=== PATIENT | male | born 1975 | race Asian ===

== ENCOUNTER → 2020-09-13 09:42 | Outpatient (BNVA) | payer OTHER, SELFPAY | PROVIDERS: PCP Internal Medicine; Visit Provider Internal Medicine Endocrinology, Diabetes & Metabolism | DX: E11.65 Type 2 diabetes mellitus with hyperglycemia (principal); E11.21 Type 2 diabetes mellitus with diabetic nephropathy; E11.22 Type 2 diabetes mellitus with diabetic chronic kidney disease; I12.9 Hypertensive chronic kidney disease with stage 1 through stage 4 chronic kidney disease, or unspecified chronic kidney disease; N18.6 End stage renal disease; E66.01 Morbid (severe) obesity due to excess calories; Z68.42 Body mass index [BMI] 45.0-49.9, adult; Z79.4 Long term (current) use of insulin; E78.5 Hyperlipidemia, unspecified; E55.9 Vitamin D deficiency, unspecified | CPT/HCPCS: Q3014 ==

== ENCOUNTER 2021-01-03 08:19 | Outpatient (REF) | payer OTHER, SELFPAY | END 2021-01-03 08:20 | disposition home or self-care (01) | LOC: HO.HOSX 08:19 | PROVIDERS: Visit Provider Physician Assistant | DX: Z13.89 Encounter for screening for other disorder (principal) ==

== ENCOUNTER → 2021-01-24 11:09 | Outpatient (BNVA) | payer OTHER, SELFPAY | PROVIDERS: PCP Internal Medicine; Visit Provider Internal Medicine Endocrinology, Diabetes & Metabolism | DX: E11.65 Type 2 diabetes mellitus with hyperglycemia (principal); E11.21 Type 2 diabetes mellitus with diabetic nephropathy; E11.22 Type 2 diabetes mellitus with diabetic chronic kidney disease; I12.9 Hypertensive chronic kidney disease with stage 1 through stage 4 chronic kidney disease, or unspecified chronic kidney disease; N18.6 End stage renal disease; E66.01 Morbid (severe) obesity due to excess calories; E78.5 Hyperlipidemia, unspecified; E55.9 Vitamin D deficiency, unspecified; Z68.42 Body mass index [BMI] 45.0-49.9, adult; Z79.4 Long term (current) use of insulin | CPT/HCPCS: 82947; 99212 ==

== ENCOUNTER 2021-01-26 11:47 | Outpatient (REF) | payer OTHER, SELFPAY ==
--- NOTE | ~2021-01-26 | XR_ITS ---
EXAMINATION: XR SHOULDER, LEFT CLINICAL INFORMATION: Pain. COMPARISON: None TECHNIQUE: AP external rotation, Grashey, scapular Y, and axillary views of the left shoulder. FINDINGS: Bony alignment and mineralization are normal. The glenohumeral joint is intact. The acromioclavicular and coracoclavicular intervals are normal. There is a distal acromial undersurface osteophyte. No unusual soft tissue calcifications are seen. There is no soft tissue gas or foreign body. No left pneumothorax is seen. XR/XR shoulder LT min 2V IMPRESSION: 1. No fracture or dislocation is seen. 2. There is a distal acromial undersurface osteophyte, which can be seen in association with rotator cuff impingement.
[2021-01-26 14:01] LABS: D Dimer 282 NG/ML
[2021-01-26 14:16] LABS: Cholesterol 110 mg/dL; HDL Cholesterol 35 mg/dL; LDL Cholesterol Calculated 46 mg/dl; Triglycerides 147 mg/dL
[2021-01-26 14:23] LABS: B Type Natriuretic Peptide 38 pg/mL (<100)
[2021-01-26 14:38] LABS: Free T4 (Free Thyroxine) 0.93 ng/dL (0.71-1.85); Thyroid Stimulating Hormone 1.71 uIU/mL (0.32-4.0); Vitamin D 25-OH Total 35.5 ng/mL (>30)
[2021-01-26 14:49] LABS: Erythrocyte Sedimentation Rate 104 MM/HR (0-15)
[2021-01-27 04:16] LABS: LDL Cholesterol Direct 51 mg/dL (<100)
== END 2021-01-26 11:48 | disposition home or self-care (01) ==
LOC: HO.LAB 11:47
PROVIDERS: Absent Provider Internal Medicine Endocrinology, Diabetes & Metabolism; PCP Internal Medicine; Referring Provider Internal Medicine; Visit Provider Nurse Practitioner Family
DX: R07.89 Other chest pain (principal); R06.02 Shortness of breath; I11.0 Hypertensive heart disease with heart failure; N18.6 End stage renal disease; M25.512 Pain in left shoulder; E11.65 Type 2 diabetes mellitus with hyperglycemia; E11.22 Type 2 diabetes mellitus with diabetic chronic kidney disease; E78.5 Hyperlipidemia, unspecified; E66.01 Morbid (severe) obesity due to excess calories; Z68.42 Body mass index [BMI] 45.0-49.9, adult; Z99.2 Dependence on renal dialysis; Z71.3 Dietary counseling and surveillance
CPT/HCPCS: 36415; 73030; 80061; 82306; 83721; 83880; 84439; 84443; 85379; 85652; 93005; 99212

== ENCOUNTER → 2021-02-07 12:25 | Outpatient (BNVA) | payer OTHER, SELFPAY | PROVIDERS: PCP Internal Medicine; Visit Provider Internal Medicine Endocrinology, Diabetes & Metabolism | CPT/HCPCS: Q3014 ==

== ENCOUNTER → 2021-02-22 11:12 | Outpatient (REF) | payer OTHER, SELFPAY ==
--- NOTE | 2021-02-22 11:16 | CA_ITS ---
Transthoracic Echocardiogram Patient (Last, First, Middle): Wai Jones, Gender: Male Date of : 1975 Age: 45 Procedure Date: 02/22/2021 Procedure Type: Transthoracic Echocardiogram Location: OP Height: 182.88 cm Weight: 176.9 kg BSA: 2.83 m2 Heart Rate: bpm BP: 140 / 90 mmHg Greenkeeper: KIERRA Referring MD: Marcy Mora WATCH CRYSTAL MOLDER-[address] Justice: Nikko Deluca MD Symptoms: R07.89 - Other chest pain Study Quality: Technically Difficult ECG Rhythm: Sinus Conclusions: - 1. Technically difficult study to interpret due to limited endocardial definition and evaluation valve 2. Normal LV systolic function with normal diastolic function next 2. Cardiac valves are not well visualized but Doppler within normal limits 3. Pericardium not well visualized Findings Procedure Information Contrast agent, definity, is being given per protocol without apparent complications. The patient receives contrast. Left Ventricle Normal left ventricular size, thickness, and systolic function. The visually estimated ejection fraction is between 55-60%. There is no evidence of regional wall motion abnormalities. Spectral Doppler is indicative of a normal filling pattern. Right Ventricle The right ventricle was not well visualized. Atria The left atrium is normal in size. Interatrial shunt cannot be excluded. The right atrium was not well visualized. Aortic Valve The aortic valve was not well visualized. There is no aortic valve stenosis. There is no aortic valve regurgitation. Mitral Valve The mitral valve was not well visualized. There is trace mitral valve regurgitation. There is no mitral valve stenosis. Pulmonic Valve The pulmonic valve was not well visualized. Tricuspid Valve The tricuspid valve was not well visualized. Tricuspid regurgitation envelope is inadequate for calculation of right ventricular systolic pressure. Great Vessels The aorta was not well visualized. The pulmonary artery was not well visualized. Venous The inferior vena cava was not well visualized. Pericardium/Pleural The pericardium was not well visualized. Prior Study Comparison No significant change compared to prior study dated: 05/17/2019. Measurements M-Mode Liner Measurements Normals - Women/Men AOV Cusps: 2.70 1.5-2.6 cm/m2 2D Linear Measurements IVSd: 0.92 0.6-0.9/0.6-1.0 cm LVIDd: 4.60 3.9-5.3/4.2-5.9 cm LVIDd Index: 1.63 2.4-3.2/2.2-3.1 cm/m2 LVIDs: 3.31 2.0-3.6 cm LVPWd: 1.26 0.7-1.1 cm Ao Root: 3.00 2.1-3.5 cm LA Diam: 2.80 2.7-3.8/3.0-4.0 cm LAIDs Index: 0.99 1.5-2.3 cm/m2 LV Mass: 222.33 67-162/88-224 g LV Mass Index: 78.56 43-95/49-115 g/m2 LVOT Diam: 2.50 3.0+(-)1.3 cm 2D Systolic Function EF 4C: 49.90 >55% EF 2C: 61.30 >55% Mitral Valve MV Pk E: 0.91 MV PK A: 0.47 MV Decel Time: 299.00 E/A: 1.90 E'Lateral: 11.00 E'Medial: 6.09 E/E' Med: 15.00 E/E' Lat: 8.30 PHT: 88.00 MVA PHT: 2.50 Decel Yates: 3.05 Aortic Valve AoV Pk Jarett: 1.33 AoV Mn Jarett: 0.94 AoV VTI: 0.28 AoV Pk Grad: 7.00 Aov Mn Grad: 4.00 JERSON Cont.VTI: 3.36 LVOT LVOT Pk Jarett: 1.00 LVOT Mn Jarett: 0.73 LVOT VTI: 0.19 LVOT Pk Grad: 4.00 LVOT Mn Grad: 2.00 LVOT Diam: 2.50 LVOT Area: 4.91 Diastolic Function MV Pk E: 0.91 MV Pk A: 0.47 E/A: 1.90 E'Medial: 6.09 E/E' Med: 15.00 E' Laterial: 11.00 E/E' Lat: 8.30 Great Vessels Aorta Ao Root-2D: 3.00 2.0-3.7 cm Ao Asc: 3.40 2.1-3.4 cm Pulmonary Valve PV Pk Jarett: 1.26 Peak PV Grad: 6.00 Updated in Other Vendor System with Status of Final Nikko Deluca MD electronically signed on 02/22/2021 3:56:40 PM with status of Final
== END ==
LOC: HO.CARD 11:12
PROVIDERS: Visit Provider Nurse Practitioner Family
DX: R07.89 Other chest pain (principal); R06.02 Shortness of breath
CPT/HCPCS: 93306; Q9957

== ENCOUNTER → 2021-02-28 12:23 | Outpatient (BNVA) | payer OTHER, SELFPAY | PROVIDERS: PCP Internal Medicine; Visit Provider Internal Medicine | DX: R07.2 Precordial pain (principal); E66.01 Morbid (severe) obesity due to excess calories; E11.22 Type 2 diabetes mellitus with diabetic chronic kidney disease; I12.9 Hypertensive chronic kidney disease with stage 1 through stage 4 chronic kidney disease, or unspecified chronic kidney disease; N18.6 End stage renal disease; Z99.2 Dependence on renal dialysis | CPT/HCPCS: 99212 ==

== ENCOUNTER → 2021-04-13 13:36 | Outpatient (BNVA) | payer OTHER, SELFPAY | PROVIDERS: PCP Internal Medicine; Visit Provider Internal Medicine | DX: R07.2 Precordial pain (principal); R55 Syncope and collapse; E11.22 Type 2 diabetes mellitus with diabetic chronic kidney disease; I12.9 Hypertensive chronic kidney disease with stage 1 through stage 4 chronic kidney disease, or unspecified chronic kidney disease; N18.6 End stage renal disease; E66.01 Morbid (severe) obesity due to excess calories; Z99.2 Dependence on renal dialysis | CPT/HCPCS: 93005; 99212 ==

== ENCOUNTER → 2021-05-11 10:48 | Outpatient (BNVA) | payer OTHER, SELFPAY | PROVIDERS: PCP Internal Medicine; Visit Provider Nurse Practitioner Gerontology | DX: E11.65 Type 2 diabetes mellitus with hyperglycemia (principal); E11.21 Type 2 diabetes mellitus with diabetic nephropathy; E11.22 Type 2 diabetes mellitus with diabetic chronic kidney disease; I12.9 Hypertensive chronic kidney disease with stage 1 through stage 4 chronic kidney disease, or unspecified chronic kidney disease; N18.6 End stage renal disease; E66.01 Morbid (severe) obesity due to excess calories; E78.5 Hyperlipidemia, unspecified; E55.9 Vitamin D deficiency, unspecified; Z68.42 Body mass index [BMI] 45.0-49.9, adult | CPT/HCPCS: 82947; 99212 ==

== ENCOUNTER 2021-06-22 22:28 | Emergency (ER) | payer OTHER, SELFPAY ==
--- NOTE | 2021-06-22 22:35 | ECG_ITS ---
Test Reason : CHEST PAIN Blood Pressure : / mmHG Vent. Rate : 069 BPM Atrial Rate : 069 BPM P-R Int : 176 ms QRS Dur : 084 ms QT Int : 418 ms P-R-T Axes : 016 037 041 degrees QTc Int : 447 ms Normal sinus rhythm Possible Early repolarization Normal ECG Premature ventricular complexes is no longer Present Referred By: Emil Lyons Electronically Signed By:MARILEE SEE MD
[2021-06-22 22:51] VITALS: BP 179/87; PULSE 74; RESP 18; TEMP 37.1; O2SAT 97; BMI 51.7
[2021-06-22 23:19] VITALS: BP 183/76; PULSE 68; RESP 18
--- NOTE | 2021-06-23 00:05 | ED.GENADULT ---
HPI - General Adult General Chief complaint: General Medical Stated complaint: Chest pain/High blood pressure Time Seen by Provider: 06/22/21 23:38 Source: patient Mode of arrival: ambulatory Limitations: no limitations History of Present Illness HPI narrative: Patient history of hypertension and sitting of disease on dialysis checked his blood pressure today at 19:30 was 160s/100 took his hydralazine 50 mg on arrival patient's blood pressure was 179/87 repeat blood pressure 136/75 patient was feeling slight palpitation no headache no nausea no vomiting patient will be getting dialysis tomorrow Related Data Home Medications Medication Instructions Recorded Confirmed atorvastatin 10 mg tablet 10 mg PO DAILY 08/08/20 05/18/21 bumetanide 1 mg tablet 2 mg PO DAILY 08/08/20 05/18/21 cyanocobalamin (vitamin B-12) 1,000 mcg PO DAILY 08/08/20 05/18/21 1,000 mcg tablet duloxetine 20 mg capsule,delayed 20 mg PO DAILY 08/08/20 05/18/21 release metoprolol succinate 50 mg 50 mg PO DAILY 08/08/20 05/18/21 tablet,extended release 24 hr omeprazole 40 mg capsule,delayed 40 mg PO DAILY cap 08/08/20 05/18/21 release oxycodone 5 mg tablet 5 mg PO BID PRN 08/08/20 05/18/21 lanthanum 1,000 mg chewable tablet 1,000 mg PO tab 09/13/20 05/18/21 calcitriol 0.5 mcg capsule 1 mcg PO 3XW 01/24/21 05/18/21 gabapentin 300 mg capsule 300 mg PO DAILY 01/24/21 05/18/21 hydralazine 25 mg tablet 25 mg PO BID 01/24/21 05/18/21 sucroferric oxyhydroxide 500 mg 1,000 mg PO TID tab 02/07/21 05/18/21 chewable tablet dextroamphetamine-amphetamine 30 1 tab PO DAILY 04/13/21 05/18/21 mg tablet cinacalcet 30 mg tablet 30 mg PO tab 05/11/21 05/18/21 Previous Rx's Medication Instructions Recorded blood-glucose meter (FreeStyle #1 ea 01/24/21 Lite Meter) lancets 32 gauge (Easy Touch #150 ea 01/24/21 Lancets) blood sugar diagnostic (FreeStyle #150 ea 02/01/21 Lite Strips) Novolin 70-30 FlexPen U-100 See Rx Instructions SUBCUT BID 30 05/11/21 Insulin 100 unit/mL (70-30) Days #45 ml NS subcutaneous (insulin NPH and regular human) amlodipine 10 mg tablet 10 mg PO DAILY #90 tab 05/24/21 Allergies Allergy/AdvReac Type Severity Reaction Status Date / Time theresa Allergy Severe Hives Verified 05/18/21 10:56 shellfish derived Allergy Severe Hives Verified 05/18/21 10:56 Review of Systems Review of Systems: Yes all other systems are reviewed and are negative [facility] Past Medical History Medical History ADHD (attention deficit hyperactivity disorder) Attention deficit hyperactivity disorder (ADHD) Dependence on renal dialysis Diabetes type 2, uncontrolled Diabetic nephropathy associated with type 2 diabetes mellitus Dyslipidemia End stage renal disease ESRD (end stage renal disease) on dialysis Hypertension Left shoulder pain MCC (current) use of insulin Mass of left hand Morbid obesity with BMI of 45.0-49.9, adult Morbid obesity with BMI of 50.0-59.9, adult Type 2 diabetes mellitus with diabetic chronic kidney disease Vitamin D deficiency Surgical History AV fistula Family History Family History Father Diabetes Hypertension Mother Alive and well Sister Diabetes Social History Social History Household Members: None Housing: House Alcohol intake: never Patient Tobacco Use Status: Former Tobacco user Substance Use Type: Crack/Cocaine and Marijuana Advance Directives: No Advance Directives Information Provided: No service: No Current occupational status: disabled Physical Exam Vital Signs: Vital Signs: Last Vital Signs Temp 98.7 F 06/22/21 22:51 Pulse 68 06/22/21 23:19 Resp 18 06/22/21 23:19 BP 150/71 H 06/23/21 00:22 Pulse Ox 97 06/22/21 22:51 Body Mass Index 51.7 Appearance: Alert. Oriented X3. No acute distress. Obese patient ENT: Pharynx normal. Oral Mucosa moist Neck: Normal inspection. Neck supple. CVS: Normal heart rate and rhythm. Pulses normal. Respiratory: No respiratory distress. Equal air entry bilateral, no wheezing/rales/rhonchi Abdomen: Soft and nontender. Bowel sounds are present, no mass palpable, no CVA tenderness Skin: Skin warm and dry. Normal skin color. Normal skin turgor. Extremities: No lower extremity edema. No calf tenderness Neuro: Oriented X 3. Medical Decision Making MDM Narrative Medical decision making narrative: Patient transient hypertension. repeat blood pressure has improved 157/73. Patient advised to follow with PCP and continue his medications ECG Data Attestation: I personally reviewed and interpreted this ECG as follows: Interpretation: Normal sinus rhythm heart rate 69 beats per minute normal intervals normal axis no acute ST T wave changes no acute ischemic Discharge Plan Discharge Clinical Impression: Hypertension Qualifiers: Hypertension type: renovascular hypertension Qualified Code(s): I15.0 - Renovascular hypertension Patient Disposition: Home, Self-Care Instructions: Chronic Hypertension (ED) Additional Instructions: Continue taking medication for blood pressure check blood pressure before taking the medicine and follow with PCP Prescriptions: No Action (DME) FreeStyle Lite Strips Strip See Rx Instructions .ROUTE .MEDSUPPLY Qty: 150 RF: 6 amlodipine 10 mg tablet 10 mg PO DAILY Qty: 90 RF: 1 atorvastatin 10 mg tablet 10 mg PO DAILY RF: 0 metoprolol succinate 50 mg tablet extended release 24 hr 50 mg PO DAILY RF: 0 cyanocobalamin (vitamin B-12) 1,000 mcg tablet 1,000 mcg PO DAILY RF: 0 duloxetine 20 mg capsule,delayed release(DR/EC) 20 mg PO DAILY RF: 0 oxycodone 5 mg tablet 5 mg PO BID PRNRF: 0 bumetanide 1 mg tablet 2 mg PO DAILY RF: 0 omeprazole 40 mg capsule,delayed release(DR/EC) 40 mg PO DAILY RF: 0 lanthanum 1,000 mg tablet,chewable 1,000 mg PO RF: 0 gabapentin 300 mg capsule 300 mg PO DAILY RF: 0 calcitriol 0.5 mcg capsule 1 mcg PO 3XW RF: 0 hydralazine 25 mg tablet 25 mg PO BID RF: 0 (DME) blood-glucose meter [FreeStyle Lite Meter] Kit See Rx Instructions .ROUTE .MEDSUPPLY Qty: 1 RF: 0 (DME) Easy Touch Lancets 32 gauge misc See Rx Instructions .MEDSUPPLY Qty: 150 RF: 6 sucroferric oxyhydroxide 500 mg tablet,chewable 1,000 mg PO TID RF: 0 cinacalcet 30 mg tablet 30 mg PO RF: 0 Novolin 70-30 FlexPen U-100 100 unit/mL (70-30) insulin pen See Rx Instructions subcut BID 30 Days Qty: 45 RF: 6 dextroamphetamine-amphetamine 30 mg tablet 1 tab PO DAILY RF: 0 Discharge Date/Time: 06/23/21 00:34
[2021-06-23 00:22] VITALS: BP 150/71
--- NOTE | 2021-06-23 00:24 | PC.NURSE ---
pt denies sob or chest pain. provider in to assess pt. plan is for pt to be discharged home.
== END 2021-06-23 00:34 | disposition home or self-care (01) ==
PROVIDERS: Emergency Provider Internal Medicine; PCP Internal Medicine
DX: I15.0 Renovascular hypertension (principal); F14.90 Cocaine use, unspecified, uncomplicated; Z87.891 Personal history of nicotine dependence; Z79.899 Other long term (current) drug therapy
CPT/HCPCS: 93005; 99283; 99284

== ENCOUNTER 2021-08-03 13:43 | Outpatient (RCR) | payer OTHER, SELFPAY | END 2021-08-31 15:29 | disposition home or self-care (01) | LOC: HO.WCC 13:43 | PROVIDERS: PCP Internal Medicine; Visit Provider Surgery | DX: E11.628 Type 2 diabetes mellitus with other skin complications (principal); L66.2 Folliculitis decalvans; E11.40 Type 2 diabetes mellitus with diabetic neuropathy, unspecified; I10 Essential (primary) hypertension; Z79.4 Long term (current) use of insulin; Z87.891 Personal history of nicotine dependence | CPT/HCPCS: 99212; 99213 ==

== ENCOUNTER 2022-02-12 13:58 | Outpatient (RCR) | payer OTHER, SELFPAY | END 2022-03-08 14:27 | disposition home or self-care (01) | LOC: HO.WCC 13:58 | PROVIDERS: PCP Internal Medicine; Visit Provider Physician Assistant | DX: L98.411 Non-pressure chronic ulcer of buttock limited to breakdown of skin (principal); L02.31 Cutaneous abscess of buttock; I10 Essential (primary) hypertension; E11.40 Type 2 diabetes mellitus with diabetic neuropathy, unspecified; E11.22 Type 2 diabetes mellitus with diabetic chronic kidney disease; N18.6 End stage renal disease; Z87.891 Personal history of nicotine dependence; Z79.4 Long term (current) use of insulin | CPT/HCPCS: 99212; 99213 ==

== ENCOUNTER → 2022-04-04 09:42 | Outpatient (BNVA) | payer OTHER, SELFPAY | PROVIDERS: PCP Internal Medicine; Visit Provider Surgery | DX: L05.91 Pilonidal cyst without abscess (principal); Z79.899 Other long term (current) drug therapy | CPT/HCPCS: 99212 ==

== ENCOUNTER → 2022-05-18 08:07 | Outpatient (BNVA) | payer OTHER, SELFPAY | PROVIDERS: PCP Internal Medicine; Referring Provider Internal Medicine; Visit Provider Physician Assistant | DX: E66.01 Morbid (severe) obesity due to excess calories (principal); Z68.43 Body mass index [BMI] 50.0-59.9, adult; E11.22 Type 2 diabetes mellitus with diabetic chronic kidney disease; I12.0 Hypertensive chronic kidney disease with stage 5 chronic kidney disease or end stage renal disease; N18.6 End stage renal disease; E78.5 Hyperlipidemia, unspecified; F90.9 Attention-deficit hyperactivity disorder, unspecified type; Z99.2 Dependence on renal dialysis | CPT/HCPCS: 99202; 99212 ==

== ENCOUNTER → 2022-06-07 09:48 | Outpatient (BNVA) | payer OTHER, SELFPAY | PROVIDERS: PCP Internal Medicine; Visit Provider Dietitian, Registered | DX: E66.01 Morbid (severe) obesity due to excess calories (principal); Z68.43 Body mass index [BMI] 50.0-59.9, adult | CPT/HCPCS: 97802 ==

== ENCOUNTER 2022-07-12 16:51 | Outpatient (REF) | payer OTHER, SELFPAY ==
[2022-05-17 09:59] VITALS: BMI 46.3
--- NOTE | 2022-05-18 | ECG_ITS ---
Test Reason : preop Blood Pressure : / mmHG Vent. Rate : 064 BPM Atrial Rate : 064 BPM P-R Int : 166 ms QRS Dur : 084 ms QT Int : 432 ms P-R-T Axes : 046 043 043 degrees QTc Int : 445 ms Normal sinus rhythm Normal ECG When compared with ECG of 22-JUN-2021 22:38, No significant change was found Referred By: Evangelina Simpson Electronically Signed By:VALERIE BLEDSOE
[2022-05-18 13:55] LABS: Hematocrit 31.4 % (42.0-52.0); Hemoglobin 10.1 g/dl (14.0-18.0); Mean Corpuscular HGB Conc 32.2 g/dl (31.0-36.0); Mean Corpuscular Hemoglobin 28.7 pg (27.0-33.0); Mean Corpuscular Volume 89.2 fL (80.0-98.0); Mean Platelet Volume 9.1 fL (9.4-12.4); Platelet Count 370 X10*3/uL (160-400); Red Blood Count 3.52 X10*6/uL (4.60-5.80); Red Cell Distribution Width 13.6 % (11.0-16.0); White Blood Count 12.5 X10*3/uL (4.8-10.8)
[2022-05-18 14:16] LABS: Anion Gap 22 (12-20); Carbon Dioxide 26 mmol/L (22-29); Chloride 96 mmol/L (96-108); Potassium 4.1 mmol/L (3.3-5.1); Sodium 140 mmol/L (135-145)
--- NOTE | 2022-05-21 10:13 | P.CONAN_ITS ---
HPI - Anesthesia Eval Consult details Narrative: 46yo M for Excision Pilonidal Cyst - resched to 06/26/22 ESRD with peritoneal dialysis at home MoTuThFr Social hx states Crack/Cocaine and THC. No positive tox screen on record. ? last used [facility] Active Problems Active Problems: All Active Problems (Updated 05/18/22 @ 10:45 by Evangelina Simpson PA-C) Hypoparathyroidism (Acute) GERD (gastroesophageal reflux disease) (Acute) ALEX on CPAP (Acute) End stage renal disease (Acute) Dependence on renal dialysis (Acute) Attention deficit hyperactivity disorder (ADHD) (Acute) Shortness of breath (Acute) Chest discomfort (Acute) Precordial chest pain (Acute) Morbid obesity due to excess calories (Acute) Essential hypertension (Acute) Type 2 diabetes mellitus with unspecified complications (Acute) ESRD on hemodialysis (Acute) Cervical radiculopathy (Acute) Syncope and collapse (Acute) Bilateral hip pain (Acute) Sacrococcygeal pilonidal cyst (Acute) Morbid obesity with BMI of 50.0-59.9, adult (Acute) Mass of left hand (Acute) Left shoulder pain (Acute) Vitamin D deficiency (Acute) Dyslipidemia (Acute) Hypertension (Acute) 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 (Acute) Diabetic nephropathy associated with type 2 diabetes mellitus (Acute) Morbid obesity with BMI of 45.0-49.9, adult (Acute) Type 2 diabetes mellitus with diabetic chronic kidney disease (Acute) Diabetes type 2, uncontrolled (Acute) ADHD (attention deficit hyperactivity disorder) (Acute) Past Medical History Medical History (Updated 05/18/22 @ 10:45 by Evangelina Simpson PA-C) ADHD (attention deficit hyperactivity disorder) Depression Diabetes type 2, uncontrolled Diabetic nephropathy associated with type 2 diabetes mellitus Dyslipidemia ESRD (end stage renal disease) on dialysis History of COVID-19 Hypertension Left shoulder pain long-term (current) use of insulin Mass of left hand Morbid obesity with BMI of 45.0-49.9, adult Morbid obesity with BMI of 50.0-59.9, adult ALEX on CPAP Sacrococcygeal pilonidal cyst Type 2 diabetes mellitus with diabetic chronic kidney disease Vitamin D deficiency Family History Family History Father Diabetes Hypertension Mother Alive and well Sister Diabetes Surgical History Surgical History AV fistula History of excision of pilonidal cyst Hx of cardiac catheterization Social History Social History Household Members: None Housing: House Are you a primary mall plant caretaker to a significant other at home: No Do you presently have visiting nurse or other home services: No Alcohol intake: never Patient Tobacco Use Status: Former Tobacco user Quit Date: age 32 Tobacco use type: Cigarette Substance Use Type: Crack/Cocaine and Marijuana service: No Current occupational status: disabled Meds Allergies Allergy/AdvReac Type Severity Reaction Status Date / Time theresa Allergy Severe Hives Verified 05/18/22 08:20 shellfish derived Allergy Severe Hives Verified 05/18/22 08:20 Home Medications Medication Instructions Recorded Confirmed Last Taken Type atorvastatin 10 mg tablet 10 mg PO DAILY 08/08/20 05/18/22 Unknown History bumetanide 1 mg tablet 2 mg PO DAILY 08/08/20 05/18/22 Unknown History cyanocobalamin (vitamin B-12) 1,000 mcg PO DAILY 08/08/20 05/18/22 Unknown History 1,000 mcg tablet metoprolol succinate 50 mg 50 mg PO DAILY 08/08/20 05/18/22 Unknown History tablet,extended release 24 hr omeprazole 40 mg capsule,delayed 40 mg PO DAILY 08/08/20 05/18/22 Unknown History release oxycodone 5 mg tablet 5 mg PO BID PRN Pain 08/08/20 05/18/22 Unknown History calcitriol 0.5 mcg capsule 1 mcg PO 4XW 01/24/21 05/18/22 Unknown History gabapentin 300 mg capsule 300 mg PO BEDTIME 01/24/21 05/18/22 Unknown History hydralazine 25 mg tablet 25 mg PO BID 01/24/21 05/18/22 Unknown History sucroferric oxyhydroxide 500 mg 1,000 mg PO TID 02/07/21 05/18/22 Unknown Histor y chewable tablet cinacalcet 30 mg tablet 30 mg PO DAILY 05/11/21 05/18/22 Unknown History Exam Exam Date and Time: May 21, 2022 1013 Height,Weight and Vital Signs: Height 6 ft Weight 155.129 kg Pertinent Lab Results Pertinent Lab Results: Laboratory Tests 05/18/22 05/18/22 13:05 13:05 WBC 12.5 H RBC 3.52 L Hgb 10.1 L Hct 31.4 L MCV 89.2 MCH 28.7 MCHC 32.2 RDW 13.6 Plt Count 370 MPV 9.1 L Absolute Nucleated RBC 0.000 Nucleated RBC % (auto) 0.0 Sodium 140 Potassium 4.1 Chloride 96 Carbon Dioxide 26 Anion Gap 22 H Narrative Narrative: EKG 05/2022 Vent. Rate : 064 BPM ? ? Atrial Rate : 064 BPM ?? P-R Int : 166 ms? QRS Dur : 084 ms ? ? QT Int : 432 ms ? ? ? P-R-T Axes : 046 043 043 degrees ?? QTc Int : 445 ms ? Normal sinus rhythm Normal ECG When compared with ECG of 22-JUN-2021 22:38, No significant change was found Assessment and Plan Assessment Anesthesia Assessment: Chart Reviewed
--- NOTE | 2022-05-22 07:23 | PC.NURSE ---
pt called and cancelled feeling sick dr marina aware and dr funez
--- NOTE | 2022-06-25 09:05 | P.CONAN_ITS ---
HPI - Anesthesia Eval Consult details Narrative: 46yo M for Excision Pilonidal Cyst ESRD with peritoneal dialysis at home MoTuThFr Social hx states Crack/Cocaine and THC. No positive tox screen on record. ? last used [facility] Active Problems Active Problems: All Active Problems (Updated 05/18/22 @ 10:45 by Evangelina Simpson PA-C) Hypoparathyroidism (Acute) GERD (gastroesophageal reflux disease) (Acute) ALEX on CPAP (Acute) End stage renal disease (Acute) Dependence on renal dialysis (Acute) Attention deficit hyperactivity disorder (ADHD) (Acute) Shortness of breath (Acute) Chest discomfort (Acute) Precordial chest pain (Acute) Morbid obesity due to excess calories (Acute) Essential hypertension (Acute) Type 2 diabetes mellitus with unspecified complications (Acute) ESRD on hemodialysis (Acute) Cervical radiculopathy (Acute) Syncope and collapse (Acute) Bilateral hip pain (Acute) Sacrococcygeal pilonidal cyst (Acute) Morbid obesity with BMI of 50.0-59.9, adult (Acute) Mass of left hand (Acute) Left shoulder pain (Acute) Vitamin D deficiency (Acute) Dyslipidemia (Acute) Hypertension (Acute) USP (current) use of insulin (Acute) Diabetic nephropathy associated with type 2 diabetes mellitus (Acute) Morbid obesity with BMI of 45.0-49.9, adult (Acute) Type 2 diabetes mellitus with diabetic chronic kidney disease (Acute) Diabetes type 2, uncontrolled (Acute) ADHD (attention deficit hyperactivity disorder) (Acute) Past Medical History Medical History (Updated 05/18/22 @ 10:45 by Evangelina Simpson PA-C) ADHD (attention deficit hyperactivity disorder) Depression Diabetes type 2, uncontrolled Diabetic nephropathy associated with type 2 diabetes mellitus Dyslipidemia ESRD (end stage renal disease) on dialysis History of COVID-19 Hypertension Left shoulder pain USP (current) use of insulin Mass of left hand Morbid obesity with BMI of 45.0-49.9, adult Morbid obesity with BMI of 50.0-59.9, adult ALEX on CPAP Sacrococcygeal pilonidal cyst Type 2 diabetes mellitus with diabetic chronic kidney disease Vitamin D deficiency Family History Family History Father Diabetes Hypertension Mother Alive and well Sister Diabetes Surgical History Surgical History AV fistula History of excision of pilonidal cyst Hx of cardiac catheterization Social History Social History Household Members: None Housing: House Are you a primary vision care associate to a significant other at home: No Do you presently have visiting nurse or other home services: No Alcohol intake: never Patient Tobacco Use Status: Former Tobacco user Quit Date: age 32 Tobacco use type: Cigarette Substance Use Type: Crack/Cocaine and Marijuana service: No Current occupational status: disabled Meds Allergies Allergy/AdvReac Type Severity Reaction Status Date / Time theresa Allergy Severe Hives Verified 05/18/22 08:20 shellfish derived Allergy Severe Hives Verified 05/18/22 08:20 Home Medications Medication Instructions Recorded Confirmed Last Taken Type atorvastatin 10 mg tablet 10 mg PO DAILY 08/08/20 05/18/22 Unknown History bumetanide 1 mg tablet 2 mg PO DAILY 08/08/20 05/18/22 Unknown History cyanocobalamin (vitamin B-12) 1,000 mcg PO DAILY 08/08/20 05/18/22 Unknown History 1,000 mcg tablet metoprolol succinate 50 mg 50 mg PO DAILY 08/08/20 05/18/22 Unknown History tablet,extended release 24 hr omeprazole 40 mg capsule,delayed 40 mg PO DAILY 08/08/20 05/18/22 Unknown History release oxycodone 5 mg tablet 5 mg PO BID PRN Pain 08/08/20 05/18/22 Unknown History calcitriol 0.5 mcg capsule 1 mcg PO 4XW 01/24/21 05/18/22 Unknown History gabapentin 300 mg capsule 300 mg PO BEDTIME 01/24/21 05/18/22 Unknown History hydralazine 25 mg tablet 25 mg PO BID 01/24/21 05/18/22 Unknown History sucroferric oxyhydroxide 500 mg 1,000 mg PO TID 02/07/21 05/18/22 Unknown History chewable tablet cinacalcet 30 mg tablet 30 mg PO DAILY 05/11/21 05/18/22 Unknown History Exam Exam Date and Time: June 25, 2022905 Height,Weight and Vital Signs: Height 6 ft Weight 155.129 kg Pertinent Lab Results Pertinent Lab Results: Laboratory Tests 05/18/22 05/18/22 13:05 13:05 WBC 12.5 H RBC 3.52 L Hgb 10.1 L Hct 31.4 L MCV 89.2 MCH 28.7 MCHC 32.2 RDW 13.6 Plt Count 370 MPV 9.1 L Absolute Nucleated RBC 0.000 Nucleated RBC % (auto) 0.0 Sodium 140 Potassium 4.1 Chloride 96 Carbon Dioxide 26 Anion Gap 22 H Narrative Narrative: EKG 05/2022 Vent. Rate : 064 BPM ? ? Atrial Rate : 064 BPM ?? P-R Int : 166 ms? QRS Dur : 084 ms ? ? QT Int : 432 ms ? ? ? P-R-T Axes : 046 043 043 degrees ?? QTc Int : 445 ms ? Normal sinus rhythm Normal ECG When compared with ECG of 22-JUN-2021 22:38, No significant change was found Assessment and Plan Assessment Anesthesia Assessment: Chart Reviewed
--- NOTE | 2022-06-26 07:39 | PC.NURSE ---
patient arrival time of 0700. patient not arrived as of 714. call made, no answer and voicemail left. Dr. Damon aware.
== END 2022-07-12 16:52 | disposition home or self-care (01) ==
LOC: HO.PAT 16:51
PROVIDERS: Nurse Practitioner; PCP Internal Medicine; Visit Provider Surgery
DX: Z01.818 Encounter for other preprocedural examination (principal); L05.91 Pilonidal cyst without abscess
CPT/HCPCS: 36415; 80051; 85027; 93005

== ENCOUNTER 2022-09-11 10:41 | Emergency (ER) | payer OTHER, SELFPAY ==
--- NOTE | ~2022-09-11 | CT_ITS ---
EXAMINATION: CT HEAD WITHOUT CONTRAST (STROKE PROTOCOL) CLINICAL INFORMATION: Stroke protocol. AMS, unresponsive. COMPARISON: CT brain 08/25/2019 TECHNIQUE: Contiguous axial imaging was performed from the skull base to vertex without intravenous administration of contrast. This CT examination was performed using dose optimization techniques as appropriate, variously including the following: *Automated exposure control *Adjustment of mA and/or kV according to patient size (this includes techniques or standardized protocols for targeted exams where dose is matched to indication/reason for exam; i.e. extremities or head) *Use of iterative reconstruction technique DLP: 954 mGy-cm FINDINGS: There is no acute intra-axial, extra-axial bleed, masses or midline shift. No acute infarction in evolution. There is no edema. Mild hypodensity seen in both occipital lobes similar previous study 08/25/2019. The camilo to white matter differentiation is maintained normal. The lateral ventricles are symmetrical in size and configuration without enlargement. Bone windows reveal no calvarial abnormality. Bilateral paranasal sinuses and mastoid air cells are well-aerated. CT/CT head for stroke IMPRESSION: 1. No acute intracranial process seen. 2. Mild hypodensity seen in both occipital lobes similar to previous CT exam 08/25/2019. Correlate with clinical exam. This critical result was discussed with Dr. Trinh ames in ED at 11:15 a.M. on 09/11/2022. It was ascertained that the content and urgency of the report was understood at the time of direct communication.
--- NOTE | ~2022-09-11 | XR_ITS ---
EXAMINATION: XR CHEST CLINICAL INFORMATION: Portable upright AP COMPARISON: Chest radiographs 08/30/2019, 08/25/2019 TECHNIQUE: Portable upright AP view of the chest was obtained. FINDINGS: No airspace consolidation or groundglass opacity. The costophrenic sulci are clear. Heart is within normal size. The hilar and mediastinal contours are unremarkable. No visible acute bony abnormality. XR/XR chest 1V IMPRESSION: Unremarkable examination.
--- NOTE | 2022-09-11 10:48 | ECG_ITS ---
Test Reason : WEAKNESS Blood Pressure : / mmHG Vent. Rate : 063 BPM Atrial Rate : 063 BPM P-R Int : 164 ms QRS Dur : 100 ms QT Int : 432 ms P-R-T Axes : 049 048 058 degrees QTc Int : 442 ms Normal sinus rhythm Normal ECG When compared with ECG of 18-MAY-2022 13:01, No significant change was found Referred By: Trinh Miller Electronically Signed By:Axel Charles
--- NOTE | 2022-09-11 10:49 | ED_ITS ---
HPI - General Adult General Chief complaint: Stroke Stated complaint: STROKE ALERT PER EMS Time Seen by Provider: 09/11/22 10:47 Source: patient Mode of arrival: EMS History of Present Illness HPI narrative: 46-year-old male known ESRD with fistula and does home dialysis which is due today is brought in by EMS after he was found unresponsive by a family member. Patient states that he felt fine this morning, drove the kids to school and then said he sat down on the couch in and that was the last thing I remember?. He denies any recent fever, chills, GI or symptoms but states that he ?felt a little dizzy this morning?. Related Data Home Medications Medication Instructions Recorded Confirmed atorvastatin 10 mg tablet 10 mg PO DAILY 08/08/20 08/12/22 bumetanide 1 mg tablet 2 mg PO DAILY 08/08/20 08/12/22 cyanocobalamin (vitamin B-12) 1,000 mcg PO DAILY 08/08/20 08/12/22 1,000 mcg tablet metoprolol succinate 50 mg 50 mg PO DAILY 08/08/20 08/12/22 tablet,extended release 24 hr omeprazole 40 mg capsule,delayed 40 mg PO DAILY 08/08/20 08/12/22 release oxycodone 5 mg tablet 5 mg PO BID PRN Pain 08/08/20 08/12/22 calcitriol 0.5 mcg capsule 1 mcg PO 4XW 01/24/21 08/12/22 gabapentin 300 mg capsule 300 mg PO BEDTIME 01/24/21 08/12/22 hydralazine 25 mg tablet 25 mg PO BID 01/24/21 08/12/22 sucroferric oxyhydroxide 500 mg 1,000 mg PO TID 02/07/21 08/12/22 chewable tablet cinacalcet 30 mg tablet 30 mg PO DAILY 05/11/21 08/12/22 Previous Rx's Medication Instructions Recorded blood-glucose meter (FreeStyle #1 ea 01/24/21 Lite Meter kit) lancets 32 gauge (Easy Touch #150 ea 01/24/21 Lancets) blood sugar diagnostic (FreeStyle #150 ea 09/27/21 Lite Strips) Novolin 70-30 FlexPen U-100 See Rx Instructions subcut BID 30 02/12/22 Insulin 100 unit/mL (70-30) days #45 mL subcutaneous (insulin NPH and regular human) pen needle, diabetic 32 gauge x #200 ea 02/12/22 (BD Ultra-Fine Ciera Pen Needle) amlodipine 10 mg tablet 10 mg PO DAILY #30 tabs 08/23/22 dextroamphetamine-amphetamine 30 30 mg PO DAILY 30 days #30 tabs 08/30/22 mg tablet (Adderall) Allergies Allergy/AdvReac Type Severity Reaction Status Date / Time theresa Allergy Severe Hives Verified 08/12/22 18:34 shellfish derived Allergy Severe Hives Verified 08/12/22 18:34 Review of Systems Review of Systems: Pertinent positives and negatives as stated in HPI [facility] Past Medical History Source: nursing notes reviewed Medical History ADHD (attention deficit hyperactivity disorder) Depression Diabetes type 2, uncontrolled Diabetic nephropathy associated with type 2 diabetes mellitus Dyslipidemia ESRD (end stage renal disease) on dialysis History of COVID-19 Hypertension 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 Mass of left hand Morbid obesity with BMI of 45.0-49.9, adult Morbid obesity with BMI of 50.0-59.9, adult ALEX on CPAP Sacrococcygeal pilonidal cyst Type 2 diabetes mellitus with diabetic chronic kidney disease Vitamin D deficiency Surgical History AV fistula History of excision of pilonidal cyst Hx of cardiac catheterization Family History Family History Father Diabetes Hypertension Mother Alive and well Sister Diabetes Social History Social History Household Members: None Housing: House Are you a primary childcare director to a significant other at home: No Do you presently have visiting nurse or other home services: No Alcohol intake: never Patient Tobacco Use Status: Former Tobacco user Quit Date: age 32 Tobacco use type: Cigarette e-Cigarette/Vaping Use: Never Used Second Hand Smoke Exposure: Yes Substance Use Type: Crack/Cocaine and Marijuana Advance Directives: No Advance Directives Information Provided: Yes service: No Current occupational status: disabled Cognitive needs: Yes (cane) Hearing needs: No Vision needs: Yes (glasses) Physical Exam ED Vital Signs: Vital Signs - 24 hr 09/11/22 10:54 Temperature 98.1 F Pulse Rate 65 Respiratory Rate 19 Blood Pressure 171/77 H Pulse Oximetry 96 Oxygen Delivery Method Room Air BMI result Body Mass Index 52.6 VITAL SIGNS: Reviewed. GENERAL: Well developed, well nourished, in no acute distress. HEAD: Normocephalic/atraumatic EYES: PERRLA, EOMI EARS: Ext canals without abnormality, TMs non-bulging and non-erythematous NOSE: Nares patent bilateral OROPHARYNX: no oral lesions noted, posterior pharynx clear and non-erythematous without noted tonsillar enlargement/erythema/exudates NECK: Supple, no adenopathy LUNGS: Normal breath sounds. No adventitious sounds or accessory muscle use. SpO2<96> CARDIOVASCULAR: Regular rate and rhythm without noted murmurs, no JVD or lower extremity edema. ABDOMEN: Soft, non-tender, non-distended with bowel sounds. MUSCULOSKELETAL: No tenderness, deformities, or effusions noted on gross inspection. EXTREMITIES: No cyanosis, clubbing or edema; LEFT UPPER EXTREMITY: Thrill and bruit are present. Hand is warm SKIN: Inspection of the skin reveals no rashes NEUROLOGIC: Alert and oriented x 4. Strength and sensation to light touch were grossly intact x 4. Medical Decision Making Medical Decision Making [facility] Narrative: 46-year-old male who on initial arrival appeared mildly disoriented, with elevated blood pressure but otherwise stable vital signs. Patient was noted to be nonfocal, but due to medical history proceeded with CT of the head, on my review of the entire workup my interpretation is that patient may have been hypovolemic as he is on fluid restriction because there is no evidence to suggest intracranial pathology, cardiac ischemic event, infection, electrolyte abnormality, the ammonia is within normal limits and viral testing is negative. Patient's creatinine is obviously elevated and he is due for dialysis today. He is discharged with strict return precautions. Differential Diagnosis Differential Diagnoses: The differential diagnosis associated with the presentation includes Please see the discussion above. Lab Data [facility] Lab Attestation statement: I reviewed the patient's lab results. Please see the discussion above 09/11/22 12:17 09/11/22 12:17 Labs: Lab Results 09/11/22 09/11/22 09/11/22 Range/Units 10:54 10:55 11:40 WBC (4.8-10.8) X10*3/uL RBC (4.60-5.80) X10*6/uL Hgb (14.0-18.0) g/dl Hct (42.0-52.0) % MCV (80.0-98.0) fL MCH (27.0-33.0) pg MCHC (31.0-36.0) g/dl RDW (11.0-16.0) % Plt Count (160-400) X10*3/uL MPV (9.4-12.4) fL Immature Gran % (Auto) (0.0-0.4) % Neut % (Auto) (45-73) % Lymph % (Auto) (20-40) % [place] % (Auto) (2-11) % Eos % (Auto) (0-4) % Baso % (Auto) (0-2) % Lymph # (Auto) (1.2-4.9) X10*3/uL [place] # (Auto) (0.1-1.2) X10*3/uL Eos # (Auto) (0.0-0.4) X10*3/uL Baso # (Auto) (0.0-0.2) X10*3/uL Abs Immat Gran (auto) (0.00-0.03) X10*3/uL Absolute Neuts (auto) (2.0-8.3) x10*3/uL Absolute Nucleated RBC (0.0-0.012) X10*3/uL Nucleated RBC % (auto) (0.0-0.2) /100WBC PT (10.0-13.1) SEC Whole Blood PT 13.3 (11.1-13.5) sec INR (0.9-1.1) Whole Blood INR 1.1 (0.9-1.1) Sodium (135-145) mmol/L Potassium (3.3-5.1) mmol/L Chloride (96-108) mmol/L Carbon Dioxide (22-29) mmol/L Anion Gap (12-20) BUN (9-16) mg/dL Creatinine (0.5-1.4) mg/dL Estim Creat Clear Calc Estimated GFR POC Glucose 185 H (60-115) mg/dL Random Glucose (60-115) mg/dL Calcium (8.4-10.2) mg/dL Magnesium (1.6-2.6) mg/dL Total Bilirubin (0.0-1.0) mg/dL AST (5-37) U/L ALT (0-40) U/L Alkaline Phosphatase (39-117) U/L Ammonia (13-55) umol/L Troponin I High Sens (<3.5-35.0) ng/L Total Protein (6.5-8.0) g/dL Albumin (3.5-5.0) g/dL Urine Color Urine Appearance Urine pH (5.0-9.0) Ur Specific [place] (1.005-1.025) Urine Protein (Neg-Trace) mg/dL Urine Glucose (UA) (Negative) mg/dL Urine Ketones (Negative) mg/dL Urine Blood (Negative) Urine Nitrite (Negative) Ur Leukocyte Esterase (Negative) Urine Opiates Screen (Not Detect) Urine Fentanyl Screen (Not Detect) Ur Barbiturates Screen (Not Detect) Ur Phencyclidine Scrn (Not Detect) Ur Amphetamines Screen (Not Detect) U Benzodiazepines Scrn (Not Detect) Urine Cocaine Screen (Not Detect) U Marijuana (THC) Screen (Not Detect) Ethyl Alcohol mg/dL COVID-19 (JAH) (Negative) COVID-19 Clin Com Influenza Type A (JUDIT) Negative (Negative) Influenza Type B (JUDIT) Negative (Negative) Influenza A & B Note See Note 09/11/22 09/11/22 09/11/22 Range/Units 11:40 12:17 12:17 WBC 10.4 (4.8-10.8) X10*3/uL RBC 3.73 L (4.60-5.80) X10*6/uL Hgb 10.2 L (14.0-18.0) g/dl Hct 32.5 L (42.0-52.0) % MCV 87.1 (80.0-98.0) fL MCH 27.3 (27.0-33.0) pg MCHC 31.4 (31.0-36.0) g/dl RDW 14.8 (11.0-16.0) % Plt Count 337 (160-400) X10*3/uL MPV 8.9 L (9.4-12.4) fL Immature Gran % (Auto) 0.5 H (0.0-0.4) % Neut % (Auto) 75.5 H (45-73) % Lymph % (Auto) 15.8 L (20-40) % [place] % (Auto) 5.7 (2-11) % Eos % (Auto) 2.3 (0-4) % Baso % (Auto) 0.2 (0-2) % Lymph # (Auto) 1.6 (1.2-4.9) X10*3/uL [place] # (Auto) 0.6 (0.1-1.2) X10*3/uL Eos # (Auto) 0.2 (0.0-0.4) X10*3/uL Baso # (Auto) 0.0 (0.0-0.2) X10*3/uL Abs Immat Gran (auto) 0.05 H (0.00-0.03) X10*3/uL Absolute Neuts (auto) 7.9 (2.0-8.3) x10*3/uL Absolute Nucleated RBC 0.000 (0.0-0.012) X10*3/uL Nucleated RBC % (auto) 0.0 (0.0-0.2) /100WBC PT (10.0-13.1) SEC Whole Blood PT (11.1-13.5) sec INR (0.9-1.1) Whole Blood INR (0.9-1.1) Sodium 138 (135-145) mmol/L Potassium 4.5 (3.3-5.1) mmol/L Chloride 99 (96-108) mmol/L Carbon Dioxide 25 (22-29) mmol/L Anion Gap 19 (12-20) BUN 64 H (9-16) mg/dL Creatinine 11.85 H* (0.5-1.4) mg/dL Estim Creat Clear Calc 13.1 Estimated GFR 5 POC Glucose (60-115) mg/dL Random Glucose 204 H (60-115) mg/dL Calcium 9.3 (8.4-10.2) mg/dL Magnesium (1.6-2.6) mg/dL Total Bilirubin 0.6 (0.0-1.0) mg/dL AST 12 (5-37) U/L ALT 6 (0-40) U/L Alkaline Phosphatase 485 H (39-117) U/L Ammonia (13-55) umol/L Troponin I High Sens (<3.5-35.0) ng/L Total Protein 8.5 H (6.5-8.0) g/dL Albumin 4.2 (3.5-5.0) g/dL Urine Color Urine Appearance Urine pH (5.0-9.0) Ur Specific [place] (1.005-1.025) Urine Protein (Neg-Trace) mg/dL Urine Glucose (UA) (Negative) mg/dL Urine Ketones (Negative) mg/dL Urine Blood (Negative) Urine Nitrite (Negative) Ur Leukocyte Esterase (Negative) Urine Opiates Screen (Not Detect) Urine Fentanyl Screen (Not Detect) Ur Barbiturates Screen (Not Detect) Ur Phencyclidine Scrn (Not Detect) Ur Amphetamines Screen (Not Detect) U Benzodiazepines Scrn (Not Detect) Urine Cocaine Screen (Not Detect) U Marijuana (THC) Screen (Not Detect) Ethyl Alcohol mg/dL COVID-19 (JAH) Negative (Negative) COVID-19 Clin Com See Note Influenza Type A (JUDIT) (Negative) Influenza Type B (JUDIT) (Negative) Influenza A & B Note 09/11/22 09/11/22 09/11/22 Range/Units 12:17 12:17 12:18 WBC (4.8-10.8) X10*3/uL RBC (4.60-5.80) X10*6/uL Hgb (14.0-18.0) g/dl Hct (42.0-52.0) % MCV (80.0-98.0) fL MCH (27.0-33.0) pg MCHC (31.0-36.0) g/dl RDW (11.0-16.0) % Plt Count (160-400) X10*3/uL MPV (9.4-12.4) fL Immature Gran % (Auto) (0.0-0.4) % Neut % (Auto) (45-73) % Lymph % (Auto) (20-40) % [place] % (Auto) (2-11) % Eos % (Auto) (0-4) % Baso % (Auto) (0-2) % Lymph # (Auto) (1.2-4.9) X10*3/uL [place] # (Auto) (0.1-1.2) X10*3/uL Eos # (Auto) (0.0-0.4) X10*3/uL Baso # (Auto) (0.0-0.2) X10*3/uL Abs Immat Gran (auto) (0.00-0.03) X10*3/uL Absolute Neuts (auto) (2.0-8.3) x10*3/uL Absolute Nucleated RBC (0.0-0.012) X10*3/uL Nucleated RBC % (auto) (0.0-0.2) /100WBC PT 12.2 (10.0-13.1) SEC Whole Blood PT (11.1-13.5) sec INR 1.1 (0.9-1.1) Whole Blood INR (0.9-1.1) Sodium (135-145) mmol/L Potassium (3.3-5.1) mmol/L Chloride (96-108) mmol/L Carbon Dioxide (22-29) mmol/L Anion Gap (12-20) BUN (9-16) mg/dL Creatinine (0.5-1.4) mg/dL Estim Creat Clear Calc Estimated GFR POC Glucose (60-115) mg/dL Random Glucose (60-115) mg/dL Calcium (8.4-10.2) mg/dL Magnesium 2.2 (1.6-2.6) mg/dL Total Bilirubin (0.0-1.0) mg/dL AST (5-37) U/L ALT (0-40) U/L Alkaline Phosphatase (39-117) U/L Ammonia (13-55) umol/L Troponin I High Sens 5.7 (<3.5-35.0) ng/L Total Protein (6.5-8.0) g/dL Albumin (3.5-5.0) g/dL Urine Color Urine Appearance Urine pH (5.0-9.0) Ur Specific [place] (1.005-1.025) Urine Protein (Neg-Trace) mg/dL Urine Glucose (UA) (Negative) mg/dL Urine Ketones (Negative) mg/dL Urine Blood (Negative) Urine Nitrite (Negative) Ur Leukocyte Esterase (Negative) Urine Opiates Screen (Not Detect) Urine Fentanyl Screen (Not Detect) Ur Barbiturates Screen (Not Detect) Ur Phencyclidine Scrn (Not Detect) Ur Amphetamines Screen (Not Detect) U Benzodiazepines Scrn (Not Detect) Urine Cocaine Screen (Not Detect) U Marijuana (THC) Screen (Not Detect) Ethyl Alcohol < 10 mg/dL COVID-19 (JAH) (Negative) COVID-19 Clin Com Influenza Type A (JUDIT) (Negative) Influenza Type B (JUDIT) (Negative) Influenza A & B Note 09/11/22 09/11/22 09/11/22 Range/Units 13:00 14:06 14:06 WBC (4.8-10.8) X10*3/uL RBC (4.60-5.80) X10*6/uL Hgb (14.0-18.0) g/dl Hct (42.0-52.0) % MCV (80.0-98.0) fL MCH (27.0-33.0) pg MCHC (31.0-36.0) g/dl RDW (11.0-16.0) % Plt Count (160-400) X10*3/uL MPV (9.4-12.4) fL Immature Gran % (Auto) (0.0-0.4) % Neut % (Auto) (45-73) % Lymph % (Auto) (20-40) % [place] % (Auto) (2-11) % Eos % (Auto) (0-4) % Baso % (Auto) (0-2) % Lymph # (Auto) (1.2-4.9) X10*3/uL [place] # (Auto) (0.1-1.2) X10*3/uL Eos # (Auto) (0.0-0.4) X10*3/uL Baso # (Auto) (0.0-0.2) X10*3/uL Abs Immat Gran (auto) (0.00-0.03) X10*3/uL Absolute Neuts (auto) (2.0-8.3) x10*3/uL Absolute Nucleated RBC (0.0-0.012) X10*3/uL Nucleated RBC % (auto) (0.0-0.2) /100WBC PT (10.0-13.1) SEC Whole Blood PT (11.1-13.5) sec INR (0.9-1.1) Whole Blood INR (0.9-1.1) Sodium (135-145) mmol/L Potassium (3.3-5.1) mmol/L Chloride (96-108) mmol/L Carbon Dioxide (22-29) mmol/L Anion Gap (12-20) BUN (9-16) mg/dL Creatinine (0.5-1.4) mg/dL Estim Creat Clear Calc Estimated GFR POC Glucose (60-115) mg/dL Random Glucose (60-115) mg/dL Calcium (8.4-10.2) mg/dL Magnesium (1.6-2.6) mg/dL Total Bilirubin (0.0-1.0) mg/dL AST (5-37) U/L ALT (0-40) U/L Alkaline Phosphatase (39-117) U/L Ammonia 36 (13-55) umol/L Troponin I High Sens (<3.5-35.0) ng/L Total Protein (6.5-8.0) g/dL Albumin (3.5-5.0) g/dL Urine Color Yellow Urine Appearance Clear Urine pH 7.5 (5.0-9.0) Ur Specific [place] 1.020 (1.005-1.025) Urine Protein >=1000 (4+) H (Neg-Trace) mg/dL Urine Glucose (UA) 500 H (Negative) mg/dL Urine Ketones Negative (Negative) mg/dL Urine Blood Trace H (Negative) Urine Nitrite Negative (Negative) Ur Leukocyte Esterase Negative (Negative) Urine Opiates Screen Not Detected (Not Detect) Urine Fentanyl Screen Not Detected (Not Detect) Ur Barbiturates Screen Not Detected (Not Detect) Ur Phencyclidine Scrn Not Detected (Not Detect) Ur Amphetamines Screen Not Detected (Not Detect) U Benzodiazepines Scrn Not Detected (Not Detect) Urine Cocaine Screen Not Detected (Not Detect) U Marijuana (THC) Screen Not Detected (Not Detect) Ethyl Alcohol mg/dL COVID-19 (JAH) (Negative) COVID-19 Clin Com Influenza Type A (JUDIT) (Negative) Influenza Type B (JUDIT) (Negative) Influenza A & B Note Independent Interpretation I performed an independent interpretation of an: EKG Interpretation: Normal sinus rhythm, HR-63, no STEMI, MO/QRS/QTC is within normal limits. Radiology Impression Radiologist Impression: My interpretation is in agreement with radiology's impression of the imaging studies. External Record Review External record reviewed: Outpatient record and Prior outpatient labs Chronic Conditions Patient?s care impacted by: Diabetes and Hypertension Critical Care Time Critical Care Time Critical Care Time: Yes Total Critical Care Time: 45 Attestation: I personally attest to this time spent taking care of the patient. Discharge Plan Discharge Clinical Impression: Syncope Patient Disposition: Home, Self-Care Instructions: Syncope (ED) Additional Instructions: You will definitely need to perform your home dialysis as soon as possible today. Resume all home medications as prescribed. Please follow-up with your primary care provider in the next 1-2 days for re- evaluation and further outpatient management. You need to come back into the emergency room should you experience any acute worsening or recurrence of your symptoms. Prescriptions: No Action (DME) FreeStyle Lite Strips Strip See Rx Instructions .ROUTE .MEDSUPPLY Qty: 150 11RF Rx Instructions: 5 times a day Novolin 70-30 FlexPen U-100 100 unit/mL (70-30) insulin pen See Rx Instructions subcut BID 30 Days Qty: 45 4RF Rx Instructions: 75 units before breakfast and 50 units before dinner subcut 2 times a day; (DME) pen needle, diabetic [BD Ultra-Fine Ciera Pen Needle] 32 gauge x 5/32 needle See Rx Instructions .Route Qty: 200 3RF Rx Instructions: As directed twice a day amlodipine 10 mg tablet 10 mg PO DAILY Qty: 30 1RF dextroamphetamine-amphetamine [Adderall] 30 mg tablet 30 mg PO DAILY 30 Days Qty: 30 0RF atorvastatin 10 mg tablet 10 mg PO DAILY metoprolol succinate 50 mg tablet extended release 24 hr 50 mg PO DAILY cyanocobalamin (vitamin B-12) 1,000 mcg tablet 1,000 mcg PO DAILY oxycodone 5 mg tablet 5 mg PO BID PRN (Reason: Pain) bumetanide 1 mg tablet 2 mg PO DAILY omeprazole 40 mg capsule,delayed release(DR/EC) 40 mg PO DAILY gabapentin 300 mg capsule 300 mg PO BEDTIME calcitriol 0.5 mcg capsule 1 mcg PO 4XW hydralazine 25 mg tablet 25 mg PO BID (DME) blood-glucose meter [FreeStyle Lite Meter] Kit See Rx Instructions .ROUTE .MEDSUPPLY Qty: 1 0RF Rx Instructions: 4 times a day (DME) Easy Touch Lancets 32 gauge misc See Rx Instructions .MEDSUPPLY Qty: 150 6RF Rx Instructions: 5 times a day sucroferric oxyhydroxide 500 mg tablet,chewable 1,000 mg PO TID cinacalcet 30 mg tablet 30 mg PO DAILY Referrals: Ovidio العلي MD [Primary Care Provider] -
[2022-09-11 10:54] VITALS: BP 148/84; BP 171/77; PULSE 65; PULSE 70; RESP 19; TEMP 36.7; O2SAT 96; O2SAT 98; BMI 52.6
[2022-09-11 10:58] LABS: Glucose, Whole Blood 185 mg/dL (60-115)
--- NOTE | 2022-09-11 11:15 | PC.NURSE ---
Addendum entered by Hudson Spence RN 09/11/22 11:21: PT A+O ON ARRIVAL TO ED, HE RESPONDS APPROPRIATELY TO QUESTIONS, FOLLOWS COMMANDS APPROPRIATELY. HE DENIES C/P, BASURTO/DIZZINESS/BLURRY VISION. HE REPORTS THAT HE WAS WATCHING TV BUT DOES NOT REMEMBER WHAT HAPPENED. HE REMEMBERS BEING PICKED UP BY AMBULANCE. PT SEEN BY ED DOCTOR AND TAKEN TO CT. AT BEDSIDE. Original Note: PT FOUND UNRESPONSIVE BY FAMILY MEMBER IN LIVING ROOM. PER EMS PT UNRESPONSIVE AND APHASIC ON SCENE, BECAME RESPONSIVE IN ROUTE TO ED. PT A =
[2022-09-11 11:47] LABS: Prothrombin Time Whole Bld POC 13.3 sec (11.1-13.5); ~PT, ~INR - Anti Coag Clinic 1.1 (0.9-1.1)
[2022-09-11 12:16] LABS: COVID-19 Test Negative (Negative); IDNOW Serial# BCCEAD1C
[2022-09-11 12:18] LABS: IDNOW Serial# 9DB6401D; Influenza A Negative (Negative); Influenza B2 Negative (Negative)
[2022-09-11 12:26] LABS: MANUAL DIFF FLAG NO
[2022-09-11 12:30] LABS: Basophils Percent Auto 0.2 % (0-2); Eosinophils Absolute Auto 0.2 X10*3/uL (0.0-0.4); Eosinophils Percent Auto 2.3 % (0-4); Hematocrit 32.5 % (42.0-52.0); Hemoglobin 10.2 g/dl (14.0-18.0); Imm Gran Abs Auto 0.05 X10*3/uL (0.00-0.03); Imm Gran Pct Auto 0.5 % (0.0-0.4); Lymphocytes Absolute Auto 1.6 X10*3/uL (1.2-4.9); Lymphocytes Percent Auto 15.8 % (20-40); Mean Corpuscular HGB Conc 31.4 g/dl (31.0-36.0); Mean Corpuscular Hemoglobin 27.3 pg (27.0-33.0); Mean Corpuscular Volume 87.1 fL (80.0-98.0); Mean Platelet Volume 8.9 fL (9.4-12.4); Monocytes Absolute Auto 0.6 X10*3/uL (0.1-1.2); Monocytes Percent Auto 5.7 % (2-11); Neutrophils Absolute Auto 7.9 x10*3/uL (2.0-8.3); Neutrophils Percent Auto 75.5 % (45-73); Platelet Count 337 X10*3/uL (160-400); Red Blood Count 3.73 X10*6/uL (4.60-5.80); Red Cell Distribution Width 14.8 % (11.0-16.0); White Blood Count 10.4 X10*3/uL (4.8-10.8)
[2022-09-11 12:33] LABS: INTERNATIONAL NORM RATIO 1.1 (0.9-1.1); Prothrombin Time 12.2 SEC (10.0-13.1)
[2022-09-11 12:44] LABS: Ethanol < 10 mg/dL; Magnesium 2.2 mg/dL (1.6-2.6)
[2022-09-11 12:47] LABS: Alanine Aminotransferase 6 U/L (0-40); Albumin Level 4.2 g/dL (3.5-5.0); Alkaline Phosphatase 485 U/L (39-117); Anion Gap 19 (12-20); Aspartate Amino Transferase 12 U/L (5-37); Bilirubin Total 0.6 mg/dL (0.0-1.0); Calcium 9.3 mg/dL (8.4-10.2); Carbon Dioxide 25 mmol/L (22-29); Chloride 99 mmol/L (96-108); Glucose Random 204 mg/dL (60-115); Potassium 4.5 mmol/L (3.3-5.1); Sodium 138 mmol/L (135-145); Total Protein 8.5 g/dL (6.5-8.0)
[2022-09-11 12:53] LABS: Troponin-I High Sensitivity 5.7 ng/L (<3.5-35.0)
[2022-09-11 12:59] LABS: Blood Urea Nitrogen 64 mg/dL (9-16); Creatinine Clr Calc Pharmacy 13.1; Estimated Glomerular Filt Rate 5
[2022-09-11 13:37] LABS: Ammonia 36 umol/L (13-55)
[2022-09-11 14:16] LABS: Appearance Urine Clear; Color Urine Yellow; Glucose Urine UA 500 mg/dL (Negative); Leukocyte Esterase Urine Negative (Negative); Nitrite Urine Negative (Negative); PH 7.5 (5.0-9.0); UMIC TRIGGER UACC YES; Urine Blood Trace (Negative); Urine Ketones Negative (Negative); Urine Protein >=1000 (4+) mg/dL (Neg-Trace)
[2022-09-11 14:26] LABS: Amphetamine Screen Urine Not Detected (Not Detect); Barbiturates, Urine Not Detected (Not Detect); Benzodiazepines Screen Urine Not Detected (Not Detect); Cannabinoid Screen Urine Not Detected (Not Detect); Cocaine Screen Urine Not Detected (Not Detect); Fentanyl, urine Not Detected (Not Detect); Opiate Screen Urine Not Detected (Not Detect); Phencyclidine Screen Urine Not Detected (Not Detect)
[2022-09-11 18:16] LABS: Bacteria Urine None Seen (None Seen); Hyaline Casts Urine 0-2 /LPF (0-2); RBC Urine 0-2 /HPF (0-2); Squamous Epithelial Cell Urine 0-2 /HPF (0-2); WBC Urine 0-5 /HPF (0-5)
== END 2022-09-11 15:20 | disposition home or self-care (01) ==
PROVIDERS: Emergency Provider Student in an Organized Health Care Education/Training Program; PCP Internal Medicine
DX: R55 Syncope and collapse (principal); Z20.822 Contact with and (suspected) exposure to COVID-19; E11.22 Type 2 diabetes mellitus with diabetic chronic kidney disease; I12.0 Hypertensive chronic kidney disease with stage 5 chronic kidney disease or end stage renal disease; N18.6 End stage renal disease; Z99.2 Dependence on renal dialysis; E78.5 Hyperlipidemia, unspecified; F90.9 Attention-deficit hyperactivity disorder, unspecified type; Z87.891 Personal history of nicotine dependence; Z79.02 Long term (current) use of antithrombotics/antiplatelets; Z79.899 Other long term (current) drug therapy; Z79.4 Long term (current) use of insulin
CPT/HCPCS: 36415; 70450; 71045; 80053; 80307; 81001; 82077; 82140; 82947; 83735; 84484; 85025; 85610; 87502; 87635; 93005; 99283; 99284

== ENCOUNTER 2022-12-14 09:19 | Emergency (ER) | payer OTHER, SELFPAY ==
--- NOTE | ~2022-12-14 | US_ITS ---
EXAMINATION: US VENOUS WITH DOPPLER LOWER EXTREMITY, BILATERAL CLINICAL INFORMATION: Swelling and pain COMPARISON: None available. TECHNIQUE: Ultrasound of the deep veins is performed from the hip to the calf with compression sonography and color and pulse Doppler assessment. Spectral analysis with color-flow imaging is performed. FINDINGS: RIGHT: There is normal venous compression and respiratory variation and augmented flow. The visualized common femoral vein, superficial femoral vein, profunda femoral vein, popliteal vein, and the posterior tibial veins shows no evidence of deep venous thrombosis. There is no significant popliteal fossa cyst. LEFT: There is normal venous compression and respiratory variation and augmented flow. The visualized common femoral vein, superficial femoral vein, profunda femoral vein, popliteal vein, and the posterior tibial veins shows no evidence of deep venous thrombosis. There is a prominent varicosity in the left or proximal calf with decreased compression and nonocclusive thrombus suggestive of superficial thrombophlebitis. Reflux is also noted. There is no significant popliteal fossa cyst. Peroneal veins are not well visualized bilaterally. US/US venous duplex LE BI IMPRESSION: No DVT demonstrated in the bilateral lower extremity. Superficial thrombophlebitis in a varicosity in the left or proximal calf. Reflux is also noted. Peroneal veins are not well visualized bilaterally.
[2022-12-14 09:24] VITALS: PULSE 73; RESP 18; TEMP 36.7; O2SAT 97; BMI 37.1
--- NOTE | 2022-12-14 09:36 | ECG_ITS ---
Test Reason : Weakness Blood Pressure : / mmHG Vent. Rate : 062 BPM Atrial Rate : 062 BPM P-R Int : 180 ms QRS Dur : 098 ms QT Int : 446 ms P-R-T Axes : 029 038 039 degrees QTc Int : 452 ms Normal sinus rhythm Normal ECG When compared with ECG of 11-SEP-2022 11:00, No significant change was found Referred By: Kim Briones Electronically Signed By:JAS BRIGHT MD
--- NOTE | 2022-12-14 09:38 | ED.SKABFB ---
HPI - Skin/Abscess/Foreign Bdy General Chief complaint: Skin/Abscess/Foreign Body Stated complaint: Masses on Both Legs Time Seen by Provider: 12/14/22 09:25 Source: patient Mode of arrival: ambulatory Limitations: no limitations History of Present Illness HPI narrative: 46 yo male with history of ESRD on HD for the last 4 years, DM, ALEX, GERD, HTN, ADHD, morbid obesity who presents to the ER from home for evaluation of bilateral tender lumps on the inner portions of his shins that he 1st noticed a couple of weeks ago. He also is feeling run down and weak. He does his HD at home 4x per week. He denies any fever, chills, N/V/D, abd pain, chest pain, urinary symptoms. He reports the lower extremity bumps are deep below the skin, cannot be seen only felt. No redness overlying. They are tender. He is worried about blood clot. MD complaint: lesion Onset (ago): week(s) Tetanus up to date: yes Location: generalized Severity: moderate Quality: aching Pain Consistency: intermittent Relieving factors: none Exacerbating factors: none Associated symptoms: myalgias Treatments prior to arrival: none Related Data Home Medications Medication Instructions Recorded Confirmed atorvastatin 10 mg tablet 10 mg PO DAILY 08/08/20 12/14/22 bumetanide 1 mg tablet 2 mg PO DAILY 08/08/20 12/14/22 cyanocobalamin (vitamin B-12) 1,000 mcg PO DAILY 08/08/20 12/14/22 1,000 mcg tablet metoprolol succinate 50 mg 50 mg PO DAILY 08/08/20 12/14/22 tablet,extended release 24 hr omeprazole 40 mg capsule,delayed 40 mg PO DAILY 08/08/20 12/14/22 release oxycodone 5 mg tablet 5 mg PO BID PRN Pain 08/08/20 12/14/22 calcitriol 0.5 mcg capsule 1 mcg PO 4XW 01/24/21 12/14/22 gabapentin 300 mg capsule 300 mg PO BEDTIME 01/24/21 12/14/22 hydralazine 25 mg tablet 25 mg PO BID 01/24/21 12/14/22 sucroferric oxyhydroxide 500 mg 1,000 mg PO TID 02/07/21 12/14/22 chewable tablet cinacalcet 30 mg tablet 30 mg PO DAILY 05/11/21 12/14/22 Previous Rx's Medication Instructions Recorded blood-glucose meter (FreeStyle #1 ea 01/24/21 Lite Meter kit) lancets 32 gauge (Easy Touch #150 ea 01/24/21 Lancets) pen needle, diabetic 32 gauge x #200 ea 02/12/22 (BD Ultra-Fine Ciera Pen Needle) Novolin 70-30 FlexPen U-100 See Rx Instructions subcut BID 30 09/22/22 Insulin 100 unit/mL (70-30) days #45 mL subcutaneous (insulin NPH and regular human) blood sugar diagnostic (FreeStyle #150 ea 10/22/22 Lite Strips) amlodipine 10 mg tablet 10 mg PO DAILY #30 tabs 11/13/22 dextroamphetamine-amphetamine 30 30 mg PO DAILY 30 days #30 tabs 11/27/22 mg tablet (Adderall) Allergies Allergy/AdvReac Type Severity Reaction Status Date / Time theresa Allergy Severe Hives Verified 12/14/22 08:38 shellfish derived Allergy Severe Hives Verified 12/14/22 08:38 Review of Systems Review of Systems: Yes all other systems are reviewed and are negative [facility] Past Medical History Medical History ADHD (attention deficit hyperactivity disorder) Depression Diabetes type 2, uncontrolled Diabetic nephropathy associated with type 2 diabetes mellitus Dyslipidemia ESRD (end stage renal disease) on dialysis History of COVID-19 Hypertension Left shoulder pain 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 Mass of left hand Morbid obesity with BMI of 45.0-49.9, adult Morbid obesity with BMI of 50.0-59.9, adult ALEX on CPAP Sacrococcygeal pilonidal cyst Type 2 diabetes mellitus with diabetic chronic kidney disease Vitamin D deficiency Surgical History AV fistula History of excision of pilonidal cyst Hx of cardiac catheterization Family History Family History Father Diabetes Hypertension Mother Alive and well Sister Diabetes Social History Social History Household Members: None Housing: House Are you a primary child adolescent care to a significant other at home: No Do you presently have visiting nurse or other home services: No Alcohol intake: never Patient Tobacco Use Status: Former Tobacco user Quit Date: age 32 Tobacco use type: Cigarette Smoked in Last 30 Days: No e-Cigarette/Vaping Use: Never Used Second Hand Smoke Exposure: Yes Use of substances other than those prescribed or required for medical reasons: No Substance Use Type: Crack/Cocaine and Marijuana Advance Directives: Yes Advance Directives Information Provided: Yes Advance Directives on File: No service: No Current occupational status: disabled Cognitive needs: Yes (cane) Hearing needs: No Vision needs: Yes (glasses) Physical Exam Vital Signs: Vital Signs: Last Vital Signs Temp 97.9 F 12/14/22 12:04 Pulse 70 12/14/22 12:04 Resp 11 L 12/14/22 12:04 BP 137/92 H 12/14/22 12:04 Pulse Ox 95 12/14/22 12:04 O2 Del Method Room Air 12/14/22 12:04 BMI result Body Mass Index 37.1 Appearance: Alert. Oriented X3. No acute distress. Head: normocephalic, atraumatic. Eyes: Pupils equal, round and reactive to light. ENT: Pharynx normal. No tonsillar swelling or exudate. Neck: Normal inspection. Neck supple. CVS: Normal heart rate and rhythm. Pulses normal. Respiratory: No respiratory distress. Breath sounds normal. Abdomen: Obese, Soft and nontender. +BS x4 Skin: Skin warm and dry. Normal skin color. Normal skin turgor. No rashes. Extremities: 1+ lower extremity edema. Chronic venous changes to the lower legs, palpable tender venous cord about 1cm in length in the left anterior campos. there are 2 tender, firm lesions on the proximal medial calves about 5cm in length, not erythematous or warm, no fluctuance. fistula in RUE with good thrill Neuro/psych: Oriented X 3. No motor deficit. No sensory deficit. CN II-XII intact. Normal speech and cognition. Medical Decision Making Medical Decision Making MDM Narrative: 46-year-old male with history of end-stage renal disease on dialysis at home 4 times a week, diabetes, obesity, ALEX, HTN, HLD presenting to the ER for evaluation of tender ?lumps? in his lower legs. Unclear what the etiology is. Does not appear to be infected with no overlying skin changes, no erythema or warmth. He is concerned about blood clot so lower extremity ultrasound was performed today showed a superficial thrombophlebitis of a superficial vein on the left anterior campos but did not identify the lumps the patient is describing. Patient stable for discharge home with plan to follow-up with his primary care doctor, will give her referral to vascular for further evaluation as well. Stable for DC. Patient agrees with plan all questions were answered Differential Diagnosis Differential Diagnoses: The differential diagnosis associated with the presentation includes DVT, peripheral vascular disease, lipoma, cyst, abscess, superficial thrombophlebitis Lab Data MDM Lab Attestation statement: I reviewed the patient's lab results. 12/14/22 11:12 12/14/22 11:12 Labs: Lab Results 12/14/22 12/14/22 Range/Units 11:12 11:12 WBC 10.6 (4.8-10.8) X10*3/uL RBC 3.66 L (4.60-5.80) X10*6/uL Hgb 10.1 L (14.0-18.0) g/dl Hct 31.9 L (42.0-52.0) % MCV 87.2 (80.0-98.0) fL MCH 27.6 (27.0-33.0) pg MCHC 31.7 (31.0-36.0) g/dl RDW 14.8 (11.0-16.0) % Plt Count 338 (160-400) X10*3/uL MPV 8.8 L (9.4-12.4) fL Immature Gran % (Auto) 0.7 H (0.0-0.4) % Neut % (Auto) 75.6 H (45-73) % Lymph % (Auto) 15.8 L (20-40) % [place] % (Auto) 5.6 (2-11) % Eos % (Auto) 2.0 (0-4) % Baso % (Auto) 0.3 (0-2) % Lymph # (Auto) 1.7 (1.2-4.9) X10*3/uL [place] # (Auto) 0.6 (0.1-1.2) X10*3/uL Eos # (Auto) 0.2 (0.0-0.4) X10*3/uL Baso # (Auto) 0.0 (0.0-0.2) X10*3/uL Abs Immat Gran (auto) 0.07 H (0.00-0.03) X10*3/uL Absolute Neuts (auto) 8.0 (2.0-8.3) x10*3/uL Absolute Nucleated RBC 0.000 (0.0-0.012) X10*3/uL Nucleated RBC % (auto) 0.0 (0.0-0.2) /100WBC Sodium 142 (135-145) mmol/L Potassium 4.8 (3.3-5.1) mmol/L Chloride 98 (96-108) mmol/L Carbon Dioxide 28 (22-29) mmol/L Anion Gap 21 H (12-20) BUN 47 H (9-16) mg/dL Creatinine 10.11 H* (0.5-1.4) mg/dL Estim Creat Clear Calc 12.6 Estimated GFR 6 Random Glucose 161 H (60-115) mg/dL Calcium 9.3 (8.4-10.2) mg/dL Magnesium 2.1 (1.6-2.6) mg/dL Total Bilirubin 0.8 (0.0-1.0) mg/dL Direct Bilirubin 0.3 (0.0-0.5) mg/dL AST 10 (5-37) U/L ALT 8 (0-40) U/L Alkaline Phosphatase 501 H (39-117) U/L Total Protein 8.1 H (6.5-8.0) g/dL Albumin 4.1 (3.5-5.0) g/dL Independent Interpretation I performed an independent interpretation of an: Ultrasound Interpretation: no DVT noted Radiology Impression Discussion of test interpretation with radiology: I have reviewed the radiologist's reading. Radiologist Impression: ?US/US venous duplex LE BI IMPRESSION: No DVT demonstrated in the bilateral lower extremity. Superficial thrombophlebitis in a varicosity in the left or proximal calf. Reflux is also noted. Peroneal veins are not well visualized bilaterally. External Record Review External record reviewed: Outpatient record, Prior outpatient labs and Prior outpatient radiology Chronic Conditions Patient?s care impacted by: Diabetes and Hypertension Critical Care Time Critical Care Time Critical Care Time: No Discharge Plan Discharge Clinical Impression: Superficial thrombophlebitis Patient Disposition: Home, Self-Care Instructions: Superficial Thrombophlebitis (ED) Additional Instructions: Your lab workup today was unremarkable. Your ultrasound results are below. Recommend following up with vascular for further evaluation - call for an appointment Prescriptions: No Action (DME) pen needle, diabetic [BD Ultra-Fine Ciera Pen Needle] 32 gauge x 5/32 needle See Rx Instructions .Route Qty: 200 3RF Rx Instructions: As directed twice a day Novolin 70-30 FlexPen U-100 100 unit/mL (70-30) insulin pen See Rx Instructions subcut BID 30 Days Qty: 45 4RF Rx Instructions: 75 units before breakfast and 50 units before dinner subcut 2 times a day; (DME) FreeStyle Lite Strips Strip See Rx Instructions .ROUTE .MEDSUPPLY Qty: 150 11RF Rx Instructions: 5 times a day amlodipine 10 mg tablet 10 mg PO DAILY Qty: 30 1RF dextroamphetamine-amphetamine [Adderall] 30 mg tablet 30 mg PO DAILY 30 Days Qty: 30 0RF atorvastatin 10 mg tablet 10 mg PO DAILY metoprolol succinate 50 mg tablet extended release 24 hr 50 mg PO DAILY cyanocobalamin (vitamin B-12) 1,000 mcg tablet 1,000 mcg PO DAILY oxycodone 5 mg tablet 5 mg PO BID PRN (Reason: Pain) bumetanide 1 mg tablet 2 mg PO DAILY omeprazole 40 mg capsule,delayed release(DR/EC) 40 mg PO DAILY gabapentin 300 mg capsule 300 mg PO BEDTIME calcitriol 0.5 mcg capsule 1 mcg PO 4XW hydralazine 25 mg tablet 25 mg PO BID (DME) blood-glucose meter [FreeStyle Lite Meter] Kit See Rx Instructions .ROUTE .MEDSUPPLY Qty: 1 0RF Rx Instructions: 4 times a day (DME) Easy Touch Lancets 32 gauge misc See Rx Instructions .MEDSUPPLY Qty: 150 6RF Rx Instructions: 5 times a day sucroferric oxyhydroxide 500 mg tablet,chewable 1,000 mg PO TID cinacalcet 30 mg tablet 30 mg PO DAILY Referrals: [facility] [place] Vascular Services [Provider Group]
[2022-12-14 09:44] VITALS: BP 109/45; PULSE 65; RESP 18; TEMP 36.8; O2SAT 96
--- NOTE | 2022-12-14 11:12 | PC.NURSE ---
pt AOX3, vitals stable. reporting painful lumps in lower extrem.pedal pulses palpable bilateral, +1. full range of motion. will cont to glen
[2022-12-14 11:19] LABS: MANUAL DIFF FLAG NO
[2022-12-14 11:22] LABS: Basophils Percent Auto 0.3 % (0-2); Eosinophils Absolute Auto 0.2 X10*3/uL (0.0-0.4); Hematocrit 31.9 % (42.0-52.0); Hemoglobin 10.1 g/dl (14.0-18.0); Imm Gran Abs Auto 0.07 X10*3/uL (0.00-0.03); Imm Gran Pct Auto 0.7 % (0.0-0.4); Lymphocytes Absolute Auto 1.7 X10*3/uL (1.2-4.9); Lymphocytes Percent Auto 15.8 % (20-40); Mean Corpuscular HGB Conc 31.7 g/dl (31.0-36.0); Mean Corpuscular Hemoglobin 27.6 pg (27.0-33.0); Mean Corpuscular Volume 87.2 fL (80.0-98.0); Mean Platelet Volume 8.8 fL (9.4-12.4); Monocytes Absolute Auto 0.6 X10*3/uL (0.1-1.2); Monocytes Percent Auto 5.6 % (2-11); Neutrophils Percent Auto 75.6 % (45-73); Platelet Count 338 X10*3/uL (160-400); Red Blood Count 3.66 X10*6/uL (4.60-5.80); Red Cell Distribution Width 14.8 % (11.0-16.0); White Blood Count 10.6 X10*3/uL (4.8-10.8)
[2022-12-14 11:50] LABS: Alanine Aminotransferase 8 U/L (0-40); Albumin Level 4.1 g/dL (3.5-5.0); Alkaline Phosphatase 501 U/L (39-117); Anion Gap 21 (12-20); Aspartate Amino Transferase 10 U/L (5-37); Bilirubin Direct 0.3 mg/dL (0.0-0.5); Bilirubin Total 0.8 mg/dL (0.0-1.0); Blood Urea Nitrogen 47 mg/dL (9-16); Calcium 9.3 mg/dL (8.4-10.2); Carbon Dioxide 28 mmol/L (22-29); Chloride 98 mmol/L (96-108); Creatinine Clr Calc Pharmacy 12.6; Estimated Glomerular Filt Rate 6; Glucose Random 161 mg/dL (60-115); Magnesium 2.1 mg/dL (1.6-2.6); Potassium 4.8 mmol/L (3.3-5.1); Sodium 142 mmol/L (135-145); Total Protein 8.1 g/dL (6.5-8.0)
[2022-12-14 12:04] VITALS: BP 137/92; PULSE 70; RESP 11; TEMP 36.6; O2SAT 95
== END 2022-12-14 13:51 | disposition home or self-care (01) ==
PROVIDERS: Physician Assistant; Emergency Provider Emergency Medicine; PCP Internal Medicine
DX: I80.02 Phlebitis and thrombophlebitis of superficial vessels of left lower extremity (principal); M79.605 Pain in left leg; M79.604 Pain in right leg; E11.22 Type 2 diabetes mellitus with diabetic chronic kidney disease; I12.0 Hypertensive chronic kidney disease with stage 5 chronic kidney disease or end stage renal disease; N18.6 End stage renal disease; Z99.2 Dependence on renal dialysis; E78.5 Hyperlipidemia, unspecified; E66.9 Obesity, unspecified; Z68.37 Body mass index [BMI] 37.0-37.9, adult; Z87.891 Personal history of nicotine dependence; Z79.4 Long term (current) use of insulin; Z79.02 Long term (current) use of antithrombotics/antiplatelets; Z79.899 Other long term (current) drug therapy
CPT/HCPCS: 36415; 80048; 80076; 83735; 85025; 93005; 93970; 99284

== ENCOUNTER 2022-12-25 10:12 | Outpatient (REF) | payer OTHER, SELFPAY ==
--- NOTE | ~2022-12-25 | US_ITS ---
ULTRASOUND SOFT TISSUES LEFT HAND AND BILATERAL CALFS CLINICAL: Palpable lumps in the left hand third and fourth web space, the anteromedial proximal right calf and the anteromedial proximal left calf. TECHNIQUE: Using a linear array transducer with grayscale and color modalities, ultrasound examination is performed of the soft tissues of the left hand, the anteromedial proximal right calf and the anteromedial proximal left calf. FINDINGS: Corresponding with the palpable finding at the left third and fourth web space, a 4 x 2 mm heterogeneously hyperechoic, subcutaneous mass is seen. This shows decreased through sound transmission and no associated color Doppler flow. Corresponding with the palpable finding in the anteromedial proximal right calf, a patent, compressible varicosity is seen arising from the greater saphenous vein. Corresponding with the palpable finding in the anteromedial proximal left calf, a patent, compressible varicosity is seen arising from the greater saphenous vein. US/US extremity nonvascular edwards IMPRESSION: 1. A 4 mm hyperechoic, shadowing subcutaneous mass is seen at the left third and fourth web space. Differential considerations include but are not limited to: lipoma, calcified hemangioma, calcified pilomatricoma, epidermal inclusion cyst or other neoplasm. Consider more complete characterization with MRI. 2. There are patent varicosities within the bilateral calfs, corresponding with palpable findings described by the patient.
== END 2022-12-25 10:13 | disposition home or self-care (01) ==
LOC: HO.HMGCX 10:12
PROVIDERS: PCP Internal Medicine; Visit Provider Nurse Practitioner Family
DX: R22.9 Localized swelling, mass and lump, unspecified (principal)
CPT/HCPCS: 76882

== ENCOUNTER → 2023-02-18 10:19 | Outpatient (BNVA) | payer OTHER, SELFPAY | PROVIDERS: PCP Internal Medicine; Visit Provider Physician Assistant ==

== ENCOUNTER 2023-03-13 14:05 | Outpatient (AMB) | payer OTHER, SELFPAY ==
[2023-03-13 14:06] VITALS: BP 164/81; PULSE 67; TEMP 36.6; O2SAT 96; BMI 48.5
--- NOTE | 2023-03-13 14:06 | MHC.OFFVISWM ---
Intake VS Expanded 03/13/23 14:06 Height 6 ft Weight 357 lb 12.8 oz BMI 48.5 BP 164/81 H Blood Pressure Location Rt brachial Pulse 67 Pulse Source Pulse Oximeter Temp 97.8 F Temperature Source Temporal Artery Scan Pulse Oximetry 96 Oxygen Delivery Method Room Air Body Fat 158.8 Body Fat Percentage 44.4 Free Fat Mass 198.8 Muscle Mass 189.2 Visceral Mass 30.0 Water Mass 146.6 BMR 2,874 Intake Visit Reasons: (OV) Re-Establish BMI 49.1 SWL Allergies theresa Allergy (Severe, Verified 03/13/23 14:08) Hives shellfish derived Allergy (Severe, Verified 03/13/23 14:08) Hives Medication List - Last Reconciled 03/13/23 by Evangelina Simpson PA-C amlodipine 10 mg PO DAILY atorvastatin 10 mg PO DAILY blood sugar diagnostic (FreeStyle Lite Strips) 5 times a day blood-glucose meter (FreeStyle Lite Meter kit) 4 times a day bumetanide 2 mg PO DAILY calcitriol 1 mcg PO 4XW cinacalcet 30 mg PO DAILY cyanocobalamin (vitamin B-12) 1,000 mcg PO DAILY dextroamphetamine-amphetamine 30 mg (Adderall) 30 mg PO DAILY 30 days gabapentin 300 mg PO BEDTIME hydralazine 25 mg PO BID lancets (Easy Touch Lancets) 5 times a day metoprolol succinate ER 50 mg PO DAILY Novolin 70-30 FlexPen U-100 100 unit/mL (70-30) (insulin NPH and regular human) 75 units before breakfast and 50 units before dinner subcut 2 times a day; 30 days NS omeprazole 40 mg PO DAILY oxycodone 5 mg PO BID PRN pen needle, diabetic (BD Ultra-Fine Ciera Pen Needle) As directed twice a day semaglutide (Ozempic) 0.25 mg subcut QWEEK sucroferric oxyhydroxide 1,000 mg PO TID HPI HPI Comments History of Present Illness Details 47 yo male with ESRD on home hemodialyis 4d/week, DM, ALEX now on Ozempic for last 1.5months (lost about 14 kg) from his nephologist returns to our [facility] program for bariatric surgery to remain on kidney translplant list. Needs weight of about 200 lbs. Service Dispatcher - Juan Francisco Urban, [facility], [place] - [phone]. He is pleased about bariatric surgery for him. Wakes at 6:30 pm and bed at 8-9pm Coffee 1/2 cup - black no sugar 11 am - 1 banana or apple 5pm - lots of chicken skinless boneless chicken thighs 3 oz and variety of vegetables - 1.5 cups in total. 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 Mass of left hand Morbid obesity with BMI of 45.0-49.9, adult Morbid obesity with BMI of 50.0-59.9, adult ALEX on CPAP Sacrococcygeal pilonidal cyst Type 2 diabetes mellitus with diabetic chronic kidney disease Vitamin D deficiency Surgical History AV fistula History of excision of pilonidal cyst Hx of cardiac catheterization Family History Father Diabetes Hypertension Mother Alive and well Sister Diabetes Social History (Reviewed 03/13/23 @ 14:09 by Yessenia Smalls [facility]) Household Members: None Housing: House Are you a primary care program director to a significant other at home: No Do you presently have visiting nurse or other home services: No Alcohol intake: never Patient Tobacco Use Status: Former Tobacco user Quit Date: age 32 Tobacco use type: Cigarette e-Cigarette/Vaping Use: Never Used Second Hand Smoke Exposure: Yes Substance Use Type: Crack/Cocaine and Marijuana service: No Current occupational status: disabled Cognitive needs: Yes (cane) Hearing needs: No Vision needs: Yes (glasses) Physical Exam Vital Signs: Last Vital Signs Temp 97.8 F 03/13/23 14:06 Pulse 67 03/13/23 14:06 BP 164/81 H 03/13/23 14:06 Pulse Ox 96 03/13/23 14:06 Oxygen Delivery Method Room Air 03/13/23 14:06 BMI result Body Mass Index 48.5 Assessment & Plan Assessment & Plan (1) Morbid obesity with BMI of 45.0-49.9, adult: Code(s): E66.01 - Morbid (severe) obesity due to excess calories; Z68.42 - Body mass index [BMI] 45.0-49.9, adult Plan: Weight of 384 in May 2022, now 357 lbs. Started on meal plan today and Charline has been consulted to check with his nephrology group to make sure this is appropriate for him. This is a 47 yo man who needs to get below 200 lbs for kidney transplant list who will start SWL program to prepare for bariatric surgery. Blood work, h pylori , CXR, ECG, Abd ULS and UGI have been ordered. He is being scheduled for RD and BH initial consultations. She will start SWL classes and watch at 3 classes before her next appt with Charline. 1. Adequate sleep of 7-8 hours per night discussed, CPAP nightly 2. Healthy meal plan - stop skipping meals All meals/MR's need to take 20 minutes to complete coffee 9 am - 30 gram shake 12 pm - 30 gram shake 3 pm- bar or yogurt 6 pm- dinner of 6 oz lean protein, 6 oz vegetable, 1 serving fruit Exercise - Cardio 5d/week - either LS 2 miles, TBP or walk 2 miles in 40 minutes Pt will purchase body composition analyzer (recommended list given to patient) and weight himself weekly. Next appt with me in 3 weeks. Text me with any questions and weekly weights. Patient is morbidly obese and is not considered stable at this time.?I spent a total of 60 minutes reviewing/updating records, examining the patient and counseling the patient on weight management as detailed above. (2) End stage renal disease: Code(s): N18.6 - End stage renal disease (3) Type 2 diabetes mellitus with unspecified complications: Code(s): E11.8 - Type 2 diabetes mellitus with unspecified complications (4) Essential hypertension: Code(s): I10 - Essential (primary) hypertension (5) ALEX and COPD overlap syndrome: Code(s): G47.33 - Obstructive sleep apnea (adult) (pediatric); J44.9 - Chronic obstructive pulmonary disease, unspecified Coding Level of Care Code Est Pt Level 5 (45183) Diagnoses Morbid obesity with BMI of 45.0-49.9, adult E66.01; Z68.42 End stage renal disease N18.6 Type 2 diabetes mellitus with unspecified complications E11.8 Essential hypertension I10 ALEX and COPD overlap syndrome G47.33; J44.9
== END 2023-03-13 14:56 | disposition home or self-care (01) ==
PROVIDERS: PCP Internal Medicine; Visit Provider Physician Assistant
DX: E66.01 Morbid (severe) obesity due to excess calories (principal); Z68.42 Body mass index [BMI] 45.0-49.9, adult; E11.22 Type 2 diabetes mellitus with diabetic chronic kidney disease; N18.6 End stage renal disease; I12.0 Hypertensive chronic kidney disease with stage 5 chronic kidney disease or end stage renal disease; Z99.2 Dependence on renal dialysis; G47.33 Obstructive sleep apnea (adult) (pediatric); J44.9 Chronic obstructive pulmonary disease, unspecified
CPT/HCPCS: 99215

== ENCOUNTER → 2023-03-13 14:05 | Outpatient (BNVA) | payer OTHER, SELFPAY | PROVIDERS: PCP Internal Medicine; Visit Provider Physician Assistant | DX: E66.01 Morbid (severe) obesity due to excess calories (principal); E11.22 Type 2 diabetes mellitus with diabetic chronic kidney disease; I12.0 Hypertensive chronic kidney disease with stage 5 chronic kidney disease or end stage renal disease; N18.6 End stage renal disease; G47.33 Obstructive sleep apnea (adult) (pediatric); J44.9 Chronic obstructive pulmonary disease, unspecified; Z68.42 Body mass index [BMI] 45.0-49.9, adult | CPT/HCPCS: 99212 ==

== ENCOUNTER 2023-03-27 12:30 | Outpatient (AMB) | payer OTHER, SELFPAY ==
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
== END 2023-03-27 13:22 | disposition home or self-care (01) ==
LOC: HO.HBST 13:19
PROVIDERS: PCP Internal Medicine; Visit Provider Counselor Mental Health
DX: F90.9 Attention-deficit hyperactivity disorder, unspecified type (principal); N18.6 End stage renal disease; E66.01 Morbid (severe) obesity due to excess calories
CPT/HCPCS: 90791

== ENCOUNTER → 2023-03-27 12:30 | Outpatient (BNVA) | payer OTHER, SELFPAY | PROVIDERS: PCP Internal Medicine; Visit Provider Counselor Mental Health ==

== ENCOUNTER 2023-05-08 10:09 | Outpatient (AMB) | payer OTHER, SELFPAY ==
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
== END 2023-05-08 15:34 | disposition home or self-care (01) ==
PROVIDERS: PCP Internal Medicine; Visit Provider Counselor Mental Health
DX: F90.9 Attention-deficit hyperactivity disorder, unspecified type (principal); N18.6 End stage renal disease; E66.01 Morbid (severe) obesity due to excess calories
CPT/HCPCS: 90834

== ENCOUNTER → 2023-05-08 10:09 | Outpatient (BNVA) | payer OTHER, SELFPAY | PROVIDERS: PCP Internal Medicine; Visit Provider Counselor Mental Health ==

== ENCOUNTER 2023-06-19 19:47 | Emergency (ER) | payer OTHER, SELFPAY ==
--- NOTE | ~2023-06-19 | CT_ITS ---
EXAMINATION: CT ABDOMEN AND PELVIS WITHOUT CONTRAST CLINICAL INFORMATION: Diffuse abdominal pain COMPARISON: Previous CT of the abdomen and pelvis June 2019 and abdominal ultrasound April 2020 TECHNIQUE: Multidetector volumetric imaging was performed from the superior aspect of the liver through the pubic symphysis. Sagittal and coronal reformatted images were obtained on the technologist's workstation. This CT examination was performed using dose optimization techniques as appropriate, variously including the following: *Automated exposure control *Adjustment of mA and/or kV according to patient size (this includes techniques or standardized protocols for targeted exams where dose is matched to indication/reason for exam; i.e. extremities or head) *Use of iterative reconstruction technique DLP: 1331 mGy-cm FINDINGS: LUNG BASES: The visualized lung bases are unremarkable. LIVER, GALLBLADDER, AND BILIARY TREE: The liver is enlarged, right lobe measuring 23 cm in length. The gallbladder is upper normal in size. No gallstones. No biliary duct dilatation or focal liver lesion. PANCREAS: Unremarkable. SPLEEN: Calcification probably from old granulomatous disease. ADRENAL GLANDS: Unremarkable. KIDNEYS AND URETERS: The kidneys are small, right kidney measuring 8.6 and left 9.8 cm There are small bilateral renal probably representing vascular lesion stones. No hydronephrosis. BLADDER: Not distended. GASTROINTESTINAL TRACT: The small and large bowel are unremarkable. The appendix is unremarkable. ABDOMINAL WALL: Small umbilical hernia containing fat. LYMPH NODES: Diffuse retroperitoneal adenopathy in the abdomen and pelvis. Largest lymph node is a right common iliac lymph node measuring 1.4 cm in short axis. Periportal and precaval lymphadenopathy. Largest lymph node is a precaval lymph node measuring 1.6 cm in short axis. Small, small bowel mesentery adenopathy. No ascites. Shotty bilateral inguinal lymphadenopathy. VASCULAR: Atherosclerotic disease. No aneurysm. PELVIC VISCERA: Unremarkable. OSSEOUS STRUCTURES: Question increased sclerosis of the bones. Multiple. CT/CT abdomen pelvis wo IV con IMPRESSION: Enlarged liver. Upper normal-size gallbladder. No gallstones. Diffuse lymphadenopathy, largest periportal/precaval and right common iliac/pelvic retroperitoneal lymph nodes. Small kidneys. Question increased sclerosis of the bones. Fleischner guidelines were followed.
[2023-06-19 19:56] VITALS: BP 152/76; PULSE 86; O2SAT 98
[2023-06-19 19:57] VITALS: BP 141/76; PULSE 80; RESP 18; TEMP 36.7; O2SAT 97; BMI 47.5
[2023-06-19 20:18] LABS: MANUAL DIFF FLAG NO
[2023-06-19 20:20] LABS: Basophils Percent Auto 0.3 % (0-2); Eosinophils Absolute Auto 0.1 X10*3/uL (0.0-0.4); Eosinophils Percent Auto 0.6 % (0-4); Hematocrit 34.5 % (42.0-52.0); Hemoglobin 11.3 g/dl (14.0-18.0); Imm Gran Abs Auto 0.09 X10*3/uL (0.00-0.03); Imm Gran Pct Auto 0.6 % (0.0-0.4); Lymphocytes Absolute Auto 1.3 X10*3/uL (1.2-4.9); Lymphocytes Percent Auto 7.9 % (20-40); Mean Corpuscular HGB Conc 32.8 g/dl (31.0-36.0); Mean Corpuscular Hemoglobin 29.3 pg (27.0-33.0); Mean Corpuscular Volume 89.4 fL (80.0-98.0); Mean Platelet Volume 8.5 fL (9.4-12.4); Monocytes Absolute Auto 0.7 X10*3/uL (0.1-1.2); Monocytes Percent Auto 4.4 % (2-11); Neutrophils Absolute Auto 13.6 x10*3/uL (2.0-8.3); Neutrophils Percent Auto 86.2 % (45-73); Platelet Count 369 X10*3/uL (160-400); Red Blood Count 3.86 X10*6/uL (4.60-5.80); Red Cell Distribution Width 13.6 % (11.0-16.0); White Blood Count 15.8 X10*3/uL (4.8-10.8)
--- NOTE | 2023-06-19 20:34 | ECG_ITS ---
Test Reason : NAUSEA Blood Pressure : / mmHG Vent. Rate : 079 BPM Atrial Rate : 079 BPM P-R Int : 166 ms QRS Dur : 084 ms QT Int : 398 ms P-R-T Axes : 007 030 024 degrees QTc Int : 456 ms Normal sinus rhythm Normal ECG No previous ECGs available Referred By: Trinh Miller Electronically Signed By:MARILEE SEE MD
--- NOTE | 2023-06-19 20:36 | ED.NAVMDI ---
HPI - Nausea/Vomiting/Diarrhea General Chief complaint: Nausea/Vomiting/Diarrhea Stated complaint: vomiting & diarrhea after dialysis Time Seen by Provider: 06/19/23 20:00 Source: patient Mode of arrival: EMS History of Present Illness HPI Narrative: This is a 47-year-old male who presents via EMS with a history of ESRD secondary to uncontrolled diabetes and high blood pressure and currently has a left upper extremity AV fistula for which he does home dialysis Saturday/Saturday/Saturday and sometimes Saturday. Patient states that he has been on Ozempic for approximately 3 months and has lost weight and has not had any recent dose changes. Related Data Home Medications Medication Instructions Recorded Confirmed atorvastatin 10 mg tablet 10 mg PO DAILY 08/08/20 03/13/23 bumetanide 1 mg tablet 2 mg PO DAILY 08/08/20 03/13/23 cyanocobalamin (vitamin B-12) 1,000 mcg PO DAILY 08/08/20 03/13/23 1,000 mcg tablet metoprolol succinate 50 mg 50 mg PO DAILY 08/08/20 03/13/23 tablet,extended release 24 hr omeprazole 40 mg capsule,delayed 40 mg PO DAILY 08/08/20 03/13/23 release oxycodone 5 mg tablet 5 mg PO BID PRN Pain 08/08/20 03/13/23 calcitriol 0.5 mcg capsule 1 mcg PO 4XW 01/24/21 03/13/23 gabapentin 300 mg capsule 300 mg PO BEDTIME 01/24/21 03/13/23 hydralazine 25 mg tablet 25 mg PO BID 01/24/21 03/13/23 sucroferric oxyhydroxide 500 mg 1,000 mg PO TID 02/07/21 03/13/23 chewable tablet cinacalcet 30 mg tablet 30 mg PO DAILY 05/11/21 03/13/23 semaglutide 0.25 mg or 0.5 mg (2 0.25 mg subcut QWEEK 03/13/23 03/13/23 mg/3 mL) subcutaneous pen injector (Ozempic) Previous Rx's Medication Instructions Recorded blood-glucose meter (FreeStyle #1 ea 01/24/21 Lite Meter kit) lancets 32 gauge (Easy Touch #150 ea 01/24/21 Lancets) pen needle, diabetic 32 gauge x #200 ea 02/12/22 (BD Ultra-Fine Ciera Pen Needle) blood sugar diagnostic (FreeStyle #150 ea 10/22/22 Lite Strips) amlodipine 10 mg tablet 10 mg PO DAILY #90 tabs 02/15/23 Novolin 70-30 FlexPen U-100 See Rx Instructions subcut BID 30 03/22/23 Insulin 100 unit/mL (70-30) days #45 mL subcutaneous (insulin NPH and regular human) dextroamphetamine-amphetamine 30 30 mg PO DAILY 30 days #30 tabs 05/31/23 mg tablet (Adderall) Allergies Allergy/AdvReac Type Severity Reaction Status Date / Time theresa Allergy Severe Hives Verified 06/19/23 20:01 shellfish derived Allergy Severe Hives Verified 06/19/23 20:01 Review of Systems Review of Systems: Pertinent positives and negatives as stated in HPI [facility] Past Medical History Source: nursing notes reviewed Medical History Depression History of COVID-19 ALEX on CPAP Sacrococcygeal pilonidal cyst ESRD (end stage renal disease) on dialysis Morbid obesity with BMI of 50.0-59.9, adult Mass of left hand Left shoulder pain Vitamin D deficiency Dyslipidemia Hypertension [facility] (current) use of insulin Diabetic nephropathy associated with type 2 diabetes mellitus Morbid obesity with BMI of 45.0-49.9, adult Type 2 diabetes mellitus with diabetic chronic kidney disease Diabetes type 2, uncontrolled ADHD (attention deficit hyperactivity disorder) Surgical History Hx of cardiac catheterization History of excision of pilonidal cyst AV fistula Family History Family History Father Diabetes Hypertension Mother Alive and well Sister Diabetes Social History Social History Household Members: None Housing: House Are you a primary rn primary care to a significant other at home: No Do you presently have visiting nurse or other home services: No Alcohol intake: never Patient Tobacco Use Status: Former Tobacco user Quit Date: age 32 Tobacco use type: Cigarette Smoked in Last 30 Days: No e-Cigarette/Vaping Use: Never Used Second Hand Smoke Exposure: Yes Use of substances other than those prescribed or required for medical reasons: No Substance Use Type: Crack/Cocaine and Marijuana Advance Directives: No Advance Directives Information Provided: Yes service: No Current occupational status: disabled Cognitive needs: Yes (cane) Hearing needs: No Vision needs: Yes (glasses) Physical Exam Vital Signs: Vital Signs: Last Vital Signs Temp 98.1 F 06/19/23 19:57 Pulse 73 06/19/23 22:13 Resp 17 06/19/23 22:13 BP 128/76 06/19/23 22:13 Pulse Ox 97 06/19/23 22:13 O2 Del Method Room Air 06/19/23 22:13 BMI result Body Mass Index 47.5 VITAL SIGNS: Reviewed. GENERAL: Elevated BMI Well developed, well nourished, in no acute distress. HEAD: Normocephalic/atraumatic EYES: PERRLA, EOMI EARS: Ext canals without abnormality NOSE: Nares patent bilateral OROPHARYNX: no oral lesions noted, posterior pharynx clear NECK: Supple, no adenopathy LUNGS: Normal breath sounds. No adventitious sounds or accessory muscle use. SpO2<97> CARDIOVASCULAR: Regular rate and rhythm without noted murmurs ABDOMEN: Soft, diffusely tender, non-distended with bowel sounds. MUSCULOSKELETAL: No tenderness, deformities, or effusions noted on gross inspection. EXTREMITIES: No cyanosis, clubbing or edema. LUE: AV fistula with positive thrill and bruit no overlying erythema or induration SKIN: Inspection of the skin reveals no rashes NEUROLOGIC: Alert and oriented x 3. Strength and sensation to light touch were grossly intact x 4. Medications Administered Discontinued Medications Generic Name Dose Route Start Last Admin Trade Name Freq PRN Reason Stop Dose Admin Sodium Chloride 500 mls @ 999 mls/hr 06/19/23 20:45 06/19/23 21:42 Ns IV 06/19/23 21:15 Infused .Q31M DEMARIO Infusion Ondansetron HCl 4 mg 06/19/23 20:34 06/19/23 20:44 Ondansetron Hcl 4 Mg/2 Ml Vial IVPUSH 06/19/23 20:35 4 mg ONCE ONE Administration Medical Decision Making Medical Decision Making [facility] Narrative: 2039: 47-year-old male with history and clinical presentation, DDX: gastroenteritis, appendicitis, Ozempic side effects, obstruction, diverticulitis, UTI. Patient received 500 cc IV fluids as well as Zofran. I reviewed all investigations and hematologic indices demonstrate a leukocytosis with left shift the patient is afebrile suspect that this is a stress reaction to the nausea and vomiting. There is a stable normocytic anemia and no thrombocytopenia. Chemistry indices are reflective of patient's ESR D on dialysis with a stable ESR D, no electrolyte or liver enzyme abnormalities and states stable/chronic/elevated alkaline phosphatase. CT scan is negative for acute intra-abdominal pathologies. Awaiting urinalysis Signed out to Dr. Lyons. Differential Diagnosis Differential Diagnoses: The differential diagnosis associated with the presentation includes Please see the discussion above Admission/Observation Consideration of admission/observation: Escalation of care including admission/observation considered Please see the discussion above Lab Data MDM Lab Attestation statement: I reviewed the patient's lab results. Please see the discussion above 06/19/23 20:13 06/19/23 20:13 Labs: Lab Results 06/19/23 Range/Units 20:13 WBC 15.8 H (4.8-10.8) X10*3/uL RBC 3.86 L (4.60-5.80) X10*6/uL Hgb 11.3 L (14.0-18.0) g/dl Hct 34.5 L (42.0-52.0) % MCV 89.4 (80.0-98.0) fL MCH 29.3 (27.0-33.0) pg MCHC 32.8 (31.0-36.0) g/dl RDW 13.6 (11.0-16.0) % Plt Count 369 (160-400) X10*3/uL MPV 8.5 L (9.4-12.4) fL Immature Gran % (Auto) 0.6 H (0.0-0.4) % Neut % (Auto) 86.2 H (45-73) % Lymph % (Auto) 7.9 L (20-40) % Butts % (Auto) 4.4 (2-11) % Eos % (Auto) 0.6 (0-4) % Baso % (Auto) 0.3 (0-2) % Lymph # (Auto) 1.3 (1.2-4.9) X10*3/uL Butts # (Auto) 0.7 (0.1-1.2) X10*3/uL Eos # (Auto) 0.1 (0.0-0.4) X10*3/uL Baso # (Auto) 0.0 (0.0-0.2) X10*3/uL Abs Immat Gran (auto) 0.09 H (0.00-0.03) X10*3/uL Absolute Neuts (auto) 13.6 H (2.0-8.3) x10*3/uL Absolute Nucleated RBC 0.000 (0.0-0.012) X10*3/uL Nucleated RBC % (auto) 0.0 (0.0-0.2) /100WBC Sodium 135 (135-145) mmol/L Potassium 3.9 (3.3-5.1) mmol/L Chloride 94 L (96-108) mmol/L Carbon Dioxide 26 (22-29) mmol/L Anion Gap 19 (12-20) BUN 42 H (9-16) mg/dL Creatinine 8.37 H* (0.5-1.4) mg/dL Estim Creat Clear Calc 17.3 Estimated GFR 7 Random Glucose 101 (60-115) mg/dL Calcium 10.8 H D (8.4-10.2) mg/dL Total Bilirubin 0.6 (0.0-1.0) mg/dL Direct Bilirubin 0.3 (0.0-0.5) mg/dL AST 21 (5-37) U/L ALT 17 (0-40) U/L Alkaline Phosphatase 511 H (39-117) U/L Total Protein 9.6 H (6.5-8.0) g/dL Albumin 4.4 (3.5-5.0) g/dL Lipase 71 (8-78) U/L Independent Interpretation I performed an independent interpretation of an: EKG Interpretation: Normal sinus rhythm, HR-79, no STEMI, [place]/QRS/QTC is within normal limits. Radiology Impression Discussion of test interpretation with radiology: I have reviewed the radiologist's reading. Radiologist Impression: Please see the discussion above Chronic Conditions Patient?s care impacted by: Diabetes, Hypertension and Other ESRD Critical Care Time Critical Care Time Critical Care Time: Yes Total Critical Care Time: 45 Attestation: I personally attest to this time spent taking care of the patient. Discharge Plan Discharge Clinical Impression: Nausea & vomiting Patient Disposition: Still a Patient Prescriptions: No Action (DME) pen needle, diabetic [BD Ultra-Fine Ciera Pen Needle] 32 gauge x 5/32 needle See Rx Instructions .Route Qty: 200 3RF Rx Instructions: As directed twice a day (DME) FreeStyle Lite Strips Strip See Rx Instructions .ROUTE .MEDSUPPLY Qty: 150 11RF Rx Instructions: 5 times a day amlodipine 10 mg tablet 10 mg PO DAILY Qty: 90 1RF Novolin 70-30 FlexPen U-100 100 unit/mL (70-30) insulin pen See Rx Instructions subcut BID 30 Days Qty: 45 4RF Rx Instructions: 75 units before breakfast and 50 units before dinner subcut 2 times a day; dextroamphetamine-amphetamine [Adderall] 30 mg tablet 30 mg PO DAILY 30 Days Qty: 30 0RF atorvastatin 10 mg tablet 10 mg PO DAILY metoprolol succinate 50 mg tablet extended release 24 hr 50 mg PO DAILY cyanocobalamin (vitamin B-12) 1,000 mcg tablet 1,000 mcg PO DAILY oxycodone 5 mg tablet 5 mg PO BID PRN (Reason: Pain) bumetanide 1 mg tablet 2 mg PO DAILY omeprazole 40 mg capsule,delayed release(DR/EC) 40 mg PO DAILY gabapentin 300 mg capsule 300 mg PO BEDTIME calcitriol 0.5 mcg capsule 1 mcg PO 4XW hydralazine 25 mg tablet 25 mg PO BID (DME) blood-glucose meter [FreeStyle Lite Meter] Kit See Rx Instructions .ROUTE .MEDSUPPLY Qty: 1 0RF Rx Instructions: 4 times a day (DME) Easy Touch Lancets 32 gauge misc See Rx Instructions .MEDSUPPLY Qty: 150 6RF Rx Instructions: 5 times a day sucroferric oxyhydroxide 500 mg tablet,chewable 1,000 mg PO TID cinacalcet 30 mg tablet 30 mg PO DAILY Ozempic 0.25 mg or 0.5 mg (2 mg/3 mL) pen injector 0.25 mg subcut QWEEK Rx Instructions: for 4 weeks
[2023-06-19] MEDS: ondansetron HCL 4 MG/2 ML VIAL IVPUSH (20:44)
[2023-06-19] MEDS: 0.9 % Sodium Chloride 500 ML 999 ML IV (20:44)
[2023-06-19 20:55] LABS: Alanine Aminotransferase 17 U/L (0-40); Albumin Level 4.4 g/dL (3.5-5.0); Alkaline Phosphatase 511 U/L (39-117); Anion Gap 19 (12-20); Aspartate Amino Transferase 21 U/L (5-37); Bilirubin Direct 0.3 mg/dL (0.0-0.5); Bilirubin Total 0.6 mg/dL (0.0-1.0); Blood Urea Nitrogen 42 mg/dL (9-16); Calcium 10.8 mg/dL (8.4-10.2); Carbon Dioxide 26 mmol/L (22-29); Chloride 94 mmol/L (96-108); Creatinine Clr Calc Pharmacy 17.3; Estimated Glomerular Filt Rate 7; Glucose Random 101 mg/dL (60-115); Lipase 71 U/L (8-78); Potassium 3.9 mmol/L (3.3-5.1); Sodium 135 mmol/L (135-145); Total Protein 9.6 g/dL (6.5-8.0)
[2023-06-19 22:13] VITALS: BP 128/76; PULSE 73; RESP 17; O2SAT 97
[2023-06-19 23:21] LABS: Appearance Urine Cloudy; Color Urine Yellow; Glucose Urine UA 100 mg/dL (Negative); Leukocyte Esterase Urine Small (1+) (Negative); Nitrite Urine Negative (Negative); PH 6.5 (5.0-9.0); Specific Gravity - Urine 1.015 (1.005-1.025); UMIC TRIGGER UACC YES; Urine Blood Trace (Negative); Urine Ketones Negative (Negative); Urine Protein >=1000 (4+) mg/dL (Neg-Trace)
[2023-06-19 23:32] LABS: Bacteria Urine None Seen (None Seen); Hyaline Casts Urine 0-2 /LPF (0-2); RBC Urine 0-2 /HPF (0-2); Squamous Epithelial Cell Urine 0-2 /HPF (0-2); UACC Culture Trigger YES
== END 2023-06-20 00:25 | disposition home or self-care (01) ==
PROVIDERS: Student in an Organized Health Care Education/Training Program; Emergency Provider Internal Medicine; PCP Internal Medicine
DX: R11.2 Nausea with vomiting, unspecified (principal); R19.7 Diarrhea, unspecified; R10.2 Pelvic and perineal pain; E11.9 Type 2 diabetes mellitus without complications; Z87.891 Personal history of nicotine dependence; Z79.899 Other long term (current) drug therapy; Z79.4 Long term (current) use of insulin
CPT/HCPCS: 36415; 74176; 80048; 80076; 81001; 83690; 85025; 87086; 93005; 96361; 96374; 99284; 99285; J2405

== ENCOUNTER 2023-10-09 14:18 | Outpatient (AMB) | payer OTHER, SELFPAY ==
--- NOTE | 2023-10-09 14:23 | MHC.PC.OV ---
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 Accompanied by: Self / Same As Patient Allergies theresa Allergy (Severe, Verified 10/09/23 15:07) Hives shellfish derived Allergy (Severe, Verified 10/09/23 15:07) Hives Medication List - Last Reconciled 10/09/23 by Ovidio العلي MD amlodipine 10 mg PO DAILY atorvastatin 10 mg PO DAILY blood sugar diagnostic (FreeStyle Lite Strips) 5 times a day blood-glucose meter (FreeStyle Lite Meter kit) 4 times a day bumetanide 2 mg PO DAILY calcitriol 1 mcg PO 4XW cinacalcet 30 mg PO DAILY cyanocobalamin (vitamin B-12) 1,000 mcg PO DAILY dextroamphetamine-amphetamine 30 mg (Adderall) 30 mg PO DAILY 30 days gabapentin 300 mg PO BEDTIME hydralazine 25 mg PO BID lancets (Easy Touch Lancets) 5 times a day loperamide (Anti-Diarrheal (loperamide)) 2 mg PO Q6H PRN metoprolol succinate ER 50 mg PO DAILY Novolin 70-30 FlexPen U-100 100 unit/mL (70-30) (insulin NPH and regular human) 75 units before breakfast and 50 units before dinner subcut 2 times a day; 30 days NS omeprazole 40 mg PO DAILY ondansetron 4 mg PO Q6-8H PRN oxycodone 5 mg PO BID PRN pen needle, diabetic (BD Ultra-Fine Ciera Pen Needle) As directed twice a day semaglutide (Ozempic) 0.25 mg subcut QWEEK sucroferric oxyhydroxide 1,000 mg PO TID Tobacco use date assessed: 10/09/23 Dental Screening Dental Screen Date: 10/09/23 Did you have a dental visit in the last 12 months?: No Did you have a dental problem in the last 6 months where you did not have access to dental care?: No Was dental information given to patient?: No HPI medication f/u HPI Details Patient comes in today for his follow up visit - was last seen by me over a year ago on 08/08/2022 via telehealth visit He was recently diagnosed by podiatry with Charcot's joint of the left foot and his left foot was placed in a pneumatic boot by Dr. Galvan while they are currently assessing his treatment options He reports experiencing increasing pain over the back of his ankle, especially with prolonged walking and states that this has been going on for a while now More recently, states that he's had a pilonidal cyst over his lower back at the intergluteal cleft since April 2023 States that he has noticed on and off oozing of some clear drainage from the cyst recently but has not noticed any unsual or foul odor from the drainage Would like to see if he can have this addressed and taken care of more permanently He is currently still on home dialysis 3 times a week and states that he has his labs drawn regularly prior to his dialysis sessions - he thinks that his labs are processed by [facility] States that his HgbA1c was at 7.4% when it was checked prior to his dialysis session a couple of days ago He currently denies any headaches or dizziness Denies any chest pains, no SOB No nausea/vomiting, no abdominal pain No change in bowel habits noted PFSH Medical History Depression History of COVID-19 ALEX on CPAP Sacrococcygeal pilonidal cyst ESRD (end stage renal disease) on dialysis Morbid obesity with BMI of 50.0-59.9, adult Mass of left hand Left shoulder pain Vitamin D deficiency Dyslipidemia Hypertension prison (current) use of insulin Diabetic nephropathy associated with type 2 diabetes mellitus Morbid obesity with BMI of 45.0-49.9, adult Type 2 diabetes mellitus with diabetic chronic kidney disease Diabetes type 2, uncontrolled ADHD (attention deficit hyperactivity disorder) Surgical History Hx of cardiac catheterization History of excision of pilonidal cyst AV fistula Family History Father Diabetes Hypertension Mother Alive and well Sister Diabetes Social History Household Members: None Housing: House Are you a primary primary care coordinator to a significant other at home: No Do you presently have visiting nurse or other home services: No Alcohol intake: never Patient Tobacco Use Status: Former Tobacco user Quit Date: age 32 Tobacco use type: Cigarette e-Cigarette/Vaping Use: Never Used Second Hand Smoke Exposure: Yes Substance Use Type: Crack/Cocaine and Marijuana service: No Current occupational status: disabled Cognitive needs: Yes (cane) Hearing needs: No Vision needs: Yes (glasses) Questionnaire PHQ-9 Over the last 2 weeks, how often have you been bothered by any of the following problems? 1. Little interest or pleasure in doing things: not at all 2. Feeling down, depressed, or hopeless: not at all 3. Trouble falling or staying asleep, or sleeping too much: not at all 4. Feeling tired or having little energy: not at all 5. Poor appetite or overeating: not at all 6. Feeling bad about yourself - or that you are a failure or have let yourself or your family down: not at all 7. Trouble concentrating on things, such as reading the newspaper or watching television: not at all 8. Moving or speaking so slowly that other people could have noticed. Or the opposite - being so fidgety or restless that you have been moving around a lot more than usual: not at all 9. Thoughts that you would be better off or of hurting yourself in some way: not at all Total score: 0 Depression Screening Interpretation: Negative Depression Screening Done: Yes 52830 - PHQ-9 Billing: Yes Source: Developed by Drs. Isac Brizuela, Lu Topete, Fredi Luis and colleagues, with an educational nicky from [employer]. Thrive Questionnaire Date Thrive assessed: 10/09/23 I am a: Patient What is your living situation today?: I have a steady place to live Within the past 12 months, did the food you bought not last and you didn't have the money to get more?: Never true Within the past 12 months, did you worry whether your food would run out before you got money to buy more?: Never true Do you have trouble paying for medicines?: No Do you have trouble getting transportation to medical appointments?: No Do you have trouble paying your heating and electricity bill?: No Do you have trouble taking care of your child, family member or friend?: No Do you have trouble with day-to-day activities such as bathing, preparing meals, shopping, managing finances, etc.?: No Are you currently unemployed and looking for a job?: No Are you interested in more education?: No Please select the resources that you would like help with: None Currently or been in a relationship where the following occur: no concerns reported THRIVE Score: 0 AUDIT C Alcohol Use Questionnaire (AUDIT-C) 1. How often do you have a drink containing alcohol?: Never Total Score: 0 Score Reviewed/Action Taken: Yes STEPHANY-7 AMB Questionnaire STEPHANY-7 Date STEPHANY - 7 assessed: 10/09/23 Feeling nervous, anxious, or on edge: 0 = Not at all Not being able to stop or control worryin = Not at all Worrying too much about different things: 0 = Not at all Trouble relaxin = Not at all Being so restless that it is hard to sit still: 0 = Not at all Becoming easily annoyed or irritable: 0 = Not at all Feeling afraid as if something awful might happen: 0 = Not at all Total STEPHANY-7 score (0-4 normal; 5-9 mild; 10-14 moderate; 15-21 severe): 0 Source: Developed by Drs. Isac Brizuela, Lu Topete, Fredi Luis and colleagues, with an educational nicky from [employer]. STEPHANY-7 Assessment Billing STEPHANY-7 Assessment Tool: STEPHANY-7 Assessment 83530 Review of Systems Const Denies chills, Reports fatigue, Denies fever(s) and Denies headache(s) ENT Denies dysphagia, Denies dizziness, Denies otalgia, Denies headache(s), Reports neck pain (chronic), Denies odynophagia and Denies sore throat Card Denies chest pain, Denies palpitations and Denies dyspnea Resp Denies cough, Denies dyspnea and Denies wheezing GI Denies abdominal pain, Denies constipation, Denies dysphagia, Denies heartburn, Denies diarrhea, Denies nausea, Denies odynophagia and Denies vomiting Denies dysuria, Denies nocturia and Denies urinary frequency Musc Denies back pain, Reports arthralgias (both hips, worse on the right side; left heel) and Reports neck pain (chronic) Skin/Breast Details: (+) draining cyst over his lower back at the intergluteal cleft Denies rash Neuro Denies dizziness and Denies headache(s) Endo Reports fatigue and Denies palpitations Aller/Immun Denies wheezing Physical exam (Primary Care) Vital Signs: Last Vital Signs Pulse 78 10/09/23 14:24 BP 124/82 10/09/23 14:24 Pulse Ox 98 10/09/23 14:24 Oxygen Delivery Method Room Air 10/09/23 14:24 BMI result Body Mass Index 47.5 Tobacco/Smoking Status: Tobacco use Status Tobacco use date assessed 10/09/23 10/09/23 14:25 Patient Tobacco Use Status Former Tobacco user 10/09/23 14:25 Tobacco use type Cigarette 10/09/23 14:25 e-Cigarette/Vaping Use Never Used 10/09/23 14:25 PHQ-9: PHQ-9 Score PHQ-9: Total score 0 10/09/23 15:07 Depression Screening Interpretation: Negative Thrive Assessment: Date of Thrive Assessment Date Thrive assessed 10/09/23 10/09/23 14:25 Currently or been in a relationship where the following occur: no concerns reported Const General: no acute distress and alert HENMT Ears: TM's normal bilaterally and EAC's normal Throat: Yes posterior oropharynx normal and Yes tonsils normal (no TP congestion noted) Neck Neck: Yes no lymphadenopathy and Yes supple Thyroid: Thyroid normal Resp Auscultation: clear to auscultation bilaterally, no rales and no wheezes Cardio Rate: regular rate Rhythm: regular rhythm Heart sounds: no murmurs GI Other: (+) draining cyst over the lower back at the intergluteal cleft Palpation (GI): Soft to palpation and nontender Auscultation: normal bowel sounds General: Yes no CVA tenderness Back/Spine/Pelvis Back: no CVA tenderness Cervical Spine: Cervical spine tenderness Thoracic/Lumbar Spine: No lumbar spinal tenderness Skin Rashes: no rashes Extrem Other: (+) shunt on the left forearm; left foot is currently in a pneumatic boot and cannot be examined General: Yes pedal edema (2+ on the right leg and foot) Assessment and Plan Assessment & Plan (1) Pilonidal cyst: Code(s): L05.91 - Pilonidal cyst without abscess Plan: Will refer him to surgery for further evaluation and management of his pilonidal cyst, which he states has been draining recently (2) Charcot's joint of left foot: Code(s): M14.672 - Charcot's joint, left ankle and foot Plan: Patient's left foot / heel is currently in a pneumatic boot, which was placed by podiatry (Dr. Trena Galvan) while they are assessing his treatment/management options Follow up with podiatry as scheduled (3) Type 2 diabetes mellitus with diabetic chronic kidney disease: Comment: dx ~age 26-does not check glucose at home-taking Novolog 70/30 BID Code(s): E11.22 - Type 2 diabetes mellitus with diabetic chronic kidney disease Qualifiers: Chronic kidney disease stage: on chronic dialysis Diabetes mellitus mcc insulin use: with mcc use Qualified Code(s): E11.22 - Type 2 diabetes mellitus with diabetic chronic kidney disease; N18.6 - End stage renal disease; Z79.4 - ocean transportation intermediary (current) use of insulin; Z99.2 - Dependence on renal dialysis Plan: Patient states that his HgbA1c was at 7.4% when checked a couple of days ago His recorded (in-office) HgbA1c was at 8.5% when it was last checked here in May 2021 - goal is <7.0% Patient has anemia and is on erythropoietin so his HgbA1c is not accurate and may be higher than it actually is Reinforced diabetic diet Continue Novolin 70/30 75 units before breakfast and 50 units before dinner Follow-up with endocrinology as scheduled (4) End stage renal disease: Code(s): N18.6 - End stage renal disease Plan: He currently remains on hemodialysis 3 times a week - does home dialysis Continue Cinacalcet 30 mg QD Follow up with nephrology as scheduled (5) Dependence on renal dialysis: Comment: M-W- Code(s): Z99.2 - Dependence on renal dialysis Plan: Is on (home) hemodialysis 3 times a week (6) Dyslipidemia: Code(s): E78.5 - Hyperlipidemia, unspecified Plan: States that he had his labs drawn a couple of days ago - will try to get [facility] to send over a copy of his lab results [facility] for review Reinforced low cholesterol diet Continue Atorvastatin 10 mg QD Will recheck his labs and fasting lipids in 3 months for follow-up (7) Essential hypertension: Code(s): I10 - Essential (primary) hypertension Plan: Reinforced low-sodium diet - goal is systolic BP of at least 130 mm or less Patient states that his blood pressure is usually normal right after his dialysis and he has not had any hypotensive episodes post dialysis Continue Amlodipine 10 mg QD, Hydralazine 25 mg BID, Metoprolol ER 50 mg QD and Bumetanide 2 mg QD (8) Vitamin D deficiency: Code(s): E55.9 - Vitamin D deficiency, unspecified Plan: Will recheck his Vitamin D level in a few months for follow up (9) Attention deficit hyperactivity disorder (ADHD): Code(s): F90.9 - Attention-deficit hyperactivity disorder, unspecified type Qualifiers: Attention deficit-hyperactivity disorder type: unspecified Qualified Code(s): F90.9 - Attention-deficit hyperactivity disorder, unspecified type Plan: Continue Adderall ER 30 mg QD (10) Morbid obesity with BMI of 50.0-59.9, adult: Code(s): E66.01 - Morbid (severe) obesity due to excess calories; Z68.43 - Body mass index [BMI] 50.0-59.9, adult Plan: Reinforced diet/exercise as tolerated/lose weight Plan Follow up in 3 months Orders: Orders TSH reflex Free T4 3 Months E78.00 - Pure hypercholesterolemia, unspecified UA CC w/rflx Micro + Cult 3 Months R30.0 - Dysuria Vitamin D 25-OH Total 3 Months E55.9 - Vitamin D deficiency, unspecified Complete Blood Count Auto Diff 3 Months D64.9 - Anemia, unspecified Lipid Panel 3 Months E78.00 - Pure hypercholesterolemia, unspecified Comprehensive [place]. Panel Fast 3 Months E78.00 - Pure hypercholesterolemia, unspecified Hemoglobin A1c 3 Months E11.9 - Type 2 diabetes mellitus without complications Vitamin B12 and Folate 3 Months E53.8 - Deficiency of other specified B group vitamins Referrals General Surgery Referral L05.91 - Pilonidal cyst without abscess Coding Level of Care Code Est Pt Level 4 (43703) Diagnoses Pilonidal cyst L05.91 Charcot's joint of left foot M14.672 Type 2 diabetes mellitus with chronic kidney disease on chronic dialysis, with long-term current use of insulin E11.22; N18.6; Z79.4; Z99.2 Chronic kidney disease stage: on chronic dialysis Diabetes mellitus mcc insulin use: with mcc use End stage renal disease N18.6 Dependence on renal dialysis Z99.2 Dyslipidemia E78.5 Essential hypertension I10 Vitamin D deficiency E55.9 Attention deficit hyperactivity disorder (ADHD), unspecified ADHD type F90.9 Attention deficit-hyperactivity disorder type: unspecified Morbid obesity with BMI of 50.0-59.9, adult E66.01; Z68.43 Additional Codes STEPHANY-7 Assessment Billing - STEPHANY-7 Assessment Tool: STEPHANY-7 Assessment 52731 ([id number])
[2023-10-09 14:24] VITALS: BP 124/82; PULSE 78; O2SAT 98; BMI 47.5
== END 2023-10-09 15:19 | disposition home or self-care (01) ==
PROVIDERS: PCP Internal Medicine; Visit Provider Internal Medicine
DX: E11.22 Type 2 diabetes mellitus with diabetic chronic kidney disease (principal); I12.0 Hypertensive chronic kidney disease with stage 5 chronic kidney disease or end stage renal disease; N18.6 End stage renal disease; Z79.4 Long term (current) use of insulin; E66.01 Morbid (severe) obesity due to excess calories; Z99.2 Dependence on renal dialysis; Z68.43 Body mass index [BMI] 50.0-59.9, adult; L05.91 Pilonidal cyst without abscess; M14.672 Charcot's joint, left ankle and foot; E78.5 Hyperlipidemia, unspecified; E55.9 Vitamin D deficiency, unspecified; F90.9 Attention-deficit hyperactivity disorder, unspecified type
CPT/HCPCS: 99214

== ENCOUNTER 2023-10-23 14:37 | Outpatient (AMB) | payer OTHER, SELFPAY ==
--- NOTE | 2023-10-23 14:38 | A.OFFVIS_ITS ---
Intake Vital Signs 10/23/23 14:44 Height 6 ft Weight 368 lb BMI 49.9 BP 134/80 Blood Pressure Location Rt brachial Position Sitting Pulse 86 Intake Visit Reasons: pilonidal cyst Intake Note: Patient referred by PCP Dr. العلي for pilonidal cyst. Patient c/o: lump inner lt buttock, draining. 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 Accompanied by: Self / Same As Patient Allergies theresa Allergy (Severe, Verified 10/23/23 14:42) Hives shellfish derived Allergy (Severe, Verified 10/23/23 14:42) Hives Medication List - Last Reconciled 10/30/23 by Tee Damon MD amlodipine 10 mg PO DAILY atorvastatin 10 mg PO DAILY blood sugar diagnostic (FreeStyle Lite Strips) 5 times a day blood-glucose meter (FreeStyle Lite Meter kit) 4 times a day bumetanide 2 mg PO DAILY calcitriol 1 mcg PO 4XW cinacalcet 30 mg PO DAILY cyanocobalamin (vitamin B-12) 1,000 mcg PO DAILY dextroamphetamine-amphetamine 30 mg (Adderall) 30 mg PO DAILY 30 days gabapentin 300 mg PO BEDTIME hydralazine 25 mg PO BID lancets (Easy Touch Lancets) 5 times a day loperamide (Anti-Diarrheal (loperamide)) 2 mg PO Q6H PRN metoprolol succinate ER 50 mg PO DAILY Novolin 70-30 FlexPen U-100 100 unit/mL (70-30) (insulin NPH and regular human) 75 units before breakfast and 50 units before dinner subcut 2 times a day; 30 days NS omeprazole 40 mg PO DAILY ondansetron 4 mg PO Q6-8H PRN oxycodone 5 mg PO BID PRN pen needle, diabetic (BD Ultra-Fine Ciera Pen Needle) As directed twice a day semaglutide (Ozempic) 0.25 mg subcut QWEEK sucroferric oxyhydroxide 1,000 mg PO TID HPI pilonidal cyst HPI Details 47-year-old male referred for a question of a pilonidal cyst. He apparently had an area of swelling on the side near the tailbone. He had mentioned this to his primary care physician so was referred to me. He says this had a little bit of drainage as well. Currently denies any pain or tenderness. He says that this been dry and has had no drainage. [facility] Medical History (Updated 10/30/23 @ 10:16 by Tee Damon MD) Epidermoid cyst of skin of back Depression History of COVID-19 ALEX on CPAP Sacrococcygeal pilonidal cyst ESRD (end stage renal disease) on dialysis Morbid obesity with BMI of 50.0-59.9, adult Mass of left hand Left shoulder pain Vitamin D deficiency Dyslipidemia Hypertension senior living (current) use of insulin Diabetic nephropathy associated with type 2 diabetes mellitus Morbid obesity with BMI of 45.0-49.9, adult Type 2 diabetes mellitus with diabetic chronic kidney disease Diabetes type 2, uncontrolled ADHD (attention deficit hyperactivity disorder) Surgical History Hx of cardiac catheterization History of excision of pilonidal cyst AV fistula Family History Father Diabetes Hypertension Mother Alive and well Sister Diabetes Social History Household Members: None Housing: House Are you a primary child care leader to a significant other at home: No Do you presently have visiting nurse or other home services: No Alcohol intake: never Patient Tobacco Use Status: Former Tobacco user Quit Date: age 32 Tobacco use type: Cigarette e-Cigarette/Vaping Use: Never Used Second Hand Smoke Exposure: Yes Substance Use Type: Crack/Cocaine and Marijuana service: No Current occupational status: disabled Cognitive needs: Yes (cane) Hearing needs: No Vision needs: Yes (glasses) Review of Systems Const Denies chills and Denies fever(s) Card Denies chest pain, Denies dyspnea and Denies dyspnea on exertion Resp Denies cough, Denies dyspnea and Denies dyspnea on exertion GI Denies hematochezia and Denies change in bowel habits Denies hematuria and Denies difficulty urinating Musc Denies back pain and Denies limited range of motion Neuro Denies focal weakness and Denies convulsions Psych Denies depression and Denies mood swings Physical Exam Vital Signs: Last Vital Signs Pulse 86 10/23/23 14:44 BP 134/80 10/23/23 14:44 BMI result Body Mass Index 49.9 Const Other: Morbidly obese General: comfortable and no acute distress Orientation/consciousness: patient oriented x3 Neck Neck: Yes no lymphadenopathy Resp Auscultation: clear to auscultation bilaterally Cardio Rhythm: regular rhythm GI Palpation (GI): Soft to palpation, nontender and no guarding Back/Spine/Pelvis Other: No obvious palpable mass on the area although with a little bit of induration, no midline pits, no discharge, no fluctuance, no redness, no tenderness Neuro General: patient oriented x3 Assessment & Plan Assessment & Plan (1) Epidermoid cyst of skin of back: Code(s): L72.0 - Epidermal cyst Plan: He has a history of having a lump on the area of the tailbone. Currently, I do not feel this and there was no obvious fluctuance, drainage, or any midline pits. He may have had an epidermal cyst. I told him to come back to the office if this recurs so we can plan on pretreatment. He understands and says he will return to the office down the line. Coding Level of Care Code New Pt Level 3 (45041) Diagnoses Epidermoid cyst of skin of back L72.0
[2023-10-23 14:44] VITALS: BP 134/80; PULSE 86; BMI 49.9
== END 2023-10-23 14:47 | disposition home or self-care (01) ==
PROVIDERS: PCP Internal Medicine; Visit Provider Surgery
DX: L72.0 Epidermal cyst (principal)
CPT/HCPCS: 99213

== ENCOUNTER → 2023-10-23 14:37 | Outpatient (BNVA) | payer OTHER, SELFPAY | PROVIDERS: PCP Internal Medicine; Visit Provider Surgery | DX: L72.0 Epidermal cyst (principal) | CPT/HCPCS: 99212 ==

== ENCOUNTER 2023-11-19 09:30 | Emergency (ER) | payer OTHER, SELFPAY ==
--- NOTE | 2023-11-19 | ECG_ITS ---
Test Reason : CP Blood Pressure : / mmHG Vent. Rate : 084 BPM Atrial Rate : 084 BPM P-R Int : 166 ms QRS Dur : 084 ms QT Int : 378 ms P-R-T Axes : 000 156 154 degrees QTc Int : 446 ms Normal sinus rhythm Left posterior fascicular block Inferior infarct , age undetermined Abnormal ECG When compared with ECG of 19-JUN-2023 20:01, Left posterior fascicular block is now Present Referred By: Generic ED Physician Electronically Signed By:MARY REYES
--- NOTE | ~2023-11-19 | XR_ITS ---
EXAMINATION: XR CHEST CLINICAL INFORMATION: Chest pain COMPARISON: None available. TECHNIQUE: 2 views of the chest were obtained. FINDINGS: No significant abnormality is noted involving the heart, lungs, mediastinum, bony thorax or soft tissues. XR/XR chest 2V IMPRESSION: Unremarkable examination.
--- NOTE | ~2023-11-19 | CT_ITS ---
EXAMINATION: CT ABDOMEN AND PELVIS WITHOUT CONTRAST CLINICAL INFORMATION: Nausea vomiting and diarrhea COMPARISON: CT abdomen pelvis June 19, 2023 TECHNIQUE: Multidetector volumetric imaging was performed from the superior aspect of the liver through the pubic symphysis. Sagittal and coronal reformatted images were obtained on the technologist's workstation. This CT examination was performed using dose optimization techniques as appropriate, variously including the following: *Automated exposure control *Adjustment of mA and/or kV according to patient size (this includes techniques or standardized protocols for targeted exams where dose is matched to indication/reason for exam; i.e. extremities or head) *Use of iterative reconstruction technique DLP: 1234 mGy-cm FINDINGS: LUNG BASES: The visualized lung bases are unremarkable. LIVER, GALLBLADDER, AND BILIARY TREE: Mild hepatomegaly. Right lobe of liver measures 23 cm superior-inferior. This is unchanged since prior CAT scan of 2022. No focal liver lesion or intrahepatic bile duct dilatation. The gallbladder is unremarkable with no evidence of radiopaque gallstones, gallbladder wall thickening, or obvious pericholecystic inflammatory changes. PANCREAS: Unremarkable. SPLEEN: Calcified granuloma in the spleen. ADRENAL GLANDS: Unremarkable. KIDNEYS AND URETERS: Mild diffuse bilateral renal atrophy. Right kidney measures 9.9 cm. Left kidney measures 8.6. This is unchanged since CAT scan of June 19, 2023. No renal or ureteral calculus. There are vascular calcifications of the renal arteries. BLADDER: Unremarkable. GASTROINTESTINAL TRACT: There are scattered diverticula of the sigmoid colon. There is no diverticulitis. There is no bowel wall thickening /edema. There is no bowel obstruction. There is a moderate volume of stool in the colon. The appendix is normal . The small bowel loops are unremarkable. The stomach is normal. There is no hiatal hernia. ABDOMINAL WALL: Small fat-containing umbilical hernia. LYMPH NODES: Redemonstration of retroperitoneal and pelvic lymphadenopathy. Largest lymph node measuring 1.4 cm of the right common iliac chain unchanged since CAT scan June 19, 2023. Periaortic and pericaval lymph nodes in the retroperitoneum are subcentimeter, largest measuring 0.9 cm. VASCULAR: Scattered vascular calcifications of the wall of aorta and iliac arteries. There is no aneurysm. PELVIC VISCERA: Unremarkable. OSSEOUS STRUCTURES: No acute osseous abnormality. Schmorl's nodes at the endplates of multiple vertebrae. Diffuse generalized increased osseous sclerosis of the bone similar prior CAT scan. CT/CT abdomen pelvis wo IV con IMPRESSION: 1. No acute abnormality CT scan abdomen pelvis. 2. Mild hepatomegaly. 3. Mild diffuse bilateral renal atrophy. 4. Retroperitoneal and pelvic lymphadenopathy unchanged since CAT scan June 19, 2023. 5. Diverticulosis of colon. No acute abnormality of the bowel. Fleischner guidelines were followed.
[2023-11-19 09:31] VITALS: BP 144/85; PULSE 89; RESP 20; TEMP 37; O2SAT 97; BMI 57.0
[2023-11-19 10:11] LABS: MANUAL DIFF FLAG NO
[2023-11-19 10:14] LABS: Basophils Percent Auto 0.2 % (0-2); Eosinophils Absolute Auto 0.2 X10*3/uL (0.0-0.4); Eosinophils Percent Auto 1.5 % (0-4); Hematocrit 34.6 % (42.0-52.0); Hemoglobin 11.6 g/dl (14.0-18.0); Imm Gran Abs Auto 0.06 X10*3/uL (0.00-0.03); Imm Gran Pct Auto 0.5 % (0.0-0.4); Lymphocytes Absolute Auto 1.4 X10*3/uL (1.2-4.9); Lymphocytes Percent Auto 10.5 % (20-40); Mean Corpuscular HGB Conc 33.5 g/dl (31.0-36.0); Mean Corpuscular Hemoglobin 30.2 pg (27.0-33.0); Mean Corpuscular Volume 90.1 fL (80.0-98.0); Mean Platelet Volume 8.7 fL (9.4-12.4); Monocytes Absolute Auto 0.6 X10*3/uL (0.1-1.2); Monocytes Percent Auto 4.4 % (2-11); Neutrophils Absolute Auto 10.6 x10*3/uL (2.0-8.3); Neutrophils Percent Auto 82.9 % (45-73); Platelet Count 397 X10*3/uL (160-400); Red Blood Count 3.84 X10*6/uL (4.60-5.80); Red Cell Distribution Width 13.5 % (11.0-16.0); White Blood Count 12.8 X10*3/uL (4.8-10.8)
[2023-11-19 10:17] LABS: INTERNATIONAL NORM RATIO 1.1 (0.9-1.1); Prothrombin Time 13.7 SEC (11.1-13.3)
[2023-11-19 10:52] LABS: Influenza A PCR NEGATIVE (Negative); Influenza B PCR NEGATIVE (Negative); Resp Syncy Virus RNA Qual PCR NEGATIVE (Negative); SARS COV2 PCR INHOUSE NEGATIVE (Negative)
[2023-11-19 10:52] LABS: Alanine Aminotransferase 8 U/L (0-40); Albumin Level 4.2 g/dL (3.5-5.0); Alkaline Phosphatase 648 U/L (39-117); Anion Gap 23 (12-20); Aspartate Amino Transferase 11 U/L (5-37); Bilirubin Total 0.7 mg/dL (0.0-1.0); Blood Urea Nitrogen 59 mg/dL (9-16); Calcium 10.3 mg/dL (8.4-10.2); Carbon Dioxide 24 mmol/L (22-29); Chloride 94 mmol/L (96-108); Creatinine Clr Calc Pharmacy 12.2; Estimated Glomerular Filt Rate 5; Glucose Random 192 mg/dL (60-115); Potassium 4.8 mmol/L (3.3-5.1); Sodium 136 mmol/L (135-145); Total Protein 9.3 g/dL (6.5-8.0)
--- NOTE | 2023-11-19 12:51 | ED_ITS ---
HPI - General Adult General Chief complaint: General Medical Stated complaint: ESRF Chest Pain Vomiting Time Seen by Provider: 11/19/23 12:51 History of Present Illness HPI narrative: 47 y/o M patient; PMH ALEX, COPD, hypoparathyroidism, GERD, ESRD on dialysis M/W/F, HTN, HLD, morbid obesity; presents from home with report of one day of nausea/vomiting/diarrhea. He states his nausea/vomiting resolved by 330am. He has not tried to eat since. He has not had a normal bowel movement yet. His symptoms have been associated with left-sided chest discomfort which was primarily what brought him to the emergency department. He did have dialysis on Saturday11/18/2023 as scheduled. The patient denies focal abdominal pain. He denies fever or chills. The patient is currently taking Ozempic but denies any changes in his dosing, he also did not take the injection this week as he is pending a parathyroidectomy this week. Related Data Home Medications Medication Instructions Recorded Confirmed atorvastatin 10 mg tablet 10 mg PO DAILY 08/08/20 10/30/23 bumetanide 1 mg tablet 2 mg PO DAILY 08/08/20 10/30/23 cyanocobalamin (vitamin B-12) 1,000 mcg PO DAILY 08/08/20 10/30/23 1,000 mcg tablet metoprolol succinate 50 mg 50 mg PO DAILY 08/08/20 10/30/23 tablet,extended release 24 hr omeprazole 40 mg capsule,delayed 40 mg PO DAILY 08/08/20 10/30/23 release oxycodone 5 mg tablet 5 mg PO BID PRN Pain 08/08/20 10/30/23 calcitriol 0.5 mcg capsule 1 mcg PO 4XW 01/24/21 10/30/23 gabapentin 300 mg capsule 300 mg PO BEDTIME 01/24/21 10/30/23 hydralazine 25 mg tablet 25 mg PO BID 01/24/21 10/30/23 sucroferric oxyhydroxide 500 mg 1,000 mg PO TID 02/07/21 10/30/23 chewable tablet cinacalcet 30 mg tablet 30 mg PO DAILY 05/11/21 10/30/23 semaglutide 0.25 mg or 0.5 mg (2 0.25 mg subcut QWEEK 03/13/23 10/30/23 mg/3 mL) subcutaneous pen injector (Ozempic) Previous Rx's Medication Instructions Recorded blood-glucose meter (FreeStyle #1 ea 01/24/21 Lite Meter kit) lancets 32 gauge (Easy Touch #150 ea 01/24/21 Lancets) pen needle, diabetic 32 gauge x #200 ea 02/12/22/32 (BD Ultra-Fine Ciera Pen Needle) loperamide 2 mg tablet 2 mg PO Q6H PRN loose stool #10 06/20/23 (Anti-Diarrheal (loperamide)) tabs ondansetron 4 mg disintegrating 4 mg PO Q6-8H PRN nausea and 06/20/23 tablet vomiting #7 tabs amlodipine 10 mg tablet 10 mg PO DAILY #90 tabs 08/16/23 Novolin 70-30 FlexPen U-100 See Rx Instructions subcut BID 30 09/01/23 Insulin 100 unit/mL (70-30) days #45 mL subcutaneous (insulin NPH and regular human) blood sugar diagnostic (FreeStyle #150 ea 10/28/23 Lite Strips) dextroamphetamine-amphetamine 30 30 mg PO DAILY 30 days #30 tabs 10/28/23 mg tablet (Adderall) Allergies Allergy/AdvReac Type Severity Reaction Status Date / Time theresa Allergy Severe Hives Verified 10/23/23 14:42 shellfish derived Allergy Severe Hives Verified 10/23/23 14:42 Review of Systems 2 Review of Systems: Yes all other systems are reviewed and are negative PMFSH Past Medical History Attestation statement: The following information was validated with the patient. Source: old records reviewed Medical History Epidermoid cyst of skin of back Depression History of COVID-19 ALEX on CPAP Sacrococcygeal pilonidal cyst ESRD (end stage renal disease) on dialysis Morbid obesity with BMI of 50.0-59.9, adult Mass of left hand Left shoulder pain Vitamin D deficiency Dyslipidemia Hypertension [facility] (current) use of insulin Diabetic nephropathy associated with type 2 diabetes mellitus Morbid obesity with BMI of 45.0-49.9, adult Type 2 diabetes mellitus with diabetic chronic kidney disease Diabetes type 2, uncontrolled ADHD (attention deficit hyperactivity disorder) Surgical History Hx of cardiac catheterization History of excision of pilonidal cyst AV fistula Family History Family History Father Diabetes Hypertension Mother Alive and well Sister Diabetes Social History Social History Household Members: None Housing: House Are you a primary healthcare representative to a significant other at home: No Do you presently have visiting nurse or other home services: No Alcohol intake: former Patient Tobacco Use Status: Former Tobacco user Quit Date: age 32 Tobacco use type: Cigarette Smoked in Last 30 Days: No e-Cigarette/Vaping Use: Never Used Second Hand Smoke Exposure: Yes Substance Use Type: Crack/Cocaine and Marijuana Advance Directives: No service: No Current occupational status: disabled Cognitive needs: Yes (cane) Hearing needs: No Vision needs: Yes (glasses) Physical Exam ED Vital Signs: Vital Signs - 24 hr 11/19/23 09:31 11/19/23 15:35 Temperature 98.6 F 98.1 F Pulse Rate 89 76 Respiratory Rate 20 20 Blood Pressure 144/85 H 134/54 L Pulse Oximetry 97 94 Oxygen Delivery Method Room Air Room Air BMI result Body Mass Index 57.0 Patient is afebrile, mildly hypertensive. Const General: cooperative HENMT Head: Yes atraumatic Eyes General: appearance normal, both eyes and all related structures Neck Neck: Yes normal visual inspection, Yes full ROM, Yes supple and No tender Chest Chest palpation & inspection: normal inspection of the chest and normal palpation of entire chest wall Resp Effort & Inspection: normal respiratory effort, able to speak in complete sentences, no cough and no respiratory distress Auscultation: clear to auscultation bilaterally Cardio Rate: regular rate Rhythm: regular rhythm Peripheral pulses: Peripheral pulses 2+ throughout GI Inspection: Yes normal to inspection, No Abdominal wall edema and No distended Palpation (GI): Soft to palpation, not firm, nontender, no guarding and not rigid Auscultation: normal bowel sounds Extrem Other: Left upper extremity fistula with + thrill Course Course Course Narrative: The patient is afebrile and mildly hypertensive. Reviewed triage work up. Added lipase and troponin level. Added CT Abdomen/Pelvis w/o IV Contrast. Labs reviewed. Mild leukocytosis 12.8k. Baseline mild anemia Hgb 11.6. Elevated alk phos. COVID/Flu/RSV negative. Unremarkable CXR. Reevaluation(s) Reevaluation #1: TSH unremarkable. Troponin negative. CT Abdomen/Pelvis without acute significant findings. Patient able to tolerate PO. Patient's symptoms possible related to post-dialysis session given recurrent nature. No evidence of ACS with reassuring troponin, EKG, and CXR. No evidence of intra-abdominal process with reassuring CT Abdomen/Pelvis and baseline (other than mildly further evaluated alk phos) abdominal labs. Plan: Discharge to home with PCP follow up Return precautions given Medical Decision Making Lab Data 11/19/23 10:06 11/19/23 10:06 Labs: Lab Results 11/19/23 11/19/23 Range/Units 10:05 10:06 WBC 12.8 H (4.8-10.8) X10*3/uL RBC 3.84 L (4.60-5.80) X10*6/uL Hgb 11.6 L (14.0-18.0) g/dl Hct 34.6 L (42.0-52.0) % MCV 90.1 (80.0-98.0) fL MCH 30.2 (27.0-33.0) pg MCHC 33.5 (31.0-36.0) g/dl RDW 13.5 (11.0-16.0) % Plt Count 397 (160-400) X10*3/uL MPV 8.7 L (9.4-12.4) fL Immature Gran % (Auto) 0.5 H (0.0-0.4) % Neut % (Auto) 82.9 H (45-73) % Lymph % (Auto) 10.5 L (20-40) % [place] % (Auto) 4.4 (2-11) % Eos % (Auto) 1.5 (0-4) % Baso % (Auto) 0.2 (0-2) % Lymph # (Auto) 1.4 (1.2-4.9) X10*3/uL [place] # (Auto) 0.6 (0.1-1.2) X10*3/uL Eos # (Auto) 0.2 (0.0-0.4) X10*3/uL Baso # (Auto) 0.0 (0.0-0.2) X10*3/uL Abs Immat Gran (auto) 0.06 H (0.00-0.03) X10*3/uL Absolute Neuts (auto) 10.6 H (2.0-8.3) x10*3/uL Absolute Nucleated RBC 0.000 (0.0-0.012) X10*3/uL Nucleated RBC % (auto) 0.0 (0.0-0.2) /100WBC PT 13.7 H (11.1-13.3) SEC INR 1.1 (0.9-1.1) Sodium 136 (135-145) mmol/L Potassium 4.8 (3.3-5.1) mmol/L Chloride 94 L (96-108) mmol/L Carbon Dioxide 24 (22-29) mmol/L Anion Gap 23 H (12-20) BUN 59 H (9-16) mg/dL Creatinine 11.05 H* (0.5-1.4) mg/dL Estim Creat Clear Calc 12.2 Estimated GFR 5 Random Glucose 192 H (60-115) mg/dL Calcium 10.3 H (8.4-10.2) mg/dL Magnesium 2.0 (1.6-2.6) mg/dL Total Bilirubin 0.7 (0.0-1.0) mg/dL AST 11 (5-37) U/L ALT 8 (0-40) U/L Alkaline Phosphatase 648 H (39-117) U/L Troponin I High Sens 5.8 (<3.5-35.0) ng/L Total Protein 9.3 H (6.5-8.0) g/dL Albumin 4.2 (3.5-5.0) g/dL Lipase 51 (8-78) U/L TSH 1.41 (0.32-4.0) uIU/mL Influenza Type A (PCR) NEGATIVE (Negative) Influenza Type B (PCR) NEGATIVE (Negative) RSV RNA Qual (PCR) NEGATIVE (Negative) SARS-CoV-2 RNA (RT-PCR) NEGATIVE (Negative) Independent Interpretation I performed an independent interpretation of an: EKG Interpretation: NSR 84BPM with normal intervals Radiology Impression Discussion of test interpretation with radiology: I have reviewed the radiologist's reading. Radiologist Impression: EXAMINATION: XR CHEST CLINICAL INFORMATION: Chest pain COMPARISON: None available. TECHNIQUE: 2 views of the chest were obtained. FINDINGS: No significant abnormality is noted involving the heart, lungs, mediastinum, bony thorax or soft tissues. XR/XR chest 2V IMPRESSION: Unremarkable examination. EXAMINATION: CT ABDOMEN AND PELVIS WITHOUT CONTRAST CLINICAL INFORMATION: Nausea vomiting and diarrhea COMPARISON: CT abdomen pelvis June 19, 2023 TECHNIQUE: Multidetector volumetric imaging was performed from the superior aspect of the liver through the pubic symphysis. Sagittal and coronal reformatted images were obtained on the technologist's workstation. This CT examination was performed using dose optimization techniques as appropriate, variously including the following: *Automated exposure control *Adjustment of mA and/or kV according to patient size (this includes techniques or standardized protocols for targeted exams where dose is matched to indication/reason for exam; i.e. extremities or head) *Use of iterative reconstruction technique DLP: 1234 mGy-cm FINDINGS: LUNG BASES: The visualized lung bases are unremarkable. LIVER, GALLBLADDER, AND BILIARY TREE: Mild hepatomegaly. Right lobe of liver measures 23 cm superior-inferior. This is unchanged since prior CAT scan of 2022. No focal liver lesion or intrahepatic bile duct dilatation. The gallbladder is unremarkable with no evidence of radiopaque gallstones, gallbladder wall thickening, or obvious pericholecystic inflammatory changes. PANCREAS: Unremarkable. SPLEEN: Calcified granuloma in the spleen. ADRENAL GLANDS: Unremarkable. KIDNEYS AND URETERS: Mild diffuse bilateral renal atrophy. Right kidney measures 9.9 cm. Left kidney measures 8.6. This is unchanged since CAT scan of June 19, 2023. No renal or ureteral calculus. There are vascular calcifications of the renal arteries. BLADDER: Unremarkable. GASTROINTESTINAL TRACT: There are scattered diverticula of the sigmoid colon. There is no diverticulitis. There is no bowel wall thickening /edema. There is no bowel obstruction. There is a moderate volume of stool in the colon. The appendix is normal . The small bowel loops are unremarkable. The stomach is normal. There is no hiatal hernia. ABDOMINAL WALL: Small fat-containing umbilical hernia. LYMPH NODES: Redemonstration of retroperitoneal and pelvic lymphadenopathy. Largest lymph node measuring 1.4 cm of the right common iliac chain unchanged since CAT scan June 19, 2023. Periaortic and pericaval lymph nodes in the retroperitoneum are subcentimeter, largest measuring 0.9 cm. VASCULAR: Scattered vascular calcifications of the wall of aorta and iliac arteries. There is no aneurysm. PELVIC VISCERA: Unremarkable. OSSEOUS STRUCTURES: No acute osseous abnormality. Schmorl's nodes at the endplates of multiple vertebrae. Diffuse generalized increased osseous sclerosis of the bone similar prior CAT scan. CT/CT abdomen pelvis wo IV con IMPRESSION: 1. No acute abnormality CT scan abdomen pelvis. 2. Mild hepatomegaly. 3. Mild diffuse bilateral renal atrophy. 4. Retroperitoneal and pelvic lymphadenopathy unchanged since CAT scan June 19, 2023. 5. Diverticulosis of colon. No acute abnormality of the bowel. Fleischner guidelines were followed. Discharge Plan Discharge Clinical Impression: Abdominal pain, Chest pain Patient Disposition: Home, Self-Care Instructions: Chest Pain (DC), Abdominal Pain (ED) Additional Instructions: As we discussed, you were seen for abdominal pain, nausea and chest pain. Your emergency department work up was reassuring. We did not find the cause of your symptoms today. Recommend you follow up with your PCP within 2 - 3 days for re-evaluation. Return to the emergency department for: Fever Continued nausea/vomiting Worsening chest pain Difficulty breathing Prescriptions: No Action (DME) pen needle, diabetic [BD Ultra-Fine Ciera Pen Needle] 32 gauge x 5/32 needle See Rx Instructions .Route Qty: 200 3RF Rx Instructions: As directed twice a day amlodipine 10 mg tablet 10 mg PO DAILY Qty: 90 1RF Novolin 70-30 FlexPen U-100 100 unit/mL (70-30) insulin pen See Rx Instructions subcut BID 30 Days Qty: 45 4RF Rx Instructions: 75 units before breakfast and 50 units before dinner subcut 2 times a day; (DME) FreeStyle Lite Strips Strip See Rx Instructions .ROUTE .MEDSUPPLY Qty: 150 11RF Rx Instructions: 5 times a day dextroamphetamine-amphetamine [Adderall] 30 mg tablet 30 mg PO DAILY 30 Days Qty: 30 0RF ondansetron 4 mg tablet,disintegrating 4 mg PO Q6-8H PRN (Reason: nausea and vomiting) Qty: 7 0RF loperamide [Anti-Diarrheal (loperamide)] 2 mg tablet 2 mg PO Q6H PRN (Reason: loose stool) Qty: 10 0RF atorvastatin 10 mg tablet 10 mg PO DAILY metoprolol succinate 50 mg tablet extended release 24 hr 50 mg PO DAILY cyanocobalamin (vitamin B-12) 1,000 mcg tablet 1,000 mcg PO DAILY oxycodone 5 mg tablet 5 mg PO BID PRN (Reason: Pain) bumetanide 1 mg tablet 2 mg PO DAILY omeprazole 40 mg capsule,delayed release(DR/EC) 40 mg PO DAILY gabapentin 300 mg capsule 300 mg PO BEDTIME calcitriol 0.5 mcg capsule 1 mcg PO 4XW hydralazine 25 mg tablet 25 mg PO BID (DME) blood-glucose meter [FreeStyle Lite Meter] Kit See Rx Instructions .ROUTE .MEDSUPPLY Qty: 1 0RF Rx Instructions: 4 times a day (DME) Easy Touch Lancets 32 gauge misc See Rx Instructions .MEDSUPPLY Qty: 150 6RF Rx Instructions: 5 times a day sucroferric oxyhydroxide 500 mg tablet,chewable 1,000 mg PO TID cinacalcet 30 mg tablet 30 mg PO DAILY Ozempic 0.25 mg or 0.5 mg (2 mg/3 mL) pen injector 0.25 mg subcut QWEEK Rx Instructions: for 4 weeks
[2023-11-19 13:17] LABS: Lipase 51 U/L (8-78)
[2023-11-19 13:31] LABS: Troponin-I High Sensitivity 5.8 ng/L (<3.5-35.0)
[2023-11-19 13:54] LABS: Thyroid Stimulating Hormone 1.41 uIU/mL (0.32-4.0)
[2023-11-19 15:35] VITALS: BP 134/54; PULSE 76; RESP 20; TEMP 36.7; O2SAT 94
[2023-11-19 16:25] VITALS: BP 125/62; PULSE 72; RESP 18; TEMP 36.3; O2SAT 97
== END 2023-11-19 16:26 | disposition home or self-care (01) ==
PROVIDERS: Physician Assistant Medical; Emergency Provider Emergency Medicine; PCP Internal Medicine
DX: R07.89 Other chest pain (principal); E11.22 Type 2 diabetes mellitus with diabetic chronic kidney disease; R11.2 Nausea with vomiting, unspecified; I12.0 Hypertensive chronic kidney disease with stage 5 chronic kidney disease or end stage renal disease; N18.6 End stage renal disease; Z11.52 Encounter for screening for COVID-19; Z20.822 Contact with and (suspected) exposure to COVID-19; Z79.4 Long term (current) use of insulin; Z79.899 Other long term (current) drug therapy
CPT/HCPCS: 0241U; 36415; 71046; 74176; 80053; 83690; 83735; 84443; 84484; 85025; 85610; 93005; 99284

== ENCOUNTER → 2023-11-19 09:53 | Outpatient (BNV) | payer OTHER, SELFPAY | PROVIDERS: Emergency Provider Emergency Medicine; PCP Internal Medicine; Visit Provider Internal Medicine | DX: I44.5 Left posterior fascicular block (principal) | CPT/HCPCS: 93010 ==

== ENCOUNTER 2024-03-18 07:56 | Outpatient (AMB) | payer OTHER, SELFPAY ==
--- NOTE | 2024-03-18 08:14 | A.OFFVIS_ITS ---
Intake Visit Reasons: Abscess on buttock, drainage Intake Note: This patient presents for an assessment for abscess on the buttock, drainage. Patient c/o; reports abscess buttock, reports drainage, pain. 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 Accompanied by: Self / Same As Patient Allergies theresa Allergy (Severe, Verified 03/18/24 09:46) Hives shellfish derived Allergy (Severe, Verified 03/18/24 09:46) Hives Medication List - Last Reconciled 03/18/24 by Tee Damon MD amlodipine 10 mg PO DAILY atorvastatin 10 mg PO DAILY blood sugar diagnostic (FreeStyle Lite Strips) 5 times a day blood-glucose meter (FreeStyle Lite Meter kit) 4 times a day bumetanide 2 mg PO DAILY calcitriol 1 mcg PO 4XW cinacalcet 30 mg PO DAILY cyanocobalamin (vitamin B-12) 1,000 mcg PO DAILY dextroamphetamine-amphetamine 30 mg (Adderall) 30 mg PO DAILY 30 days gabapentin 300 mg PO BEDTIME hydralazine 25 mg PO BID lancets (Easy Touch Lancets) 5 times a day loperamide (Anti-Diarrheal (loperamide)) 2 mg PO Q6H PRN metoprolol succinate ER 50 mg PO DAILY Novolin 70-30 FlexPen U-100 100 unit/mL (70-30) (insulin NPH and regular human) 75 units before breakfast and 50 units before dinner subcut 2 times a day; 30 days NS omeprazole 40 mg PO DAILY ondansetron 4 mg PO Q6-8H PRN oxycodone 5 mg PO BID PRN pen needle, diabetic (BD Ultra-Fine Ciera Pen Needle) As directed twice a day semaglutide (Ozempic) 0.25 mg subcut QWEEK sucroferric oxyhydroxide 1,000 mg PO TID HPI HPI Abscess on buttock, drainage: Details: 48-year-old male referred for a recurrent area of swelling and drainage on the left buttock. He has had this for about a year now I had seen him last year but at that time, the swelling seemed to had resolved. However, he does state that this has been draining periodically again with note of some frequent swelling. He has multiple medical problems including morbid obesity, diabetes and sleep apnea. He says that he has Charcot foot on the left and is so undergo BKA in [place] for this. He says that he has been Ozempic since last year in his lost about 50 lb. COUNT INCLUDES THE [facility] Medical History (Updated 03/18/24 @ 10:10 by Tee Damon MD) Anal fistula Epidermoid cyst of skin of back Depression History of COVID-19 ALEX on CPAP Sacrococcygeal pilonidal cyst ESRD (end stage renal disease) on dialysis Morbid obesity with BMI of 50.0-59.9, adult Mass of left hand Left shoulder pain Vitamin D deficiency Dyslipidemia Hypertension [facility] (current) use of insulin Diabetic nephropathy associated with type 2 diabetes mellitus Morbid obesity with BMI of 45.0-49.9, adult Type 2 diabetes mellitus with diabetic chronic kidney disease Diabetes type 2, uncontrolled ADHD (attention deficit hyperactivity disorder) Surgical History Hx of cardiac catheterization History of excision of pilonidal cyst AV fistula Family History Father Diabetes Hypertension Mother Alive and well Sister Diabetes Social History Household Members: None Housing: House Are you a primary childcare administrator to a significant other at home: No Do you presently have visiting nurse or other home services: No Alcohol intake: former Patient Tobacco Use Status: Former Tobacco user Tobacco use type: Cigarette e-Cigarette/Vaping Use: Never Used Second Hand Smoke Exposure: Yes Substance Use Type: Crack/Cocaine and Marijuana service: No Current occupational status: disabled Cognitive needs: Yes (cane) Hearing needs: No Vision needs: Yes (glasses) Review of Systems Const Denies chills and Denies fever(s) Card Denies chest pain, Denies dyspnea and Denies dyspnea on exertion Resp Details: Has sleep apnea Denies cough, Denies dyspnea and Denies dyspnea on exertion GI Denies hematochezia and Denies change in bowel habits Denies hematuria and Denies difficulty urinating Musc Denies back pain and Denies limited range of motion Neuro Denies focal weakness and Denies convulsions Psych Denies depression and Denies mood swings Physical Exam Const Other: Morbidly obese General: comfortable and no acute distress Resp Effort & Inspection: normal respiratory effort Cardio Rate: regular rate GI Palpation (GI): Soft to palpation Back/Spine/Pelvis Other: Rectal exam shows an induration with a sinus on the left perianal area about 4 cm from the anal verge, with some tenderness Assessment & Plan Assessment & Plan (1) Anal fistula: Code(s): K60.3 - Anal fistula Category: Medical Plan: Clinical picture is suggestive of an anal fistula. I explained to him the technique of exam under anesthesia, possible fistulotomy and seton drainage. I reviewed the risks including but not limited to bleeding, infections and poor healing, as well as the benefits and alternatives. I explained to him what to expect postoperatively He says he wants to proceed. He understands these perioperative anesthesia risks are higher in view of his morbid obesity. Coding Level of Care Code Est Pt Level 3 (61020) Diagnoses Anal fistula K60.3
== END 2024-03-18 10:13 | disposition home or self-care (01) ==
PROVIDERS: PCP Internal Medicine; Visit Provider Surgery
DX: K60.3 Anal fistula (principal)
CPT/HCPCS: 99213

== ENCOUNTER → 2024-03-18 07:56 | Outpatient (BNVA) | payer OTHER, SELFPAY | PROVIDERS: PCP Internal Medicine; Visit Provider Surgery | DX: K60.3 Anal fistula (principal); E66.01 Morbid (severe) obesity due to excess calories | CPT/HCPCS: 99212 ==

== ENCOUNTER 2024-04-27 10:10 | Outpatient (AMB) | payer OTHER, SELFPAY ==
[2024-04-27 10:12] VITALS: BP 108/68; PULSE 63; O2SAT 96; BMI 58.6
--- NOTE | 2024-04-27 10:12 | A.OFFPC_ITS ---
Vital Signs 04/27/24 10:12 Height 5 ft 6 in Weight 363 lb BMI 58.6 BP 108/68 Blood Pressure Location Rt brachial Position Sitting Pulse 63 Pulse Source Pulse Oximeter Pulse Oximetry (%) 96 Oxygen Delivery Method Room Air Intake Visit Reasons: 05/08 Dr. Damon Clearance Developer Support Engineer Required: No Accompanied by: Self / Same As Patient Allergies theresa Allergy (Severe, Verified 04/27/24 10:17) Hives shellfish derived Allergy (Severe, Verified 04/27/24 10:17) Hives Medication List - Last Reconciled 04/27/24 by Nano Flores PA-C amlodipine 10 mg PO DAILY atorvastatin 10 mg PO DAILY blood sugar diagnostic (FreeStyle Lite Strips) 5 times a day blood-glucose meter (FreeStyle Lite Meter kit) 4 times a day bumetanide 2 mg PO DAILY calcitriol 1 mcg PO 4XW cinacalcet 30 mg PO DAILY cyanocobalamin (vitamin B-12) 1,000 mcg PO DAILY dextroamphetamine-amphetamine 30 mg (Adderall) 30 mg PO DAILY 30 days gabapentin 300 mg PO BEDTIME hydralazine 25 mg PO BID lancets (Easy Touch Lancets) 5 times a day loperamide (Anti-Diarrheal (loperamide)) 2 mg PO Q6H PRN metoprolol succinate ER 50 mg PO DAILY Novolin 70-30 FlexPen U-100 100 unit/mL (70-30) (insulin NPH and regular human) 75 units before breakfast and 50 units before dinner subcut 2 times a day; 30 days NS omeprazole 40 mg PO DAILY ondansetron 4 mg PO Q6-8H PRN oxycodone 5 mg PO BID PRN pen needle, diabetic (BD Ultra-Fine Ciera Pen Needle) As directed twice a day semaglutide (Ozempic) 0.25 mg subcut QWEEK sucroferric oxyhydroxide 1,000 mg PO TID Tobacco use date assessed: 10/09/23 Dental Screening Dental Screen Date: 10/09/23 HPI 05/08 Dr. Damon Clearance HPI Details 48-year-old male with past medical histo ry of ADHD, diabetes mellitus, hypertension, end-stage renal disease on dialysis (M/T/Th/F), obstructive sleep apnea, GERD, hypoparathyroidism last seen by Dr. العلي October 2023 coming in for preop for fistulotomy. In review of the notes, patient was seen by General surgery 03/18/2024. Patient follows with [facility] in [facility] for Charcot of the left foot and has circulation test on May 22 and . He has no acute concerns today and is doing generally well. DM: Last A1c 7.5% which is mildly above goal. Presently on Ozempic and insulin Hypertension: Blood pressure at goal today 108/68. Presently on metoprolol and amlodipine. ESRD: On dialysis /// at home and follows with Nephrology. 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 Diabetic nephropathy associated with type 2 diabetes mellitus Morbid obesity with BMI of 45.0-49.9, adult Type 2 diabetes mellitus with diabetic chronic kidney disease Diabetes type 2, uncontrolled ADHD (attention deficit hyperactivity disorder) Surgical History Hx of cardiac catheterization History of excision of pilonidal cyst AV fistula Family History Father Diabetes Hypertension Mother Alive and well Sister Diabetes Social History Household Members: None Housing: House Are you a primary medical care evaluation specialist to a significant other at home: No Do you presently have visiting nurse or other home services: No Alcohol intake: former Patient Tobacco Use Status: Former Tobacco user Tobacco use type: Cigarette e-Cigarette/Vaping Use: Never Used Second Hand Smoke Exposure: Yes Substance Use Type: Crack/Cocaine and Marijuana service: No Current occupational status: disabled Cognitive needs: Yes (cane) Hearing needs: No Vision needs: Yes (glasses) Questionnaire PHQ-9 Over the last 2 weeks, how often have you been bothered by any of the following problems? 1. Little interest or pleasure in doing things: not at all 2. Feeling down, depressed, or hopeless: not at all 3. Trouble falling or staying asleep, or sleeping too much: not at all 4. Feeling tired or having little energy: not at all 5. Poor appetite or overeating: not at all 6. Feeling bad about yourself - or that you are a failure or have let yourself or your family down: not at all 7. Trouble concentrating on things, such as reading the newspaper or watching television: not at all 8. Moving or speaking so slowly that other people could have noticed. Or the opposite - being so fidgety or restless that you have been moving around a lot more than usual: not at all 9. Thoughts that you would be better off or of hurting yourself in some way: not at all Total score: 0 Depression Screening Interpretation: Negative Depression Screening Done: Yes 40379 - PHQ-9 Billing: Yes Source: Developed by Drs. Isac Brizuela, Lu Topete, Fredi Luis and colleagues, with an educational nicky from [employer]. Thrive Questionnaire Date Thrive assessed: 10/09/23 AUDIT C Alcohol Use Questionnaire (AUDIT-C) 1. How often do you have a drink containing alcohol?: Never Total Score: 0 Score Reviewed/Action Taken: Yes STEPHANY-7 AMB Questionnaire STEPHANY-7 Date STEPHANY - 7 assessed: 10/09/23 Source: Developed by Drs. Iasc Brizuela, Lu Topete, Fredi Luis and colleagues, with an educational nicky from [employer]. Review of Systems Const Denies body aches, Denies fatigue, Denies fever(s), Denies frequent falls, Denies headache(s) and Denies weakness Eyes Reports no additional complaints and Denies change in vision ENT Denies dysphagia, Denies dizziness, Denies facial pain, Denies headache(s), Denies nasal congestion and Denies odynophagia Card Denies chest pain, Denies syncope, Denies irregular heart rhythm, Denies leg edema, Denies lightheadedness and Denies dyspnea Resp Denies cough and Denies dyspnea GI Denies constipation, Denies dysphagia, Denies dyspepsia, Denies diarrhea, Denies nausea, Denies odynophagia and Denies vomiting Denies dysuria, Denies urinary frequency, Denies urinary hesitancy and Denies urinary urgency Musc Denies back pain and Denies myalgias Skin/Breast Reports system reviewed and no additional complaints, except as documented Neuro Denies dizziness, Denies syncope, Denies frequent falls, Denies headache(s) and Denies weakness Psych Reports no additional complaints Endo Denies fatigue Physical exam (Primary Care) Vital Signs: Last Vital Signs Pulse 63 04/27/24 10:12 BP 108/68 04/27/24 10:12 Pulse Ox 96 04/27/24 10:12 Oxygen Delivery Method Room Air 04/27/24 10:12 BMI result Body Mass Index 58.6 Tobacco/Smoking Status: Tobacco use Status Tobacco use date assessed 10/09/23 04/27/24 10:16 Patient Tobacco Use Status Former Tobacco user 04/27/24 10:16 Tobacco use type Cigarette 04/27/24 10:16 e-Cigarette/Vaping Use Never Used 04/27/24 10:16 PHQ-9: PHQ-9 Score PHQ-9: Total score 0 04/27/24 10:28 Depression Screening Interpretation: Negative Thrive Assessment: Date of Thrive Assessment Date Thrive assessed 10/09/23 04/27/24 10:16 Const General: cooperative, healthy appearing, comfortable and no acute distress Orientation/consciousness: patient oriented x3 HENMT Head: Yes normocephalic Ears: hearing grossly normal bilaterally General nose exam: Normal external nose present Eyes General: appearance normal, both eyes and all related structures Conjunctivae: conjunctivae normal Neck Neck: Yes full ROM and Yes no lymphadenopathy Resp Effort & Inspection: normal respiratory effort Auscultation: clear to auscultation bilaterally, no crackles, no rales, no rhonchi and no wheezes Cardio Rate: regular rate Rhythm: regular rhythm Skin General skin exam: no rashes or lesions noted Neuro General: patient oriented x3 Gait exam (Neuro): Normal gait present Extrem General: Yes normal to inspection, Yes full ROM and No edema Psych Affect: normal affect Attitude: cooperative Insight: Good insight present (Psych) Judgement: Good judgement present (Psych) Results AMB Hemoglobin A1c AMB Hemoglobin A1c 7.5 % Last Edit by Bita Finn CMA on 04/27/24 10:27 Results Reviewed Results Reviewed: Laboratory Last Values Hgb A1c (Clinic) 7.5 % (4.0-6.0) H 04/27/24 10:27 Assessment and Plan Assessment & Plan (1) Pre-op exam: Code(s): Z01.818 - Encounter for other preprocedural examination Plan: Regarding preop clearance, the patient is at moderate risk for proposed surgery due to weight and comorbidities.?Reviewed with the patient that no surgery is completely free of risk and that this examination is to assist the surgeon in reviewing informed consent. Comorbidities are well managed at this time. A1c is 7.5% which is above the goal of less than 7% but is stable. Updated blood work ordered. Patient is unsure if he needs EKG prior to surgery order was placed today. Patient is not currently on any blood thinners, NSAIDs, or antiplatelet medications. Patient has discontinued Ozempic at this time and we will continue after the procedure was completed. Plan This note was constructed using voice recognition software. While every effort has been made to ensure accuracy and compensation programs manager, still areas may have been included sometimes these areas may affect the content or meeting of the given symptoms. Total time spent caring for the patient today was 30 minutes. This includes time spent before the visit reviewing the chart, time spent during the visit, and time spent after the visit and documentation. Orders: Orders AMB Hemoglobin A1c Today E11.8 - Type 2 diabetes mellitus with unspecified complications ECG 12 lead EKG Today K60.3 - Anal fistula Coding Level of Care Code Est Pt Level 3 (30304) Diagnoses Pre-op exam Z01.818
== END 2024-04-27 10:44 | disposition home or self-care (01) ==
PROVIDERS: PCP Internal Medicine
DX: E11.8 Type 2 diabetes mellitus with unspecified complications (principal); Z01.818 Encounter for other preprocedural examination
CPT/HCPCS: 83036; 99213

== ENCOUNTER 2024-05-15 13:00 | Outpatient (REF) | payer OTHER, SELFPAY ==
--- NOTE | ~2024-05-15 | US_ITS ---
EXAMINATION: US TRIPLEX LOWER EXTREMITY, LEFT CLINICAL INFORMATION: Left calf redness, warmth, swelling for 2 days COMPARISON: Venous duplex December 14, 2022 TECHNIQUE: Color-flow triplex imaging with spectral analysis and compression Doppler were performed on the left lower extremity. FINDINGS: Respiratory variation, normal compression and augmented flow are noted throughout the left lower extremity. The visualized common femoral vein, superficial femoral vein, profunda femoral vein, popliteal vein and midcalf peroneal and posterior tibial venous segments show no evidence of deep venous thrombosis. There is no Light's cyst. US/US venous duplex LE IMPRESSION: No evidence of deep venous thrombosis involving the left lower extremity. Electronically signed by: Dilan Simms MD 05/15/2024 02:02 PM EDT
== END 2024-05-15 13:01 | disposition home or self-care (01) ==
LOC: HO.US 13:00
PROVIDERS: PCP Internal Medicine; Visit Provider Podiatrist
DX: I82.462 Acute embolism and thrombosis of left calf muscular vein (principal)
CPT/HCPCS: 93971

== ENCOUNTER 2024-06-16 09:55 | Outpatient (AMB) | payer OTHER, SELFPAY ==
--- NOTE | 2024-06-16 10:26 | A.OFFPC_ITS ---
Vital Signs 06/16/24 10:27 Height 6 ft Weight 365 lb BMI 49.5 BP 124/80 Blood Pressure Location Lt brachial Position Sitting Pulse 56 Pulse Source Pulse Oximeter Pulse Oximetry (%) 97 Oxygen Delivery Method Room Air Intake Visit Reasons: reports that his anxiety is really bad Manager Of Radiology Required: No Accompanied by: Self / Same As Patient Allergies theresa Allergy (Severe, Verified 06/16/24 11:12) Hives shellfish derived Allergy (Severe, Verified 06/16/24 11:12) Hives semaglutide Adverse Reaction (Intermediate, Verified 06/16/24 11:16) nausea/vomiting, abdominal pain and diarrhea Medication List - Last Reconciled 06/16/24 by Ovidio العلي MD amlodipine 10 mg PO DAILY atorvastatin 10 mg PO DAILY blood sugar diagnostic (FreeStyle Lite Strips) 5 times a day blood-glucose meter (FreeStyle Lite Meter kit) 4 times a day calcitriol 1 mcg PO 4XW dextroamphetamine-amphetamine 30 mg (Adderall) 30 mg PO DAILY 30 days lancets (Easy Touch Lancets) 5 times a day metoprolol succinate ER 50 mg PO DAILY mirtazapine 15 mg PO BEDTIME Novolin 70-30 FlexPen U-100 100 unit/mL (70-30) (insulin NPH and regular human) 75 units before breakfast and 50 units before dinner subcut 2 times a day; 30 days NS omeprazole 40 mg PO DAILY pen needle, diabetic (BD Ultra-Fine Ciera Pen Needle) As directed twice a day sucroferric oxyhydroxide 1,000 mg PO TID Tobacco use date assessed: 06/16/24 Dental Screening Dental Screen Date: 06/16/24 Did you have a dental visit in the last 12 months?: Yes Did you have a dental problem in the last 6 months where you did not have access to dental care?: No Was dental information given to patient?: Patient has dentist HPI reports that his anxiety is really bad HPI Details Patient comes in today for his follow up visit States that he has been experiencing increasing/severe anxiety symptoms over the past couple of months Adds that he has been experiencing increasing difficulty sleeping at night also lately - thinks that this is related to his anxiety He was started on Mirtazapine recently by nephrology (Dr. Beregr) but states that this has not really helped much He denies any headaches or dizziness Denies any chest pains, no increased shortness of breath No nausea/vomiting, no abdominal pain No change in bowel habits noted He is also requesting for a referral to Dr. Paulette Owens at [facility] for his diabetes - states that he used to see her when she was still in [facility] Medical History Anal fistula Epidermoid cyst of skin of back Depression History of COVID-19 ALEX on CPAP Sacrococcygeal pilonidal cyst ESRD (end stage renal disease) on dialysis Morbid obesity with BMI of 50.0-59.9, adult Mass of left hand Left shoulder pain Vitamin D deficiency Dyslipidemia Hypertension penitentiary (current) use of insulin Diabetic nephropathy associated with type 2 diabetes mellitus Morbid obesity with BMI of 45.0-49.9, adult Type 2 diabetes mellitus with diabetic chronic kidney disease Diabetes type 2, uncontrolled ADHD (attention deficit hyperactivity disorder) Surgical History Hx of cardiac catheterization History of excision of pilonidal cyst AV fistula Family History Father Diabetes Hypertension Mother Alive and well Sister Diabetes Social History Household Members: None Housing: House Are you a primary senior care assistant to a significant other at home: No Do you presently have visiting nurse or other home services: Yes (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 1. Little interest or pleasure in doing things: not at all 2. Feeling down, depressed, or hopeless: not at all 3. Trouble falling or staying asleep, or sleeping too much: not at all 4. Feeling tired or having little energy: not at all 5. Poor appetite or overeating: not at all 6. Feeling bad about yourself - or that you are a failure or have let yourself or your family down: not at all 7. Trouble concentrating on things, such as reading the newspaper or watching television: not at all 8. Moving or speaking so slowly that other people could have noticed. Or the opposite - being so fidgety or restless that you have been moving around a lot more than usual: not at all 9. Thoughts that you would be better off or of hurting yourself in some way: not at all Total score: 0 Depression Screening Interpretation: Negative Depression Screening Done: Yes 46027 - PHQ-9 Billing: Yes Source: Developed by Drs. Isac Brizuela, Lu Topete, rFedi Luis and colleagues, with an educational nicky from [employer]. Thrive Questionnaire Date Thrive assessed: 06/16/24 I am a: Patient What is your living situation today?: I have a steady place to live Within the past 12 months, did the food you bought not last and you didn't have the money to get more?: Never true Within the past 12 months, did you worry whether your food would run out before you got money to buy more?: Never true Do you have trouble paying for medicines?: No Do you have trouble getting transportation to medical appointments?: No Do you have trouble paying your heating and electricity bill?: No Do you have trouble taking care of your child, family member or friend?: No Do you have trouble with day-to-day activities such as bathing, preparing meals, shopping, managing finances, etc.?: No Are you currently unemployed and looking for a job?: Yes Are you interested in more education?: No Please select the resources that you would like help with: None Currently or been in a relationship where the following occur: No concerns reported THRIVE Score: 0 AUDIT C Alcohol Use Questionnaire (AUDIT-C) 1. How often do you have a drink containing alcohol?: Never 3. How often do you have six or more drinks on one occasion?: Never Total Score: 0 Score Reviewed/Action Taken: Yes STEPHANY-7 AMB Questionnaire STEPHANY-7 Date STEPHANY - 7 assessed: 06/16/24 Feeling nervous, anxious, or on edge: 0 = Not at all Not being able to stop or control worryin = Not at all Worrying too much about different things: 0 = Not at all Trouble relaxin = Not at all Being so restless that it is hard to sit still: 0 = Not at all Becoming easily annoyed or irritable: 0 = Not at all Feeling afraid as if something awful might happen: 0 = Not at all Total STEPHANY-7 score (0-4 normal; 5-9 mild; 10-14 moderate; 15-21 severe): 0 Source: Developed by Drs. Isac Brizuela, Lu Topete, Fredi Luis and colleagues, with an educational nicky from [employer]. Review of Systems Const Denies chills, Reports difficulty sleeping (increasing), Reports fatigue, Denies fever(s) and Denies headache(s) ENT Denies dysphagia, Denies dizziness, Denies otalgia, Denies headache(s), Reports neck pain (chronic), Denies odynophagia and Denies sore throat Card Denies chest pain, Denies palpitations and Denies dyspnea Resp Denies cough, Denies dyspnea and Denies wheezing GI Denies abdominal pain, Denies constipation, Denies dysphagia, Denies heartburn, Denies diarrhea, Denies nausea, Denies odynophagia and Denies vomiting Denies dysuria, Denies nocturia and Denies urinary frequency Musc Denies back pain, Reports arthralgias (both hips, worse on the right side; left heel) and Reports neck pain (chronic) Skin/Breast Details: (+) draining cyst over his lower back at the intergluteal cleft Denies rash Neuro Denies dizziness and Denies headache(s) Psych Reports anxiety (increasing/worsening) Endo Reports fatigue and Denies palpitations Aller/Immun Denies wheezing Physical exam (Primary Care) Vital Signs: Last Vital Signs Pulse 56 06/16/24 10:27 BP 124/80 06/16/24 10:27 Pulse Ox 97 06/16/24 10:27 Oxygen Delivery Method Room Air 06/16/24 10:27 BMI result Body Mass Index 49.5 Tobacco/Smoking Status: Tobacco use Status Tobacco use date assessed 06/16/24 06/16/24 10:30 Patient Tobacco Use Status Former Tobacco user 06/16/24 10:30 Tobacco use type Cigarette 06/16/24 10:30 e-Cigarette/Vaping Use Never Used 06/16/24 10:30 PHQ-9: PHQ-9 Score PHQ-9: Total score 0 06/16/24 15:05 Depression Screening Interpretation: Negative Thrive Assessment: Date of Thrive Assessment Date Thrive assessed 06/16/24 06/16/24 10:30 Currently or been in a relationship where the following occur: No concerns reported Const General: no acute distress and alert HENMT Ears: TM's normal bilaterally and EAC's normal Throat: Yes posterior oropharynx normal and Yes tonsils normal (no TP congestion noted) Neck Neck: Yes no lymphadenopathy and Yes supple Thyroid: Thyroid normal Resp Auscultation: clear to auscultation bilaterally, no rales and no wheezes Cardio Rate: regular rate Rhythm: regular rhythm Heart sounds: no murmurs GI Palpation (GI): Soft to palpation and nontender Auscultation: normal bowel sounds General: Yes no CVA tenderness Back/Spine/Pelvis Back: no CVA tenderness Cervical Spine: Cervical spine tenderness Thoracic/Lumbar Spine: No lumbar spinal tenderness Skin Rashes: no rashes Extrem Other: (+) shunt on the left forearm; left foot is still in a pneumatic boot and cannot be examined General: Yes pedal edema (1+ on the right leg and foot) Office Procedures Flu Questionnaire Does the patient have a severe egg allergy?: No Immunizations Fluarix Triv [id number] (PF) 45 mcg (15 mcg x 3)/0.5 mL IM syringe Performing Provider: Ovidio العلي MD [facility] Documented (not given) by: WM Cary on 06/16/24 10:30 Reason Not Given: Received Previously Coding Level of Care Code Est Pt Level 4 (16463) Diagnoses Type 2 diabetes mellitus with chronic kidney disease on chronic dialysis, with long-term current use of insulin E11.22; N18.6; Z79.4; Z99.2 Diabetes mellitus vermin exterminator insulin use: with vermin exterminator use Chronic kidney disease stage: on chronic dialysis End stage renal disease N18.6 Dependence on renal dialysis Z99.2 Charcot's joint of left foot M14.672 Dyslipidemia E78.5 Essential hypertension I10 Vitamin D deficiency E55.9 Attention deficit hyperactivity disorder (ADHD), unspecified ADHD type F90.9 Attention deficit-hyperactivity disorder type: unspecified Insomnia, unspecified type G47.00 Insomnia type: unspecified Anxiety F41.9 Morbid obesity with BMI of 50.0-59.9, adult E66.01; Z68.43 Assessment & Plan Assessment & Plan (1) Type 2 diabetes mellitus with diabetic chronic kidney disease: Comment: dx ~age 26-does not check glucose at home-taking Novolog 70/30 BID Code(s): E11.22 - Type 2 diabetes mellitus with diabetic chronic kidney disease Category: Medical Qualifiers: Diabetes mellitus vermin exterminator insulin use: with halfway use Chronic kidney disease stage: on chronic dialysis Qualified Code(s): E11.22 - Type 2 diabetes mellitus with diabetic chronic kidney disease; N18.6 - End stage renal disease; Z79.4 - remote computer terminal operator (current) use of insulin; Z99.2 - Dependence on renal dialysis Plan: His in-office HgbA1c was at 7.5% when most recently checked on 04/27/2024 - goal is at least <7.0% Patient has anemia and is on erythropoietin so his HgbA1c is not accurate and may be higher than it actually is Reinforced diabetic diet Continue Novolin 70/30 75 units before breakfast and 50 units before dinner Per request, he is referred to Dr. Paulette Owens at [facility] for continuing management of his diabetes - he has seen Dr. Owens in the past when she was still practicing in [place] (2) End stage renal disease: Code(s): N18.6 - End stage renal disease Category: Medical Plan: Patient currently remains on hemodialysis 3 times a week - does home dialysis Continue Cinacalcet 30 mg QD Follow up with nephrology as scheduled (3) Dependence on renal dialysis: Comment: M-W- Code(s): Z99.2 - Dependence on renal dialysis Category: Medical Plan: He is on (home) hemodialysis 3 times a week (4) Charcot's joint of left foot: Code(s): M14.672 - Charcot's joint, left ankle and foot Category: Medical Plan: Patient's left foot / heel currently remains in a pneumatic boot, which was placed by podiatry (Dr. Trena Galvan) while they are assessing his treatment/management options Follow up with podiatry as scheduled (5) Dyslipidemia: Code(s): E78.5 - Hyperlipidemia, unspecified Category: Medical Plan: He reportedly had his labs drawn at [facility] a few months ago but so far we have not received any of his results from [facility] Labs Reinforced low cholesterol diet Continue Atorvastatin 10 mg QD Will recheck his labs and fasting lipids in 3 months for follow-up (6) Essential hypertension: Code(s): I10 - Essential (primary) hypertension Category: Medical Plan: Reinforced low-sodium diet - goal is systolic BP of at least 130 mm or less Patient states that his blood pressure is usually normal right after his dialysis and he has not had any hypotensive episodes post dialysis Continue Amlodipine 10 mg QD, Hydralazine 25 mg BID, Metoprolol ER 50 mg QD and Bumetanide 2 mg QD (7) Vitamin D deficiency: Code(s): E55.9 - Vitamin D deficiency, unspecified Category: Medical Plan: Will recheck his Vitamin D level in a few months for follow up (8) Attention deficit hyperactivity disorder (ADHD): Code(s): F90.9 - Attention-deficit hyperactivity disorder, unspecified type Category: Medical Qualifiers: Attention deficit-hyperactivity disorder type: unspecified Qualified Code(s): F90.9 - Attention-deficit hyperactivity disorder, unspecified type Plan: Continue Adderall ER 30 mg QD (9) Insomnia: Code(s): G47.00 - Insomnia, unspecified Category: Medical Qualifiers: Insomnia type: unspecified Qualified Code(s): G47.00 - Insomnia, unspecified Plan: Sleep hygiene reinforced He is advised to continue with Mirtazapine 15 mg Q HS for now and that his sleep may improve once his anxiety gets better controlled (10) Anxiety: Code(s): F41.9 - Anxiety disorder, unspecified Category: Medical Plan: Continue Mirtazapine 15 mg Q HS Will start him additionally on Bupropion XL 150 mg Q AM and Hydroxyzine 25 mg TID PRN (11) Morbid obesity with BMI of 50.0-59.9, adult: Code(s): E66.01 - Morbid (severe) obesity due to excess calories; Z68.43 - Body mass index [BMI] 50.0-59.9, adult Category: Medical Plan: Reinforced diet/exercise as tolerated/lose weight Plan Follow up in 3 months Orders: Orders Influenza [id number] Immunization 06/16/24 Z23 - Encounter for immunization Referrals Endocrinology Referral E11.8 - Type 2 diabetes mellitus with unspecified complications Medications: New bupropion HCl XL 150 mg PO QAM 30 days 30 tabs 3RF hydroxyzine HCl 25 mg PO TID 30 days PRN 90 tabs 2RF anxiety
[2024-06-16 10:27] VITALS: BP 124/80; PULSE 56; O2SAT 97; BMI 49.5
== END 2024-06-16 11:37 | disposition home or self-care (01) ==
PROVIDERS: PCP Internal Medicine; Visit Provider Internal Medicine
DX: E11.22 Type 2 diabetes mellitus with diabetic chronic kidney disease (principal); N18.6 End stage renal disease; Z79.4 Long term (current) use of insulin; Z99.2 Dependence on renal dialysis; M14.672 Charcot's joint, left ankle and foot; E78.5 Hyperlipidemia, unspecified; I12.0 Hypertensive chronic kidney disease with stage 5 chronic kidney disease or end stage renal disease; E55.9 Vitamin D deficiency, unspecified; F90.9 Attention-deficit hyperactivity disorder, unspecified type; G47.00 Insomnia, unspecified; F41.9 Anxiety disorder, unspecified; E66.01 Morbid (severe) obesity due to excess calories; Z68.43 Body mass index [BMI] 50.0-59.9, adult

== ENCOUNTER → 2024-06-16 09:55 | Outpatient (BNVA) | payer OTHER, SELFPAY | PROVIDERS: PCP Internal Medicine; Visit Provider Internal Medicine | DX: I12.9 Hypertensive chronic kidney disease with stage 1 through stage 4 chronic kidney disease, or unspecified chronic kidney disease (principal); E11.22 Type 2 diabetes mellitus with diabetic chronic kidney disease; N18.6 End stage renal disease; Z79.4 Long term (current) use of insulin; Z99.2 Dependence on renal dialysis; M14.672 Charcot's joint, left ankle and foot; E78.5 Hyperlipidemia, unspecified; E55.9 Vitamin D deficiency, unspecified; F90.9 Attention-deficit hyperactivity disorder, unspecified type; G47.00 Insomnia, unspecified; F41.9 Anxiety disorder, unspecified; E66.01 Morbid (severe) obesity due to excess calories; Z68.43 Body mass index [BMI] 50.0-59.9, adult; Z71.3 Dietary counseling and surveillance | CPT/HCPCS: 90471; 96127; 99212 ==

== ENCOUNTER 2024-06-24 09:32 | Emergency (ER) | payer OTHER, SELFPAY ==
--- NOTE | ~2024-06-24 | CT_ITS ---
EXAMINATION: CT ABDOMEN AND PELVIS WITHOUT CONTRAST CLINICAL INFORMATION: RUQ pain, diarrhea, vomiting COMPARISON: CT abdomen/pelvis 11/19/2023 TECHNIQUE: Multidetector volumetric imaging was performed from the superior aspect of the liver through the pubic symphysis. Sagittal and coronal reformatted images were obtained on the technologist's workstation. This CT examination was performed using dose optimization techniques as appropriate, variously including the following: *Automated exposure control *Adjustment of mA and/or kV according to patient size (this includes techniques or standardized protocols for targeted exams where dose is matched to indication/reason for exam; i.e. extremities or head) *Use of iterative reconstruction technique DLP: 1510 mGy-cm FINDINGS: LUNG BASES: The visualized lung bases are unremarkable. LIVER, GALLBLADDER, AND BILIARY TREE: Hepatomegaly measuring 24 cm in craniocaudal dimension, compared to 23 cm previously. The liver is normal in shape and attenuation. No focal hepatic lesion or biliary ductal dilatation is present. The gallbladder is unremarkable with no evidence of radiopaque gallstones, gallbladder wall thickening, or obvious pericholecystic inflammatory changes. PANCREAS: Unremarkable. SPLEEN: Normal in size. Coarse calcified granuloma, as before. ADRENAL GLANDS: Unremarkable. KIDNEYS AND URETERS: Mild symmetric renal atrophy, as before. The kidneys are normal in size, shape, and attenuation. No hydronephrosis, hydroureter, or calculi seen. No perinephric stranding. Arterial calcifications noted. BLADDER: Decompressed and not well assessed. GASTROINTESTINAL TRACT: The small and large bowel are nondilated. Normal appendix. ABDOMINAL WALL: Small fat-containing umbilical hernia. LYMPH NODES: Stable lymphadenopathy with the largest lymph node being the right common iliac chain node measuring up to 1.3 cm in short axis. Left external iliac chain node measures up to 1.2 cm in short axis. Again seen are prominent though not pathologically enlarged bilateral pelvic wall, retroperitoneal and left upper quadrant mesenteric nodes. VASCULAR: The aorta is nonaneurysmal. Mild scattered atheromatous calcified calcifications. PELVIC VISCERA: Normal CT appearance of the prostate seminal vesicles. OSSEOUS STRUCTURES: No acute or suspicious osseous abnormality. Multilevel Schmorl's nodes, as before. Diffuse osseous sclerosis, as before. CT/CT abdomen pelvis wo IV con IMPRESSION: 1. No acute abnormality within the abdomen or pelvis. 2. Stable lymphadenopathy. 3. Stable hepatomegaly. 4. Mild symmetric renal atrophy, as before. 5. Diffuse osseous sclerosis, as before. Fleischner guidelines were followed. Electronically signed by: Fatuma Dykes DO 06/24/2024 03:44 PM EDT RP
--- NOTE | ~2024-06-24 | US_ITS ---
EXAMINATION: US ABDOMEN LIMITED CLINICAL INFORMATION: RUQ/ epigastric pain. COMPARISON: CT abdomen/pelvis 11/19/2023 TECHNIQUE: Real-time imaging of the right upper quadrant abdominal viscera. FINDINGS: PANCREAS: The visualized pancreatic body and tail are normal. The pancreatic head is obscured by overlying bowel gas. LIVER: The liver is normal in size. The liver contour is normal. Parenchymal echogenicity is normal. No focal hepatic lesion. There is no intrahepatic biliary duct dilatation seen. GALLBLADDER: The gallbladder is physiologically distended without evidence of stones, sludge, polyps, wall thickening or pericholecystic fluid. COMMON BILE DUCT: Normal in caliber measuring 0.3 cm in diameter. FREE FLUID: None. US/US abdomen limited IMPRESSION: No cholelithiasis or sonographic evidence of acute cholecystitis. Electronically signed by: Fatuma Dykes DO 06/24/2024 03:27 PM EDT
--- NOTE | 2024-06-24 09:35 | ECG_ITS ---
Test Reason : CHEST PAIN Blood Pressure : / mmHG Vent. Rate : 074 BPM Atrial Rate : 074 BPM P-R Int : 172 ms QRS Dur : 080 ms QT Int : 408 ms P-R-T Axes : 020 027 036 degrees QTc Int : 452 ms Normal sinus rhythm Normal ECG When compared with ECG of 19-NOV-2023 09:53, Left posterior fascicular block is no longer Present Criteria for Inferior infarct are no longer Present Referred By: Generic ED Physician Electronically Signed By:Axel Charles
[2024-06-24 09:49] VITALS: BP 143/40; PULSE 18; RESP 18; TEMP 36.3; O2SAT 99; BMI 49.1
[2024-06-24 10:18] LABS: MANUAL DIFF FLAG NO
[2024-06-24 10:25] LABS: Basophils Percent Auto 0.1 % (0-2); Eosinophils Absolute Auto 0.2 X10*3/uL (0.0-0.4); Eosinophils Percent Auto 1.7 % (0-4); Hematocrit 30.6 % (42.0-52.0); Hemoglobin 10.1 g/dl (14.0-18.0); Imm Gran Abs Auto 0.04 X10*3/uL (0.00-0.03); Imm Gran Pct Auto 0.3 % (0.0-0.4); Lymphocytes Absolute Auto 1.6 X10*3/uL (1.2-4.9); Lymphocytes Percent Auto 13.8 % (20-40); Mean Corpuscular Hemoglobin 30.1 pg (27.0-33.0); Mean Corpuscular Volume 91.1 fL (80.0-98.0); Mean Platelet Volume 8.5 fL (9.4-12.4); Monocytes Absolute Auto 1.1 X10*3/uL (0.1-1.2); Monocytes Percent Auto 9.4 % (2-11); Neutrophils Absolute Auto 8.5 x10*3/uL (2.0-8.3); Neutrophils Percent Auto 74.7 % (45-73); Platelet Count 444 X10*3/uL (160-400); Red Blood Count 3.36 X10*6/uL (4.60-5.80); Red Cell Distribution Width 13.2 % (11.0-16.0); White Blood Count 11.4 X10*3/uL (4.8-10.8)
--- NOTE | 2024-06-24 10:31 | ED.GENADULT ---
HPI - General Adult General Chief complaint: General Medical Stated complaint: Chest pain, vomiting Time Seen by Provider: 06/24/24 10:22 Source: patient Mode of arrival: ambulatory Limitations: no limitations History of Present Illness ED Provider: KOSTA GRACIA PA-C HPI narrative: 48 year old male with pmhx significant for ALEX, COPD, hypoparathyroidism, GERD, ESRD on hemodialysis /// (last dialyzed on Saturday- 2 days ago), morbid obesity presents to the ED today from home for evaluation of nausea, vomiting, diarrhea and abdominal pain x4 days. Endorses epigastric/ RUQ abdominal pain that does not radiate. Denies fever, chills, sore throat, flank pain, constipation, hematochezia, melena. Admits that he did not get dialyzed yesterday as he could not sit for 4 hours without having a bowel movement. No known sick contacts. Also admits to mild left sided chest discomfort which has resolved. Denies palpitations or SOB. Triage note mentions cyst to buttock. on my questioning, patient states he's had a lump around his rectum for around a year now. follows with dr. marina of general surgery. states he was supposed to have surgery on this however has not followed up. states this is not currently bothering him. rates his rectal pain 0/10. denies drainage from the area. Related Data Home Medications ?Medication ?Instructions ?Recorded ?Confirmed atorvastatin 10 mg tablet 10 mg PO DAILY 08/08/20 06/16/24 metoprolol succinate 50 mg 50 mg PO DAILY 08/08/20 06/16/24 tablet,extended release 24 hr omeprazole 40 mg capsule,delayed 40 mg PO DAILY 08/08/20 06/16/24 release calcitriol 0.5 mcg capsule 1 mcg PO 4XW 01/24/21 06/16/24 sucroferric oxyhydroxide 500 mg 1,000 mg PO TID 02/07/21 06/16/24 chewable tablet mirtazapine 15 mg tablet 15 mg PO BEDTIME 06/16/24 06/16/24 allopurinol 100 mg tablet 100 mg PO DAILY 06/24/24 clindamycin phosphate 1 % lotion 1 appl topical BID 06/24/24 insulin NPH-regular 70-30 U-100 50 unit subcut DAILY@1700 06/24/24 insulin 100 unit/mL subcutaneous pen (Novolin 70-30 FlexPen U-100 Insulin) insulin NPH-regular 70-30 U-100 75 unit subcut DAILY@0800 06/24/24 insulin 100 unit/mL subcutaneous pen (Novolin 70-30 FlexPen U-100 Insulin) oxycodone 5 mg tablet 5 mg PO TID PRN Pain 06/24/24 tamsulosin 0.4 mg capsule 0.4 mg PO DAILY 06/24/24 Previous Rx's ?Medication ?Instructions ?Recorded blood-glucose meter (FreeStyle #1 ea 01/24/21 Lite Meter kit) lancets 32 gauge (Easy Touch #150 ea 01/24/21 Lancets) Novolin 70-30 FlexPen U-100 See Rx Instructions subcut BID 30 09/01/23 Insulin 100 unit/mL (70-30) days #45 mL subcutaneous (insulin NPH and regular human) blood sugar diagnostic (FreeStyle #150 ea 10/28/23 Lite Strips) amlodipine 10 mg tablet 10 mg PO DAILY #90 tabs 12/31/23 pen needle, diabetic 32 gauge x #200 ea 05/29/24 (BD Ultra-Fine Ciera Pen Needle) dextroamphetamine-amphetamine 30 30 mg PO DAILY 30 days #30 tabs 06/05/24 mg tablet (Adderall) bupropion HCl 150 mg 24 hr tablet, 150 mg PO QAM 30 days #30 tabs 06/16/24 extended release hydroxyzine HCl 25 mg tablet 25 mg PO TID PRN anxiety 30 days 06/16/24 #90 tabs Allergies Allergy/AdvReac Type Severity Reaction Status Date / Time theresa Allergy Severe Hives Verified 06/24/24 09:52 shellfish derived Allergy Severe Hives Verified 06/24/24 09:52 semaglutide AdvReac Intermediate nausea/vomiting, Verified 06/24/24 09:52 abdominal pain and diarrhea Review of Systems Review of Systems: Constitutional: No fever, chills, fatigue, night sweats, weight changes ENT/Mouth: No ear pain, hearing loss, nasal congestion, sinus pain, rhinorrhea, sore throat Eyes: No eye pain, swelling, redness, vision changes, discharge Cardio: No chest pain, palpitations, MCALLISTER, orthopnea, peripheral edema Pulm: No SOB, cough, sputum, wheezing, dyspnea, hemoptysis GI: No hematemesis, constipation, hematochezia, melena, +n[place],+vomiting, +diarrhea, +abdominal pain : No irregular bleeding, dysuria, frequency, urgency, hesitancy, hematuria, flank pain, urinary flow changes, urinary incontinence or retention MSK: No back pain, neck pain, joint pain, myalgias Skin: No lesions, rashes Neuro: No weakness, numbness, paresthesias, LOC, dizziness, headache Psych: No anxiety/panic, depression, SI/HI, AH/VH All other systems reviewed and are negative. [facility] Past Medical History Attestation statement: The following information was validated with the patient. 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 Diabetic nephropathy associated with type 2 diabetes mellitus Morbid obesity with BMI of 45.0-49.9, adult Type 2 diabetes mellitus with diabetic chronic kidney disease Diabetes type 2, uncontrolled ADHD (attention deficit hyperactivity disorder) Surgical History Hx of cardiac catheterization History of excision of pilonidal cyst AV fistula Family History Family History Father Diabetes Hypertension Mother Alive and well Sister Diabetes Social History Social History Household Members: None Housing: House Are you a primary palliative care physician to a significant other at home: No Do you presently have visiting nurse or other home services: Yes (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) Alcohol intake: never Patient Tobacco Use Status: Former Tobacco user Tobacco use type: Cigarette Smoked in Last 30 Days: No e-Cigarette/Vaping Use: Never Used Second Hand Smoke Exposure: Yes Use of substances other than those prescribed or required for medical reasons: No Substance Use Type: Crack/Cocaine and Marijuana Advance Directives: No Advance Directives Information Provided: Yes service: No Current occupational status: disabled Cognitive needs: Yes (cane) Hearing needs: No Vision needs: Yes (glasses) Physical Exam ED Vital Signs: Vital Signs - 24 hr 06/24/24 09:49 06/24/24 13:50 06/24/24 14:00 Temperature 97.3 F 97.9 F Pulse Rate 18 L 69 67 Respiratory Rate 18 19 18 Blood Pressure 143/40 H 121/69 121/67 Pulse Oximetry 99 97 99 Oxygen Delivery Method Room Air Room Air 06/24/24 16:35 06/24/24 17:25 06/24/24 17:25 Temperature 97.4 F 97.4 F 97.4 F Pulse Rate 71 71 71 Respiratory Rate 16 16 16 Blood Pressure 112/56 L 112/56 L 112/56 L Pulse Oximetry 96 96 96 Oxygen Delivery Method Room Air Room Air Room Air BMI result Body Mass Index 49.1 vital signs stable, afebrile General: Well appearing, in no acute distress. Skin: Warm, dry, intact. No rashes or lesions. Head: Normocephalic, atraumatic. EENT: Hearing is intact b/l. Conjunctiva clear. PERRLA. EOM intact. Moist mucous membranes.? Neck: Supple without LAD Cardiac: Chest wall symmetric. RRR Lungs: Normal respiratory effort without accessory muscle use. CTA bilaterally. No rales, rhonchi, or wheezes.? Abdomen: abd obese, nondistended, slightly ttp of epigastric/ RUQ without rebound or guarding. normoactive bs x4. no cvat b/l. on rectal exam, there is no external masses, abscess, or over lying skin changes. nontender. no fluctuance. Back: No midline spinous or paraspinal tenderness. No step off deformity. Ext: Upper and lower extremities atraumatic, without tenderness, deformity, swelling or erythema. no peripheral edema. Neuro: AOx3. Normal speech. Ambulating with steady gait. Psych: Appropriate mood and affect. Responds appropriately to questions. Course Course Course Narrative: 1635 -- CBC with leukocytosis without left shift. Chronic anemia when compared to priors. H&H stable. Chemistry showing hyperkalemia to 5.7. Five of Lokelma ordered. Repeat potassium WNL at 5.1. No other acute electrolyte abnormalities requiring intervention. EKG showing normal sinus rhythm at a rate of 74 beats per minute. No acute ischemic changes or ST elevations. Troponin 4.1 likely secondary to chronic kidney disease. Initial BUN 80, creatinine 14.18. This does not appear to be around patient's baseline and is likely secondary to patient not being dialyzed yesterday. He was treated with 1 L of IV fluids. Repeat BUN 84 and repeat creatinine 13.87. Negative for COVID, flu, RSV. ultrasound of abdomen without evidence of cholelithiasis or cholecystitis. CT abdomen/pelvis without evidence of appendicitis or choledocholithiasis. There are stable lymphadenopathy and hepatomegaly. Mild symmetric renal atrophy as seen previously and diffuse osseous sclerosis as seen previously. No acute intra-abdominal findings. > given unremarkable imaging results, symptoms are likely secondary to uremia secondary to missed dialysis. I spoke with freight dispatcher, Dr. Munoz who is in agreement with admission for dialysis. will discuss admission with hospitalist, dr. walker. 1649 -- Dr. Walker at bedside to evaluate patient. Patient is reporting complete resolution of all symptoms. Denies chest pain, nausea, vomiting, diarrhea, and abdominal pain. Admission for dialysis offered to patient. He is declining at this time. States he would like to be discharged home as he has dialysis scheduled for tomorrow morning through his facility. Dr. Walker does not feel patient requires emergent dialysis at this time as he shows no signs of uremia and all symptoms have resolved - states he does not meets criteria for admission. > Will discharge patient home with plan for dialysis tomorrow morning per his facility with strict return precautions. Patient has remained stable throughout ED visit today. Discussed worrisome signs and symptoms and when to return to the ED. All questions answered at this time. Patient is agreeable with disposition and stable for discharge. Medications Administered Discontinued Medications Generic Name Dose Route Start Last Admin Trade Name Freq PRN Reason Stop Dose Admin Sodium Chloride 1,000 mls @ 999 mls/hr 06/24/24 14:15 06/24/24 15:18 Ns IV 06/24/24 15:15 999 mls/hr .Q1H1M DEMARIO Administration Acetaminophen 1,000 mg in 100 mls @ 400 mls/hr 06/24/24 14:15 06/24/24 15:17 Ofirmev IV 06/24/24 14:29 400 mls/hr ONCE ONE Administration Ondansetron HCl 4 mg 06/24/24 11:10 06/24/24 11:23 Ondansetron Odt 4 Mg Tab.Rapdis TRANSLINGU 06/24/24 11:11 4 mg ONCE ONE Administration Oxycodone HCl 5 mg 06/24/24 15:21 06/24/24 15:28 Oxycodone Hcl Immed Release 5 Mg Tablet PO 06/24/24 15:22 5 mg ONCE ONE Administration Sodium Zirconium Cyclosilicate 5 gm 06/24/24 11:09 06/24/24 11:24 Sodium Zirconium Cyclosilicate 5 Gm Powd.Pack PO 06/24/24 11:10 5 gm ONCE ONE Administration Medical Decision Making Medical Decision Making MDM Narrative: 48 year old male with pmhx significant for ALEX, COPD, hypoparathyroidism, GERD, ESRD on hemodialysis /// (last dialyzed on Saturday- 2 days ago), morbid obesity presents to the ED today from home for evaluation of nausea, vomiting, diarrhea and abdominal pain x4 days. Vital signs stable. afebrile. he is nontoxic appearing and in nad. on exam, abd obese, nondistended, slightly ttp of epigastric/ RUQ without rebound or guarding. normoactive bs x4. no cvat b/l. on rectal exam, there is no external masses, abscess, or over lying skin changes. nontender. no fluctuance. Differential diagnosis includes biliary colic, renal colic, nephrolithiasis, gastroenteritis, anemia, electrolyte abnormality, dehydration, uremia, acute kidney injury on CKD. Abdominal exam without peritoneal signs. No evidence of acute abdomen at this time. Well appearing. Moderate suspicion for acute hepatobiliary disease (including acute cholecystitis). Less likely to represent acute pancreatitis, PUD (including perforation), acute infectious processes (pneumonia, hepatitis, pyelonephritis), atypical appendicitis, vascular catastrophe, bowel obstruction or viscus perforation. Presentation not consistent with other acute, emergent causes of abdominal pain at this time. Unlikely perirectal/ perianal abscess. Plan: labs, UA, pain control, ultrasound, CT abd/pelvis, re-evaluation. Differential Diagnosis Differential Diagnoses: The differential diagnosis associated with the presentation includes as above. Admission/Observation Consideration of admission/observation: Escalation of care including admission/observation considered Admission for dialysis offered to patient - declining at this time. Consult Healthcare Provider Management of the patient was discussed with: Hospitalist (Dr. Abrams) and Ship Washer (Lead Printer Dr. Munoz) Lab Data MDM Lab Attestation statement: I reviewed the patient's lab results. As above 06/24/24 10:14 06/24/24 15:55 Labs: Lab Results 06/24/24 06/24/24 Range/Units 10:14 15:55 WBC 11.4 H (4.8-10.8) X10*3/uL RBC 3.36 L (4.60-5.80) X10*6/uL Hgb 10.1 L (14.0-18.0) g/dl Hct 30.6 L (42.0-52.0) % MCV 91.1 (80.0-98.0) fL MCH 30.1 (27.0-33.0) pg MCHC 33.0 (31.0-36.0) g/dl RDW 13.2 (11.0-16.0) % Plt Count 444 H (160-400) X10*3/uL MPV 8.5 L (9.4-12.4) fL Immature Gran % (Auto) 0.3 (0.0-0.4) % Neut % (Auto) 74.7 H (45-73) % Lymph % (Auto) 13.8 L (20-40) % [place] % (Auto) 9.4 (2-11) % Eos % (Auto) 1.7 (0-4) % Baso % (Auto) 0.1 (0-2) % Lymph # (Auto) 1.6 (1.2-4.9) X10*3/uL [place] # (Auto) 1.1 (0.1-1.2) X10*3/uL Eos # (Auto) 0.2 (0.0-0.4) X10*3/uL Baso # (Auto) 0.0 (0.0-0.2) X10*3/uL Abs Immat Gran (auto) 0.04 H (0.00-0.03) X10*3/uL Absolute Neuts (auto) 8.5 H (2.0-8.3) x10*3/uL Absolute Nucleated RBC 0.000 (0.0-0.012) X10*3/uL Nucleated RBC % (auto) 0.0 (0.0-0.2) /100WBC Sodium 138 137 (135-145) mmol/L Potassium 5.7 H 5.1 (3.3-5.1) mmol/L Chloride 97 98 (96-108) mmol/L Carbon Dioxide 25 24 (22-29) mmol/L Anion Gap 22 H 20 (12-20) BUN 80 H 84 H (9-16) mg/dL Creatinine 14.18 H* 13.87 H* (0.5-1.4) mg/dL Estim Creat Clear Calc 10.3 10.5 Estimated GFR 4 4 Random Glucose 140 H 138 H (60-115) mg/dL Calcium 9.4 D 9.0 (8.4-10.2) mg/dL Total Bilirubin 0.7 (0.0-1.0) mg/dL Direct Bilirubin 0.2 (0.0-0.5) mg/dL AST 22 (5-37) U/L ALT < 6 (0-40) U/L Alkaline Phosphatase 102 (39-117) U/L Troponin I High Sens 4.1 (<3.5-35.0) ng/L Total Protein 8.4 H (6.5-8.0) g/dL Albumin 3.6 (3.5-5.0) g/dL Lipase 27 (8-78) U/L Influenza Type A (PCR) NEGATIVE (Negative) Influenza Type B (PCR) NEGATIVE (Negative) RSV RNA Qual (PCR) NEGATIVE (Negative) SARS-CoV-2 RNA (RT-PCR) NEGATIVE (Negative) Independent Interpretation I performed an independent interpretation of an: EKG, Ultrasound and CT Scan Interpretation: EKG showing normal sinus rhythm with a rate of 74 beats per minute, QT 408, QTC 452, no acute ischemic changes or ST elevations. Abdominal ultrasound without evidence of acute cholecystitis, agree with radiologist's interpretation. Radiology Impression Discussion of test interpretation with radiology: I have reviewed the radiologist's reading. Radiologist Impression: EXAMINATION: CT ABDOMEN AND PELVIS WITHOUT CONTRAST CLINICAL INFORMATION: RUQ pain, diarrhea, vomiting COMPARISON: CT abdomen/pelvis 11/19/2023 TECHNIQUE: Multidetector volumetric imaging was performed from the superior aspect of the liver through the pubic symphysis. Sagittal and coronal reformatted images were obtained on the technologist's workstation. This CT examination was performed using dose optimization techniques as appropriate, variously including the following: *Automated exposure control *Adjustment of mA and/or kV according to patient size (this includes techniques or standardized protocols for targeted exams where dose is matched to indication/reason for exam; i.e. extremities or head) *Use of iterative reconstruction technique DLP: 1510 mGy-cm FINDINGS: LUNG BASES: The visualized lung bases are unremarkable. LIVER, GALLBLADDER, AND BILIARY TREE: Hepatomegaly measuring 24 cm in craniocaudal dimension, compared to 23 cm previously. The liver is normal in shape and attenuation. No focal hepatic lesion or biliary ductal dilatation is present. The gallbladder is unremarkable with no evidence of radiopaque gallstones, gallbladder wall thickening, or obvious pericholecystic inflammatory changes. PANCREAS: Unremarkable. SPLEEN: Normal in size. Coarse calcified granuloma, as before. ADRENAL GLANDS: Unremarkable. KIDNEYS AND URETERS: Mild symmetric renal atrophy, as before. The kidneys are normal in size, shape, and attenuation. No hydronephrosis, hydroureter, or calculi seen. No perinephric stranding. Arterial calcifications noted. BLADDER: Decompressed and not well assessed. GASTROINTESTINAL TRACT: The small and large bowel are nondilated. Normal appendix. ABDOMINAL WALL: Small fat-containing umbilical hernia. LYMPH NODES: Stable lymphadenopathy with the largest lymph node being the right common iliac chain node measuring up to 1.3 cm in short axis. Left external iliac chain node measures up to 1.2 cm in short axis. Again seen are prominent though not pathologically enlarged bilateral pelvic wall, retroperitoneal and left upper quadrant mesenteric nodes. VASCULAR: The aorta is nonaneurysmal. Mild scattered atheromatous calcified calcifications. PELVIC VISCERA: Normal CT appearance of the prostate seminal vesicles. OSSEOUS STRUCTURES: No acute or suspicious osseous abnormality. Multilevel Schmorl's nodes, as before. Diffuse osseous sclerosis, as before. CT/CT abdomen pelvis wo IV con IMPRESSION: 1. No acute abnormality within the abdomen or pelvis. 2. Stable lymphadenopathy. 3. Stable hepatomegaly. 4. Mild symmetric renal atrophy, as before. 5. Diffuse osseous sclerosis, as before. Fleischner guidelines were followed. Electronically signed by: Fatuma Dykes DO 06/24/2024 03:44 PM EDT RP EXAMINATION: US ABDOMEN LIMITED CLINICAL INFORMATION: RUQ/ epigastric pain. COMPARISON: CT abdomen/pelvis 11/19/2023 TECHNIQUE: Real-time imaging of the right upper quadrant abdominal viscera. FINDINGS: PANCREAS: The visualized pancreatic body and tail are normal. The pancreatic head is obscured by overlying bowel gas. LIVER: The liver is normal in size. The liver contour is normal. Parenchymal echogenicity is normal. No focal hepatic lesion. There is no intrahepatic biliary duct dilatation seen. GALLBLADDER: The gallbladder is physiologically distended without evidence of stones, sludge, polyps, wall thickening or pericholecystic fluid. COMMON BILE DUCT: Normal in caliber measuring 0.3 cm in diameter. FREE FLUID: None. US/US abdomen limited IMPRESSION: No cholelithiasis or sonographic evidence of acute cholecystitis. Electronically signed by: Fatuma Dykes DO 06/24/2024 03:27 PM EDT External Record Review External record reviewed: Inpatient record, Office record, Outpatient record, Prior outpatient labs, Prior outpatient radiology, Primary care record and Outside ED record Chronic Conditions Patient?s care impacted by: Other (ESRD) Social Determinants Patient?s care significantly limited by Social Determinants of Health including: Other Social Determinant of Health Critical Care Time Critical Care Time Critical Care Time: Yes Total Critical Care Time: 34 Attestation: Critical care time in the amount of 34 minutes has been provided to the patient in terms of direct patient care, frequent reevaluation, consultation with hospitalist and freight dispatcher, review and interpretation of medical data and results, and management of potentially life-threatening conditions. This is all outside of any medical procedures. Discharge Plan Discharge Clinical Impression: Acute kidney injury superimposed on CKD, Acute hyperkalemia Patient Disposition: Home, Self-Care Instructions: Acute Kidney Injury (DC), Hyperkalemia (ED), End Stage Kidney Disease (ED), Hemodialysis (DC) Additional Instructions: You were evaluated in the ED today for nausea, vomiting, diarrhea, and abdominal pain. You report complete resolution of all symptoms. Your blood work showed elevated potassium for which you were treated. It also shows elevated renal function. You were offered hospitalization for dialysis however you are declining at this time and wish to be dialyzed through your facility tomorrow morning. Your CT scan and abdominal ultrasound are unremarkable. Please follow up with your PCP for repeat labs to ensure your potassium stays within normal limits. Return to the ED with new or worsening symptoms. In the case of an emergency call 911. Prescriptions: No Action Novolin 70-30 FlexPen U-100 100 unit/mL (70-30) insulin pen See Rx Instructions subcut BID 30 Days Qty: 45 4RF Patient Comments: patient states 75 units am and 35 units evening Rx Instructions: 75 units before breakfast and 50 units before dinner subcut 2 times a day; (DME) FreeStyle Lite Strips Strip See Rx Instructions .ROUTE .MEDSUPPLY Qty: 150 11RF Rx Instructions: 5 times a day amlodipine 10 mg tablet 10 mg PO DAILY Qty: 90 1RF (DME) pen needle, diabetic [BD Ultra-Fine Ciera Pen Needle] 32 gauge x 5/32 needle See Rx Instructions .Route Qty: 200 3RF Rx Instructions: As directed twice a day dextroamphetamine-amphetamine [Adderall] 30 mg tablet 30 mg PO DAILY 30 Days Qty: 30 0RF allopurinol 100 mg tablet 100 mg PO DAILY tamsulosin 0.4 mg capsule 0.4 mg PO DAILY oxycodone 5 mg tablet 5 mg PO TID PRN (Reason: Pain) clindamycin phosphate 1 % lotion 1 appl topical BID Novolin 70-30 FlexPen U-100 100 unit/mL (70-30) insulin pen 50 unit subcut DAILY@1700 Novolin 70-30 FlexPen U-100 100 unit/mL (70-30) insulin pen 75 unit subcut DAILY@0800 atorvastatin 10 mg tablet 10 mg PO DAILY metoprolol succinate 50 mg tablet extended release 24 hr 50 mg PO DAILY omeprazole 40 mg capsule,delayed release(DR/EC) 40 mg PO DAILY calcitriol 0.5 mcg capsule 1 mcg PO 4XW (DME) blood-glucose meter [FreeStyle Lite Meter] Kit See Rx Instructions .ROUTE .MEDSUPPLY Qty: 1 0RF Rx Instructions: 4 times a day (DME) Easy Touch Lancets 32 gauge misc See Rx Instructions .MEDSUPPLY Qty: 150 6RF Rx Instructions: 5 times a day sucroferric oxyhydroxide 500 mg tablet,chewable 1,000 mg PO TID mirtazapine 15 mg tablet 15 mg PO BEDTIME bupropion HCl 150 mg tablet extended release 24 hr 150 mg PO QAM 30 Days Qty: 30 3RF hydroxyzine HCl 25 mg tablet 25 mg PO TID PRN (Reason: anxiety) 30 Days Qty: 90 2RF Referrals: Ovidio العلي MD [Primary Care Provider] - Interventions: ED Discharge Assessment Last Done: 06/24/24 17:25 Discharge Date/Time: 06/24/24 17:25 Print Language: Azeri
[2024-06-24 10:43] LABS: Alanine Aminotransferase < 6 U/L (0-40); Albumin Level 3.6 g/dL (3.5-5.0); Alkaline Phosphatase 102 U/L (39-117); Anion Gap 22 (12-20); Aspartate Amino Transferase 22 U/L (5-37); Bilirubin Direct 0.2 mg/dL (0.0-0.5); Bilirubin Total 0.7 mg/dL (0.0-1.0); Blood Urea Nitrogen 80 mg/dL (9-16); Calcium 9.4 mg/dL (8.4-10.2); Carbon Dioxide 25 mmol/L (22-29); Chloride 97 mmol/L (96-108); Creatinine Clr Calc Pharmacy 10.3; Estimated Glomerular Filt Rate 4; Glucose Random 140 mg/dL (60-115); Lipase 27 U/L (8-78); Potassium 5.7 mmol/L (3.3-5.1); Sodium 138 mmol/L (135-145); Total Protein 8.4 g/dL (6.5-8.0)
[2024-06-24 10:55] LABS: Influenza A PCR NEGATIVE (Negative); Influenza B PCR NEGATIVE (Negative); Resp Syncy Virus RNA Qual PCR NEGATIVE (Negative); SARS COV2 PCR INHOUSE NEGATIVE (Negative)
[2024-06-24] MEDS: Ondansetron ODT 4 MG TAB.RAPDIS TRANSLINGU (11:23)
[2024-06-24] MEDS: Sodium Zirconium Cyclosilicate 5 GM POWD.PACK PO (11:24)
[2024-06-24 12:14] LABS: Troponin-I High Sensitivity 4.1 ng/L (<3.5-35.0)
[2024-06-24 13:50] VITALS: BP 121/69; PULSE 69; RESP 19; O2SAT 97
[2024-06-24 14:00] VITALS: BP 121/67; PULSE 67; RESP 18; TEMP 36.6; O2SAT 99
[2024-06-24] MEDS: Acetaminophen 1,000 MG/100 ML PIGGYBACK 400 MG IV (15:17)
[2024-06-24] MEDS: 0.9 % Sodium Chloride 1,000 ML 999 ML IV (15:18)
[2024-06-24] MEDS: oxyCODONE HCl Immed Release 5 MG TABLET PO (15:28)
[2024-06-24 16:19] LABS: Anion Gap 20 (12-20); Blood Urea Nitrogen 84 mg/dL (9-16); Carbon Dioxide 24 mmol/L (22-29); Chloride 98 mmol/L (96-108); Creatinine Clr Calc Pharmacy 10.5; Estimated Glomerular Filt Rate 4; Glucose Random 138 mg/dL (60-115); Potassium 5.1 mmol/L (3.3-5.1); Sodium 137 mmol/L (135-145)
[2024-06-24 16:35] VITALS: BP 112/56; PULSE 71; RESP 16; TEMP 36.3; O2SAT 96
[2024-06-24 17:25] VITALS: BP 112/56; PULSE 71; RESP 16; TEMP 36.3; O2SAT 96
== END 2024-06-24 17:25 | disposition home or self-care (01) ==
PROVIDERS: Physician Assistant Medical; Emergency Provider Emergency Medicine; PCP Internal Medicine
DX: E87.5 Hyperkalemia (principal); E11.22 Type 2 diabetes mellitus with diabetic chronic kidney disease; I12.0 Hypertensive chronic kidney disease with stage 5 chronic kidney disease or end stage renal disease; N18.6 End stage renal disease; N17.8 Other acute kidney failure; R11.2 Nausea with vomiting, unspecified; Z99.2 Dependence on renal dialysis; Z91.158 Patient's noncompliance with renal dialysis for other reason; Z03.818 Encounter for observation for suspected exposure to other biological agents ruled out; Z79.899 Other long term (current) drug therapy; Z79.4 Long term (current) use of insulin
CPT/HCPCS: 0241U; 36415; 74176; 76705; 80048; 80053; 82248; 83690; 84484; 85025; 93005; 99284; 99285; J0131

== ENCOUNTER → 2024-06-24 09:35 | Outpatient (BNV) | payer OTHER, SELFPAY | PROVIDERS: Emergency Provider Emergency Medicine; PCP Internal Medicine; Visit Provider Internal Medicine Cardiovascular Disease | DX: R07.9 Chest pain, unspecified (principal) | CPT/HCPCS: 93010 ==

== ENCOUNTER 2024-09-04 18:06 | Emergency (ER) | payer OTHER, SELFPAY ==
--- NOTE | 2024-09-04 | ECG_ITS ---
Test Reason : WEAKNESS Blood Pressure : / mmHG Vent. Rate : 067 BPM Atrial Rate : 067 BPM P-R Int : 166 ms QRS Dur : 096 ms QT Int : 418 ms P-R-T Axes : 043 045 035 degrees QTc Int : 441 ms Normal sinus rhythm Normal ECG When compared with ECG of 04-SEP-2024 19:28, QT has shortened Referred By: Jordy Davila Electronically Signed By:JAS BRIGHT MD
--- NOTE | ~2024-09-04 | US_ITS ---
CLINICAL HISTORY: leg pain, swelling Venous duplex ultrasound left lower extremity Comparison: 05/15/2024 Findings: The visualized deep veins are fully compressible with normal Doppler color flow and spectral tracings. No popliteal cyst. IMPRESSION: 1. Negative for left lower extremity deep vein thrombosis. This document has been electronically signed by: Jose R Guo MD on 09/04/2024 20:32:35
--- NOTE | ~2024-09-04 | XR_ITS ---
CLINICAL HISTORY: pain, swelling 2 view left ankle Comparison: None Findings: There are destructive changes involving midfoot bony structures possibly related to neuropathic arthropathy. Correlate clinically.. No significant loss of joint space, osteophytes, or erosions. No ankle effusion. There is diffuse subcutaneous edema. No radiopaque foreign body. IMPRESSION: 1. 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 Correlate clinically. This document has been electronically signed by: Jose R Guo MD on 09/04/2024 19:54:09
--- NOTE | ~2024-09-04 | XR_ITS ---
CLINICAL HISTORY: pain, swelling 3 view left foot Comparison: None Findings: There is marked abnormality of midfoot bony structures possibly related to trauma or arthropathy such as neuropathic arthropathy. Is the patient diabetic? No significant arthritic change or erosions. No ankle effusion. No radiopaque foreign body. There is regional arterial calcification. IMPRESSION: 1. 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 Correlate clinically. This document has been electronically signed by: Jose R Guo MD on 09/04/2024 19:55:20
[2024-09-04 18:15] VITALS: BP 154/82; PULSE 65; O2SAT 98
[2024-09-04 18:18] VITALS: BP 136/63; PULSE 66; RESP 18; TEMP 36.9; O2SAT 99; BMI 49.7
--- OUTSIDE RECORDS SUMMARY | 2024-09-04 18:29 | XMS_ITS | Patient Health Record ---
[facility] Address [address] [place] [address] Care Team Providers Care [employer] Name Role Phone Baltazar العلي MDneth Primary Care Provider Trena Helm Unavailable [phone] Jacob Luong Unavailable [phone] Allergies Allergen (clinical drug ingredient) Drug/Non Drug Allergy documented on EMR Reaction Allergy Type Onset Date Status ibuprofen Advil Unknown Drug Allergy Active aspirin Aspirin Unknown Drug Allergy Active Brynn rash Drug Allergy Active shrimp allergenic extract Shrimp (Diagnostic) rash Drug Allergy Active Adhesive rash Allergy Active Shellfish (FN) Shellfish-derived Products rash Drug Allergy Active Results Component Value Reference Range Notes HEMOGLOBIN A1C (GLYCOHEMOGLO BIN) Reviewed date:12/25/2023 08:59:13 AM Interpretation: Performing Lab: Notes/Report: HEMOGLOBIN A1C (HH) 7.0 HEMOGLOBIN A1C (GLYCOHEMOGLO BIN) Reviewed date:05/15/2024 08:46:07 AM Interpretation: Performing Lab: Notes/Report: HEMOGLOBIN A1C (HH) 7.4 HEMOGLOBIN A1C (GLYCOHEMOGLO BIN) Reviewed date:04/14/2024 11:11:48 AM Interpretation: Performing Lab: Notes/Report: HEMOGLOBIN A1C (HH) 6.8 Reason For Referral No Information Medications Medication SIG (Take, Route, Frequency, Duration) Notes Start Date End Date Status Sensipar Active hydrALAZINE HCl 25 MG 1 tablet with food Orally twice a day Not-Taking Furosemide 80 MG 1 tablet Orally Once a day for 30 day(s) Not-Taking Novolin 70/30 PenFill Active Doxycycline Monohydrate 100 MG 1 capsule Orally Twice a day for 7 days 07/12/2023 Not-Taking Vitamin B12 1000 MCG 1 tablet Orally Onc e a day Not-Taking Ciclopirox Olamine 0.77 % 1 application Externally Twice a day for 30 days Active Gabapentin 300 MG TAKE 1 CAPSULE BY [facility] EVERY DAY AT NIGHT for 90 Not-Taking Tamsulosin HCl 0.4 MG 1 capsule Orally O nce a day for 30 day(s) Not-Taking Ciclopirox Olamine 0.77 % 1 application Externally Twice a day for 30 days Active Walking Boot/Pneumatic As directed Wear Daily for Until further notice 09/29/2023 Active Medrol cee 4mg as directed orally a s directed for 6 days 09/10/2023 Active oxyCODONE HCl 5 MG 1 tablet as needed Orally twice a day Active Adderall 30 MG 1 tablet Orally once a day Active Keflex 500 MG 1 capsule Orally kanwal ry 12 hrs for 7 days 08/30/2020 Not-Taking Extra Depth Orthopedic Shoes (1 Pair) with Customized Heat Molded Multidensity Innersoles (3 Pair) as directed Dx: NIDDM/Polyneuropathy (E11.42), Hammertoe Foot Deformity (M20.41,M20.42), Preulcerative Skin Lesion(s) (L85.1 09/13/2021 Active Ammonium Lactate 12 % 1 application to affected area Externally to feet Twice a day for 30 days Active Omeprazole 40 MG 1 capsule 30 minutes before morning meal Orally twice a day Active Sevelamer Carbonate 800 MG 1 tablet with meals Orally Three times a day for 30 day(s) Not-Taking Metoprolol Succinate 50 MG 1 capsule Orally Once a day Active HumuLIN R U-500 KwikPen as directed twice a day Not-Taking Atorvastatin Calcium 10 MG 1 tablet Orally Once a day for 30 day(s) Active Cipro 500 MG 1 tablet Orally ever y 12 hrs for 5 days 10/11/2020 Not-Taking Calcitriol 0.25 MCG 1 capsule Orally thr ee times a week Active Cipro 500 MG 1 tablet Orally ever y 12 hrs for 7 days 09/06/2020 Not-Taking Ammonium Lactate 12 % 1 application to affected area Externally to feet Twice a day for 30 days Not-Taking Extra Depth Orthopedic Shoes (1 Pair) with Customized Heat Molded Multidensity Innersoles (3 Pair) as directed Dx: NIDDM/Polyneuropathy (E11.42), Hammertoe Foot Deformity (M20.41,M20.42), Preulcerative Skin Lesion(s) (L85.1 06/22/2020 Not-Taking amLODIPine Besylate 10 MG 1 tablet Orally Once a day for 30 day(s) Active Bumetanide 1 MG as directed Orally t wice a day Not-Taking Velphoro 500 MG 1 tablet with meals Orally Twice a day for 30 day(s) Active Extra Depth Orthopedic Shoes (1 Pair) with Customized Heat Molded Multidensity Innersoles (3 Pair) as directed Dx: NIDDM/Polyneuropathy (E11.42), Hammertoe Foot Deformity (M20.41,M20.42), Preulcerative Skin Lesion(s) (L85.1 10/25/2020 Not-Taking Immunizations Vaccine Route Administration Date Status Comme nts COVID-19 Justin & Justin/Prabha Unknown 07/07/2021 Administered First Dose: 12/10/20 Pt got Moderna for Booster shot Influenza Unknown 07/04/2020 Administered Influenza Unknown 06/20/2021 Administered Influenza Unknown 06/04/2022 Administered Influenza Unknown 05/03/2023 Administered Social History Tobacco Use: Social History Observation Description Date Details (start date - stop date) Former Smoker NA - NA Tobacco Use/Smoking Question Answer Notes Are you a: former smoker Additional Findings: Tobacco Non-User Ex -cigarette smoker,Ex-heavy cigarette smoker (20-30/day) Alcohol Screen Question Answer Notes Did you have a drink containing alcohol in the p ast year? No Points 0 Interpretation Negative Tobacco use other than smoking: Question Answer Notes Are you an other tobacco user? No Problems Problem Type SNOMED Code ICD Code Onset Dates Problem Status W/U Status Risk Notes Problem Acquired hammer toe of right foot (865921834924590 5) Other hammer toe(s) (acquired), right foot (M20.41) Active confirmed Problem Acquired hammer toe of left foot (634815343377609 3) Other hammer toe(s) (acquired), left foot (M20.42) Active confirmed Problem Plantar wart (39216936) Plantar wart (B07.0) Active confirmed Problem Polyneuropathy due to type 2 diabetes mellitus (607765153) Type 2 diabetes mellitus with diabetic polyneuropathy (E11.42) Active confirmed Problem Polyneuropathy due to diabetes mellitus type I (534836636) Type 1 diabetes mellitus with diabetic polyneuropathy (E10.42) Active confirmed Problem 83742136 Type 2 diabetes mellitus with polyneuropathy (E11.42) Active confirmed Problem Gout (62648455) Gout of left foot (M10.9) Active confirmed Problem [id number] Type 2 diabetes mellitus with Charcot's joint of left foot (E11.610) Active confirmed Problem Neuropathic ulcer of right foot with fat layer exposed (L97.512) Active confirmed Response to treatment Problem Neuropathic ulcer of right foot (disorder) (371513221641908 02) Neuropathic ulcer of right foot, limited to breakdown of skin (L97.511) Active confirmed Response to treatment Problem Arthropathy associated with a neurological disorder (37527543) Charcot's joint of foot, left (M14.672) Active confirmed Vital Signs Heart Rate 63 /min 06/30/2024 Blood pressure diastolic 85 mm Hg 09/04/2024 Height 6ft in 09/04/2024 Blood pressure systolic 124 mm Hg 09/04/2024 Weight 342 lbs 09/04/2024 BMI 46.38 kg/m2 09/04/2024 Encounters Encounter Location Date Provider Diagnosis [address] [address] 09/04/2024 Trena Galvan [address] [address] 09/10/2023 Trena Perica Gout of left foot M10.9 ; Type 2 diabetes mellitus with polyneuropathy E11.42 ; Pes planus of left foot M21.42 and Pes planus of right foot M21.[address] [address] 09/27/2023 Trena Perica Gout of left foot M10.9 ; Charcot's joint of foot, left M14.672 ; Type 2 diabetes mellitus with polyneuropathy E11.42 ; Pes planus of left foot M21.42 and Type 2 diabetes mellitus with Charcot's joint of left foot E11.[address] [address] 10/29/2023 Trena Perica Type 2 diabetes mellitus with polyneuropathy E11.42 ; Charcot's joint of foot, left M14.672 ; Pes planus of left foot M21.42 and Type 2 diabetes mellitus with Charcot's joint of left foot E11.[address] [address] 11/08/2023 Trena Vasquesa Neuropathic ulcer of right foot, limited to breakdown of skin L97.511 ; Tinea pedis of both feet B35.3 and Type 2 diabetes mellitus with polyneuropathy E11.[address] [address] 12/25/2023 Trena Perica Type 2 diabetes mellitus with diabetic polyneuropathy E11.42 ; Charcot's joint of foot, left M14.672 ; Tinea unguium B35.1 ; Pes planus of left foot M21.42 and Type 2 diabetes mellitus with Charcot's joint of left foot E11.[address] [address] 01/07/2024 Trena Vasquesa Right foot pain M79.671 ; Plantar wart B07.0 and Type 2 diabetes mellitus with polyneuropathy E11.[address] [address] 01/22/2024 Trena Perica Neuropathic ulcer of right foot, limited to breakdown of skin L97.511 ; Type 2 diabetes mellitus with polyneuropathy E11.42 and Type 2 diabetes mellitus with Charcot's joint of left foot E11.[address] [address] 02/19/2024 Trena Perica Type 2 diabetes mellitus with diabetic polyneuropathy E11.42 ; Charcot's joint of foot, left M14.672 ; Pes planus of left foot M21.42 and Type 2 diabetes mellitus with Charcot's joint of left foot E11.[address] [address] 03/18/2024 Trena Perica Type 2 diabetes mellitus with diabetic polyneuropathy E11.42 ; Charcot's joint of foot, left M14.672 ; Pes planus of left foot M21.42 and Type 2 diabetes mellitus with Charcot's joint of left foot E11.[address] [address] 04/14/2024 Trena Perica Tinea pedis of both feet B35.3 ; Charcot's joint of foot, left M14.672 ; Type 2 diabetes mellitus with diabetic polyneuropathy E11.42 ; Pes planus of left foot M21.42 and Type 2 diabetes mellitus with Charcot's joint of left foot E11.[address] [address] 04/22/2024 Trena Galvan Puncture wound with foreign body, right foot, initial encounter S91.341A and Type 2 diabetes mellitus with polyneuropathy E11.[address] [address] 05/15/2024 Trena Vasquesa Acute deep vein thrombosis (DVT) of calf muscle vein of left lower extremity I82.462 ; Neuropathic ulcer of right foot with fat layer exposed L97.512 and Type 2 diabetes mellitus with polyneuropathy E11.[address] [address] 05/27/2024 Trena Perica Tinea pedis of both feet B35.3 ; Charcot's joint of foot, left M14.672 ; Type 2 diabetes mellitus with diabetic polyneuropathy E11.42 ; Pes planus of left foot M21.42 and Type 2 diabetes mellitus with Charcot's joint of left foot E11.[address] [address] 06/30/2024 Trena Perica Neuropathic ulcer of right foot with fat layer exposed L97.512 ; Type 2 diabetes mellitus with polyneuropathy E11.42 and Charcot's joint of foot, left M14.[address] [address] 07/14/2024 Trena Galvan Type 2 diabetes mellitus with polyneuropathy E11.42 ; Neuropathic ulcer of right foot, limited to breakdown of skin L97.511 and Charcot's joint of foot, left M14.672 [facility] [place] [address] [place] [address] 08/19/2024 Trena Galvan Type 2 diabetes mellitus with polyneuropathy E11.42 ; Charcot's joint of foot, left M14.672 ; Pes planus of left foot M21.42 and Type 2 diabetes mellitus with Charcot's joint of left foot E11.610 [facility] [place] [address] [place] [address] 09/04/2024 Trena Perica [facility] [address] [place] [address] 09/10/2023 Trena Perica [facility] [address] [place] [address] 09/10/2023 Trena Perica [facility] [address] [place] [address] 09/10/2023 Trena Perica [facility] [address] [place] [address] 09/11/2023 Trena Perica [facility] [address] [place] [address] 09/25/2023 Trena Perica [facility] [address] [place] [address] 09/29/2023 Trena Perica [facility] [address] [place] [address] 09/30/2023 Trena Perica [facility] [address] [place] [address] 10/11/2023 Trena Perica [facility] [address] [place] [address] 10/29/2023 Trena Perica [facility] [address] [place] [address] 10/29/2023 Trena Perica [facility] [address] [place] [address] 11/05/2023 Trena Perica [facility] [place] [address] [place] [address] 11/07/2023 Trena Perica [facility] [place] [address] [place] [address] 11/19/2023 Trena Perica [facility] [place] [address] [place] [address] 11/22/2023 Trena Perica [facility] [place] [address] [place] [address] 12/02/2023 Trena Perica [facility] [place] [address] [place] [address] 12/05/2023 Trena Perica [facility] [place] [address] [place] [address] 01/06/2024 Trena Perica [facility] [place] [address] [place] [address] 02/19/2024 Trena Perica [facility] [place] [address] [place] [address] 03/18/2024 Trena Perica [facility] [place] [address] [place] [address] 03/18/2024 Trena Perica [facility] [place] [address] [place] [address] 04/14/2024 Trena Perica [facility] [place] [address] [place] [address] 04/22/2024 Trena Perica [facility] [place] [address] [place] [address] 05/15/2024 Trena Perica [facility] [place] [address] [place] [address] 05/25/2024 Trena Perica [facility] [place] [address] [place] [address] 06/24/2024 Trena Perica [facility] [place] [address] [place] [address] 06/26/2024 [facility] [address] [address] 08/19/2024 Trena Galvan [facility] [address] [address] 09/01/2024 Trena Galvan Assessments Encounter Date Diagnosis (ICD Code) Assessment Notes Treatment Notes Treatment Clinical Notes Section Notes 09/10/2023 Type 2 diabetes mellitus with polyneuropathy (ICD-10 - E11.42) 09/10/2023 Gout of left foot (ICD-10 - M10.9) Rx drug management (4) Patient Educated with: GOUT.pdf (GOUT.pdf) Patient Educated with: LOW PURINE DIET.pdf (LOW PURINE DIET.pdf) 09/27/2023 Gout of left foot (ICD-10 - M10.9) 09/27/2023 Charcot's joint of foot, left (ICD-10 - M14.672) 10/29/2023 Type 2 diabetes mellitus with polyneuropathy (ICD-10 - E11.42) 11/08/2023 Neuropathic ulcer of right foot, limited to breakdown of skin (ICD-10 - L97.511) Response to treatment Patient Educated with: WOUND CARE INSTRUCTIONS. pdf (WOUND CARE INSTRUCTIONS. pdf) 12/25/2023 Type 2 diabetes mellitus with diabetic polyneuropathy (ICD-10 - E11.42) 12/25/2023 Charcot's joint of foot, left (ICD-10 - M14.672) 01/07/2024 Right foot pain (ICD-10 - M79.671) 01/22/2024 Neuropathic ulcer of right foot, limited to breakdown of skin (ICD-10 - L97.511) Response to treatment Patient Educated with: WOUND CARE INSTRUCTIONS. pdf (WOUND CARE INSTRUCTIONS. pdf) 02/19/2024 Type 2 diabetes mellitus with diabetic polyneuropathy (ICD-10 - E11.42) 01/22/2024 Type 2 diabetes mellitus with polyneuropathy (ICD-10 - E11.42) 04/14/2024 Tinea pedis of both feet (ICD-10 - B35.3) 04/14/2024 Charcot's joint of foot, left (ICD-10 - M14.672) 04/22/2024 Puncture wound with foreign body, right foot, initial encounter (ICD-10 - S91.341A) 04/22/2024 Type 2 diabetes mellitus with polyneuropathy (ICD-10 - E11.42) 05/15/2024 Neuropathic ulcer of right foot with fat layer exposed (ICD-10 - L97.512) Response to treatment Patient Educated with: WOUND CARE INSTRUCTIONS. pdf (WOUND CARE INSTRUCTIONS. pdf) 05/15/2024 Acute deep vein thrombosis (DVT) of calf muscle vein of left lower extremity (ICD-10 - I82.462) 05/27/2024 Tinea pedis of both feet (ICD-10 - B35.3) 05/27/2024 Charcot's joint of foot, left (ICD-10 - M14.672) 06/30/2024 Type 2 diabetes mellitus with polyneuropathy (ICD-10 - E11.42) 06/30/2024 Neuropathic ulcer of right foot with fat layer exposed (ICD-10 - L97.512) Patient Educated with: WOUND CARE INSTRUCTIONS. pdf (WOUND CARE INSTRUCTIONS. pdf) 07/14/2024 Type 2 diabetes mellitus with polyneuropathy (ICD-10 - E11.42) 07/14/2024 Neuropathic ulcer of right foot, limited to breakdown of skin (ICD-10 - L97.511) 03/18/2024 Type 2 diabetes mellitus with diabetic polyneuropathy (ICD-10 - E11.42) 08/19/2024 Type 2 diabetes mellitus with polyneuropathy (ICD-10 - E11.42) 08/19/2024 Charcot's joint of foot, left (ICD-10 - M14.672) 03/18/2024 Pes planus of left foot (ICD-10 - M21.42) 07/14/2024 Charcot's joint of foot, left (ICD-10 - M14.672) 08/19/2024 Pes planus of left foot (ICD-10 - M21.42) 06/30/2024 Charcot's joint of foot, left (ICD-10 - M14.672) 05/27/2024 Type 2 diabetes mellitus with diabetic polyneuropathy (ICD-10 - E11.42) 05/15/2024 Type 2 diabetes mellitus with polyneuropathy (ICD-10 - E11.42) 01/22/2024 Type 2 diabetes mellitus with Charcot's joint of left foot (ICD-10 - E11.610) 11/08/2023 Tinea pedis of both feet (ICD-10 - B35.3) 02/19/2024 Charcot's joint of foot, left (ICD-10 - M14.672) 03/18/2024 Charcot's joint of foot, left (ICD-10 - M14.672) 04/14/2024 Type 2 diabetes mellitus with diabetic polyneuropathy (ICD-10 - E11.42) 02/19/2024 Pes planus of left foot (ICD-10 - M21.42) 01/07/2024 Type 2 diabetes mellitus with polyneuropathy (ICD-10 - E11.42) 01/07/2024 Plantar wart (ICD-10 - B07.0) 12/25/2023 Tinea unguium (ICD-10 - B35.1) 10/29/2023 Charcot's joint of foot, left (ICD-10 - M14.672) 10/29/2023 Pes planus of left foot (ICD-10 - M21.42) 09/10/2023 Pes planus of left foot (ICD-10 - M21.42) 09/27/2023 Type 2 diabetes mellitus with polyneuropathy (ICD-10 - E11.42) 09/10/2023 Pes planus of right foot (ICD-10 - M21.41) 09/27/2023 Pes planus of left foot (ICD-10 - M21.42) 11/08/2023 Type 2 diabetes mellitus with polyneuropathy (ICD-10 - E11.42) 10/29/2023 Type 2 diabetes mellitus with Charcot's joint of left foot (ICD-10 - E11.610) 12/25/2023 Pes planus of left foot (ICD-10 - M21.42) 02/19/2024 Type 2 diabetes mellitus with Charcot's joint of left foot (ICD-10 - E11.610) 04/14/2024 Pes planus of left foot (ICD-10 - M21.42) 05/27/2024 Pes planus of left foot (ICD-10 - M21.42) 03/18/2024 Type 2 diabetes mellitus with Charcot's joint of left foot (ICD-10 - E11.610) 08/19/2024 Type 2 diabetes mellitus with Charcot's joint of left foot (ICD-10 - E11.610) 05/27/2024 Type 2 diabetes mellitus with Charcot's joint of left foot (ICD-10 - E11.610) 04/14/2024 Type 2 diabetes mellitus with Charcot's joint of left foot (ICD-10 - E11.610) 12/25/2023 Type 2 diabetes mellitus with Charcot's joint of left foot (ICD-10 - E11.610) 09/27/2023 Type 2 diabetes mellitus with Charcot's joint of left foot (ICD-10 - E11.610) 09/10/2023 Other Patient Educated with: GOUT.pdf (GOUT.pdf) Patient Educated with: LOW PURINE DIET.pdf (LOW PURINE DIET.pdf) Patient Educated with: GOUT.pdf (GOUT.pdf) Patient Educated with: LOW PURINE DIET.pdf (LOW PURINE DIET.pdf) Patient Educated with: GOUT.pdf (GOUT.pdf) Patient Educated with: LOW PURINE DIET.pdf (LOW PURINE DIET.pdf) 09/27/2023 Other 07/14/2024 Other Patient Educated with: WOUND CARE INSTRUCTIONS. pdf (WOUND CARE INSTRUCTIONS. pdf) 08/19/2024 Other Plan Of Treatment Pending Test Test Name Order Date X ray : Ankle, left 3V 09/27/2023 *Uric Acid, Serum 09/10/2023 *CBC With Differential/Platelet 09/10/19 C-Reactive Protein, Quant 09/10/2023 Basic Metabolic Panel (8) 09/10/2023 ESR 09/10/2023 Ultrasound : Doppler : Veins Leg Left X ray : Foot, left 3V 09/27/2023 X ray : Foot, left 3V 10/29/2023 X ray : Foot, left 3V 08/30/2020 X ray : Foot, left 3V 11/29/2020 X ray : Foot, left 3V 01/31/2022 X ray : Foot, right 3V 04/09/2023 X ray : Foot, right 3V 04/22/2024 87583- Debride <25 sq cm 06/11/2023 56126- Debride <25 sq cm 06/01/2022 55438 I&D ABSCESS- SIMPLE,SINGLE 020 Next Appt Details Provider Name:Trena Pineda Caprice pineda, 09/23/2024 09:00:00 AM, [address] [place], [address], Insurance Providers Payer Name Payer Address Payer Phone Subscriber Number Group Number Insured Name Patient Relationship to Insured Coverage Start Date Coverage End Date [facility] [employer] Claims [address] [place] [address] [id number] Wai Jones Self - patient is the insured Medical (General) History Medical History History ICD Code Back,Hip,and Knee pain Depression type II diabetes Gall bladder problems High blood pressure Kidney disease thyroid Chicken pox Cataracts Surgical History Surgery Date(Month/Year) fistula repair 05/19/2018 [facility] surgery both eyes 01/12/21, Thyroid Surgery - In hospital for 20days 11/22/23 parathyroidectomy 11/22/23 Hospitalization History Reason Date(Month/Year) Parathyroidectomy, [facility] 11/22/23
--- OUTSIDE RECORDS SUMMARY | 2024-09-04 18:29 | XMS_ITS | Data Portability ---
Author Organization [place] [facility] Address [address] [place] [address] Care Team Providers Care Rod Buster Name Role Phone HIM SAMUEL Referring Provider [phone] Assessment Encounter Date Assessment Date Assessment LastModified by Organization Details LastModified Time 12/14/2023 12/14/2023 I provided real -time medical direction via phone for this encounter and was available for additional phone-based assistance as needed. I have reviewed and agree with the Assessment and Plan as documented by the Digital Solution Architect. Patient given the opportunity to ask questions. Our service contacted for an assessment of: hypocalcemia As per above, patient with recent hospitalization for hypocalcemia and was treated and left the hospital with a calcium level of 5. Recurrent symptoms and calls for an assessment. Per residential housekeeper on the scene, Patient is stable with his vital signs however calcium level is 0.88 millimoles which is the equivalent of a calcium level of 3.5. creatinine is 12, Patient is symptomatic. Impression: Hypocalcemia and end-stage renal disease on hemodialysis Plan: will refer to the emergency department, expect call done, labs transcribed for patient to take with him. [email or web address] Not available 12/14/2023 19:04:09 Plan of Treatment Reminders Order Date Submit Date Provider Last Modified By Organization Details Last Modified Time Details Appointments None recorded. Lab cmp, whole blood + karin 024 024 [facility], [address] [facility], [place], [address], 4 10:54:31 Referral None recorded. Procedures None recorded. Surgeries None recorded. Imaging None recorded. Medication Orders None recorded. Patient TargetsNo targets recorded. Patient InstructionsNo instructions recorded. Reason for Referral None Reported. Results Created Date Observation Date Name Description Value Unit Range Abnormal Flag Note LastModifiedBy Organization Detail LastModifiedTime Result Notes None recorded. Medical Equipment None Reported. Medications Name Sig Start Date Stop Date Status Note LastModified by Organization Details LastModified Time amoxicillin 500 mg capsule TAKE 1 CAPSULE BY MOUTH EVERY 6 HOURS UNTIL FINISHED active Not Available Not Available No t Available Anti-Diarrhe al (loperamide) 2 mg tablet TAKE 1 TABLET BY MOUTH EVERY 6 HOURS NEEDED FOR LOOSE STOOL active Not Available Not Available Not Available atorvastatin 10 mg tablet TAKE 1 TABLET BY MOUTH EVERY DAY active Not Available Not Available No t Available metoprolol tartrate 100 mg tablet TAKE 1 TABLET BY MOUTH EVERY DAY active Not Available Not Available No t Available hydralazine 25 mg tablet TAKE 1 TABLET BY MOUTH TWICE A DAY active Not Available Not Available No t Available allopurinol 100 mg tablet TAKE 1 TABLET BY MOUTH EVERY EVENING active Not Available Not Available No t Available lidocaine-pr ilocaine 2.5 %-2.5 % topical cream APPLY SMALL AMOUNT TO ACCESS SITE (AVF) 1 TO 2 HOURS BEFORE DIALYSIS. COVER WITH OCCLUSIVE DRESSING (SARAN WRAP) active Not Available Not Available No t Available pantoprazole 20 mg tablet,delay ed release TAKE 1 TABLET BY MOUTH EVERY DAY active Not Available Not Available No t Available dextroamphet amine-amphet amine 30 mg tablet TAKE 1 TABLET BY MOUTH EVERY DAY active Not Available Not Available No t Available tamsulosin 0.4 mg capsule TAKE 1 CAPSULE BY MOUTH EVERY DAY active Not Available Not Available No t Available furosemide 80 mg tablet TAKE 1 TABLET BY MOUTH EVERY DAY active Not Available Not Available No t Available amlodipine 10 mg tablet TAKE 1 TABLET BY MOUTH EVERY DAY active Not Available Not Available No t Available doxycycline monohydrate 100 mg capsule TAKE 1 CAPSULE BY MOUTH TWICE DAILY FOR 7 DAYS active Not Available Not Available No t Available cephalexin 500 mg capsule active Not Available Not Available Not Available pantoprazole 40 mg tablet,delay ed release active Not Available Not Available N ot Available calcitriol 0.5 mcg capsule TAKE 3 CAPSULES BY MOUTH EVERY 12 HOURS FOR TOTAL 3MCG PER DAY active Not Available Not Available No t Available metoprolol tartrate 50 mg tablet TAKE 1 TABLET BY MOUTH TWICE A DAY active Not Available Not Available No t Available Antacid Ultra Strength 400 mg (calcium carb 1,000 mg) chewable tablet CHEW 4 TABLETS BY MOUTH THREE TIMES A DAY active Not Available Not Available Not Available pramipexole 0.25 mg tablet TAKE 1 TABLET IN THE MORNING AND TAKE 1 TABLET IN THE EVENING active Not Available Not Available Not Available methylpredni solone 4 mg tablets in a dose pack FOLLOW PACKAGE DIRECTIONS active Not Available Not Available N ot Available ondansetron 4 mg disintegrati ng tablet DISSOLVE 1 TABLET ON THE TONGUE EVERY 6 TO 8 HOURS NEEDED FOR NAUSEA OR VOMITING active Not Available Not Available No t Available sertraline 50 mg tablet active Not Available Not Available Not Available oxycodone 5 mg tablet active Not Available Not Available No t Available ciclopirox 0.77 % topical cream APPLY TOPICALLY TO THE AFFECTED AREA TWICE DAILY active Not Available Not Available No t Available cinacalcet 30 mg tablet TAKE 1 TABLET BY MOUTH EVERY DAY active Not Available Not Available No t Available FreeStyle Lite Strips USE DIRECTED 5 TIMES A DAY active Not Available Not Available Not Available Velphoro 500 mg chewable tablet CRUSH OR CHEW AND SWALLOW 3 TABLETS BY MOUTH FOUR TIMES DAILY WITH MEALS active Not Available Not Available N ot Available Novolin 70-30 FlexPen U-100 Insulin 100 unit/mL (70-30) subcutaneous INJECT 75 UNITS SUBCUTANEOU SLY BEFORE BREAKFAST AND 50 UNITS BEFORE DINNER active Not Available Not Available No t Available Ozempic 0.25 mg or 0.5 mg (2 mg/3 mL) subcutaneous pen injector INJECT 0.25 MG UNDER THE SKIN WEEKLY. active Not Available Not Available No t Available Vitals Date Recorded Body weight Body height Respiratory rate Heart rate Oxygen saturation Oxygen saturation in Arterial blood by Pulse oximetry Systolic blood pressure Diastolic blood pressure Provider Name and Address Organization Details Last Updated DateTime 4 104287. 608 g 182.88 cm 16 /min 73 /min 96 % 96 % 144 mm[Hg] 78 mm[Hg] Not Available [facility] - production 4 18:59:05 Social History None recorded. Functional Status None recorded. Mental Status None recorded. Family History Nothing Reported. Medical History No medical history recorded. Past Encounters Encounter ID Performer Location Encounter Start Date Encounter Closed Date Diagnosis/Indication Diagnosis SNOMED-CT Code Diagnosis ICD10 Code [id number] Angelica Tejeda MD [facility] [address] [place] [phone] 12/14/2023 18:58:57 12/16/2023 18:32:25 Hypocalcemia 2826266 E83.51 Health Concerns Section Related Observation LastModified by Organization Detai ls LastModified Time None Recorded Concern Status LastModified by Organization Details LastModified Time None Recorded Advance Directives Directive None Recorded Payers Encounter Date Sequence Insurance Name Policy Number Policy Yeung Covered Member ID Yeung Member ID Guarantor Name 12/14/2023 1 [facility] - DOS ON OR AFTER 2022 - DUAL ELIGIBLE - [facility] [employer] AND ONE C[employer] (MEDICARE REPLACEMENT/ADV ANTAGE - HMO) Wai Jones [id number] Wai Jones Notes Date Note Type Note Provider Name and Address Organization Details Recorded Time 12/14/2023 text/html [facility] Nurse Triage Notes (Heather Iqbal): Chief Complaints: Electrolyte Imbalance PMH: Diabetes, Hypertension, Other Allergies: No Known Comments: PMH: ESRD, Parathyroidectomy Address/Identity/ verified. Member calling requesting visit for fatigue and intermittent hand tremors. Hospitalized at [facility] for hypocalcemia. d/c on Saturday. Symptoms that precipitated going to the ER were tingling around mouth. Reports Ca+ was 6.7. Member denies symptoms of numbness/tingling or muscle cramping. Reports intermittent slight hand tremor and fatigue. Reports BP fluctuating 130/76 and 98/47. Member had dialysis today. Taking Tums 4x daily and Calcitriol BID. Reviewed RED flags. Recommended ED for signs/symptoms of hypocalcemia. Member verbalizes understanding. ...................... ...................... ...................... ...................... ...................... ...................... ......... Digital Solution Architect Note From Devin Silva: Pt reports recent inpatient operation at [facility], d/c home, returned to the ED and was found to have hypocalcemia. Pt was readmitted and eventually d/c last week with rx for calcitrol 2 mcg bid and tums 3 tabs q4h. Pt calling today for repeat labs. Pt is alert, NAD. VSS. Non focal neuro exam. POC labs uploaded, of note, Ca 3.5 mg/dL (0.88 mmol/L), Crea 12.9 (home HD pt). [facility] contacted and recommended pt go back to [facility]. 911 initiated and SBAR given to Edy OLIVAREZ. ...................... ...................... ...................... ...................... ...................... ...................... ......... Disposition: Fulfilled Angelica Tejeda MD [address] [facility],[address], [place], [address], [employer] - [employer] Warner 12/14/2023 19:05:23
--- OUTSIDE RECORDS SUMMARY | 2024-09-04 18:29 | XMS_ITS ---
Author Organization [facility] Address [address] [place] [address] Care Team Providers Care Choir Leader Name Role Phone Ovidio العلي Primary Care Provider Darinel Crawford Unavailable [phone] ALLERGIES Allergen (clinical drug ingredient) Drug/Non Drug Allergy documented on EMR Reaction Allergy Type Onset Date Status Shellfish (FN) shellfish (uncoded) Unknown Allergy Active REASON FOR VISIT Chronic Care F/U MEDICATIONS Medication SIG (Take, Route, Frequency, Duration) Notes Start Date End Date Status Tums Calcium for Life Bone Active Viagra 100 MG 1 tablet as needed Orally Once a day Not-Taking Lasix 80 MG 1 tablet Orally Once a day Active Atorvastatin Calcium 10 MG 1 tablet Orally Once a day Active Calcitriol Active Mirtazapine 15 MG 1 tablet at bedtime Orally Once a day Active oxyCODONE HCl 5 MG 1 capsule Orally twice daily Active NovoLIN 70/30 FlexPen (70-30) 100 UNIT/ML as directed Subcutaneous 75 units in the am 55 units at bedtime Active Velphoro 500 MG 1 tablet with meals Orally Twice a day Active amLODIPine Besylate 10 MG 1 tablet Orally Once a day Active Tamsulosin HCl 0.4 MG 1 capsule Orally Once a day Active Adderall 30 MG 1 tablet Orally once daily Active Metoprolol Tartrate 50 MG 1 tablet with food Orally Twice a day Active Pantoprazole Sodium 20 MG 1 tablet Orally Once a day Active Ozempic (0.25 or 0.5 MG/DOSE) 2 MG/3ML as directed Subcutaneous 0.25mg, resumed 2-3 weeks ago Active PROBLEMS Problem Type ICD Code Onset Dates Problem Status W/U Status Risk SNOMED Code Notes Problem Proliferative diabetic retinopathy of both eyes with macular edema associated with type 2 diabetes mellitus (E11.3513) Active confirmed VITAL SIGNS Respiratory Rate 14 /min 02/24/2024 Height-cm 182.88 cm 02/24/2024 Encounters Encounter Location Date Provider Diagnosis [facility] [address] [place] [address] 02/24/2024 Darinel Medina Diabetic Charcot sera t E11.610 ; Type 2 diabetes mellitus with diabetic chronic kidney disease E11.22 ; Hypertensive chronic kidney disease with stage 5 chronic kidney disease or end stage renal disease I12.0 and Proliferative diabetic retinopathy of both eyes with macular edema associated with type 2 diabetes mellitus E11.3513 ASSESSMENTS Encounter Date Diagnosis Assessment Notes Treatment Notes Treatment Clinical Notes 02/24/2024 Diabetic Charcot foot (ICD-10 - E11.610) Chronic/stable reports that he did have an appointment at on [facility] but that he only ever sees the physician construction assistant and feels that they are not really treating himHe is looking for second opinion with a foot and ankle surgeon, and he was referred to 1 in [place] that does not take his insurance he is waiting for [facility] [place] [facility] sc[facility] so he is essentially functioning with 1 legHe really hopes to avoid amputation 02/24/2024 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 E11.3513Chronic/stabl eMember reports that his most recent A1c was 7.1 last monthHe has resumed Ozempic to try to get better glycemic control though he does still have the GI side effects, has only resumed it for about 3 weeksHe is interested in finding a new inside sales he is unhappy with his current practitioner within the [facility], I will ask the respiratory care program director to send him a list of endocrinologists in our area that accept [facility] 02/24/2024 Hypertensive chronic kidney disease with stage 5 chronic kidney disease or end stage renal disease (ICD-10 - I12.0) Recommended by CDI team. Ector/Delroy continues on home hemodialysis 4 days a week, he does go to the dialysis center at least monthlyHe reports that on March 09 he is going for a fistula revision as he has had some issues with flow with his current site. He anticipates that this will be a day stay procedure 02/24/2024 Proliferative diabetic retinopathy of both eyes with macular edema associated with type 2 diabetes mellitus (ICD-10 - E11.3513) PLAN OF TREATMENT Treatment Notes Assessment Notes Diabetic Charcot foot Chronic/stableMemb er reports that he did have an appointment at [facility] but that he only ever sees the physician construction assistant and feels that they are not really treating himHe is looking for second opinion with a foot and ankle surgeon, and he was referred to 1 in [place] that does not take his insurance he is waiting for referral to another [facility] [place] [facility] he is using a scooter so he is essentially functioning with 1 legHe really hopes to avoid amputation Type 2 diabetes mellitus wit h diabetic chronic kidney disease E11.3513Chronic/stableMember reports denis t his most recent A1c was 7.1 last monthHe has resumed Ozempic to try to get better glycemic control though he does still have the GI side effects, has only resumed it for about 3 weeksHe is interested in finding a new inside sales he is unhappy with his current practitioner within [facility], I will ask the respiratory care program director to send him a list of endocrinologists in our area that accept [facility] Hypertensive chronic kidney disease with stage 5 chronic kidney disease or end stage renal disease Chronic/stableMember continues on home hemodialysis 4 days a week, he does go to the dialysis center at least monthlyHe reports that on March 09 he is going for a fistula revision as he has had some issues with flow with his current site. He anticipates that this will be a day stay procedure Next Appt Details Follow Up: 3 Months, Reason: CC FU History and Physical Notes * HPI (History of Present Illness) Category Sub-Category Detail Notes Virtual Care Visit Information Visit Location, Methods & Consent: *REQUIRED* Virtual Care communication method:: Both audio and video Patient's location during visit:: Member 's home Provider's location during visit:: Arini glynn's home office Member Verbal Consent Obtained:: Yes General Visit Information Encounter Information: Other(s) present at the visit:: No Length of Visit (total time spent):: 35 Counseling and Education Jaime e:: 50% or more of the visit was spent counseling or educating the patient. In reference to (list of diagnosis):
--- OUTSIDE RECORDS SUMMARY | 2024-09-04 18:29 | XMS_ITS ---
Author Organization [facility] Address [address] [place] [address] Care Team Providers Care Disability Insurance Claim Examiner Name Role Phone Ovidio العلي MD Primary Care Provider Unava ilable Trena Galvan Unavailable [phone] Jacob Luong Unavailable [phone] Encounters Encounter Location Date Provider Diagnosis [address] [address] 09/01/2024 Jacob Luong Plan Of Treatment Next Appt Details Provider Name:Trena pineda, 09/23/2024 09:00:00 AM, [address] [place] [address], [phone], Progress Notes * Ced JONESoDOB:[birth year] (48 yo M)Acc No.[id number]:09/01/2024 Progress Note Patient:?Wai JONES Provider:?Jacob Luong DPM :1975???Age:48 Y???Sex:Male Diego e:09/01/2024 Address:[address] [place] [address] Pcp:Ovidio العلي MD Subjective: * Chief Complaints: * ??? * Medical History:? Objective: * Vitals:? Assessment: Plan: * Treatment: * Images: * The named appointment provid er may or may not be the originator of this progress note, and it is not deemed complete until electronically signed by the appointment provider. Sign off status: Pending * Provider:Chuck Luong DPM Date:?2023 Generated for Dewayne carbajal/Raul/Velma on:?09/04/2024 06:29 PM EST
--- OUTSIDE RECORDS SUMMARY | 2024-09-04 18:29 | XMS_ITS ---
Author Organization [facility] Address [address] [place] [address] Care Team Providers Care Head Of Sales And Marketing Name Role Phone Severiano GASPAR, [place] Primary Care Provider Unava ilTrena Yost Unavailable [phone] REASON FOR VISIT Left foot issues follow up er visit next wk Encounters Encounter Location Date Provider Diagnosis [facility] [address] [place] [address] 09/04/2024 Trena Galvan Plan Of Treatment Next Appt Details Provider Name:Trena pineda, 09/23/2024 09:00:00 AM, [address] [place], [address], Progress Notes * ROBERT CliftonmagdieloDOB:[birth year] (48 yo M)Acc No.[id number]:09/04/2024 Patient:?ROBERTCedo :1975???Age:48 Y???Sex:Male Address:[address] [place], [address] * * Date:?
--- OUTSIDE RECORDS SUMMARY | 2024-09-04 18:30 | XMS_ITS ---
Author Organization [facility] [place] [address] Care Team Providers Care Plate Fitter Name Role Phone Ovidio العلي Primary Care Provider Beckie Steve Unavailable [phone] ALLERGIES Allergen (clinical drug ingredient) Drug/Non Drug Allergy documented on EMR Reaction Allergy Type Onset Date Status Shellfish (FN) shellfish (uncoded) Unknown Allergy Active REASON FOR VISIT HURI Post-Discharge 1 MEDICATIONS Medication SIG (Take, Route, Frequency, Duration) Notes Start Date End Date Status hydrALAZINE HCl 25 MG 1 tablet with food Orally once a day Not-Taking Metoprolol Tartrate 50 MG 1 tablet with food Orally Twice a day Active Pantoprazole Sodium 20 MG 1 tablet Orally Once a day Active NovoLIN 70/30 FlexPen (70-30) 100 UNIT/ML as directed Subcutaneous 75 units in the am 55 units at bedtime Active Ozempic (0.25 or 0.5 MG/DOSE) 2 MG/3ML as directed Subcutaneous takes on Not-Taking Tums Calcium for Life Bone Active Calcitriol Active Lasix 80 MG 1 tablet Orally Once a day Not-Taking Viagra 100 MG 1 tablet as needed Orally Once a day Active Calcitriol 0.25 MCG 1 capsule Orally 3 times weekly Not-Taking Mirtazapine 15 MG 1 tablet at bedtime Orally Once a day Active oxyCODONE HCl 5 MG 1 capsule Orally twice daily Active Atorvastatin Calcium 10 MG 1 tablet Orally Once a day Active Acetaminophen 325 MG 2 tablets Orally every 4 hrs as needed Active Velphoro 500 MG 1 tablet with meals Orally Twice a day Active Adderall 30 MG 1 tablet Orally once daily Active amLODIPine Besylate 10 MG 1 tablet Orally Once a day Active Tamsulosin HCl 0.4 MG 1 capsule Orally Once a day Active PROBLEMS Problem Type ICD Code Onset Dates Problem Status W/U Status Risk SNOMED Code Notes Problem Hypocalcemia (E83.51) Active confirmed Hypocalcemia (7214461) Encounters Encounter Location Date Provider Diagnosis [facility] [place] [address] 12/20/2023 Beckie Latif Hypocalcemia E83.51 ASSESSMENTS Encounter Date Diagnosis Assessment Notes Treatment Notes Treatment Clinical Notes 12/20/2023 Hypocalcemia (ICD-10 - E83.51) Educated member on medication compliance, follow up visits and report any changes, increased symptoms or concerns. PLAN OF TREATMENT No Information History and Physical Notes * HPI (History of Present Illness) Category Sub-Category Detail Notes Medication Review Medication Review What service was performed?: Post-discharge medication review Visit/Encounter Type: Telephone Was the medication list in eCW updated?: Yes- new or changed medications added Were medication discrepancies/issues mal ntified?: No What interventions have been performed?: Member/caregiver education, Allergies Updated, Community artist color separation Placed
--- OUTSIDE RECORDS SUMMARY | 2024-09-04 18:30 | XMS_ITS | Patient Health Record ---
Author Organization [facility] Address [address] [place] [address] Care Team Providers Care Screener Operator Name Role Phone Severiano Ovidio Primary Care Provider Unavaila Darinel Gamez Unavailable [phone] Henrique Topete Unavailable [phone] Beckie Latif Unavailable [phone] Juanita Grijalva Unavailable [phone] ALLERGIES Allergen (clinical drug ingredient) Drug/Non Drug Allergy documented on EMR Reaction Allergy Type Onset Date Status Shellfish (FN) shellfish (uncoded) Unknown Allergy Active RESULTS Component Value Reference Range Notes Hemoglobin A1c Reviewed date:02/24/2024 10:02:06 AM Interpretation:7.1 Performing Lab: Notes/Report: 7.1 Hemoglobin A1c REASON FOR REFERRAL Reason CANCEL - unavailable REHAB (1) Knee Scooter for Left foot - Male 47 yo Ht 182 cm Wt 172 Kg Prescriber: [facility] Fx: [phone] Diagnosis 1 Diabetic Charcot sera t (E11.610) Referring Provider First Name Operations Referring Provider Last Name Clinical Referring Provider Speciality Unknown Referred Provider [facility] General Notes Mallory Leblanc 03:59:26 PM >, Mallroy Leblanc 10/17/2023 02:57:56 PM >CS per vendor, item not available per mbr weight Clinical Notes Doc # [id number] is scr ipt for a Knee Scooter Referral Priority Routine Reason [facility] PA REQUEST: Alexis nee Scooter for Left foot - Male 47 yo Ht 182 cm Wt 172 Kg Prescriber: [facility] Fx: [phone] Diagnosis 1 Diabetic Charcot sera t (E11.610) Referring Provider First Name Operations Referring Provider Last Name Clinical Referring Provider Speciality Unknown Referred Provider Kaye Puente General Notes Mallory Leblanc 03:04:45 PM >THIS IS NOT AN AUTHORIZATION. THIS IS A REFERRAL REQUEST FOR SERVICES. If you are able to accept the referral and accommodate our member, please complete a PA form for this item that can be found on our [facility] Website. Prior Authorization is REQUIRED for this service. Please fax a completed PA to . If you are not able to move forward with this referral or you have any questions on the process, please contact the [facility] at [phone], ext [phone]. Thank you for your continued support. 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 ICO, Bezel Cutter email address: [email or web address], Is this request for an Initial, Increase, Decrease, or AFC respite? Increase due to having foot amputation, If this is an urgent need for increase in hours please provide rationale: n/a, Who is requesting CONTINUOUS VULCANIZING MACHINE OPERATOR services or changes of CONTINUOUS VULCANIZING MACHINE OPERATOR services and their relationship to the, member? Member, Diagnosis with ICD10 code that supports need for CONTINUOUS VULCANIZING MACHINE OPERATOR: E11.0 DM2, Which of the at least 2 ADL hands on needs does this member need assistance with: bathing and transfers, Additional hands on needs: , What are the member's informal supports? Mother Yeimi, Will member likely need a surrogate to manage a CONTINUOUS VULCANIZING MACHINE OPERATOR? no , If yes, provide surrogate contact if available: n/a, Primary contact for Member: Member, Members preferred language: Romanian, Does member have existing LTSS? Please list: CONTINUOUS VULCANIZING MACHINE OPERATOR, Will CONTINUOUS VULCANIZING MACHINE OPERATOR be replacing the LTSS? Please list: N/A, Provide name and contact info for [facility]/LT[facility]: not listed, Please ensure members [facility]/LTSC is aware of CONTINUOUS VULCANIZING MACHINE OPERATOR request no, Please identify PCM agency and FI member will be using: [facility] Gwyn Jackson Frances 03/04/2024 12:47:17 PM > Referral Priority Routine MEDICATIONS Medication SIG (Take, Route, Frequency, Duration) Notes Start Date End Date Status Velphoro 500 MG 1 tablet with meals Orally Twice a day Active Ozempic (0.25 or 0.5 MG/DOSE) 2 MG/3ML as directed Subcutaneous 0.25mg, resumed 2-3 weeks ago Active amLODIPine Besylate 10 MG 1 tablet Orally Once a day Active Mirtazapine 15 MG 1 tablet at bedtime Orally Once a day Active oxyCODONE HCl 5 MG 1 capsule Orally twice daily Active Viagra 100 MG 1 tablet as needed Orally Once a day Not-Taking Tamsulosin HCl 0.4 MG 1 capsule Orally Once a day Active Lasix 80 MG 1 tablet Orally Once a day Active Adderall 30 MG 1 tablet Orally once daily Active NovoLIN 70/30 FlexPen (70-30) 100 UNIT/ML as directed Subcutaneous 75 units in the am 55 units at bedtime Active Atorvastatin Calcium 10 MG 1 tablet Orally Once a day Active Metoprolol Tartrate 50 MG 1 tablet with food Orally Twice a day Active Tums Calcium for Life Bone Active Pantoprazole Sodium 20 MG 1 tablet Orally Once a day Active Calcitriol Active IMMUNIZATIONS Vaccine Route Administration Date Status Comme [facility] [phone] Flu Vac (Flucelvax) PFS Unknown 06/12/2024 Administered Flu Vac (Fluzone /Alfuria) QIV PFS Unknown 06/23/2021 Administered Flu Vac NOC (vac given elsewhere/pt. refuse/ CI) Unknown 11/13/2022 Administered Member states he had flu vaccine. [employer] ([employer]) COVID-19 Vaccine IM Unknown 12/10/2020 Administered SOCIAL HISTORY Sex Assigned At : Social History Observation Description Sex Assigned At Unknown Alcohol Screen Question Answer Notes Did you have a drink containing alcohol in the p ast year? No Points 0 Interpretation Negative Sexual History Question Answer Notes Had sex in the past 12 months (vaginal, oral, or anal)? Yes with Women only Use protection? No Prevention strategies discussed: Condoms Have you ever had a Sexually transmitted disease ? No Tobacco use other than smoking: Question Answer Notes Are you an other tobacco user? No PROBLEMS Problem Type ICD Code Onset Dates Problem Status W/U Status Risk SNOMED Code Notes Problem Anxiety (F41.1) Inactive confirmed Anxie ty (52972968) Problem PTSD (post-traumatic stress disorder) (F43.10) Active confirmed Posttraumatic stress disorder (76939990) Problem Major depressive disorder, recurrent, mild (F33.0) Active confirmed 163978562 Problem Post-traumatic stress disorder, chronic (F43.12) Inactive confirmed 711015928 Recommen ded by CDI team. Problem Overweight (E66.3) Inactive confirmed 23 3050151 Problem BPH (benign prostatic hyperplasia) (N40.0) Active confirmed Benign prostati c hyperplasia (248126561) Problem oysterman (current) use of insulin (Z79.4) Active confirmed 145664953 Problem Adult ADHD (F90.0) Active confirmed Att ention deficit hyperactivity disorder, predominantly inattentive type (19068737) Problem Diarrhea (R19.7) Active confirmed Diarr hea (32939856) Problem BMI 50.0-59.9, adult (Z68.43) Active confirmed 271546348 Problem Hypocalcemia (E83.51) Active confirmed Hypocalcemia (1094454) Problem Nausea & vomiting (R11.2) Active confirmed Nausea and vomiting (99919443) Problem custodial (current) use of opiate analgesic (Z79.891) Active confirmed [id number] Recommend ed by CDI team. Problem Erectile dysfunction (N52.9) Active confirmed Erectile dysfunction (259832119) Problem Hyperlipemia, mixed (E78.2) Active confirmed 038271915 Problem Non-pressure chronic ulcer of other part of unspecified foot with unspecified severity (L97.509) Problem resolved confirmed 470935498 Problem Hemodialysis patient (Z99.2) Active confirmed Dependence o n renal dialysis (875852242) Problem Type 2 diabetes mellitus with foot ulcer (E11.621) Problem resolved confirmed 144246771 Problem Hypertensive chronic kidney disease with stage 5 chronic kidney disease or end stage renal disease (I12.0) Active confirmed [id number] Hernán mmended by CDI team. Problem Gastroesophageal reflux disease without esophagitis (K21.9) Active confirmed 380095538 Problem Other chronic pain (G89.29) Active confirmed 81674536 Problem Morbid (severe) obesity due to excess calories (E66.01) Active confirmed 192993514 Problem End stage kidney disease (N18.6) Active confirmed End stage ki dney disease (51271315) Problem Type 2 diabetes mellitus with moderate nonproliferative diabetic retinopathy with macular edema, right eye (E11.3311) Inactive confirmed 21511497 Problem Type 2 diabetes mellitus with proliferative diabetic retinopathy with macular edema, left eye (E11.3512) Active confirmed 62352432 Problem Leg weakness, bilateral (R29.898) Active confirmed Disorder of musculoskeletal system (175227) Problem Proliferative diabetic retinopathy of both eyes with macular edema associated with type 2 diabetes mellitus (E11.3513) Active confirmed Problem Type 2 diabetes mellitus with diabetic polyneuropathy, unspecified whether intermediate accountant insulin use (E11.42) Active confirmed 669650503 Recommended by CDI team. Problem Diabetic Charcot foot (E11.610) Active confirmed 529353123 VITAL SIGNS Respiratory Rate 14 /min 02/24/2024 Height-cm 182.88 cm 02/24/2024 Encounters Encounter Location Date Provider Diagnosis [address] [address] 11/11/2023 Henrique Topete Adult ADHD F90.0 ; Erectile dysfunction N52.9 ; BPH (benign prostatic hyperplasia) N40.0 ; Hypertensive chronic kidney disease with stage 5 chronic kidney disease or end stage renal disease I12.0 ; End stage kidney disease N18.6 ; Hemodialysis patient Z99.2 ; Major depressive disorder, recurrent, mild F33.0 ; Type 2 diabetes mellitus with diabetic chronic kidney disease E11.22 ; Type 2 diabetes mellitus with proliferative diabetic retinopathy with macular edema, left eye E11.3512 ; Type 2 diabetes mellitus with diabetic polyneuropathy, unspecified whether intermediate accountant insulin use E11.42 ; custodial (current) use of insulin Z79.4 ; Gastroesophageal reflux disease without esophagitis K21.9 ; oysterman (current) use of opiate analgesic Z79.891 ; Morbid (severe) obesity due to excess calories E66.01 ; BMI 50.0-59.9, adult Z68.43 ; Other chronic pain G89.29 ; Hyperlipemia, mixed E78.2 ; PTSD (post-traumatic stress disorder) F43.10 ; Diarrhea R19.7 ; Nausea & vomiting R11.2 ; Leg weakness, bilateral R29.898 and Diabetic Charcot foot E11.610 [facility] [address] [place] [address] 12/20/2023 Beckie Latif Hypocalcemia E83.51 [facility] [address] [place] [address] 12/27/2023 Beckie Latif Hypocalcemia E83.51 [facility] [address] [place] [address] 02/24/2024 Darinel Mednia Diabetic Charcot sera t E11.610 ; Type 2 diabetes mellitus with diabetic chronic kidney disease E11.22 ; Hypertensive chronic kidney disease with stage 5 chronic kidney disease or end stage renal disease I12.0 and Proliferative diabetic retinopathy of both eyes with macular edema associated with type 2 diabetes mellitus E11.[address] [address] 12/03/2023 Juanita Grijalva [address] [address] 12/10/2023 Juanita Grijalva ASSESSMENTS Encounter Date Diagnosis Assessment Notes Treatment Notes Treatment Clinical Notes 11/11/2023 Adult ADHD (ICD-10 - F90.0) 12/20/2023 Hypocalcemia (ICD-10 - E83.51) Educated member on medication compliance, follow up visits and report any changes, increased symptoms or concerns. 12/27/2023 Hypocalcemia (ICD-10 - E83.51) Educated member on medication compliance, follow up visits and report any changes, increased symptoms or concerns. 02/24/2024 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 E11.3513Chronic/ashlyn Cortez reports that his most recent A1c was 7.1 last monthHe has resumed Ozempic to try to get better glycemic control though he does still have the GI side effects, has only resumed it for about 3 weeksHe is interested in finding a new valet cashier he is unhappy with his current practitioner within the [facility], I will ask the in home caregiver to send him a list of endocrinologists in our area that accept [facility] 02/24/2024 Diabetic Charcot sera t (ICD-10 - E11.610) Chronic/stableMember reports that he did have an appointment at [facility] but that he only ever sees the physician physical laboratory assistant and feels that they are not really treating himHe is looking for second opinion with a foot and ankle surgeon, and he was referred to 1 in [place] that does not take his insurance he is waiting for [facility] [place] [facility] so he is essentially functioning with 1 legHe really hopes to avoid amputation 02/24/2024 Hypertensive chronic kidney disease with stage 5 chronic kidney disease or end stage renal disease (ICD-10 - I12.0) Recommended by CDI team. Chronic/stableMember continues on home hemodialysis 4 days a week, he does go to the dialysis center at least monthlyHe reports that on March 09 he is going for a fistula revision as he has had some issues with flow with his current site. He anticipates that this will be a day stay procedure 11/11/2023 Erectile dysfunction (ICD-10 - N52.9) 11/11/2023 BPH (benign prostati c hyperplasia) (ICD-10 - N40.0) 02/24/2024 Proliferative diabetic retinopathy of both eyes with macular edema associated with type 2 diabetes mellitus (ICD-10 - E11.3513) 11/11/2023 Hypertensive chronic kidney disease with stage 5 chronic kidney disease or end stage renal disease (ICD-10 - I12.0) Recommended by CDI team. 11/11/2023 End stage kidney disease (ICD-10 - N18.6) 11/11/2023 Hemodialysis patient (ICD-10 - Z99.2) 11/11/2023 Major depressive disorder, recurrent, mild (ICD-10 - F33.0) 11/11/2023 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 11/11/2023 Type 2 diabetes mellitus with proliferative diabetic retinopathy with macular edema, left eye (ICD-10 - E11.3512) 11/11/2023 Type 2 diabetes mellitus with diabetic polyneuropathy, unspecified whether fdc insulin use (ICD-10 - E11.42) Recommended by CDI team. 11/11/2023 oysterman (current) use of insulin (ICD-10 - Z79.4) 11/11/2023 Gastroesophageal reflux disease without esophagitis (ICD-10 - K21.9) 11/11/2023 oysterman (current) use of opiate analgesic (ICD-10 - Z79.891) Recommended by CDI team. 11/11/2023 Morbid (severe) obesity due to excess calories (ICD-10 - E66.01) 11/11/2023 BMI 50.0-59.9, adult (ICD-10 - Z68.43) 11/11/2023 Other chronic pain (ICD-10 - G89.29) 11/11/2023 Hyperlipemia, mixed (ICD-10 - E78.2) 11/11/2023 PTSD (post-traumatic stress disorder) (ICD-10 - F43.10) 11/11/2023 Diarrhea (ICD-10 - R19.7) 11/11/2023 Nausea & vomiting (ICD-10 - R11.2) 11/11/2023 Leg weakness, bilateral (ICD-10 - R29.898) 11/11/2023 Diabetic Charcot sera t (ICD-10 - E11.610) 11/11/2023 Other MDS complete, CP updated. PLAN OF TREATMENT No Information Insurance Providers Payer Name Payer Address Payer Phone Subscriber Number Group Number Insured Name Patient Relationship to Insured Coverage Start Date Coverage End Date [facility] [address] [facility] [address] [place] [address] [id number] ARAMIS ADENO Self - patient is the insured 9 9 MEDICAL (GENERAL) HISTORY Medical History History ICD Code HTN (hypertension) I10 Diabetes mellitus E11.9 Palliative care encounter Z51.5 Neuropathy G62.9 PTSD (post-traumatic stress disorder) F4 3.10 Type 2 diabetes mellitus with foot ulcer (resolved 10/29/2022) undefined Non-pressure chronic ulcer o f other part of unspecified foot with unspecified severity (resolved 10/29/2022) Surgical History Surgery Date(Month/Year) Fistula Left hand 2017 Hospitalization History Reason Date(Month/Year) Found Unresponsive at home 09/2022
--- OUTSIDE RECORDS SUMMARY | 2024-09-04 18:30 | XMS_ITS ---
Author Organization [facility] [place] [address] Care Team Providers Care Cheese Sprayer Name Role Phone Ovidio العلي Primary Care Provider Beckie Stvee Unavailable [phone] ALLERGIES Allergen (clinical drug ingredient) Drug/Non Drug Allergy documented on EMR Reaction Allergy Type Onset Date Status Shellfish (FN) shellfish (uncoded) Unknown Allergy Active REASON FOR VISIT HURI Post-Discharge 2 MEDICATIONS Medication SIG (Take, Route, Frequency, Duration) Notes Start Date End Date Status hydrALAZINE HCl 25 MG 1 tablet with food Orally once a day Not-Taking Viagra 100 MG 1 tablet as needed Orally Once a day Active Calcitriol 0.25 MCG 1 capsule Orally 3 times weekly Not-Taking Lasix 80 MG 1 tablet Orally Once a day Not-Taking Ozempic (0.25 or 0.5 MG/DOSE) 2 MG/3ML as directed Subcutaneous takes on Not-Taking Mirtazapine 15 MG 1 tablet at bedtime Orally Once a day Active Atorvastatin Calcium 10 MG 1 tablet Orally Once a day Active Acetaminophen 325 MG 2 tablets Orally every 4 hrs as needed Active Tums Calcium for Life Bone Active Calcitriol Active Adderall 30 MG 1 tablet Orally once daily Active amLODIPine Besylate 10 MG 1 tablet Orally Once a day Active Tamsulosin HCl 0.4 MG 1 capsule Orally Once a day Active oxyCODONE HCl 5 MG 1 capsule Orally twice daily Active Velphoro 500 MG 1 tablet with meals Orally Twice a day Active Metoprolol Tartrate 50 MG 1 tablet with food Orally Twice a day Active Pantoprazole Sodium 20 MG 1 tablet Orally Once a day Active NovoLIN 70/30 FlexPen (70-30) 100 UNIT/ML as directed Subcutaneous 75 units in the am 55 units at bedtime Active Encounters Encounter Location Date Provider Diagnosis [place] [address] [place] [address] 12/27/2023 Beckie Latif Hypocalcemia E83.51 ASSESSMENTS Encounter Date Diagnosis Assessment Notes Treatment Notes Treatment Clinical Notes 12/27/2023 Hypocalcemia (ICD-10 - E83.51) Educated member [...] been performed?: Member/caregiver education, Allergies Updated, Community hospital social worker Placed
--- NOTE | 2024-09-04 18:50 | ED.GENADULT ---
HPI - General Adult General Chief complaint: Extremity Injury, Lower Stated complaint: swelling in Lft leg 06/11 pain Time Seen by Provider: 09/04/24 18:45 Source: patient and RN notes reviewed Limitations: no limitations History of Present Illness HPI narrative: 48-year-old male, end-stage renal disease on hemodialysis, history of Charcot foot on the left, with surgery in [place], diabetes, presents for evaluation of pain, swelling and loss of sensation to the left foot and toes. Patient states symptoms began with pain to his toes and foot over the past 2-3 days. This is atypical for him. Patient reports that his toe was ?white? yesterday. This has improved since yesterday. Does continue to endorse loss of sensation from mid foot and toes. He denies any trauma. He wears a brace at baseline. Denies any fevers chills nausea or vomiting. In addition, he does report missing several days a dialysis machine broke but he did complete his session today. Related Data Home Medications ?Medication ?Instructions ?Recorded ?Confirmed atorvastatin 10 mg tablet 10 mg PO DAILY 08/08/20 06/16/24 metoprolol succinate 50 mg 50 mg PO DAILY 08/08/20 06/16/24 tablet,extended release 24 hr omeprazole 40 mg capsule,delayed 40 mg PO DAILY 08/08/20 06/16/24 release calcitriol 0.5 mcg capsule 1 mcg PO 4XW 01/24/21 06/16/24 sucroferric oxyhydroxide 500 mg 1,000 mg PO TID 02/07/21 06/16/24 chewable tablet mirtazapine 15 mg tablet 15 mg PO BEDTIME 06/16/24 06/16/24 allopurinol 100 mg tablet 100 mg PO DAILY 06/24/24 clindamycin phosphate 1 % lotion 1 appl topical BID 06/24/24 insulin NPH-regular 70-30 U-100 50 unit subcut DAILY@1700 06/24/24 insulin 100 unit/mL subcutaneous pen (Novolin 70-30 FlexPen U-100 Insulin) insulin NPH-regular 70-30 U-100 75 unit subcut DAILY@0800 06/24/24 insulin 100 unit/mL subcutaneous pen (Novolin 70-30 FlexPen U-100 Insulin) oxycodone 5 mg tablet 5 mg PO TID PRN Pain 06/24/24 tamsulosin 0.4 mg capsule 0.4 mg PO DAILY 06/24/24 Previous Rx's ?Medication ?Instructions ?Recorded blood-glucose meter (FreeStyle #1 ea 01/24/21 Lite Meter kit) lancets 32 gauge (Easy Touch #150 ea 01/24/21 Lancets) Novolin 70-30 FlexPen U-100 See Rx Instructions subcut BID 30 09/01/23 Insulin 100 unit/mL (70-30) days #45 mL subcutaneous (insulin NPH and regular human) blood sugar diagnostic (FreeStyle #150 ea 10/28/23 Lite Strips) pen needle, diabetic 32 gauge x #200 ea 05/29/24 (BD Ultra-Fine Ciera Pen Needle) bupropion HCl 150 mg 24 hr tablet, 150 mg PO QAM 30 days #30 tabs 06/16/24 extended release hydroxyzine HCl 25 mg tablet 25 mg PO TID PRN anxiety 30 days 06/16/24 #90 tabs amlodipine 10 mg tablet 10 mg PO DAILY #90 tabs 08/18/24 dextroamphetamine-amphetamine 30 30 mg PO DAILY 30 days #30 tabs 09/01/24 mg tablet (Adderall) doxycycline hyclate 100 mg capsule 100 mg PO BID #20 caps 09/04/24 Allergies Allergy/AdvReac Type Severity Reaction Status Date / Time theresa Allergy Severe Hives Verified 09/04/24 18:21 shellfish derived Allergy Severe Hives Verified 06/24/24 09:52 semaglutide AdvReac Intermediate nausea/vomiting, Verified 06/24/24 09:52 abdominal pain and diarrhea Review of Systems Constitutional: Constitutional: Denies chills and Denies fever(s) Cardiovascular: Cardiovascular: Denies chest pain, Denies dyspnea, Denies dyspnea on exertion and Denies orthopnea Respiratory: Respiratory: Denies cough, Denies dyspnea and Denies dyspnea on exertion Gastrointestinal: Gastrointestinal: Denies abdominal pain, Denies melena, Denies hematochezia, Denies diarrhea, Denies nausea and Denies vomiting Musculoskeletal: Musculoskeletal: Denies back pain, Denies muscle weakness and Denies numbness Integumentary/Breasts: Skin/Breast: Denies rash Neurologic: Denies focal weakness and Denies numbness Psychiatric: Psychiatric: Denies depression PMFSH Past Medical History Medical History Anal fistula Epidermoid cyst of skin of back Depression History of COVID-19 ALEX on CPAP Sacrococcygeal pilonidal cyst ESRD (end stage renal disease) on dialysis Morbid obesity with BMI of 50.0-59.9, adult Mass of left hand Left shoulder pain Vitamin D deficiency Dyslipidemia 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 Diabetic nephropathy associated with type 2 diabetes mellitus Morbid obesity with BMI of 45.0-49.9, adult Type 2 diabetes mellitus with diabetic chronic kidney disease Diabetes type 2, uncontrolled ADHD (attention deficit hyperactivity disorder) Surgical History Hx of cardiac catheterization History of excision of pilonidal cyst AV fistula Family History Family History Father Diabetes Hypertension Mother Alive and well Sister Diabetes Social History Social History Household Members: None Housing: House Are you a primary post acute care nurse to a significant other at home: No Do you presently have visiting nurse or other home services: Yes ([employer]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) Alcohol intake: never Patient Tobacco Use Status: Former Tobacco user Tobacco use type: Cigarette Smoked in Last 30 Days: No e-Cigarette/Vaping Use: Never Used Second Hand Smoke Exposure: Yes Use of substances other than those prescribed or required for medical reasons: No Substance Use Type: Crack/Cocaine and Marijuana Advance Directives: No Advance Directives Information Provided: Yes service: No Current occupational status: disabled Cognitive needs: Yes (cane) Hearing needs: No Vision needs: Yes (glasses) Physical Exam ED Vital Signs: Vital Signs - 24 hr 09/04/24 18:18 09/04/24 21:46 Temperature 98.4 F 98.4 F Pulse Rate 66 72 Respiratory Rate 18 16 Blood Pressure 136/63 131/65 Pulse Oximetry 99 96 Oxygen Delivery Method Room Air Room Air BMI result Body Mass Index 49.7 Const General: cooperative, alert and awake Resp Effort & Inspection: normal respiratory effort Cardio Rate: regular rate Rhythm: regular rhythm Skin Other: Extrem Other: Decreased sensation from the distal midfoot through the toes of the left foot, circumferential. Unable to palpate DP pulses. DP pulse is obtained and marked with a Doppler. Course Course Course Narrative: Ultrasound returned without any acute process. X-ray also with any acute process, consistent with Charcot joint. Labs essentially at baseline. Patient will continue with dialysis. As a precaution, we will place patient on antibiotics in case early cellulitis given the skin changes the patient experience. Discussed with Dr. Freitsa for possible admission but agrees that reasonable to have the patient follow up as outpatient. No indication for IV antibiotics at this time. I have reviewed all discharge instructions with the patient who agrees with current plan. Prescription monitoring program demonstrates regular oxycodone prescriptions, last filled August to day supply. Reviewed all discharge instructions, no further questions at this time. Medications Administered Discontinued Medications Generic Name Dose Route Start Last Admin Trade Name Radha PRN Reason Stop Dose Admin Morphine Sulfate 4 mg 09/04/24 19:10 09/04/24 19:46 Morphine Sulfate 4 Mg/Ml Cartridge IVPUSH 09/04/24 19:11 4 mg ONCE ONE Administration Protocol Morphine Sulfate 4 mg 09/04/24 21:27 09/04/24 21:46 Morphine Sulfate 4 Mg/Ml Cartridge IVPUSH 09/04/24 21:28 4 mg ONCE ONE Administration Protocol Medical Decision Making Medical Decision Making [facility] Narrative: 48-year-old male with end-stage renal disease on dialysis, Charcot foot, hypertension, diabetes, who with decreased sensation of the left foot as well as color changes. Of the left foot obtained by Doppler. Check venous ultrasound as well as x-ray. Check labs. Differential Diagnosis Differential Diagnoses: The differential diagnosis associated with the presentation includes Compartment syndrome Fracture Sprain DVT Cellulitis Edema Admission/Observation Consideration of admission/observation: Escalation of care including admission/observation considered Lab Data [facility] Lab Attestation statement: I reviewed the patient's lab results. 09/04/24 19:42 09/04/24 19:43 Labs: Lab Results 09/04/24 09/04/24 09/04/24 Range/Units 19:42 19:43 20:19 WBC 13.7 H (4.8-10.8) X10*3/uL RBC 3.06 L (4.60-5.80) X10*6/uL Hgb 9.1 L (14.0-18.0) g/dl Hct 27.7 L (42.0-52.0) % MCV 90.5 (80.0-98.0) fL MCH 29.7 (27.0-33.0) pg MCHC 32.9 (31.0-36.0) g/dl RDW 14.3 (11.0-16.0) % Plt Count 453 H (160-400) X10*3/uL MPV 8.8 L (9.4-12.4) fL Immature Gran % (Auto) 1.0 H (0.0-0.4) % Neut % (Auto) 76.6 H (45-73) % Lymph % (Auto) 13.4 L (20-40) % [place] % (Auto) 6.4 (2-11) % Eos % (Auto) 2.3 (0-4) % Baso % (Auto) 0.3 (0-2) % Lymph # (Auto) 1.8 (1.2-4.9) X10*3/uL [place] # (Auto) 0.9 (0.1-1.2) X10*3/uL Eos # (Auto) 0.3 (0.0-0.4) X10*3/uL Baso # (Auto) 0.0 (0.0-0.2) X10*3/uL Abs Immat Gran (auto) 0.13 H (0.00-0.03) X10*3/uL Absolute Neuts (auto) 10.5 H (2.0-8.3) x10*3/uL Absolute Nucleated RBC 0.000 (0.0-0.012) X10*3/uL Nucleated RBC % (auto) 0.0 (0.0-0.2) /100WBC ESR 110 H (0-15) MM/HR PT 12.6 H (10.9-12.4) SEC INR 1.1 (0.9-1.1) APTT 29.7 (26.0-36.8) SEC Sodium 136 (135-145) mmol/L Potassium 3.7 D (3.3-5.1) mmol/L Chloride 97 (96-108) mmol/L Carbon Dioxide 28 (22-29) mmol/L Anion Gap 15 (12-20) BUN 38 H (9-16) mg/dL Creatinine 8.79 H* (0.5-1.4) mg/dL Estim Creat Clear Calc 16.7 Estimated GFR 7 Random Glucose 158 H (60-115) mg/dL Calcium 9.2 (8.4-10.2) mg/dL Magnesium 2.0 (1.6-2.6) mg/dL Total Bilirubin 0.5 (0.0-1.0) mg/dL AST 37 (5-37) U/L ALT < 6 (0-40) U/L Alkaline Phosphatase 135 H (39-117) U/L C-Reactive Protein 9.37 H (< or = 0.50) mg/dL Total Protein 8.9 H (6.5-8.0) g/dL Albumin 3.7 (3.5-5.0) g/dL Radiology Impression Discussion of test interpretation with radiology: I have reviewed the radiologist's reading. Radiologist Impression: [address] [address] Ultrasound Report Signed Patient: Wai Jones MR#: [id number] : 1975 Acct:[id number] Age/Sex: 48 / M ADM Date: 09/04/24 Loc: .ED Attending Dr: Ordering Physician: Jordy Davila Date of Service: 09/04/24 Procedure(s): US venous duplex LE Accession Number(s): [id number] cc: Ovidio العلي MD; Jordy Davila~ CLINICAL HISTORY: leg pain, swelling Venous duplex ultrasound left lower extremity Comparison: 05/15/2024 Findings: The visualized deep veins are fully compressible with normal Doppler color flow and spectral tracings. No popliteal cyst. IMPRESSION: 1. Negative for left lower extremity deep vein thrombosis. 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 Discussion with hospitalist. Discharge Plan Discharge Clinical Impression: Cellulitis of foot Charcot joint of foot Qualifiers: Laterality: left Qualified Code(s): M14.672 - Charcot's joint, left ankle and foot Patient Disposition: Home, Self-Care Instructions: Cellulitis (ED) Additional Instructions: You may have start of infection in the skin of your foot. Doxycycline as directed. Finish all antibiotics. Continue oxycodone as directed. 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 Call Saturday morning to schedule follow up. Watch for any worsening of symptoms, severe pain, fevers, swelling or any other concern return immediately to the emergency department Follow-up with your primary care provider. Call this week to schedule a follow-up appointment. Return to the emergency department if you have any worsening of symptoms, or any concerns. Get well soon! Prescriptions: New doxycycline hyclate 100 mg capsule 100 mg PO BID Qty: 20 0RF No Action Novolin 70-30 FlexPen U-100 100 unit/mL (70-30) insulin pen See Rx Instructions subcut BID 30 Days Qty: 45 4RF Patient Comments: patient states 75 units am and 35 units evening Rx Instructions: 75 units before breakfast and 50 units before dinner subcut 2 times a day; (DME) FreeStyle Lite Strips Strip See Rx Instructions .ROUTE .MEDSUPPLY Qty: 150 11RF Rx Instructions: 5 times a day (DME) pen needle, diabetic [BD Ultra-Fine Ciera Pen Needle] 32 gauge x 5/32 needle See Rx Instructions .Route Qty: 200 3RF Rx Instructions: As directed twice a day amlodipine 10 mg tablet 10 mg PO DAILY Qty: 90 1RF dextroamphetamine-amphetamine [Adderall] 30 mg tablet 30 mg PO DAILY 30 Days Qty: 30 0RF allopurinol 100 mg tablet 100 mg PO DAILY tamsulosin 0.4 mg capsule 0.4 mg PO DAILY oxycodone 5 mg tablet 5 mg PO TID PRN (Reason: Pain) clindamycin phosphate 1 % lotion 1 appl topical BID Novolin 70-30 FlexPen U-100 100 unit/mL (70-30) insulin pen 50 unit subcut DAILY@1700 Novolin 70-30 FlexPen U-100 100 unit/mL (70-30) insulin pen 75 unit subcut DAILY@0800 atorvastatin 10 mg tablet 10 mg PO DAILY metoprolol succinate 50 mg tablet extended release 24 hr 50 mg PO DAILY omeprazole 40 mg capsule,delayed release(DR/EC) 40 mg PO DAILY calcitriol 0.5 mcg capsule 1 mcg PO 4XW (DME) blood-glucose meter [FreeStyle Lite Meter] Kit See Rx Instructions .ROUTE .MEDSUPPLY Qty: 1 0RF Rx Instructions: 4 times a day (DME) Easy Touch Lancets 32 gauge misc See Rx Instructions .MEDSUPPLY Qty: 150 6RF Rx Instructions: 5 times a day sucroferric oxyhydroxide 500 mg tablet,chewable 1,000 mg PO TID mirtazapine 15 mg tablet 15 mg PO BEDTIME bupropion HCl 150 mg tablet extended release 24 hr 150 mg PO QAM 30 Days Qty: 30 3RF hydroxyzine HCl 25 mg tablet 25 mg PO TID PRN (Reason: anxiety) 30 Days Qty: 90 2RF Print Language: Qatari
--- NOTE | 2024-09-04 19:10 | ECG_ITS ---
Test Reason : WEAKNESS Blood Pressure : / mmHG Vent. Rate : 069 BPM Atrial Rate : 069 BPM P-R Int : 196 ms QRS Dur : 090 ms QT Int : 466 ms P-R-T Axes : 017 046 037 degrees QTc Int : 499 ms Normal sinus rhythm Prolonged QT Abnormal ECG When compared with ECG of 24-JUN-2024 09:34, No significant change was found Referred By: Jordy Davila Electronically Signed By:JAS BRIGHT MD
[2024-09-04] MEDS: Morphine Sulfate 4 MG/ML CARTRIDGE IVPUSH ×2 (19:46→21:46)
[2024-09-04 19:54] LABS: MANUAL DIFF FLAG NO
[2024-09-04 20:01] LABS: Basophils Percent Auto 0.3 % (0-2); Eosinophils Absolute Auto 0.3 X10*3/uL (0.0-0.4); Eosinophils Percent Auto 2.3 % (0-4); Hematocrit 27.7 % (42.0-52.0); Hemoglobin 9.1 g/dl (14.0-18.0); Imm Gran Abs Auto 0.13 X10*3/uL (0.00-0.03); Lymphocytes Absolute Auto 1.8 X10*3/uL (1.2-4.9); Lymphocytes Percent Auto 13.4 % (20-40); Mean Corpuscular HGB Conc 32.9 g/dl (31.0-36.0); Mean Corpuscular Hemoglobin 29.7 pg (27.0-33.0); Mean Corpuscular Volume 90.5 fL (80.0-98.0); Mean Platelet Volume 8.8 fL (9.4-12.4); Monocytes Absolute Auto 0.9 X10*3/uL (0.1-1.2); Monocytes Percent Auto 6.4 % (2-11); Neutrophils Absolute Auto 10.5 x10*3/uL (2.0-8.3); Neutrophils Percent Auto 76.6 % (45-73); Platelet Count 453 X10*3/uL (160-400); Red Blood Count 3.06 X10*6/uL (4.60-5.80); Red Cell Distribution Width 14.3 % (11.0-16.0); White Blood Count 13.7 X10*3/uL (4.8-10.8)
[2024-09-04 20:17] LABS: Alanine Aminotransferase < 6 U/L (0-40); Albumin Level 3.7 g/dL (3.5-5.0); Alkaline Phosphatase 135 U/L (39-117); Anion Gap 15 (12-20); Aspartate Amino Transferase 37 U/L (5-37); Bilirubin Total 0.5 mg/dL (0.0-1.0); Blood Urea Nitrogen 38 mg/dL (9-16); C Reactive Protein 9.37 mg/dL (< or = 0.50); Calcium 9.2 mg/dL (8.4-10.2); Carbon Dioxide 28 mmol/L (22-29); Chloride 97 mmol/L (96-108); Creatinine Clr Calc Pharmacy 16.7; Estimated Glomerular Filt Rate 7; Glucose Random 158 mg/dL (60-115); Potassium 3.7 mmol/L (3.3-5.1); Sodium 136 mmol/L (135-145); Total Protein 8.9 g/dL (6.5-8.0)
[2024-09-04 20:34] LABS: INTERNATIONAL NORM RATIO 1.1 (0.9-1.1); Prothrombin Time 12.6 SEC (10.9-12.4)
[2024-09-04 20:36] LABS: Partial Thromboplastin Time 29.7 SEC (26.0-36.8)
[2024-09-04 21:46] VITALS: BP 131/65; PULSE 72; RESP 16; TEMP 36.9; O2SAT 96
[2024-09-04 21:48] LABS: Erythrocyte Sedimentation Rate 110 MM/HR (0-15)
[2024-09-04 23:10] VITALS: BP 117/53; PULSE 70; RESP 16; TEMP 36.9; O2SAT 96
[2024-09-04] MEDS: oxyCODONE HCl Immed Release 5 MG TABLET PO (23:15)
[2024-09-04] MEDS: Doxycycline Monohydrate 100 MG CAPSULE PO (23:15)
[2024-09-04 23:18] VITALS: BP 117/53; PULSE 70; RESP 16; TEMP 36.9; O2SAT 96
== END 2024-09-04 23:29 | disposition home or self-care (01) ==
PROVIDERS: Physician Assistant Medical; Emergency Provider Emergency Medicine; PCP Internal Medicine
DX: L03.116 Cellulitis of left lower limb (principal); M14.672 Charcot's joint, left ankle and foot; M79.672 Pain in left foot; E11.22 Type 2 diabetes mellitus with diabetic chronic kidney disease; I12.0 Hypertensive chronic kidney disease with stage 5 chronic kidney disease or end stage renal disease; N18.6 End stage renal disease; Z99.2 Dependence on renal dialysis; E78.5 Hyperlipidemia, unspecified; Z79.4 Long term (current) use of insulin; Z79.02 Long term (current) use of antithrombotics/antiplatelets; Z79.899 Other long term (current) drug therapy; Z87.891 Personal history of nicotine dependence
CPT/HCPCS: 36415; 73610; 73630; 80053; 83735; 85025; 85610; 85652; 85730; 86140; 93005; 93971; 96374; 96376; 99285; J2270

== ENCOUNTER → 2024-09-04 19:10 | Outpatient (BNV) | payer OTHER, SELFPAY | PROVIDERS: Emergency Provider Emergency Medicine; PCP Internal Medicine; Visit Provider Internal Medicine Cardiovascular Disease | DX: R94.31 Abnormal electrocardiogram [ECG] [EKG] (principal) | CPT/HCPCS: 93010 ==

== ENCOUNTER → 2024-09-04 19:18 | Outpatient (BNV) | payer OTHER, SELFPAY | PROVIDERS: Emergency Provider Emergency Medicine; PCP Internal Medicine; Visit Provider Specialist | DX: M25.572 Pain in left ankle and joints of left foot (principal); R22.42 Localized swelling, mass and lump, left lower limb | CPT/HCPCS: 73610; 73630; 93971 ==

== ENCOUNTER 2024-11-07 09:03 | Emergency (ER) | payer OTHER, SELFPAY ==
--- NOTE | ~2024-11-07 | XR_ITS ---
CLINICAL HISTORY: CP 1 view chest x-ray. Comparison: 09/11/2022 Findings: The lungs are adequately expanded. No focal consolidation. No effusion or pneumothorax. Cardiac and mediastinal contours are within normal limits. No acute osseous abnormality Impression: No acute process. This document has been electronically signed by: Dillon Zavala MD on 11/07/2024 10:13:07
[2024-11-07 09:14] VITALS: BP 134/65; BP 139/71; PULSE 75; PULSE 78; RESP 20; TEMP 36.6; O2SAT 95; O2SAT 99; BMI 49.7
--- NOTE | 2024-11-07 09:14 | ECG_ITS ---
Test Reason : CP Blood Pressure : */* mmHG Vent. Rate : 77 BPM Atrial Rate : 77 BPM P-R Int : 174 ms QRS Dur : 88 ms QT Int : 400 ms P-R-T Axes : 19 44 23 degrees QTcB Int : 452 ms Normal sinus rhythm Normal ECG When compared with ECG of 04-Sep-2024 19:43, No significant change was found Referred By: Marissa Sawant Electronically Signed By: JAS BRIGHT MD
--- NOTE | 2024-11-07 09:25 | ED_ITS ---
HPI - Chest Pain General Chief Complaint: Chest Pain Stated Complaint: CP X3D,N/V X1W PER EMS Time Seen by Provider: 11/07/24 09:08 Source: patient, EMS and old records reviewed Mode of arrival: EMS Limitations: no limitations History of Present Illness ED Provider: DR. Sawant HPI narrative: A 48-year-old male with past medical history significant for ESRD on home dialysis (dialyzed 2 days then 1 day off), ALEX on CPAP, morbid obesity, HLD, HTN, ADH knee, DM2. Presented today for 3 days of left-sided chest pain localized to the left side with no radiation, no clear aggravating or relieving factors pain has been intermittent and it happened at rest, patient was not able to dialyze himself for 3 days, patient also been complaining of nausea, vomiting, and nonbloody watery diarrhea for the last 3 days patient get this episodes periodically in the process to be referred to GI by his PCP. Related Data Home Medications ?Medication ?Instructions ?Recorded ?Confirmed atorvastatin 10 mg tablet 10 mg PO DAILY 08/08/20 06/16/24 metoprolol succinate 50 mg 50 mg PO DAILY 08/08/20 06/16/24 tablet,extended release 24 hr omeprazole 40 mg capsule,delayed 40 mg PO DAILY 08/08/20 06/16/24 release calcitriol 0.5 mcg capsule 1 mcg PO 4XW 01/24/21 06/16/24 sucroferric oxyhydroxide 500 mg 1,000 mg PO TID 02/07/21 06/16/24 chewable tablet mirtazapine 15 mg tablet 15 mg PO BEDTIME 06/16/24 06/16/24 allopurinol 100 mg tablet 100 mg PO DAILY 06/24/24 clindamycin phosphate 1 % lotion 1 appl topical BID 06/24/24 insulin NPH-regular 70-30 U-100 50 unit subcut DAILY@1700 06/24/24 insulin 100 unit/mL subcutaneous pen (Novolin 70-30 FlexPen U-100 Insulin) insulin NPH-regular 70-30 U-100 75 unit subcut DAILY@0800 06/24/24 insulin 100 unit/mL subcutaneous pen (Novolin 70-30 FlexPen U-100 Insulin) oxycodone 5 mg tablet 5 mg PO TID PRN Pain 06/24/24 tamsulosin 0.4 mg capsule 0.4 mg PO DAILY 06/24/24 Previous Rx's ?Medication ?Instructions ?Recorded blood-glucose meter (FreeStyle #1 ea 01/24/21 Lite Meter kit) pen needle, diabetic 32 gauge x #200 ea 05/29/24 (BD Ultra-Fine Ciera Pen Needle) amlodipine 10 mg tablet 10 mg PO DAILY #90 tabs 08/18/24 doxycycline hyclate 100 mg capsule 100 mg PO BID #20 caps 09/04/24 hydroxyzine HCl 25 mg tablet 25 mg PO TID PRN anxiety 30 days 09/10/24 #90 tabs bupropion HCl 150 mg 24 hr tablet, 150 mg PO QAM 30 days #30 tabs 09/11/24 extended release Novolin 70-30 FlexPen U-100 See Rx Instructions subcut BID 30 09/12/24 Insulin 100 unit/mL (70-30) days #45 mL subcutaneous (insulin NPH and regular human) dextroamphetamine-amphetamine 30 30 mg PO DAILY 30 days #30 tabs 10/06/24 mg tablet (Adderall) Transfer Bench #1 ea 10/13/24 scooter #1 ea 10/13/24 mirtazapine 30 mg tablet 30 mg PO BEDTIME 30 days #30 tabs 10/17/24 lancets 32 gauge (Easy Touch #150 ea 10/30/24 Lancets) blood sugar diagnostic (FreeStyle #150 ea 11/05/24 Lite Strips) ondansetron 4 mg disintegrating 4 mg PO Q8-12H PRN nausea and 11/07/24 tablet vomiting #7 tabs Allergies Allergy/AdvReac Type Severity Reaction Status Date / Time theresa Allergy Severe Hives Verified 11/07/24 09:18 shellfish derived Allergy Severe Hives Verified 11/07/24 09:18 semaglutide AdvReac Intermediate nausea/vomiting, Verified 11/07/24 09:18 abdominal pain and diarrhea Review of Systems 2 Review of Systems: All other systems are reviewed and are negative Constitutional: Reports as per HPI and Reports no additional constitutional complaints Eyes: Reports as per HPI and Reports no additional eye complaints Reports system reviewed and no additional complaints, except as documented Cardiovascular: Reports as per HPI and Reports no additional cardiovascular complaints Respiratory: Reports as per HPI and Reports no additional respiratory complaints Gastrointestinal: Reports as per HPI and Reports no additional gastrointestinal complaints Genitourinary: Reports no additional female genitourinary complaints Musculoskeletal: Reports no additional musculoskeletal complaints Skin/Breast: Reports system reviewed and no additional complaints, except as docu Psychiatric: Reports no additional psychiatric complaints Endocrine: Reports no additional endocrine complaints Hematologic/Lymphatic: Reports no additional hematologic/lymphatic complaints Allergic/Immunologic: Reports no additional allergic/immunologic complaints Reports system reviewed and no additional complaints, except as documented and Reports Abnormal speech present [facility] Past Medical History Medical History Anal fistula Epidermoid cyst of skin of back Depression History of COVID-19 ALEX on CPAP Sacrococcygeal pilonidal cyst ESRD (end stage renal disease) on dialysis Morbid obesity with BMI of 50.0-59.9, adult Mass of left hand Left shoulder pain Vitamin D deficiency Dyslipidemia 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 Diabetic nephropathy associated with type 2 diabetes mellitus Morbid obesity with BMI of 45.0-49.9, adult Type 2 diabetes mellitus with diabetic chronic kidney disease Diabetes type 2, uncontrolled ADHD (attention deficit hyperactivity disorder) Surgical History Hx of cardiac catheterization History of excision of pilonidal cyst AV fistula Family History Family History Father Diabetes Hypertension Mother Alive and well Sister Diabetes Social History Social History Household Members: None Housing: House Are you a primary medicare insurance specialist to a significant other at home: No Do you presently have visiting nurse or other home services: Yes ([employer]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) Alcohol intake: never Patient Tobacco Use Status: Former Tobacco user Tobacco use type: Cigarette Smoked in Last 30 Days: No e-Cigarette/Vaping Use: Never Used Second Hand Smoke Exposure: Yes Use of substances other than those prescribed or required for medical reasons: No Substance Use Type: Crack/Cocaine and Marijuana Advance Directives: No Advance Directives Information Provided: No Do you have a plan to hurt others: No Plan service: No Current occupational status: disabled Cognitive needs: Yes (cane) Hearing needs: No Vision needs: Yes (glasses) Physical Exam 2 Vital Signs: Vital Signs: Last Vital Signs Temp 97.9 F 11/07/24 09:14 Pulse 75 11/07/24 09:14 Resp 20 11/07/24 09:14 BP 139/71 11/07/24 09:14 Pulse Ox 99 11/07/24 09:14 O2 Del Method Room Air 11/07/24 09:14 BMI result Body Mass Index 49.7 Vital signs have been reviewed and appear to be correct. Blood pressure elevated. Heart rate normal. Respiratory rate normal. Temperature normal. Oxygen saturation normal. Appearance: Alert. Oriented X3. No acute distress. Head: Normal external exam. Normocephalic. Atraumatic. No Chance signs noted. No raccoon eyes noted Eyes: PERRLA. EOMI. Conjunctiva and sclera normal. Eyelids normal. ENT: TM's Normal. Pharynx normal. Uvula midline. Moist mucous membranes. No trismus noted. No drooling noted. No muffled voice noted. Neck: Normal inspection. Neck supple. FROM. No adenopathy. Thyroid Normal. No meningeal signs. No neck mass noted. CVS: Normal heart rate and rhythm. Heart sound normal. No murmurs noted. Pulses normal throughout. Respiratory: No respiratory distress. Painless inspiration. Breath sounds normal. No wheezes/rales/rhonchi noted. Chest nontender. No accessory muscle usage noted or decreased air movement noted. Abdomen: Soft and nontender. Bowel sounds normal in all 4 quadrants. No distention noted. No organomegaly noted. No visible injury noted. Back: No CVA tenderness. Full range of motion noted. Skin: Skin warm and dry. Normal skin color. Normal skin turgor. No rashes/lesions/lacerations noted. Extremities: No lower extremity edema. Extremities exhibit normal range of motion. Extremities nontender. Neuro: Oriented X 3. Cranial nerve exam: II-XII are grossly intact No motor deficit. No sensory deficit. Reflexes normal. Course Reevaluation(s) Reevaluation #1: 48-year-old male presented with chest pain, nausea, vomiting, and nonbloody watery diarrhea for 3 days. On home HD, patient was instructed to keep his dialysis at his usual schedule. Chest pain is likely secondary to guard felt better after a Maalox, EKG shows no ischemic change, negative troponin (CP for 3 days). Time: 11:04 Medical Decision Making Differential Diagnosis Differential Diagnoses: The differential diagnosis associated with the presentation includes (Electrolyte derangement, severe anemia, dehydration, hyperkalemia, ACS, pneumonia, pneumothorax, pleural effusion, CHF.) Admission/Observation Consideration of admission/observation: Escalation of care including admission/observation considered Lab Data MDM Lab Attestation statement: I reviewed the patient's lab results. 11/07/24 09:57 11/07/24 09:57 Labs: Lab Results 11/07/24 Range/Units 09:57 WBC 11.4 H (4.8-10.8) X10*3/uL RBC 3.15 L (4.60-5.80) X10*6/uL Hgb 9.1 L (14.0-18.0) g/dl Hct 28.0 L (42.0-52.0) % MCV 88.9 (80.0-98.0) fL MCH 28.9 (27.0-33.0) pg MCHC 32.5 (31.0-36.0) g/dl RDW 14.6 (11.0-16.0) % Plt Count 392 (160-400) X10*3/uL MPV 8.3 L (9.4-12.4) fL Immature Gran % (Auto) 0.7 H (0.0-0.4) % Neut % (Auto) 77.6 H (45-73) % Lymph % (Auto) 12.2 L (20-40) % [place] % (Auto) 6.2 (2-11) % Eos % (Auto) 3.1 (0-4) % Baso % (Auto) 0.2 (0-2) % Lymph # (Auto) 1.4 (1.2-4.9) X10*3/uL [place] # (Auto) 0.7 (0.1-1.2) X10*3/uL Eos # (Auto) 0.4 (0.0-0.4) X10*3/uL Baso # (Auto) 0.0 (0.0-0.2) X10*3/uL Abs Immat Gran (auto) 0.08 H (0.00-0.03) X10*3/uL Absolute Neuts (auto) 8.9 H (2.0-8.3) x10*3/uL Absolute Nucleated RBC 0.000 (0.0-0.012) X10*3/uL Nucleated RBC % (auto) 0.0 (0.0-0.2) /100WBC Sodium 138 (135-145) mmol/L Potassium 5.1 D (3.3-5.1) mmol/L Chloride 100 (96-108) mmol/L Carbon Dioxide 24 (22-29) mmol/L Anion Gap 19 (12-20) BUN 82 H (9-16) mg/dL Creatinine 13.77 H* (0.5-1.4) mg/dL Estim Creat Clear Calc 10.7 Estimated GFR 4 Random Glucose 170 H (60-115) mg/dL Calcium 10.3 H D (8.4-10.2) mg/dL Total Bilirubin 0.5 (0.0-1.0) mg/dL Direct Bilirubin 0.2 (0.0-0.5) mg/dL AST 27 (5-37) U/L ALT 6 (0-40) U/L Alkaline Phosphatase 118 H (39-117) U/L Troponin I High Sens 6.8 D (<3.5-35.0) ng/L B-Natriuretic Peptide 102 H (<100) pg/mL Total Protein 9.1 H (6.5-8.0) g/dL Albumin 3.8 (3.5-5.0) g/dL Lipase 28 (8-78) U/L Independent Interpretation I performed an independent interpretation of an: Plain X-Ray (Chest: No acute process.) Radiology Impression Discussion of test interpretation with radiology: I have reviewed the radiologist's reading. Discharge Plan Discharge Clinical Impression: ESRD on hemodialysis, Chest pain due to GERD Patient Disposition: Home, Self-Care Instructions: Chest Pain (ED) Additional Instructions: Do your home dialysis and keep on your usual scheduled. Prescriptions: New ondansetron 4 mg tablet,disintegrating 4 mg PO Q8-12H PRN (Reason: nausea and vomiting) Qty: 7 0RF No Action (DME) pen needle, diabetic [BD Ultra-Fine Ciera Pen Needle] 32 gauge x 5/32 needle See Rx Instructions .Route Qty: 200 3RF Rx Instructions: As directed twice a day amlodipine 10 mg tablet 10 mg PO DAILY Qty: 90 1RF hydroxyzine HCl 25 mg tablet 25 mg PO TID PRN (Reason: anxiety) 30 Days Qty: 90 2RF bupropion HCl 150 mg tablet extended release 24 hr 150 mg PO QAM 30 Days Qty: 30 1RF Novolin 70-30 FlexPen U-100 100 unit/mL (70-30) insulin pen See Rx Instructions subcut BID 30 Days Qty: 45 4RF Patient Comments: patient states 75 units am and 35 units evening Rx Instructions: 75 units before breakfast and 50 units before dinner subcut 2 times a day; dextroamphetamine-amphetamine [Adderall] 30 mg tablet 30 mg PO DAILY 30 Days Qty: 30 0RF (DME) scooter See Rx Instructions .Route .MEDSUPPLY Qty: 1 0RF Rx Instructions: As directed (DME) Transfer Bench Misc See Rx Instructions .Route Qty: 1 0RF Rx Instructions: As directed mirtazapine 30 mg tablet 30 mg PO BEDTIME 30 Days Qty: 30 0RF (DME) Easy Touch Lancets 32 gauge misc See Rx Instructions .MEDSUPPLY Qty: 150 6RF Rx Instructions: 5 times a day (DME) FreeStyle Lite Strips Strip See Rx Instructions .ROUTE .MEDSUPPLY Qty: 150 11RF Rx Instructions: 5 times a day allopurinol 100 mg tablet 100 mg PO DAILY tamsulosin 0.4 mg capsule 0.4 mg PO DAILY oxycodone 5 mg tablet 5 mg PO TID PRN (Reason: Pain) clindamycin phosphate 1 % lotion 1 appl topical BID Novolin 70-30 FlexPen U-100 100 unit/mL (70-30) insulin pen 50 unit subcut DAILY@1700 Novolin 70-30 FlexPen U-100 100 unit/mL (70-30) insulin pen 75 unit subcut DAILY@0800 doxycycline hyclate 100 mg capsule 100 mg PO BID Qty: 20 0RF atorvastatin 10 mg tablet 10 mg PO DAILY metoprolol succinate 50 mg tablet extended release 24 hr 50 mg PO DAILY omeprazole 40 mg capsule,delayed release(DR/EC) 40 mg PO DAILY calcitriol 0.5 mcg capsule 1 mcg PO 4XW (DME) blood-glucose meter [FreeStyle Lite Meter] Kit See Rx Instructions .ROUTE .MEDSUPPLY Qty: 1 0RF Rx Instructions: 4 times a day sucroferric oxyhydroxide 500 mg tablet,chewable 1,000 mg PO TID mirtazapine 15 mg tablet 15 mg PO BEDTIME Referrals: Ovidio العلي MD [Primary Care Provider] - Print Language: Salvadorean
[2024-11-07 10:01] LABS: MANUAL DIFF FLAG NO
[2024-11-07 10:02] LABS: Basophils Percent Auto 0.2 % (0-2); Eosinophils Absolute Auto 0.4 X10*3/uL (0.0-0.4); Eosinophils Percent Auto 3.1 % (0-4); Hemoglobin 9.1 g/dl (14.0-18.0); Imm Gran Abs Auto 0.08 X10*3/uL (0.00-0.03); Imm Gran Pct Auto 0.7 % (0.0-0.4); Lymphocytes Absolute Auto 1.4 X10*3/uL (1.2-4.9); Lymphocytes Percent Auto 12.2 % (20-40); Mean Corpuscular HGB Conc 32.5 g/dl (31.0-36.0); Mean Corpuscular Hemoglobin 28.9 pg (27.0-33.0); Mean Corpuscular Volume 88.9 fL (80.0-98.0); Mean Platelet Volume 8.3 fL (9.4-12.4); Monocytes Absolute Auto 0.7 X10*3/uL (0.1-1.2); Monocytes Percent Auto 6.2 % (2-11); Neutrophils Absolute Auto 8.9 x10*3/uL (2.0-8.3); Neutrophils Percent Auto 77.6 % (45-73); Platelet Count 392 X10*3/uL (160-400); Red Blood Count 3.15 X10*6/uL (4.60-5.80); Red Cell Distribution Width 14.6 % (11.0-16.0); White Blood Count 11.4 X10*3/uL (4.8-10.8)
[2024-11-07 10:29] LABS: B Type Natriuretic Peptide 102 pg/mL (<100)
[2024-11-07 10:32] LABS: Alanine Aminotransferase 6 U/L (0-40); Albumin Level 3.8 g/dL (3.5-5.0); Alkaline Phosphatase 118 U/L (39-117); Anion Gap 19 (12-20); Aspartate Amino Transferase 27 U/L (5-37); Bilirubin Direct 0.2 mg/dL (0.0-0.5); Bilirubin Total 0.5 mg/dL (0.0-1.0); Blood Urea Nitrogen 82 mg/dL (9-16); Calcium 10.3 mg/dL (8.4-10.2); Carbon Dioxide 24 mmol/L (22-29); Chloride 100 mmol/L (96-108); Creatinine Clr Calc Pharmacy 10.7; Estimated Glomerular Filt Rate 4; Glucose Random 170 mg/dL (60-115); Lipase 28 U/L (8-78); Potassium 5.1 mmol/L (3.3-5.1); Sodium 138 mmol/L (135-145); Total Protein 9.1 g/dL (6.5-8.0); Troponin-I High Sensitivity 6.8 ng/L (<3.5-35.0)
[2024-11-07] MEDS: Loperamide HCl 2 MG CAPSULE PO (11:10)
[2024-11-07 11:11] VITALS: BP 121/64; PULSE 70; RESP 16; TEMP 37; O2SAT 95
[2024-11-07 11:15] VITALS: BP 121/64; PULSE 70; RESP 16; TEMP 37; O2SAT 95
[2024-11-07 11:23] LABS: Influenza A PCR NEGATIVE (Negative); Influenza B PCR NEGATIVE (Negative); Resp Syncy Virus RNA Qual PCR NEGATIVE (Negative); SARS COV2 PCR INHOUSE NEGATIVE (Negative)
== END 2024-11-07 12:28 | disposition home or self-care (01) ==
PROVIDERS: Emergency Provider Emergency Medicine; PCP Internal Medicine
DX: R07.89 Other chest pain (principal); K21.9 Gastro-esophageal reflux disease without esophagitis; R11.2 Nausea with vomiting, unspecified; E11.22 Type 2 diabetes mellitus with diabetic chronic kidney disease; I12.0 Hypertensive chronic kidney disease with stage 5 chronic kidney disease or end stage renal disease; N18.6 End stage renal disease; Z99.2 Dependence on renal dialysis; E78.5 Hyperlipidemia, unspecified; R06.02 Shortness of breath; Z87.891 Personal history of nicotine dependence; Z79.02 Long term (current) use of antithrombotics/antiplatelets; Z79.899 Other long term (current) drug therapy; Z79.4 Long term (current) use of insulin; Z03.818 Encounter for observation for suspected exposure to other biological agents ruled out
CPT/HCPCS: 0241U; 36415; 71045; 80048; 80076; 83690; 83880; 84484; 85025; 93005; 99283; 99285

== ENCOUNTER → 2024-11-07 09:14 | Outpatient (BNV) | payer OTHER, SELFPAY | PROVIDERS: Emergency Provider Emergency Medicine; PCP Internal Medicine; Visit Provider Internal Medicine Cardiovascular Disease | DX: R07.9 Chest pain, unspecified (principal) | CPT/HCPCS: 93010 ==

== ENCOUNTER → 2024-11-07 09:14 | Outpatient (BNV) | payer OTHER, SELFPAY | PROVIDERS: Emergency Provider Emergency Medicine; PCP Internal Medicine; Visit Provider Radiology Vascular & Interventional Radiology | DX: R07.9 Chest pain, unspecified (principal) | CPT/HCPCS: 71045 ==

== ENCOUNTER 2024-11-16 15:50 | Outpatient (AMB) | payer OTHER, SELFPAY ==
--- NOTE | 2024-11-16 15:51 | MHC.PC.OV ---
Intake Visit Reasons: ED follow up [facility] [place] 11/07 telehealth [phone] It Programmer Analyst Required: No Intensive Care Specialist: Not Required per policy Accompanied by: Self / Same As Patient Allergies theresa Allergy (Severe, Verified 11/16/24 22:12) Hives shellfish derived Allergy (Severe, Verified 11/16/24 22:12) Hives semaglutide Adverse Reaction (Intermediate, Verified 11/16/24 22:12) nausea/vomiting, abdominal pain and diarrhea Medication List - Last Reconciled 11/16/24 by MONIQUE Cisneros allopurinol 100 mg PO DAILY amlodipine 10 mg PO DAILY atorvastatin 10 mg PO DAILY blood sugar diagnostic (FreeStyle Lite Strips) 5 times a day blood-glucose meter (FreeStyle Lite Meter kit) 4 times a day bupropion HCl XL 150 mg PO QAM calcitriol 1 mcg PO 4XW clindamycin phosphate 1% 1 appl topical BID dextroamphetamine-amphetamine 30 mg (Adderall) 30 mg PO DAILY 30 days doxycycline hyclate 100 mg PO BID hydroxyzine HCl 25 mg PO TID PRN 30 days insulin NPH and regular human 100 unit/mL (70-30) (Novolin 70-30 FlexPen U-100 Insulin) 50 units subcut DAILY@1700 insulin NPH and regular human 100 unit/mL (70-30) (Novolin 70-30 FlexPen U-100 Insulin) 75 units subcut DAILY@0800 lancets (Easy Touch Lancets) 5 times a day lancets (FreeStyle Lancets) As directed check blood sugar four times a day metoprolol succinate ER 50 mg PO DAILY mirtazapine 15 mg PO BEDTIME mirtazapine 30 mg PO BEDTIME 30 days Novolin 70-30 FlexPen U-100 100 unit/mL (70-30) (insulin NPH and regular human) 75 units before breakfast and 50 units before dinner subcut 2 times a day; 30 days NS omeprazole 40 mg PO DAILY ondansetron 4 mg PO Q8-12H PRN oxycodone 5 mg PO TID PRN pen needle, diabetic (BD Ultra-Fine Ciera Pen Needle) As directed twice a day [scooter As directed] sucroferric oxyhydroxide 1,000 mg PO TID tamsulosin 0.4 mg PO DAILY Transfer Bench As directed Tobacco use date assessed: 11/16/24 Dental Screening Dental Screen Date: 11/16/24 Did you have a dental visit in the last 12 months?: Yes Did you have a dental problem in the last 6 months where you did not have access to dental care?: No Was dental information given to patient?: Patient has dentist HPI ED follow up [facility] [place] 11/07 telehealth [phone] HPI Details This is a medically necessary visit as the patient would typically be seen in the office, however, the patient is unable to come in the office so the visit was converted to an audiovisual, telephone visit format with patient's consent and request. Patient understands that this visit was in place of an in person visit and is aware of the risks of communicating via phone/computer and verbally consents. Patient is a 48-year-old male with past medical history significant for ESRD on home dialysis (dialyzed 2 days then 1 day off), ALEX on CPAP, morbid obesity, HLD, HTN, ADH knee, DM2 Telemedicine visit conducted through video (IPAD); this is a post hospital follow up visit Reports that he always have vomiting and diarrhea lasting for two days every month. Reports that this comes on without warning. Reports that he is currently bed-bound for now, he had a fixture on his leg that was taken off on Saturday. Reports that he is doing pretty good for the most part. His labs are pretty good and he would like to see the GI to make sure it is not something serious going on with his stomach. As for the hospital visit, the patient went in with concerns for left sided non-radiated chest pain, nausea and vomiting. The chest pain was considered to be GERD due to resolution with Maalox and negative EKG and troponins. The patient reports that he does not think it was GERD, instead, it was a virus because his daughter is having similar symptoms at this time He denies shortness of breath, chest pain, heart palpitation, abdominal pain, diarrhea nausea Will put in referral for GI Refilled atorvastatin 10 mg and ordered lancets for freestyle lite [facility] Medical History Anal fistula Epidermoid cyst of skin of back Depression History of COVID-19 ALEX on CPAP Sacrococcygeal pilonidal cyst ESRD (end stage renal disease) on dialysis Morbid obesity with BMI of 50.0-59.9, adult Mass of left hand Left shoulder pain Vitamin D deficiency Dyslipidemia Hypertension 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 Diabetic nephropathy associated with type 2 diabetes mellitus Morbid obesity with BMI of 45.0-49.9, adult Type 2 diabetes mellitus with diabetic chronic kidney disease Diabetes type 2, uncontrolled ADHD (attention deficit hyperactivity disorder) Surgical History History of surgery Hx of cardiac catheterization History of excision of pilonidal cyst AV fistula Family History Father Diabetes Hypertension Mother Alive and well Sister Diabetes Social History Household Members: None Housing: House Are you a primary patient care director to a significant other at home: No Do you presently have visiting nurse or other home services: Yes (SENIOR SALES DIRECTOR 40 hours/week) Alcohol intake: never Patient Tobacco Use Status: Former Tobacco user Tobacco use type: Cigarette e-Cigarette/Vaping Use: Never Used Second Hand Smoke Exposure: Yes Substance Use Type: Crack/Cocaine and Marijuana service: No Current occupational status: disabled Cognitive needs: Yes (cane) Hearing needs: No Vision needs: Yes (glasses) Questionnaire PHQ-9 Over the last 2 weeks, how often have you been bothered by any of the following problems? 1. Little interest or pleasure in doing things: not at all 2. Feeling down, depressed, or hopeless: not at all 3. Trouble falling or staying asleep, or sleeping too much: not at all 4. Feeling tired or having little energy: not at all 5. Poor appetite or overeating: not at all 6. Feeling bad about yourself - or that you are a failure or have let yourself or your family down: not at all 7. Trouble concentrating on things, such as reading the newspaper or watching television: not at all 8. Moving or speaking so slowly that other people could have noticed. Or the opposite - being so fidgety or restless that you have been moving around a lot more than usual: not at all 9. Thoughts that you would be better off or of hurting yourself in some way: not at all Total score: 0 Depression Screening Interpretation: Negative Depression Screening Done: Yes 29622 - PHQ-9 Billing: Yes Source: Developed by Drs. Isac Brizuela, Fredi Chacon and colleagues, with an educational nicky from [employer]. Thrive Questionnaire Date Thrive assessed: 11/16/24 I am a: Patient What is your living situation today?: I have a steady place to live Within the past 12 months, did the food you bought not last and you didn't have the money to get more?: Never true Within the past 12 months, did you worry whether your food would run out before you got money to buy more?: Never true Do you have trouble paying for medicines?: No Do you have trouble getting transportation to medical appointments?: No Do you have trouble paying your heating and electricity bill?: No Do you have trouble taking care of your child, family member or friend?: No Do you have trouble with day-to-day activities such as bathing, preparing meals, shopping, managing finances, etc.?: No Are you currently unemployed and looking for a job?: No Are you interested in more education?: No Please select the resources that you would like help with: None THRIVE Score: 0 AUDIT C Alcohol Use Questionnaire (AUDIT-C) 1. How often do you have a drink containing alcohol?: Never Total Score: 0 STEPHANY-7 AMB Questionnaire STEPHANY-7 Date STEPHANY - 7 assessed: 11/16/24 Feeling nervous, anxious, or on edge: 3 = Nearly every day Not being able to stop or control worryin = Not at all Worrying too much about different things: 0 = Not at all Trouble relaxin = Nearly every day Being so restless that it is hard to sit still: 3 = Nearly every day Becoming easily annoyed or irritable: 1 = Several days Feeling afraid as if something awful might happen: 0 = Not at all Total STEPHANY-7 score (0-4 normal; 5-9 mild; 10-14 moderate; 15-21 severe): 10 Source: Developed by Lu Hudson Kurt Kroenke and colleagues, with an educational nicky from [employer]. STEPHANY-7 Assessment Billing STEPHANY-7 Assessment Tool: STEPHANY-7 Assessment 73388 Review of Systems Const Denies headache(s) Eyes Denies loss of vision ENT Denies vertigo, Denies dizziness, Denies headache(s) and Denies sore throat Card Denies chest pain, Denies leg edema and Denies lightheadedness Resp Denies cough, Denies hemoptysis and Denies wheezing GI Denies abdominal pain, Denies melena, Denies constipation, Denies diarrhea and Denies vomiting Reports oliguria (ESRD-dialysis) Musc Denies arthralgias, Denies joint swelling, Denies numbness, Denies tingling and Reports other (Reports fixture removed from leg-causing him to be bed-bound) Neuro Denies behavioral changes, Denies vertigo, Denies dizziness, Denies headache(s), Denies loss of vision, Denies memory loss, Denies numbness and Denies tingling Psych Denies anxiety, Denies behavioral changes, Denies depression, Denies memory loss and Denies panic attacks Kevin/Lymph Denies easy bleeding and Denies easy bruising Aller/Immun Denies wheezing Physical exam (Primary Care) Tobacco/Smoking Status: Tobacco use Status Tobacco use date assessed 11/16/24 11/16/24 15:55 Patient Tobacco Use Status Former Tobacco user 11/16/24 15:55 Tobacco use type Cigarette 11/16/24 15:55 e-Cigarette/Vaping Use Never Used 11/16/24 15:55 PHQ-9: PHQ-9 Score PHQ-9: Total score 0 11/16/24 16:00 Depression Screening Interpretation: Negative Thrive Assessment: Date of Thrive Assessment Date Thrive assessed 11/16/24 11/16/24 15:55 Const Other: Telemedicine visit with real time audio video Received verbal consent given by patient for today's visit via telemedicine Physical examination is not performed as visit / consultation today is done over videoconference - Telehealth visit All physical findings indicated here, if present, are as per patient's and / or caregivers / proxy's report and visual inspection over videoconference, if appropriate or applicable Telehealth Telehealth Telehealth Platform: [facility] Location of provider rendering services: practice address Location of patient: address on file Patient Identification confirmed using: Name, : Yes Telehealth method: video Patient verbally consented to treatment: Yes Patient verbally consented to billing insurance company: Yes Patient informed of any privacy concerns related to visit: Yes Minutes spent on Phone/Video with Pt.: 14 Coding Level of Care Code Tele Est Pt Level 3 (33749) Diagnoses Gastroesophageal reflux disease, unspecified whether esophagitis present K21.9 Esophagitis presence: esophagitis presence not specified ESRD on hemodialysis N18.6; Z99.2 Type 2 diabetes mellitus with unspecified complications E11.8 Nausea and vomiting, unspecified vomiting type R11.2 Vomiting type: unspecified Additional Codes PHQ-9 - 31867 - PHQ-9 Billing: Yes ([id number]) STEPHANY-7 Assessment Billing - STEPHANY-7 Assessment Tool: STEPHANY-7 Assessment 46368 ([id number]) Time Spent (min) 36 Assessment & Plan Assessment & Plan (1) GERD (gastroesophageal reflux disease): Code(s): K21.9 - Gastro-esophageal reflux disease without esophagitis Category: Medical Qualifiers: Esophagitis presence: esophagitis presence not specified Qualified Code(s): K21.9 - Gastro-esophageal reflux disease without esophagitis Plan: Post hospital visit: Non-radiation left-sided chest pain resolved after given Maalox. EKG and troponins negative. Suspected the his chest pain was related to his GERD. The patient believes that it was related to a virus. Reports that his daughter is having the same symptoms currently. (2) ESRD on hemodialysis: Code(s): N18.6 - End stage renal disease; Z99.2 - Dependence on renal dialysis Category: Medical Plan: Reports that he is feeling well and his labs has been within normal limits. (3) Type 2 diabetes mellitus with unspecified complications: Code(s): E11.8 - Type 2 diabetes mellitus with unspecified complications Category: Medical Plan: Lancets ordered per patient request (4) Nausea & vomiting: Code(s): R11.2 - Nausea with vomiting, unspecified Category: Medical Qualifiers: Vomiting type: unspecified Qualified Code(s): R11.2 - Nausea with vomiting, unspecified Plan: Reports that he always have vomiting and diarrhea lasting for two days every month. Reports that this comes on without warning. He would like to see GI to make sure this is not something more serious since this has been going on for a while. Will refer the patient for evaluation Orders: Referrals Gastroenterology Referral K21.9 - Gastro-esophageal reflux disease without esophagitis, R11.2 - Nausea with vomiting, unspecified Medications: New atorvastatin 10 mg PO DAILY 90 tabs 3RF lancets (FreeStyle Lancets) As directed 100 ea 0RF lancets (FreeStyle Lancets) As directed check blood sugar four times a day 100 ea 3RF E11.22 - Type 2 diabetes mellitus with diabetic chronic kidney disease, E11.8 - Type 2 diabetes mellitus with unspecified complications, N18.6 - End stage renal disease, Z79.4 - USP (current) use of insulin, Z99.2 - Dependence on renal dialysis
== END 2024-11-16 16:08 | disposition home or self-care (01) ==
LOC: HO.HMCH 15:50
PROVIDERS: PCP Internal Medicine
DX: K21.9 Gastro-esophageal reflux disease without esophagitis (principal); N18.6 End stage renal disease; Z99.2 Dependence on renal dialysis; E11.8 Type 2 diabetes mellitus with unspecified complications; R11.2 Nausea with vomiting, unspecified

== ENCOUNTER → 2024-11-16 15:50 | Outpatient (BNVA) | payer OTHER, SELFPAY | PROVIDERS: PCP Internal Medicine | DX: K21.9 Gastro-esophageal reflux disease without esophagitis (principal); N18.6 End stage renal disease; Z99.2 Dependence on renal dialysis; R11.2 Nausea with vomiting, unspecified; E11.8 Type 2 diabetes mellitus with unspecified complications | CPT/HCPCS: 96127 ==

== ENCOUNTER 2025-02-05 10:09 | Outpatient (AMB) | payer OTHER, SELFPAY ==
[2025-02-05 10:21] VITALS: BP 120/84; PULSE 81; RESP 18; TEMP 37; O2SAT 98; BMI 50.8
--- NOTE | 2025-02-05 10:21 | MHC.PC.OV ---
Vital Signs 02/05/25 10:21 Height 6 ft Weight 374 lb 12.573 oz BMI 50.8 BP 120/84 Blood Pressure Location Lt brachial Position Sitting Respiration 18 Pulse 81 Pulse Source Pulse Oximeter Temp 98.6 F Temp Source Oral Pulse Oximetry (%) 98 Oxygen Delivery Method Room Air Intake Visit Reasons: [facility] 02/17 Intake Note: Patient is here for a Pre-op for revision of Lt foot and ankle fusion scheduled with [facility] in [facility] on 02/17/2025. Cfd Engineer Required: No Accompanied by: Self / Same As Patient Allergies theresa Allergy (Severe, Verified 02/05/25 10:52) Hives shellfish derived Allergy (Severe, Verified 02/05/25 10:52) Hives semaglutide Adverse Reaction (Intermediate, Verified 02/05/25 10:52) nausea/vomiting, abdominal pain and diarrhea Medication List - Last Reconciled 02/05/25 by MONIQUE Cisneros allopurinol 100 mg PO DAILY amlodipine 10 mg PO DAILY atorvastatin 10 mg PO DAILY [bariatric shower chair As directed] blood sugar diagnostic (FreeStyle Lite Strips) 5 times a day blood-glucose meter (FreeStyle Lite Meter kit) 4 times a day calcitriol 0.5 mcg PO ONCE clindamycin phosphate 1% 1 appl topical BID dextroamphetamine-amphetamine 30 mg (Adderall) 30 mg PO DAILY 30 days [diabetic shoes with inserts As directed] dupilumab (Dupixent) mg subcut QWEEK hydroxyzine HCl 25 mg PO TID PRN 30 days insulin NPH and regular human 100 unit/mL (70-30) (Novolin 70-30 FlexPen U-100 Insulin) 50 units subcut DAILY@1700 insulin NPH and regular human 100 unit/mL (70-30) (Novolin 70-30 FlexPen U-100 Insulin) 75 units subcut DAILY@0800 [KNEE SCOOTER As directed] lancets (Easy Touch Lancets) 5 times a day lancets (FreeStyle Lancets) As directed check blood sugar four times a day metoprolol tartrate 100 mg PO DAILY mirtazapine 15 mg PO BEDTIME mirtazapine 30 mg PO BEDTIME 30 days omeprazole 20 mg PO DAILY ondansetron 4 mg PO Q8-12H PRN oxycodone 5 mg PO TID PRN pen needle, diabetic (BD Ultra-Fine Ciera Pen Needle) As directed twice a day [scooter As directed] sodium zirconium cyclosilicate (Lokelma) grams PO 3XW sucroferric oxyhydroxide 1,000 mg PO TID Transfer Bench As directed Tobacco use date assessed: 02/05/25 Dental Screening Dental Screen Date: 02/05/25 Did you have a dental visit in the last 12 months?: Yes Did you have a dental problem in the last 6 months where you did not have access to dental care?: No Was dental information given to patient?: Patient has dentist HPI [facility] foot [facility] ankle 02/17 HPI Details The patient is a 49-year-old male, patient of Dr. العلي, last seen in office on 11/16/2024 He is presenting with a need for preoperative evaluation for left foot/ankle surgery on 02/17/2025. He was diagnosed with Charcot foot. The patient had a previous foot and ankle fusion that did not heal properly and now requires bone grafting from the opposite leg to current at the condition The patient has experienced multiple surgeries, including a prior parathyroidectomy that involved complications postoperatively. Per patient, he was rooming with the patient that increased his anxiety and he asks for something to make him sleep. However, he was also being treated with Dilaudid for pain. After receiving the medication, he went unresponsive and needed to be resuscitated. Per patient, he was given Narcan but does not remember the full details. His chronic medical conditions include chronic kidney disease requiring regular dialysis, type 2 diabetes managed with an A1c level of 6.8 to 7, and hypertension controlled via medication. Hyperphosphatemia is also an issue, managed through dialysis interventions. The patient utilizes atorvastatin for hyperlipidemia and insulin for diabetes. Two weeks ago has, he successful had a fistula reconstruction for dialysis access on his left arm. Surgeon/location: Dr. Liu Haney, at [facility] in [place] on 02/17/2025 Anesthesia: Reports multiple surgeries before where a general anesthesia without any issues Reports on episode of hypothermia at [facility] after his parathyroidrectomy surgery. He recall the a nurse went to clean his central line in his neck and something happened that led to a code blue. After talking to the patient more in detail about what happened. He recalled that he was placed in a room with another patient that made him anxious, so he asked for something to sleep and was given ativan and he was already on Dilaudid, which would make sense why the patient was given narcan. Medical significant for ESRD, HTN, DM-insulin dependent, HLD, charcot foot, ALEX During appointment, the patient received a phone call from his surgeon instructing him to go to the ED in [place] due to his condition of his left ankle with plans to admit him and possibly do a surgery sooner than originally stated Patient denies chest pain, SOB, heart palpitation, or dizziness Denies abdominal pain/change in bowel habits HPI Comments History of Present Illness Details Patient most recent labs: WBC 12.5, H&H 10.3/33, platelets 582, chemistry: K 6.1, Na 135, chloride 95, bicarb 19, BUN 136, creatinine 16.46, phosphorus 10.3, PTH 27, ALT 8, Protein total 9.1 PFSH Medical History Anal fistula Epidermoid cyst of skin of back Depression History of COVID-19 ALEX on CPAP Sacrococcygeal pilonidal cyst ESRD (end stage renal disease) on dialysis Morbid obesity with BMI of 50.0-59.9, adult Mass of left hand Left shoulder pain Vitamin D deficiency Dyslipidemia 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 Diabetic nephropathy associated with type 2 diabetes mellitus Morbid obesity with BMI of 45.0-49.9, adult Type 2 diabetes mellitus with diabetic chronic kidney disease Diabetes type 2, uncontrolled ADHD (attention deficit hyperactivity disorder) Surgical History History of surgery Hx of cardiac catheterization History of excision of pilonidal cyst AV fistula Family History Father Diabetes Hypertension Mother Alive and well Sister Diabetes Social History Household Members: None Housing: House Are you a primary district manager primary care sales to a significant other at home: No Do you presently have visiting nurse or other home services: Yes (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) Alcohol intake: never Patient Tobacco Use Status: Former Tobacco user Tobacco use type: Cigarette e-Cigarette/Vaping Use: Never Used Second Hand Smoke Exposure: Yes Substance Use Type: Crack/Cocaine and Marijuana service: No Current occupational status: disabled Cognitive needs: Yes (cane/ crutches) Hearing needs: No Vision needs: Yes (Glasses) Questionnaire Thrive Questionnaire Date Thrive assessed: 02/05/25 I am a: Patient What is your living situation today?: I have a steady place to live Within the past 12 months, did the food you bought not last and you didn't have the money to get more?: Never true Within the past 12 months, did you worry whether your food would run out before you got money to buy more?: Never true Do you have trouble paying for medicines?: No Do you have trouble getting transportation to medical appointments?: No Do you have trouble paying your heating and electricity bill?: No Do you have trouble taking care of your child, family member or friend?: No Do you have trouble with day-to-day activities such as bathing, preparing meals, shopping, managing finances, etc.?: No Are you currently unemployed and looking for a job?: No Are you interested in more education?: No Please select the resources that you would like help with: None Currently or been in a relationship where the following occur: No concerns reported THRIVE Score: 0 AUDIT C Alcohol Use Questionnaire (AUDIT-C) 1. How often do you have a drink containing alcohol?: Never Total Score: 0 Score Reviewed/Action Taken: No STEPHANY-7 AMB Questionnaire STEPHANY-7 Date STEPHANY - 7 assessed: 11/16/24 Source: Developed by Drs. Isac Brizuela, Lu Topete, Fredi Luis and colleagues, with an educational nicky from [employer]. Review of Systems Const Denies headache(s) Eyes Denies loss of vision ENT Denies vertigo, Denies dizziness, Denies headache(s) and Denies sore throat Card Denies chest pain, Denies leg edema and Denies lightheadedness Resp Denies cough, Denies hemoptysis and Denies wheezing GI Denies abdominal pain, Denies melena, Denies constipation, Denies diarrhea and Denies vomiting Reports other (anuric ESRD-dialysis patient) Musc Reports deformity (charcot foot), Reports arthralgias (Left ankle/foot), Reports joint swelling (Left ankle/foot), Denies numbness and Denies tingling Neuro Denies Abnormal speech present, Denies behavioral changes, Denies vertigo, Denies dizziness, Denies headache(s), Denies loss of vision, Denies memory loss, Denies numbness and Denies tingling Psych Denies anxiety, Denies behavioral changes, Denies depression, Denies memory loss and Denies panic attacks Kevin/Lymph Denies easy bleeding and Denies easy bruising Aller/Immun Denies wheezing Physical exam (Primary Care) Vital Signs: Last Vital Signs Temp 98.6 F 02/05/25 10:21 Pulse 81 02/05/25 10:21 Resp 18 02/05/25 10:21 BP 120/84 02/05/25 10:21 Pulse Ox 98 02/05/25 10:21 Oxygen Delivery Method Room Air 02/05/25 10:21 BMI result Body Mass Index 50.8 Tobacco/Smoking Status: Tobacco use Status Tobacco use date assessed 02/05/25 02/05/25 10:47 Patient Tobacco Use Status Former Tobacco user 02/05/25 10:22 Tobacco use type Cigarette 02/05/25 10:22 e-Cigarette/Vaping Use Never Used 02/05/25 10:22 Thrive Assessment: Date of Thrive Assessment Date Thrive assessed 02/05/25 02/05/25 10:47 Currently or been in a relationship where the following occur: No concerns reported Const General: healthy appearing, no acute distress, alert and awake Nutritional Appearance: well nourished Orientation/consciousness: oriented to person, oriented to place and oriented to time HENMT Ears: TM's normal bilaterally General nose exam: Normal nasal mucous membranes and turbinates present Eyes Conjunctivae: conjunctivae normal Sclerae: sclerae normal Pupils: Equal, round and reactive pupils present Neck Neck: Yes no lymphadenopathy and Yes no JVD Thyroid: Thyroid normal Carotids: no bruits Resp Effort & Inspection: normal respiratory effort and not tachypneic Auscultation: no crackles, no rales, no rhonchi and no wheezes Cardio Rate: regular rate Rhythm: regular rhythm Heart sounds: no murmurs and normal S1 and S2 GI Palpation (GI): Soft to palpation, nontender, no hepatomegaly and no splenomegaly Auscultation: normal bowel sounds General: Yes no CVA tenderness and Yes other (Left forearm fistula positive bruit and thrill) Back/Spine/Pelvis Back: no CVA tenderness Thoracic/Lumbar Spine: other (left forearm excoriation) Skin General skin exam: dry skin Neuro General: oriented to person, oriented to place and oriented to time Cranial nerves: Yes Equal, round and reactive pupils present Speech: No Abnormal speech present Gait exam (Neuro): Antalgic gait present and Assisted gait required ( cane) Motor exam (neuro): no tremor noted Extrem Right upper extremity: full ROM Left upper extremity: full ROM Right lower extremity: full ROM; no edema Left lower extremity: full ROM, edema, ankle Details: pitting edema Details: 4+ and foot Details: edema (Boot in place) Location: of the dorsal foot, of the lateral foot and of the medial foot Psych Mental Status: mental status grossly normal Speech and movement: Normal speech and movement present Affect: normal affect Attitude: cooperative Thought process: Normal thought process present Coding Level of Care Code Est Pt Level 4 (46897) Diagnoses Pre-op exam Z01.818 End stage renal disease N18.6 Dependence on renal dialysis Z99.2 Essential hypertension I10 Type 2 diabetes mellitus with unspecified complications E11.8 Morbid obesity with BMI of 50.0-59.9, adult E66.01; Z68.43 Charcot's joint of left foot M14.672 ALEX and COPD overlap syndrome G47.33; J44.9 Time Spent (min) 41 Assessment & Plan Assessment & Plan (1) Pre-op exam: Code(s): Z01.818 - Encounter for other preprocedural examination Category: Medical Plan: Regarding preop clearance, the patient is at acceptable risk for proposed surgery. Reviewed with the patient that no surgery is completely free of risk and that this examination is to assist the surgeon in reviewing informed consent. (2) End stage renal disease: Code(s): N18.6 - End stage renal disease Category: Medical Plan: Continue home dialysis. No recent left forearm fistula reconstruction, positive bruit and thrill Follow up with Nephrology as scheduled (3) Dependence on renal dialysis: Comment: M-W-F Code(s): Z99.2 - Dependence on renal dialysis Category: Medical Plan: Same as above (4) Essential hypertension: Code(s): I10 - Essential (primary) hypertension Category: Medical Plan: Encouraged low-salt diet Continue amlodipine 10 mg, metoprolol tartrate 100 mg daily (5) Type 2 diabetes mellitus with unspecified complications: Code(s): E11.8 - Type 2 diabetes mellitus with unspecified complications Category: Medical Plan: A1c within goal Reinforced low sugar/carbohydrate and activity as tolerated Continue Novolin 7-30 FlexPen 75 units before breakfast and 50 units before dinner 2 times a day Follow up with Endocrine as scheduled (6) Morbid obesity with BMI of 50.0-59.9, adult: Code(s): E66.01 - Morbid (severe) obesity due to excess calories; Z68.43 - Body mass index [BMI] 50.0-59.9, adult Category: Medical Plan: Reinforced low-cholesterol diet/activity as tolerated to lose weight (7) Charcot's joint of left foot: Code(s): M14.672 - Charcot's joint, left ankle and foot Category: Medical Plan: Plan reconstruction surgery. Left ankle/foot severely edematous. Boot in place (8) ALEX and COPD overlap syndrome: Code(s): G47.33 - Obstructive sleep apnea (adult) (pediatric); J44.9 - Chronic obstructive pulmonary disease, unspecified Category: Medical Plan: Continue CPAP
--- OUTSIDE RECORDS SUMMARY | 2025-02-05 10:54 | XMS_ITS ---
Author Name [facility] Organization Unknown Encounters Encounter Type Encounter Reason Primary Diagnosis Location Date Ambulatory [facility] 02/21/2024 Ambulatory [facility] 02/21/2024
== END 2025-02-05 11:42 | disposition home or self-care (01) ==
LOC: HO.HMCH 10:10
PROVIDERS: PCP Internal Medicine
DX: I12.0 Hypertensive chronic kidney disease with stage 5 chronic kidney disease or end stage renal disease (principal); E11.8 Type 2 diabetes mellitus with unspecified complications; N18.6 End stage renal disease; J44.9 Chronic obstructive pulmonary disease, unspecified; Z68.43 Body mass index [BMI] 50.0-59.9, adult; E66.01 Morbid (severe) obesity due to excess calories; Z01.818 Encounter for other preprocedural examination; Z99.2 Dependence on renal dialysis; M14.672 Charcot's joint, left ankle and foot; G47.33 Obstructive sleep apnea (adult) (pediatric)

== ENCOUNTER → 2025-02-05 10:09 | Outpatient (BNVA) | payer OTHER, SELFPAY | PROVIDERS: PCP Internal Medicine | DX: Z01.818 Encounter for other preprocedural examination (principal); E11.610 Type 2 diabetes mellitus with diabetic neuropathic arthropathy; E11.22 Type 2 diabetes mellitus with diabetic chronic kidney disease; I12.0 Hypertensive chronic kidney disease with stage 5 chronic kidney disease or end stage renal disease; N18.6 End stage renal disease; E78.5 Hyperlipidemia, unspecified; E66.01 Morbid (severe) obesity due to excess calories; J44.9 Chronic obstructive pulmonary disease, unspecified; G47.33 Obstructive sleep apnea (adult) (pediatric); Z68.43 Body mass index [BMI] 50.0-59.9, adult; Z79.4 Long term (current) use of insulin; Z99.2 Dependence on renal dialysis; Z98.1 Arthrodesis status; Z99.89 Dependence on other enabling machines and devices | CPT/HCPCS: 99212 ==

== ENCOUNTER 2025-06-22 00:34 | Emergency (ER) | payer OTHER, SELFPAY ==
[2025-06-22 00:46] VITALS: BP 141/66; BP 142/88; PULSE 68; PULSE 81; RESP 20; TEMP 37; O2SAT 97; BMI 51.0
--- OUTSIDE RECORDS SUMMARY | 2025-06-22 01:32 | XMS_ITS | Clinical Summary ---
Author Organization [facility] Address [address] [place] [id number] Phone Care Team Providers Care Filler And Trimmer Name Role Phone Ovidio العلي MD Primary Care Provider [phone] Social History Tobacco Use Types Packs/Day Years Used Date Smoking Tobacco: Never Assessed Education Answer Date Recorded Are you interested in more education? Not on greg e 06/30/2024 Are you concerned about learning? Not on file 06/30/2024 No 06/30/2024 No 06/30/2024 Digital Access Answer Date Recorded No 06/30/2024 No 06/30/2024 Reliable internet access at home? Not on file 06/30/2024 Device with a working camera? Not on file Sex and Gender Information Value Date Recorded Sex Assigned at Not on file Legal Sex Male 9:25 PM EDT Gender Identity Not on file Sexual Orientation Not on file Plan of Treatment Upcoming Encounters Date Type Department Care Team (Late st Contact Info) Description 10/20/2025 3:00 PM EST Office Visit [facility] [address] [place] [id number] Paulette Owens MD [address] [place] [id number] Health Maintenance Due Date Last Done Comments Adult Td,Tdap Booster 1977 LIPID PANEL 1977 DEPRESSION SCREENING 1989 SMOKING Hx and SMOKELESS TOB ACCO SCREENING 1990 HEPATITIS C SCREENING 12/23/1995 HIV ONE-TIME SCREENING (18-6 5 YEARS) 12/23/1995 COLOGUARD 2022 COLONOSCOPY 2022 COLORECTAL CANCER SCREENING 2022 FIT TEST 2022 FOBT 2022 SIGMOIDOSCOPY 2022 VIRTUAL COLONOSCOPY 2022 INFLUENZA VACCINE (#1) 2025 COVID-19 VACCINE ( - 2024-2 6 season) 2025 HEPATITIS A VACCINES Aged Out No long er eligible based on patient's age to complete this topic HIB VACCINES Aged Out No longer eligi ble based on patient's age to complete this topic MENINGOCOCCAL VACCINES (ACWY) Aged Out No longer eligible based on patient's age to complete this topic MENINGOCOCCAL VACCINES (B) Aged Out N o longer eligible based on patient's age to complete this topic PNEUMOCOCCAL VACCINES (0-49 years) Aged Out No longer eligible based on patient's age to complete this topic Medical Devices Not on file Insurance [facility] MEDICARE REPLACEMENT [facility] MEDICARE REPLACEMENT [facility] MEDICARE REPLACEMENT [facility] MEDICARE REPLACEMENT [facility] MEDICARE REPLACEMENT [facility] ONE CARE MEDICARE REPLACEMENT Care Teams Filler And Trimmer Relationship Specialty Start Date End Date Ovidio العلي MD [address] [place] [address] [place] [id number] PCP - General Internal Medicine 06/30/24 Additional Source Comments The information contained in this document represents components of the legal health record. It is not the complete legal health record.[facility]
--- NOTE | 2025-06-22 01:40 | PC.NURSE ---
PT biba from home complaining of 9/10 headache, dizziness, urinary retention, and burning sensation on urination from the urethra to the suprapubic region. 20g IV placed in R AC 500ml NS bolus administered along with PO tylenol.
[2025-06-22 02:03] LABS: COVID-19 Test Negative (Negative); IDNOW Serial# 55D5AD1C; IDNOW Serial# 6674DD1D; Influenza B2 Negative (Negative)
[2025-06-22] MEDS: Lidocaine HCl 2 % Urojet 10 ML JEL.PF.APP TOPICAL (03:30)
--- NOTE | 2025-06-22 03:33 | PC.NURSE ---
pt straight cathed at this time, 20ml of dark urine obtained, pt tolerated well
[2025-06-22 03:50] LABS: Appearance Urine Turbid; Glucose Urine UA Negative (Negative); PH 7.5 (5.0-9.0); Specific Gravity - Urine 1.020 (1.005-1.025); UMIC TRIGGER UACC YES
--- NOTE | 2025-06-22 03:56 | ED.MALEGU ---
HPI - Male Genitourinary General Chief complaint: Urogenital-Male Stated complaint: PAIN WHILE URINATING Time Seen by Provider: 06/22/25 00:51 Source: patient Limitations: no limitations History of Present Illness ED Provider: Brandy Guerrier PA-C HPI Narrative: 49-year-old male with a history of hypertension, hyperlipidemia, diabetes, end-stage renal disease on hemodialysis who still makes small amount of urine, status post right BKA, ADHD, depression who presents with dysuria x4 days. Pain described as burning sensation from the urethra. Denies abdominal pain, back pain, nausea vomiting or fever. Patient states he feels ?off?, since dialysis today. Denies cough or cold symptoms, fever or chills. Denies risk for STD, penile discharge, or history of kidney stones. Related Data Home Medications ?Medication ?Instructions ?Recorded ?Confirmed sucroferric oxyhydroxide 500 mg 1,000 mg PO TID 02/07/21 02/05/25 chewable tablet allopurinol 100 mg tablet 100 mg PO DAILY 06/24/24 02/05/25 clindamycin phosphate 1 % lotion 1 appl topical BID 06/24/24 02/05/25 insulin NPH-regular 70-30 U-100 50 unit subcut DAILY@1700 06/24/24 02/05/25 insulin 100 unit/mL subcutaneous pen (Novolin 70-30 FlexPen U-100 Insulin) oxycodone 5 mg tablet 5 mg PO TID PRN Pain 06/24/24 02/05/25 calcitriol 0.5 mcg capsule 0.5 mcg PO ONCE 02/05/25 02/05/25 dupilumab 300 mg/2 mL subcutaneous mg subcut QWEEK 02/05/25 02/05/25 pen injector (Dupixent) metoprolol tartrate 100 mg tablet 100 mg PO DAILY 02/05/25 02/05/25 omeprazole 20 mg capsule,delayed 20 mg PO DAILY 02/05/25 02/05/25 release sodium zirconium cyclosilicate 10 g PO 3XW 02/05/25 02/05/25 gram oral powder packet (Noemikelpr) Previous Rx's ?Medication ?Instructions ?Recorded blood-glucose meter (FreeStyle #1 ea 01/24/21 Lite Meter kit) pen needle, diabetic 32 gauge x #200 ea 09/27/24 5/32 (BD Ultra-Fine Ciera Pen Needle) lancets 32 gauge (Easy Touch #150 ea 10/30/24 Lancets) blood sugar diagnostic (FreeStyle #150 ea 11/05/24 Lite Strips) ondansetron 4 mg disintegrating 4 mg PO Q8-12H PRN nausea and 11/07/24 tablet vomiting #7 tabs atorvastatin 10 mg tablet 10 mg PO DAILY #90 tabs 11/16/24 lancets 28 gauge (FreeStyle #100 ea 11/16/24 Lancets) KNEE SCOOTER #1 ea 11/23/24 diabetic shoes with inserts #2 ea 01/01/25 mirtazapine 30 mg tablet 30 mg PO BEDTIME 30 days #30 tabs 01/18/25 amlodipine 10 mg tablet 10 mg PO DAILY #90 tabs 01/20/25 hydroxyzine HCl 25 mg tablet 25 mg PO TID PRN anxiety 30 days 03/08/25 #90 tabs Transfer Bench #1 ea 04/01/25 bariatric shower chair #1 04/01/25 scooter #1 ea 04/01/25 CPAP (CPAP Machine/Device) #1 ea 04/30/25 amoxicillin 875 mg-potassium 1 tab PO BID #20 tabs 04/30/25 clavulanate 125 mg tablet Novolin 70-30 FlexPen U-100 See Rx Instructions subcut 05/18/25 Insulin 100 unit/mL (70-30) .COMPLEX #45 mL subcutaneous (insulin NPH and regular human) dextroamphetamine-amphetamine 30 30 mg PO DAILY 30 days #30 tabs 06/02/25 mg tablet (Adderall) sertraline 50 mg tablet 50 mg PO DAILY 30 days #30 tabs 06/21/25 cephalexin 500 mg capsule 500 mg PO Q12H #13 caps 06/22/25 Allergies Allergy/AdvReac Type Severity Reaction Status Date / Time theresa Allergy Severe Hives Verified 06/22/25 00:55 shellfish derived Allergy Severe Hives Verified 06/22/25 00:55 semaglutide AdvReac Intermediate nausea/vomiting, Verified 06/22/25 00:55 abdominal pain and diarrhea Review of Systems Review of Systems: Yes all other systems are reviewed and are negative Constitutional: Constitutional: Denies chills, Denies fatigue, Denies fever(s) and Reports malaise Cardiovascular: Cardiovascular: Denies chest pain and Denies dyspnea Respiratory: Respiratory: Denies cough and Denies dyspnea Gastrointestinal: Gastrointestinal: Denies abdominal pain, Denies nausea and Denies vomiting Genitourinary: Genitourinary: Denies hematuria, Reports dysuria and Denies flank pain Musculoskeletal: Musculoskeletal: Denies back pain Endocrine: Endocrine: Denies fatigue PMFSH Past Medical History Attestation statement: The following information was validated with the patient. Medical History Anal fistula Epidermoid cyst of skin of back Depression History of COVID-19 ALEX on CPAP Sacrococcygeal pilonidal cyst ESRD (end stage renal disease) on dialysis Morbid obesity with BMI of 50.0-59.9, adult Mass of left hand Left shoulder pain Vitamin D deficiency Dyslipidemia Hypertension long-term (current) use of insulin Diabetic nephropathy associated with type 2 diabetes mellitus Morbid obesity with BMI of 45.0-49.9, adult Type 2 diabetes mellitus with diabetic chronic kidney disease Diabetes type 2, uncontrolled ADHD (attention deficit hyperactivity disorder) Surgical History History of surgery Hx of cardiac catheterization History of excision of pilonidal cyst AV fistula Family History Family History Father Diabetes Hypertension Mother Alive and well Sister Diabetes Social History Social History Household Members: None Housing: House Are you a primary residential child care counselor to a significant other at home: No Do you presently have visiting nurse or other home services: Yes ([employer] 40 hours/week) Alcohol intake: never Patient Tobacco Use Status: Former Tobacco user Tobacco use type: Cigarette Smoked in Last 30 Days: No e-Cigarette/Vaping Use: Never Used Second Hand Smoke Exposure: Yes Use of substances other than those prescribed or required for medical reasons: No Substance Use Type: Crack/Cocaine and Marijuana Advance Directives: No Advance Directives Information Provided: Yes Do you have a plan to hurt others: No Plan service: No Current occupational status: disabled Cognitive needs: Yes (cane/ crutches) Hearing needs: No Vision needs: Yes (Glasses) Physical Exam Vital Signs: Vital Signs: Last Vital Signs Temp 98.6 F 06/22/25 00:46 Pulse 68 06/22/25 00:46 Resp 20 06/22/25 00:46 BP 141/66 H 06/22/25 00:46 Pulse Ox 97 06/22/25 00:46 O2 Del Method Room Air 06/22/25 00:46 BMI result Body Mass Index 51.0 Const: Other: Alert appears older than stated age Orientation/consciousness: patient oriented x3 Resp: Effort & Inspection: normal respiratory effort Cardio: Other: Normal peripheral perfusion Skin: Other: Warm dry no rash Neuro: General: patient oriented x3, gait normal, no focal motor deficits and CN's II-XI intact bilaterally Psych: Other: Cooperative Medications Administered Discontinued Medications Generic Name Dose Route Start Last Admin Trade Name Freq PRN Reason Stop Dose Admin Acetaminophen 975 mg 06/22/25 01:26 06/22/25 01:31 Acetaminophen 325 Mg Tablet PO 06/22/25 01:27 975 mg ONCE ONE Administration Sodium Chloride 500 mls @ 500 mls/hr 06/22/25 00:55 06/22/25 02:41 Ns IV 06/22/25 01:54 Infused .Q1H ONE Infusion Lidocaine HCl 10 ml 06/22/25 03:16 06/22/25 03:30 Lidocaine Hcl 2 % Urojet 10 Ml Jel.Pf.Steffi TOPICAL 06/22/25 03:17 10 ml ONCE ONE Administration Medical Decision Making Medical Decision Making MDM Narrative: 49-year-old male with a history of hypertension, hyperlipidemia, diabetes, end-stage renal disease on hemodialysis who still makes small amount of urine, status post right BKA, ADHD, depression who presents with dysuria x4 days. Pain described as burning sensation from the urethra. Denies abdominal pain, back pain, nausea vomiting or fever. Patient states he feels ?off?, since dialysis today. Denies cough or cold symptoms, fever or chills. Denies risk for STD, penile discharge, or history of kidney stones. Problem: End-stage renal disease, diabetes History: Per patient I have considered the following differential diagnoses: UTI, pyelonephritis, renal colic, STD exposure /urethritis Plan: Patient here with symptoms of a urinary tract infection, he has no urine in the bladder, we will give a 500 mL fluid bolus, he may require straight catheterization. He has no abdominal pain back pain or fever with no active GI symptoms, to suggest pyelonephritis or renal colic. He also has no history of kidney stones. He denies risk for STD, he has been abstinent for years. No indication for imaging I have independently reviewed the following tests: Labs: Urine infected Differential Diagnosis Differential Diagnoses: The differential diagnosis associated with the presentation includes See medical decision-making Admission/Observation Consideration of admission/observation: Escalation of care including admission/observation considered Not applicable Lab Data MDM Lab Attestation statement: I reviewed the patient's lab results. Labs: Lab Results 06/22/25 06/22/25 Range/Units 01:28 03:29 Urine Color Yellow Urine Appearance Turbid Urine pH 7.5 (5.0-9.0) Ur Specific [place] 1.020 (1.005-1.025) Urine Protein 300 (3+) H (Neg-Trace) mg/dL Urine Glucose (UA) Negative (Negative) mg/dL Urine Ketones Negative (Negative) mg/dL Urine Blood Large (3+) H (Negative) Urine Nitrite Positive H (Negative) Ur Leukocyte Esterase Large (3+) H (Negative) Urine RBC >20 H (0-2) /HPF Urine WBC >50 H (0-5) /HPF Ur Squamous Epith Cells 0-2 (0-2) /HPF Urine Bacteria 2+ (None Seen) Hyaline Casts 0-2 (0-2) /LPF COVID-19 (JAH) Negative (Negative) COVID-19 Clin Com See Note Influenza Type A (JUDIT) Negative (Negative) Influenza Type B (JUDIT) Negative (Negative) Influenza A & B Note See Note Discharge Plan Discharge Clinical Impression: Urinary tract infection Patient Disposition: Home, Self-Care Instructions: Urinary Tract Infection in Men (ED) Additional Instructions: You were found to have a urinary tract infection. See home care instructions. Take the cephalexin as directed, be sure to complete the course of antibiotic. Follow up with your primary care provider as needed. Prescriptions: New cephalexin 500 mg capsule 500 mg PO Q12H Qty: 13 0RF No Action (DME) pen needle, diabetic [BD Ultra-Fine Ciera Pen Needle] 32 gauge x 5/32 needle See Rx Instructions .Route Qty: 200 3RF Rx Instructions: As directed twice a day (DME) Easy Touch Lancets 32 gauge misc See Rx Instructions .MEDSUPPLY Qty: 150 6RF Rx Instructions: 5 times a day (DME) FreeStyle Lite Strips Strip See Rx Instructions .ROUTE .MEDSUPPLY Qty: 150 11RF Rx Instructions: 5 times a day (DME) KNEE SCOOTER See Rx Instructions .Route .MEDSUPPLY Qty: 1 0RF Rx Instructions: As directed (DME) diabetic shoes with inserts See Rx Instructions .Route .MEDSUPPLY Qty: 2 0RF Rx Instructions: As directed mirtazapine 30 mg tablet 30 mg PO BEDTIME 30 Days Qty: 30 0RF amlodipine 10 mg tablet 10 mg PO DAILY Qty: 90 1RF hydroxyzine HCl 25 mg tablet 25 mg PO TID PRN (Reason: anxiety) 30 Days Qty: 90 2RF (DME) bariatric shower chair See Rx Instructions .Route .MEDSUPPLY Qty: 1 0RF Rx Instructions: As directed (DME) Transfer Bench Misc See Rx Instructions .Route Qty: 1 0RF Rx Instructions: As directed (DME) scooter See Rx Instructions .Route .MEDSUPPLY Qty: 1 0RF Rx Instructions: As directed (DME) CPAP Machine/Device Device See Rx Instructions .Route Qty: 1 0RF Rx Instructions: As directed amoxicillin-pot clavulanate 875-125 mg tablet 1 tab PO BID Qty: 20 0RF Novolin 70-30 FlexPen U-100 100 unit/mL (70-30) insulin pen See Rx Instructions subcut .COMPLEX Qty: 45 2RF Rx Instructions: Inject 75 units in AM before breakfast and 50 units in PM before dinner dextroamphetamine-amphetamine [Adderall] 30 mg tablet 30 mg PO DAILY 30 Days Qty: 30 0RF sertraline 50 mg tablet 50 mg PO DAILY 30 Days Qty: 30 2RF allopurinol 100 mg tablet 100 mg PO DAILY oxycodone 5 mg tablet 5 mg PO TID PRN (Reason: Pain) clindamycin phosphate 1 % lotion 1 appl topical BID Novolin 70-30 FlexPen U-100 100 unit/mL (70-30) insulin pen 50 unit subcut DAILY@1700 ondansetron 4 mg tablet,disintegrating 4 mg PO Q8-12H PRN (Reason: nausea and vomiting) Qty: 7 0RF (DME) blood-glucose meter [FreeStyle Lite Meter] Kit See Rx Instructions .ROUTE .MEDSUPPLY Qty: 1 0RF Rx Instructions: 4 times a day sucroferric oxyhydroxide 500 mg tablet,chewable 1,000 mg PO TID calcitriol 0.5 mcg capsule 0.5 mcg PO ONCE atorvastatin 10 mg tablet 10 mg PO DAILY Qty: 90 3RF (DME) lancets [FreeStyle Lancets] 28 gauge misc See Rx Instructions miscellaneous .MEDSUPPLY Qty: 100 3RF Rx Instructions: As directed check blood sugar four times a day metoprolol tartrate 100 mg tablet 100 mg PO DAILY omeprazole 20 mg capsule,delayed release(DR/EC) 20 mg PO DAILY Dupixent Pen 300 mg/2 mL pen injector subcut QWEEK Lokelma 10 gram powder in packet PO 3XW Interventions: ED Discharge Assessment Last Done: 06/22/25 04:48 Print Language: Kosovan
[2025-06-22 03:58] LABS: UACC Culture Trigger YES
[2025-06-22 04:48] VITALS: BP 122/88; PULSE 77; RESP 15; TEMP 36.2; O2SAT 99
== END 2025-06-22 04:53 | disposition home or self-care (01) ==
PROVIDERS: Physician Assistant Medical; Emergency Provider Emergency Medicine; PCP Internal Medicine
DX: N39.0 Urinary tract infection, site not specified (principal); I12.0 Hypertensive chronic kidney disease with stage 5 chronic kidney disease or end stage renal disease; E11.22 Type 2 diabetes mellitus with diabetic chronic kidney disease; N18.6 End stage renal disease; R30.9 Painful micturition, unspecified; E78.5 Hyperlipidemia, unspecified; Z03.818 Encounter for observation for suspected exposure to other biological agents ruled out; Z99.2 Dependence on renal dialysis; Z87.891 Personal history of nicotine dependence
CPT/HCPCS: 81001; 87086; 87502; 87635; 96360; 96361; 99284; 99285

== ENCOUNTER 2025-07-01 15:30 | Outpatient (AMB) | payer OTHER, SELFPAY ==
--- OUTSIDE RECORDS SUMMARY | 2025-06-29 09:30 | XMS_ITS | Encounter Summary ---
Author Organization [facility], Address [address] [place] [address] Phone Care Team Providers Care [employer] Name Role Phone Ovidio العلي MD Primary Care Provider [phone] Encounter Details Date Type Department Care Team (Late st Contact Info) Description 06/29/2025 9:30 AM EDT Office Visit [facility], - Vascular Access Center [address] [place] [id number] Juan Gomez MD [address] [place] [address] End stage renal disease (HCC) [N18.6] (Primary Dx) Social History Tobacco Use Types Packs/Day Years Used Date Smoking Tobacco: Former Cigarettes 0 09/02/1995 - 09/02/2006 Smokeless Tobacco: Never Comments:Smoking History Inf o:Some days Alcohol Use Standard Drinks/Week Comments Not Currently 0 (1 standard drink = 0.6 oz pure alcohol) Alcoholic Drinks/day: Occasional social drink Sex and Gender Information Value Date Recorded Sex Assigned at Not on file Legal Sex Male 4:31 PM EST Gender Identity Not on file Sexual Orientation Not on file documented as of this encounter Progress Notes * Juan Gomez MD - 06/29/2025 9:30 AM EDT Images from the original note were not included. Hemodialysis Access Note Date: 06/29/25 Date of Most Recent Access Procedure: 05/25/25 Access: left arm fistula not being used for dialysis yet. Procedure: left arm, superficialization of fistula Patient reports: no complaints There were no vitals filed for this visit. Physical Exam: Extremity: left arm Access: thrill present Incision: intact Distal extremity: normal Distal pulse: radial palpable Duplex ultrasound performed - see separate images. Fistula is well matured through upper arm, >1cm. Edema is much better, fistula is <2mm from skin throughout. Assessment: Functional access Plan: Begin access cannulation. Notes: Swelling in the arm is much improved. Wound is intact with good thrill through the fistula. May begin access cannulation just lateral of the incision (marked) If no issues will see patient back for permacath removal. documented in this encounter Plan of Treatment Upcoming Encounters Date Type Department Care Team (Late st Contact Info) Description 03/23/2026 1:00 PM EDT Office Visit [facility], - Vascular Access Center [address] [place] [address] documented as of this encounter Visit Diagnoses Diagnosis End stage renal disease (HCC) [N18.6]- Primary End stage renal disease documented in this encounter Care Teams [employer] Relationship Specialty Start Date End Date Ovidio العلي MD [address] [place] [address] PCP - General 07/07/19 documented as of this encounter
[2025-07-01 15:48] VITALS: BP 130/78; PULSE 76; RESP 18; O2SAT 96; BMI 50.8
--- NOTE | 2025-07-01 15:48 | A.OFFPC_ITS ---
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 Accompanied by: Self / Same As Patient Allergies theresa Allergy (Severe, Verified 07/01/25 15:56) Hives shellfish derived Allergy (Severe, Verified 07/01/25 15:56) Hives semaglutide Adverse Reaction (Intermediate, Verified 07/01/25 15:56) nausea/vomiting, abdominal pain and diarrhea Medication List - Last Reconciled 07/01/25 by MONIQUE Cisneros allopurinol 100 mg PO DAILY amlodipine 10 mg PO DAILY amoxicillin-pot clavulanate 875-125 mg 1 tab PO BID atorvastatin 10 mg PO DAILY [bariatric shower chair As directed] blood sugar diagnostic (FreeStyle Lite Strips) 5 times a day blood-glucose meter (FreeStyle Lite Meter kit) 4 times a day calcitriol 0.5 mcg PO ONCE cephalexin 500 mg PO Q12H clindamycin phosphate 1% 1 appl topical BID CPAP (CPAP Machine/Device) As directed dextroamphetamine-amphetamine 30 mg (Adderall) 30 mg PO DAILY 30 days [diabetic shoes with inserts As directed] dupilumab (Dupixent) mg subcut QWEEK hydroxyzine HCl 25 mg PO TID PRN 30 days insulin NPH and regular human 100 unit/mL (70-30) (Novolin 70-30 FlexPen U-100 Insulin) 50 units subcut DAILY@1700 [KNEE SCOOTER As directed] lancets (Easy Touch Lancets) 5 times a day lancets (FreeStyle Lancets) As directed check blood sugar four times a day metoprolol tartrate 100 mg PO DAILY mirtazapine 30 mg PO BEDTIME 30 days Novolin 70-30 FlexPen U-100 100 unit/mL (70-30) (insulin NPH and regular human) Inject 75 units in AM before breakfast and 50 units in PM before dinner NS omeprazole 20 mg PO DAILY ondansetron 4 mg PO Q8-12H PRN oxycodone 5 mg PO TID PRN pen needle, diabetic (BD Ultra-Fine Ciera Pen Needle) As directed twice a day [scooter As directed] sertraline 50 mg PO DAILY 30 days sodium zirconium cyclosilicate (Lokelma) grams PO 3XW sucroferric oxyhydroxide 1,000 mg PO TID Transfer Bench As directed Tobacco use date assessed: 07/01/25 Dental Screening Dental Screen Date: 07/01/25 Did you have a dental visit in the last 12 months?: No Did you have a dental problem in the last 6 months where you did not have access to dental care?: No Was dental information given to patient?: Patient has dentist HPI [facility] 07/12 rt, 08/09 lt HPI Details The patient is a 49-year-old male presenting for preop clearance. Patient of Dr. العلي. Last seen in office on 02/05/2025 The patient having history of diabetic neuropathy and cataract. Vision is worse in his left eye, he complains of blurry vision associated with floaters in his left eye. Near site that is worse than distance. The patient is scheduled for cataract surgery on July 12 2025 for his right eye and August 09 2025 left eye. Surgeon/location: Dr. Wu at [facility], [place], [place] Anesthesia: Mac. The patient recently had left leg amputation and a general anesthesia without any difficulties. Patient denies any postoperative hypothermia or clotting disorder that he is not on any blood thinners. Medical history significant for end-stage renal disease dialysis dependence, diabetes mellitus requiring insulin, history of left BKA, Charcot's joint of left foot, ALEX and COPD overlap syndrome, hyperparathyroidism, GERD, ADHD, morbid obesity, essential hypertension The patient is on home hemodialysis four days a week. He has a history of left arm AV fistula which closed due to scar tissue. Recent placement of new AV fistula above old one in left arm, positive bruit and thrill. He has been feeling down for the past two years but remains self-motivated. The patient has a history of obstructive sleep apnea and uses a CPAP machine. His current machine is over seven years old, and he has been notified that it is time for an upgrade, for which he was directed to contact his primary care provider. 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 Diabetic nephropathy associated with type 2 diabetes mellitus Morbid obesity with BMI of 45.0-49.9, adult Type 2 diabetes mellitus with diabetic chronic kidney disease Diabetes type 2, uncontrolled ADHD (attention deficit hyperactivity disorder) Surgical History History of surgery Hx of cardiac catheterization History of excision of pilonidal cyst AV fistula Family History Father Diabetes Hypertension Mother Alive and well Sister Diabetes Social History Household Members: None Housing: House Are you a primary youth care professional to a significant other at home: No Do you presently have visiting nurse or other home services: Yes (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) Alcohol intake: never Patient Tobacco Use Status: Former Tobacco user Tobacco use type: Cigarette e-Cigarette/Vaping Use: Never Used Second Hand Smoke Exposure: Yes Substance Use Type: Crack/Cocaine and Marijuana service: No Current occupational status: disabled Cognitive needs: Yes (cane/ crutches) Hearing needs: No Vision needs: Yes (Glasses) Questionnaire Thrive Questionnaire Date Thrive assessed: 02/05/25 Currently or been in a relationship where the following occur: No concerns reported THRIVE Score: 0 STEPHANY-7 AMB Questionnaire STEPHANY-7 Date STEPHANY - 7 assessed: 11/16/24 Source: Developed by Drs. Isac Brizuela, Lu Topete, Fredi Luis and colleagues, with an educational nicky from [employer]. Review of Systems Const Denies headache(s) Eyes Denies loss of vision ENT Denies vertigo, Denies dizziness, Denies headache(s) and Denies sore throat Card Denies chest pain, Denies leg edema and Denies lightheadedness Resp Denies cough, Denies hemoptysis and Denies wheezing GI Denies abdominal pain, Denies melena, Denies constipation, Denies diarrhea and Denies vomiting Reports other (anuric ESRD-dialysis patient) Musc Denies numbness, Denies tingling and Reports other (Left BKA-prosthetic in place) Neuro Denies Abnormal speech present, Denies behavioral changes, Denies vertigo, Denies dizziness, Denies headache(s), Denies loss of vision, Denies memory loss, Denies numbness and Denies tingling Psych Denies anxiety, Denies behavioral changes, Denies depression, Denies memory loss and Denies panic attacks Kevin/Lymph Denies easy bleeding and Denies easy bruising Aller/Immun Denies wheezing Physical exam (Primary Care) Vital Signs: Last Vital Signs Pulse 76 07/01/25 15:48 Resp 18 07/01/25 15:48 BP 130/78 07/01/25 15:48 Pulse Ox 96 07/01/25 15:48 Oxygen Delivery Method Room Air 07/01/25 15:48 BMI result Body Mass Index 50.8 Tobacco/Smoking Status: Tobacco use Status Tobacco use date assessed 07/01/25 07/01/25 15:54 Patient Tobacco Use Status Former Tobacco user 07/01/25 15:54 Tobacco use type Cigarette 07/01/25 15:54 e-Cigarette/Vaping Use Never Used 07/01/25 15:54 Thrive Assessment: Date of Thrive Assessment Date Thrive assessed 02/05/25 07/01/25 15:54 Currently or been in a relationship where the following occur: No concerns reported Const General: healthy appearing, no acute distress, alert and awake Nutritional Appearance: well nourished Orientation/consciousness: oriented to person, oriented to place and oriented to time HENMT Ears: TM's normal bilaterally General nose exam: Normal nasal mucous membranes and turbinates present Eyes Conjunctivae: conjunctivae normal Sclerae: sclerae normal Pupils: Equal, round and reactive pupils present Neck Neck: Yes no lymphadenopathy and Yes no JVD Thyroid: Thyroid normal Carotids: no bruits Chest Chest palpation & inspection: abnormal inspection of the chest (Right chest dialysis catheter in place) Resp Effort & Inspection: normal respiratory effort and not tachypneic Auscultation: no crackles, no rales, no rhonchi and no wheezes Cardio Rate: regular rate Rhythm: regular rhythm Heart sounds: S1 normal heart sound present, S2 normal heart sound present, no murmurs and normal S1 and S2 GI Palpation (GI): Soft to palpation, nontender, no hepatomegaly and no splenomegaly Auscultation: normal bowel sounds General: Yes no CVA tenderness and Yes other (Left forearm fistula positive bruit and thrill) Back/Spine/Pelvis Back: no CVA tenderness Skin General skin exam: dry skin Neuro General: oriented to person, oriented to place and oriented to time Cranial nerves: Yes Equal, round and reactive pupils present Speech: No Abnormal speech present Gait exam (Neuro): Antalgic gait present and Assisted gait required ( cane) Motor exam (neuro): no tremor noted Extrem Right upper extremity: full ROM Left upper extremity: full ROM and elbow/forearm (AV fistula) Right lower extremity: full ROM; no edema Left lower extremity: full ROM and lower leg (Left BKA, prosthetic in place) Psych Mental Status: mental status grossly normal Speech and movement: Normal speech and movement present Affect: normal affect Attitude: cooperative Thought process: Normal thought process present Coding Level of Care Code Est Pt Level 4 (90296) Diagnoses Pre-op exam Z01.818 End stage renal disease N18.6 Dependence on renal dialysis Z99.2 Essential hypertension I10 Type 2 diabetes mellitus with unspecified complications E11.8 Morbid obesity with BMI of 50.0-59.9, adult E66.01; Z68.43 Charcot's joint of left foot M14.672 ALEX and COPD overlap syndrome G47.33; J44.9 Time Spent (min) 39 Assessment & Plan Assessment & Plan (1) Pre-op exam: Code(s): Z01.818 - Encounter for other preprocedural examination Category: Medical Plan: Regarding preop clearance, the patient is at acceptable risk for proposed surgery. Reviewed with the patient that no surgery is completely free of risk and that this examination is to assist the surgeon in reviewing informed consent. (2) End stage renal disease: Code(s): N18.6 - End stage renal disease Category: Medical Plan: Continue home dialysis times a week. Right chest dialysis catheter in place. New left forearm fistula reconstruction, positive bruit and thrill Follow up with Nephrology as scheduled (3) Dependence on renal dialysis: Comment: M-W- Code(s): Z99.2 - Dependence on renal dialysis Category: Medical Plan: Same as above (4) Essential hypertension: Code(s): I10 - Essential (primary) hypertension Category: Medical Plan: Blood pressure 130/78 goal systolic of 130 mm Hg or less Encouraged low-salt diet Continue amlodipine 10 mg, metoprolol tartrate 100 mg daily (5) Type 2 diabetes mellitus with unspecified complications: Code(s): E11.8 - Type 2 diabetes mellitus with unspecified complications Category: Medical Plan: A1c within goal Reinforced low sugar/carbohydrate and activity as tolerated Continue Novolin 7-30 FlexPen 75 units before breakfast and 50 units before dinner 2 times a day. Instructed the patient to take half of his dose of insulin on his day of surgery. Follow up with Endocrine as scheduled (6) Morbid obesity with BMI of 50.0-59.9, adult: Code(s): E66.01 - Morbid (severe) obesity due to excess calories; Z68.43 - Body mass index [BMI] 50.0-59.9, adult Category: Medical Plan: Reinforced low-cholesterol diet/activity as tolerated to lose weight (7) Charcot's joint of left foot: Code(s): M14.672 - Charcot's joint, left ankle and foot Category: Medical Plan: Attempted reconstruction surgery in [place]. Per patient, he had severe bone loss resulting in left BKA. (8) ALEX and COPD overlap syndrome: Code(s): G47.33 - Obstructive sleep apnea (adult) (pediatric); J44.9 - Chronic obstructive pulmonary disease, unspecified Category: Medical Plan: The patient is a compliant CPAP user and requires an upgrade for his machine, which is over seven years old. Will investigate the process for ordering a new CPAP machine. The patient have not been seen by sleep medicine for quit some time. Referral placed. Orders: Referrals Neurology Referral G47.33 - Obstructive sleep apnea (adult) (pediatric), Z99.89 - Dependence on other enabling machines and devices
--- OUTSIDE RECORDS SUMMARY | 2025-07-01 18:02 | XMS_ITS | Clinical Summary ---
Author Organization [facility], Address [address] [place] [address] Phone Care Team Providers Care Director Talent Acquisition Name Role Phone Ovidio العلي MD Primary Care Provider [phone]- [phone] Allergies Active Allergy Reactions Criticality Noted Date Comments Adhesive Tape Other (see comments) 09/13/2021 Pt denies Aspirin Other (see comments) 09/13/2021 Pt denies Brynn Rash,Other (see comments) High 09/13/2021 Ibuprofen Other (see comments) 09/13/2021 Pt denies Shellfish Protein-Containing Drug Products Itching,Rash Low 03/10/2021 Shrimp (Diagnostic) Rash Low 11/16/2022 Medications amLODIPine (NORVASC) 10 MG tablet Take 1 tablet by mouth 1 (one) time each day Active amphetamine-dextr oamphetamine (ADDERALL) 30 MG tablet Take 1 tablet by mouth Active pantoprazole (Protonix) 40 MG EC tablet Take 1 tablet (40 mg total) by mouth 1 (one) time each day before breakfast Do not crush, chew, or split. 90 tablet 3 05/30/20 23 Active Additional Information Patient not taking.Reported on 03/25/2025 NovoLIN 70/30 FlexPen (70-30) 100 UNIT/ML injection 05/29/20 23 Active atorvastatin (LIPITOR) 10 MG tablet Take 1 tablet (10 mg total) by mouth 1 (one) time each day 90 tablet 3 09/23/19 24 Active allopurinol (ZYLOPRIM) 100 MG tablet Take 100 mg by mouth at bed time 09/17/19 24 Active sodium hypochlorite (DAKIN'S, HALF-STRENGTH,) external solution Apply 1 Application topically 1 (one) time 11/22/19 25 Active sertraline (ZOLOFT) 50 MG tablet Take 50 mg by mouth Active ondansetron (ZOFRAN) 4 MG tablet Take 4 mg by mouth 12/02/19 25 Active mupirocin (BACTROBAN) 2 % ointment Apply topically 12/03/19 25 Active mirtazapine (REMERON) 30 MG tablet Take 30 mg by mouth every night 10/29/19 25 Active Methoxy PEG-Epoetin Beta (MIRCERA IJ) Inject 50 mcg under the skin 08/13/20 24 Active loperamide (IMODIUM) 2 MG capsule Take 2 mg by mouth if needed 12/02/19 25 Active hydrOXYzine (VISTARIL) 25 MG capsule Take 25 mg by mouth 3 (three) times a day if needed for itching 11/16/19 25 Active hydrALAZINE 25 MG tablet Take 1 tablet by mouth in the morning and 1 tablet in the evening. Active Auryxia 1 GM 210 MG(Fe) tablet Take 2 tablets by mouth in the morning and 2 tablets at noon and 2 tablets in the evening. 09/14/19 25 026 Active Santyl ointment Apply 1 application. topically 1 (one) time each day Active clindamycin (CLEOCIN T) 1 % lotion Apply 1 application. topically in the morning and 1 application. in the evening. 09/02/19 25 Active betamethasone dipropionate 0.05 % cream Apply 1 application. topically 09/03/19 25 Active ergocalciferol 1.25 MG (22276 UT) capsule Take 50,000 Units by mouth 1 (one) time per week Active metoprolol tartrate (LOPRESSOR) 100 MG tablet TAKE 1 TABLET BY MOUTH 1 TIME EACH DAY. 90 tablet 3 02/02/20 25 Active buPROPion XL (WELLBUTRIN XL) 150 MG 24 hr tablet Take 150 mg by mouth 1 (one) time each day Do not crush, chew, or split. Active calcium carbonate (TUMS) 500 MG chewable tablet Chew 1 tablet 1 (one) time each day Active omeprazole OTC (PriLOSEC OTC) 20 MG EC tablet Take 20 mg by mouth 1 (one) time each day Do not crush, chew, or split. 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 02/05/2025 Charcot's arthropathy 10/04/2024 Charcot's joint of foot 09/23/2024 Hypocalcemia 12/10/2023 Hyperparathyroidism 12/02/2023 Idiopathic gout 09/17/2023 Type 2 diabetes mellitus with foot ulcer 023 Anemia in chronic kidney disease 05/30/2023 Angina pectoris 05/30/2023 Hyperlipidemia 05/30/2023 Weakness 01/16/2023 Severe obesity 11/16/2022 Sleep apnea 11/07/2022 Back pain 11/07/2022 Anxiety 11/07/2022 Depressive disorder 11/07/2022 Acquired hammer toe of right foot 11/06/2022 Chronic ulcer of foot 11/06/2022 Polyneuropathy due to type 2 diabetes mellitus 0 11/06/2022 Dependence on renal dialysis 08/14/2019 Dyslipidemia 08/14/2019 Edema of lower extremity 08/14/2019 End stage renal disease 08/14/2019 Essential hypertension 08/14/2019 Nephrotic syndrome 08/14/2019 Type 2 diabetes mellitus 08/14/2019 Vitamin D deficiency 08/14/2019 Encounters Date Type Department Care Team Description 06/30/2025 Refill [facility] [address] [place], [place] [address] Charline Arnett 06/29/2025 9:30 AM EDT Office Visit [facility] [place] [address] [place] [address] Juna Gomez MD End stage renal disease (HCC) [N18.6] (Primary Dx) 06/08/2025 9:30 AM EDT Office Visit [facility] [address] [place] [address] Collin Montero DO End stage renal disease (HCC) (Primary Dx) 06/08/2025 Treatment [facility] [place], [address] [place] [address] Collin Berger DO End stage renal disease; Dependence on renal dialysis 06/02/2025 Orders Only [facility] [address] [address] Collin Berger DO 05/28/2025 Telephone [facility] [address] [place] [address] Charline Arnett 05/28/2025 Refill [facility] [address] [place] [address] Charline Arnett 05/12/2025 Treatment [facility] [place], [address] [place] [address] Collin Berger DO End stage renal disease; Dependence on renal dialysis 05/07/2025 Orders Only [facility] [address] [address] Collin Berger DO 05/05/2025 Orders Only [facility] [address] [address] Collin Berger DO 05/04/2025 10:00 AM EDT Office Visit [facility] [address] [place] [address] Collin Montero DO End stage renal disease (HCC) (Primary Dx) 04/30/2025 Telephone [facility] [address] [place] [phone] Lydia Bragg 04/26/2025 Orders Only [facility] [address] [address] Collin Berger DO 04/23/2025 Refill [facility] [address] [place] [phone] Charline Arnett 04/16/2025 10:30 AM EDT Office Visit [facility] [address] [place] [phone] Isac Valencia MD End stage renal disease (HCC) (Primary Dx) 04/12/2025 Orders Only [facility] [address] [address] Collin Berger DO 04/12/2025 Treatment [facility] [address] [place] [address] Collin Berger DO End stage renal disease; Dependence on renal dialysis 04/05/2025 Orders Only [facility] [address] [address] Collin Berger DO from Last 3 Months Immunizations Immunization Administration Dates Next Due Hepatitis B 04/09/2019, 9,11/13/2018,10/17 Influenza Split High Dose Pr eservative Free IM 08/02/2018 Influenza, Quadrivalent, Pre servative Free 08/09/2022,08/11/2020 Moderna SARS-COV-2 07/07/2021 Pneumococcal Conjugate 13-Valent 10/15/2018 Pneumococcal Polysaccharide 01/09/2019 Family History Medical History Relation Comments Diabetes Father Hypertension Father Diabetes Sibling sister Hypertension Sibling Kidney disease Sibling Relation Status Comments Father Alive Mother Alive Sibling Social History Tobacco Use Types Packs/Day Years Used Date Smoking Tobacco: Former Cigarettes 0 09/02/1995 - 09/02/2006 Smokeless Tobacco: Never Tobacco Cessation:Counseling Given: Not Answered Comments:Smoking History Info:Some days Alcohol Use Standard Drinks/Week Comments Not Currently 0 (1 standard drink = 0.6 oz pure alcohol) Alcoholic Drinks/day: Occasional social drink Sex and Gender Information Value Date Recorded Sex Assigned at Not on file Legal Sex Male 4:31 PM EST Gender Identity Not on file Sexual Orientation Not on file Last Filed Vital Signs Vital Sign Reading Time Taken Comments Blood Pressure 160/84 03/25/2025 9:34 AM EDT Pulse 76 03/25/2025 9:34 AM EDT Temperature 36.2 C (97.1 F) 03/25/2025 9:34 AM EDT Respiratory Rate 16 03/25/2025 9:34 AM EDT Oxygen Saturation 96% 03/25/2025 9:34 AM EDT Inhaled Oxygen Concentration - - Weight 161 kg (354 lb 15.1 oz) 03/25/2025 9:34 A M EDT Height 182.9 cm (6') 03/25/2025 9:34 AM EDT Body Mass Index 48.14 03/25/2025 9:34 AM EDT Plan of Treatment Upcoming Encounters Date Type Department Care Team (Late st Contact Info) Description 03/23/2026 1:00 PM EDT Office Visit [facility] [address] [place] [address] [place] [address] Health Maintenance Due Date Last Done Comments Hepatitis B Vaccine (1 of 5 - Risk Dialysis 4-dose series) 1997 04/09/2019, 12/11/2018, 11/13/2018, Additional history exists Diabetes: Ophthalmology Exam 08/14/2019 Diabetes: Pedal Pulse Checked 08/14/2019 Diabetes: Sensory Foot Exam 08/14/2019 Diabetes: Visual Foot Exam 08/14/2019 Pneumococcal Vaccine: Peds ( 0 to 5 Years) and At-Risk Patients (6 to 49 Years) (3 of 3 - PCV20 or PCV21) 01/10/2024 01/09/2019, 10/15/2018 Diabetes: Hemoglobin A1C 07/06/2025 025, 02/05/2025, 01/11/2025, Additional history exists Pneumococcal Vaccine: 50+ Years Discontinued 9, 10/15/2018 Influenza Vaccine Completed 06/09/2025, , 08/09/2022, Additional history exists Procedures Procedure Name Priority Date/Time Associated Diagnosis Comments [facility] RESULTS Routine 06/02/2025 HD KINETICS Routine 06/02/2025 POST CHEMISTRY Routine 06/02/2025 IMMUNO CHEMISTRY Routine 06/02/2025 CHEMISTRY Routine 06/02/2025 CHEMISTRY Routine 06/02/2025 HEMATOLOGY Routine 06/02/2025 [facility] LAB RESULTS Routine 05/07/2025 HD KINETICS Routine 05/07/2025 CHEMISTRY Routine 05/07/2025 POST CHEMISTRY Routine 05/07/2025 IMMUNO CHEMISTRY Routine 05/05/2025 CHEMISTRY Routine 05/05/2025 HEMATOLOGY Routine 05/05/2025 CHEMISTRY Routine 05/05/2025 HEMATOLOGY Routine 04/26/2025 HEMATOLOGY Routine 04/12/2025 [facility]RA [facility] LAB RESULTS Routine 04/05/2025 HD KINETICS Routine 04/05/2025 POST CHEMISTRY Routine 04/05/2025 CHEMISTRY Routine 04/05/2025 SPECIAL CHEMISTRY Routine 04/05/2025 CHEMISTRY Routine 04/05/2025 IMMUNO CHEMISTRY Routine 04/05/2025 SPECIAL CHEMISTRY Routine 04/05/2025 TRACE ELEMENTS Routine 04/05/2025 HEMATOLOGY Routine 04/05/2025 from Last 3 Months Results * (ABNORMAL) HD KINETICS (06/02/2025) Only the most recent of3 resultswithin the time period is included. % Urea Reduction 48(L) 65 - 80 % [facility] 06/02/2025 06/03/2025 11: 04 AM EDT Narrative Resulting Agency Comment Specimen source: Plasma [employer] BLOOD ORDERABLES Final Resu Performing Organization Address [facility] de Phone Number [facility] See order comments or contact performing lab Unknown, [place] * (ABNORMAL) POST CHEMISTRY (06/02/2025) Only the most recent of3 resultswithin the time period is included. Pathologist [facility] BUN Post Dialysis 39(H) 6 - 19 mg/dL [facility] 06/02/2025 06/03/2025 11: 04 AM EDT Narrative [facility] - 06/03/2025 Unless otherwise specified, test(s) performed at: [facility], [address] [place] [id number] ROLL[employer] H[employer] LACER: Ji Lainez M.D. For any questions, please call customer service at FREQUENCY:MONTHLY Resulting Agency Comment Specimen source: Plasma [facility] LAB BLOOD ORDERABLES Final Resu lt Performing Organization Address [facility]/ZIP Co de Phone Number [facility] See order comments or contact performing lab Unknown, [place] * IMMUNO CHEMISTRY (06/02/2025) Only the most recent of3 resultswithin the time period is included. Hep B Surface Ag Negative Negative [facility] 06/02/2025 06/03/2025 9:3 4 AM EDT Narrative Resulting Agency Comment Specimen source: Serum Collin Berger DO LAB BLOOD ORDERABLES Final Resu lt [facility] See order comments or contact performing lab Unknown, [place] * (ABNORMAL) HEMATOLOGY (06/02/2025) Only the most recent of5 resultswithin the time period is included. Pathologist [facility] Neutrophils 72.9 40.0 - 75.0 % [facility] Lymphocytes Relative 14.0(L) 19.0 - 48.0 % [facility] Monocytes 6.8 3.0 - 10.0 % [facility] Eosinophils Relative 3.2 0.0 - 7.0 % [facility] Basophils Relative 0.6 0.0 - 1.5 % [facility] ANUSHA 2.5 0.0 - 4.0 % [facility] WBC 9.71 4.80 - 10.80 1000/mcL [facility] RBC 4.15(L) 4.70 - 6.10 mill/mcL [facility] Hematocrit 36.9(L) 42.0 - 52.0 % [facility] MCV 89 80 - 100 fl [facility] MCH 28.9 27.0 - 31.0 pg [facility] MCHC 32.5 30.0 - 36.0 g/dL [facility] RDW 14.5 11.5 - 14.5 % [facility] Hemoglobin 12.0(L) 14.0 - 18.0 g/dL [facility] Hemoglobin x 3 36(L) 42.0 - 54.0 % [facility] Platelets 434(H) 130 - 400 1000/mcL [facility] 06/02/2025 06/03/2025 8:1 9 AM EDT Narrative [facility] - 06/03/2025 Unless otherwise specified, test(s) performed at: [facility], [address] [place] [id number] ROLL[employer] LACER: Ji Lainez M.D. For any questions, please call customer service at FREQUENCY:MONTHLY Resulting Agency Comment Specimen source: Blood us Collin Berger DO LAB BLOOD ORDERABLES Final Resu lt [facility] See order comments or contact performing lab Unknown, [place] * (ABNORMAL) [facility] Chemistry (06/02/2025) Only the most recent of7 resultswithin the time period is included. Ferritin 242 22 - 322 ng/mL [facility] BUN 75(H) 6 - 19 mg/dL [facility] Creatinine 12.32(H) 0.60 - 1.30 mg/dL [facility] BUN/Creatinine Ratio 6.1(L) 10.0 - 20.0 [facility] Sodium 137 136 - 145 mEq/L [facility] Potassium 4.7 3.5 - 5.1 mEq/L [facility] Chloride 97 96 - 108 mEq/L [facility] Bicarbonate (CO2) 23 22 - 29 mEq/L [facility] Calcium 9.0 8.4 - 10.2 mg/dL [facility] Corrected Calcium 8.8 8.4 - 10.2 mg/dL [facility] Comment: Corrected Calcium is not equivalent to measured Ionized Calcium. Phosphorus 8.3(H) 2.6 - 4.5 mg/dL [facility] Calcium Phosphorus Product 75(H) 0 - 54 [facility] Calcium Phosporus Product, Cor 73(H) 0 - 54 [facility] ALT (SGPT) <3(L) 7 - 52 U/L [facility] Comment: Verified by repeat analysis. Total Protein 8.4 6.0 - 8.5 g/dL [facility] Albumin 4.2 3.5 - 5.2 g/dL [facility] Globulin, Total 4.2(H) 2.0 - 4.0 g/dL [facility] A/G Ratio 1.0 1.0 - 2.0 [facility] Glucose 83 70 - 100 mg/dL [facility] Magnesium 2.3 1.6 - 2.6 mg/dL [facility] Iron 34(L) 45 - 160 mcg/dL [facility] UIBC 198 155 - 355 mcg/dL [facility] TIBC 232 185 - 515 mcg/dL [facility] Iron Saturation (TSat) 15(L) 20 - 55 % [facility] 06/02/2025 06/03/2025 9:3 4 AM EDT Narrative [facility] - 06/03/2025 Unless otherwise specified, test(s) performed at: [facility], [address] [place] [id number] ROLL[employer] LACER: Ji Lainez M.D. For any questions, please call customer service at FREQUENCY:MONTHLY Resulting Agency Comment Specimen source: [facility] Edited Res ult - Final Performing Organization Address [facility] de Phone Number [facility] See order comments or contact performing lab Unknown, [place] * [facility] Lab Results (06/02/2025) Only the most recent of3 resultswithin the time period is included. [facility] Simple KT/V (HHD and NXSTAGE) 0.65 [facility] WSTDKT/V 2.1 [facility] SPKT/V DAUGIRDAS II (HHD & NXSTAGE) 0.72 [facility] 06/02/2025 06/02/2025 Result [facility] Ordering Provider LAB BLOOD ORDERABLES Final Result Performing Organization Address [facility] de Phone Number [facility] Contact Performing lab Unknown, [place] * (ABNORMAL) SPECIAL CHEMISTRY (04/05/2025) Only the most recent of2 resultswithin the time period is included. [facility] Hemoglobin A1C 6.4(H) 4.8 - 5.9 % [facility] 04/05/2025 04/06/2025 1:3 5 PM EDT Narrative [facility] - 04/06/2025 Unless otherwise specified, test(s) performed at: [facility], [address] [place] [id number] [employer] LACER: Ji Lainez M.D. For any questions, please call customer service at FREQUENCY:MONTHLY Resulting Agency Comment Specimen source: Blood Collin [facility] BLOOD BANK TEST ORDERABLES Final Result Performing Organization Address [facility]/ZIP Co de Phone Number [facility] See order comments or contact performing lab Unknown, [place] * TRACE ELEMENTS (04/05/2025) Aluminum <5 0 - 10 mcg/L [facility] Comment: This test was developed and its performance characteristics determined by [facility]. It has not been cleared or approved by the FDA. The laboratory is regulated under CLIA as qualified to perform high complexity testing. This test is used for clinical purposes. It should not be regarded as investigational or for research. 04/05/2025 04/06/2025 1:4 5 PM EDT Narrative [facility] - 04/06/2025 Unless otherwise specified, test(s) performed at: [facility], [address] [place], [place] [id number] ROLLED HAM LACER: Ji Lainez M.D. For any questions, please call customer service at FREQUENCY:MONTHLY Resulting Agency Comment Specimen source: Serum Collin Berger DO LAB BLOOD ORDERABLES Final Resu lt [facility] See order comments or contact performing lab Unknown, [place] from Last [address] [facility] Dual SNP ([id number]) Care Teams Director Talent Acquisition Relationship Specialty Start Date End Date Ovidio العلي MD [address] [place] [address] PCP - General 07/07/19
--- OUTSIDE RECORDS SUMMARY | 2025-07-01 18:02 | XMS_ITS | Encounter Summary ---
Author Organization [facility] [place], Address [address] [place] [address] Phone Care Team Providers Care Wool Broker Name Role Phone Ovidio العلي MD Primary Care Provider +1- [phone] Encounter Details Date Type Department Care Team (Late st Contact Info) Description 09/25/2023 Documentation Only [facility] [address] [place] [address] Marium Lopez Social History Tobacco Use Types Packs/Day Years [...] on file documented as of this encounter Plan of Treatment Upcoming Encounters Date Type Department Care Team (Late st Contact Info) Description 03/23/2026 1:00 PM EDT Office Visit [facility] - [facility] Access Center [address] [place] [phone] documented as of this encounter Visit Diagnoses Not on filedocumented in this encounter Care Teams Wool Broker Relationship Specialty Start Date End Date Ovidio العلي MD [address] [place] [address] PCP - General 07/07/19 documented as of this encounter
--- OUTSIDE RECORDS SUMMARY | 2025-07-01 18:02 | XMS_ITS | Encounter Summary ---
Author Organization [facility] Address [address] [place] [address] Phone Care Team Providers Care Traffic Monitor Specialist Name Role Phone Ovidio العلي MD Primary Care Provider [phone]- [phone] Encounter Details Date Type Department Care Team (Late Contact Info) Description 04/25/2023 Documentation Only [facility] [address] [place] [address] Charline Arnett [address] [place] [phone] Social History Tobacco Use Types Packs/Day Years [...] Encounters Date Type Department Care Team (Late Contact Info) Description 03/23/2026 1:00 PM EDT Office Visit [facility] [address] [place] [phone] documented as of this encounter Visit Diagnoses Not on filedocumented in this encounter Care Teams Traffic Monitor Specialist Relationship Specialty Start Date End Date Ovidio العلي MD [address] [place] [address] PCP - General 07/07/19 documented as of this encounter
--- OUTSIDE RECORDS SUMMARY | 2025-07-01 18:02 | XMS_ITS | Encounter Summary ---
Author Organization [facility] Address [address] [place] [address] Phone Care Team Providers Care Deer Farmer Name Role Phone Ovidio العلي MD Primary Care Provider +1- [phone] Encounter Details Date Type Department Care Team (Late Contact Info) Description 12/14/2023 Documentation Only [facility] [address] [place] [address] Celmentine Looney MD Social History Tobacco Use Types Packs/Day Years [...] Visit [facility] [address] [place] [phone] documented as of this encounter Procedures Procedure Name Priority Date/Time Associated Diagnosis Comments VITAMIN D 25 HYDROXY Routine 12/19/2023 10:14 AM EDT Hypocalcemia History of parathyroidectomy PHOSPHATE ( PHOSPHORUS) Routine 12/19/2023 10:14 AM EDT Hypocalcemia History of parathyroidectomy MAGNESIUM Routine 12/19/2023 10:14 AM EDT Hypocalcemia History of parathyroidectomy CALCIUM, IONIZED Routine 12/19/2023 10:1 4 AM EDT Hypocalcemia History of parathyroidectomy CALCIUM Routine 12/19/2023 10:14 AM EDT Hypocalcemia History of parathyroidectomy documented in this encounter Results * (ABNORMAL) Calcium, ionized (12/19/2023 10:14 AM EDT) Calcium, Ion 4.2(L) 4.5 - 5.6 mg/dL See order comments Blood specimen (specimen) Venous blood / Unknown 12/19/2023 10:14 AM EDT 12/19/2023 Narrative [facility] - 12/20/2023 6:06 PM EDT Performed at: [employer] [id number] Radio Interference Supervisor: Jackie Wright MD, Phone: [phone] Clementine Looney MD LAB BLOOD ORDERABLES Final Resu lt Performing Organization Address [facility] Co de Phone Number [facility] See order comments [place] [address] * (ABNORMAL) Calcium (12/19/2023 10:14 AM EDT) Calcium 8.0(L) 8.7 - 10.2 mg/dL See order comments Blood specimen (specimen) Venous blood / Unknown 12/19/2023 10:14 AM EDT 12/19/2023 Narrative [facility] - 12/20/2023 6:06 PM EDT Performed at: [facility] [id number] Radio Interference Supervisor: Jackie Wright MD, Phone: [phone] Clementine Looney MD LAB BLOOD ORDERABLES Final Resu lt Performing Organization Address City/[facility]/ZIP Co de Phone Number [facility] See order comments [place] [address] * Magnesium (12/19/2023 10:14 AM EDT) Magnesium 2.3 1.6 - 2.3 mg/dL See order comments Blood specimen (specimen) Venous blood / Unknown 12/19/2023 10:14 AM EDT 12/19/2023 Narrative [facility] - 12/20/2023 6:06 PM EDT Performed at: - [facility] [address] [id number] Radio Interference Supervisor: Jackie Wright MD, Phone: [phone] Clementine Looney MD LAB BLOOD ORDERABLES Final Resu lt [facility] See order comments [place] [address] * (ABNORMAL) Vitamin D 25 hydroxy (12/19/2023 10:14 AM EDT) Vitamin D, 25-OH, Total 19.3(L) 30.0 - 100.0 ng/mL See order comments Comment: Vitamin D deficiency has been defined by the [place] of [employer] and an Endocrine Society practice guideline as a level of serum 25-OH vitamin D less than 20 ng/mL (1,2). The Endocrine Society went on to further define vitamin D insufficiency as a level between 21 and 29 ng/mL (2). 1. IOM ([place] of [employer]). 2010. Dietary reference intakes for calcium and D. [place]: The National Academies Press. 2. Nguyễn MF, Mary NC, Isak BASURTO, et al. Evaluation, treatment, and prevention of vitamin D deficiency: an Endocrine Society clinical practice guideline. JCEM. 2010; 96(7):1911-30. Blood specimen (specimen) Venous blood / Unknown 12/19/2023 10:14 AM EDT 12/19/2023 Narrative [facility] - 12/20/2023 6:06 PM EDT Performed at: [facility] [address] [id number] Radio Interference Supervisor: Jackie Wright MD, Phone: [phone] us Clementine Looney MD LAB BLOOD ORDERABLES Final Resu lt Performing Organization Address City/[facility]/ZIP Co de Phone Number [facility] See order comments [place] [address] * Phosphorus (12/19/2023 10:14 AM EDT) Phosphorus 3.6 2.8 - 4.1 mg/dL See order comments Blood specimen (specimen) Venous blood / Unknown 12/19/2023 10:14 AM EDT 12/19/2023 Narrative [facility] - 12/20/2023 6:06 PM EDT Performed at: 01 - [facility] [id number] Radio Interference Supervisor: Jackie Wright MD, Phone: [phone] Clementine Looney MD LAB BLOOD ORDERABLES Final Resu lt Performing Organization Address City/[facility] Co de Phone Number [facility] See order comments [place] [address] documented in this encounter Visit Diagnoses Diagnosis Hypocalcemia- Primary History of parathyroidectomy documented in this encounter Care Teams Deer Farmer Relationship Specialty Start Date End Date Ovidio العلي MD [address] [facility] [address] [place] [place] [address] PCP - General 07/07/19 documented as of this encounter
--- OUTSIDE RECORDS SUMMARY | 2025-07-01 18:02 | XMS_ITS | Clinical Summary ---
Author Organization [facility] Address [address] [place] [address] Phone Care Team Providers Care Computer Tape Librarian Name Role Phone Ovidio العلي MD Primary Care Provider Encounters Date Type Department Care Team Description 04/22/2025 Lab Requisition [facility] - Main Lab [address] [facility] [place] [address] Collin Berger MD End stage renal disease ([facility] V24, [facility] V28) from Last 3 Months Surgical History Surgery Date Site/Laterality Comments OTHER SURGICAL HISTORY PROCEDURE: DENIES PREVIOUS SURGERY Medical History Medical History Date Comments DM (diabetes mellitus) ([facility]/ HCC V24, [facility] V28) DX:DM (diabetes mellitus) (H CC) HTN (hypertension), benign DX:HT N (hypertension), benign Depression DX:Depression Family History Relation Name Status Comments Father Alive dm, htn Mother Alive Social History Tobacco Use Types Packs/Day Years Used Date Smoking Tobacco: Former Cigarettes Q uit: 11/13/2007 Alcohol Use Standard Drinks/Week Comments Yes 0 (1 standard drink = 0.6 oz pur e alcohol) Sex and Gender Information Value Date Recorded Sex Assigned at Not on file Legal Sex Male 10:54 PM EST Gender Identity Not on file Sexual Orientation Not on file Obstetrics History Plan of Treatment Health Maintenance Due Date Last Done Comments Colorectal Cancer Screening: Colonoscopy 1977 Diabetes: Annual GFR (Glomer ular Filtration Rate) 1977 Diabetes: Annual Foot Exam 12/23/1987 Diabetes: Annual Retina Eye Exam 12/23/1987 DTaP,Tdap,and Td Vaccines (1 - Tdap) 1996 Hepatitis B Vaccines (1 of 3 - 19+ 3-dose series) 1996 Depression Screening 09/02/2024 Cholesterol Screening (Lipid Panel) 11/06/2024 Diabetes: Annual Urine Albumin-Creatinine Ratio (uACR) 11/06/2024 Diabetes: Blood Sugar Contro l Test (HGBA1C) 11/06/2024 HIV Screening 11/06/2024 Hepatitis C Screening 11/06/2024 Hypertension/CHF/CAD Annual BMP Blood Test 11/06/2024 Medicare Annual Wellness Visit 11/06/2024 Social Influencers of Health Screening 11/06/2024 COVID-19 Vaccine ( - 2023-2 5 season) 2025 Influenza Vaccine (#1) 2025 05/23/2009 RSV Immunization Adult Patie nts (1 - 1-dose 75+ series) 2052 HIB Vaccines Aged Out No longer eligi ble based on patient's age to complete this topic HPV Vaccines Aged Out No longer eligi ble based on patient's age to complete this topic Hepatitis A Vaccines Aged Out No long er eligible based on patient's age to complete this topic IPV Vaccines Aged Out No longer eligi ble based on patient's age to complete this topic MMR Vaccines Aged Out No longer eligi ble based on patient's age to complete this topic Meningococcal ACWY Vaccine Aged Out N o longer eligible based on patient's age to complete this topic Meningococcal B Vaccine Aged Out No l onger eligible based on patient's age to complete this topic Pneumococcal Vaccine: Pediat rics (0 to 5 Years) and At-Risk Patients (6 to 49 Years) Aged Out No longer eligi ble based on patient's age to complete this topic RSV Immunization Patients Un glynn 20 months Aged Out No longer eligible b ased on patient's age to complete this topic Varicella Vaccines Aged Out No longer eligible based on patient's age to complete this topic Procedures Procedure Name Priority Date/Time Associated Diagnosis Comments CALCIUM STAT 04/22/2025 11:05 AM EDT End stage renal disease ([facility] V24, [facility] V28) POTASSIUM STAT 04/22/2025 11:05 AM EDT End stage renal disease ([facility] V24, [facility] V28) from Last 3 Months Results * Potassium (04/22/2025 11:05 AM EDT) Potassium 4.4 3.5 - 5.5 mmol/L LAB CHEMISTRY METHOD 04/22/2025 1:36 PM EDT [facility] Blood Venous blood specimen / Unknown 04/22/2025 11:05 AM EDT 04/22/2025 1:12 PM EDT us Collin Berger MD LAB BLOOD ORDERABLES Final Re sult [facility] [address] [place] [address], [place] [phone] * Calcium (04/22/2025 11:05 AM EDT) Calcium 8.8 8.5 - 10.5 mg/dL LAB CHEMISTRY METHOD 04/22/2025 1:36 PM EDT [facility] Blood Venous blood specimen / Unknown 04/22/2025 11:05 AM EDT 04/22/2025 1:12 PM EDT us Collin Berger MD LAB BLOOD ORDERABLES Final Re sult Performing Organization Address [facility]/ZIP Co de Phone Number [facility] [address] [place] [address], [place] [phone] from Last 3 Months Insurance [facility] MEDICARE Member Subscriber Plan / Payer (Ef fective 2019-Present) Name:SHEREE JONES Relation to Subscriber:Self Name:Sheree Jones Payer ID:[id number] Group ID:[id number] Type:Not on file Address: [place] [address] [address] [address] Care Teams Computer Tape Librarian Relationship Specialty Start Date End Date Ovidio العلي MD [address] [place] [address] Dr [address] BRITT Alexander PCP - General 09/24/17
--- OUTSIDE RECORDS SUMMARY | 2025-07-01 18:02 | XMS_ITS ---
Author Name [facility] Organization Unknown Encounters Encounter Type Encounter Reason Primary Diagnosis Location Date Ambulatory [facility] 02/21/2024 Ambulatory [facility] 02/21/2024
--- OUTSIDE RECORDS SUMMARY | 2025-07-01 18:02 | XMS_ITS | Encounter Summary ---
Author Organization [facility], Address [address] [place] [address] Phone Care Team Providers Care Oversize Load Pilot Escort Name Role Phone Ovidio العلي MD Primary Care Provider +1- [phone] Reason for Visit * Reason Comments Med Refill Encounter Details Date Type Department Care Team (Late Contact Info) Description 08/19/2020 Refill [facility] [address] [place] [phone] Wellington Blair MD [address] [place] [address] [place] [phone] Social History Tobacco Use Types Packs/Day Years Used Date Smoking Tobacco: Former Cigarettes 0 09/02/1995 - 09/02/2006 Comments:Smoking History Inf o:Some days Alcohol Use Standard Drinks/Week Comments No 0 (1 standard drink = 0.6 oz [...] Visit [facility], - Vascular Access Center [address] [place] [address] [place] [phone] documented as of this encounter Visit Diagnoses Not on filedocumented in this encounter Care Teams Oversize Load Pilot Escort Relationship Specialty Start Date End Date Ovidio العلي MD [address] [place] [id number] PCP - General 07/07/19 documented as of this encounter
--- OUTSIDE RECORDS SUMMARY | 2025-07-01 18:02 | XMS_ITS | Clinical Summary ---
Author Organization [facility] Address [address] [place] [address] Phone Care Team Providers Care Guzzler Builder Name Role Phone Ovidio العلي MD Primary Care Provider +1 -[phone] Social History Tobacco Use Types Packs/Day Years [...] 3:00 PM EST Office Visit [facility] [address] [place] [address] Paulette Owens MD [address] [place] [phone] [email or web address] Health Maintenance Due Date Last Done Comments [...] topic Medical Devices Not on file Insurance [facility] MEDICARE REPLACEMENT [facility] MEDICARE REPLACEMENT [facility] MEDICARE REPLACEMENT [facility] MEDICARE REPLACEMENT [facility] MEDICARE REPLACEMENT [facility] ONE CARE MEDICARE REPLACEMENT Care Teams Guzzler Builder Relationship Specialty Start Date End Date Ovidio العلي MD [address] [place] [address] [place] [address] PCP - General Internal Medicine 06/30/24 Additional Source Comments The information contained in this document represents components of the legal health record. It is not the complete legal health record.[facility]
--- OUTSIDE RECORDS SUMMARY | 2025-07-01 18:02 | XMS_ITS | Encounter Summary ---
Author Organization [facility] Address [address] [place] [address] Phone Care Team Providers Care Supervisor Maple Products Name Role Phone Ovidio العلي MD Primary Care Provider +1- [phone] Reason for Visit * Reason Onset Date Comments Med Refill 06/30/2025 Encounter Details Date Type Department Care Team (Late Contact Info) Description 06/30/2025 Refill [facility] [address] [place] [phone] Charline Arnett [address] [place] [phone] Social History Tobacco Use Types Packs/Day Years [...] Visit [facility] [address] [place] [phone] documented as of this encounter Visit Diagnoses Not on filedocumented in this encounter Care Teams Supervisor [employer] Relationship Specialty Start Date End Date Ovidio العلي MD [address] [place] [address] PCP - General 07/07/19 documented as of this encounter
--- OUTSIDE RECORDS SUMMARY | 2025-07-01 18:02 | XMS_ITS | Encounter Summary ---
Author Organization [facility], Address [address] [place] [address] Phone Care Team Providers Care Spool Carrier Name Role Phone Ovidio العلي MD Primary Care Provider +1- [phone] Reason for Visit * Reason Comments Med Refill Encounter Details Date Type Department Care Team (Late Contact Info) Description 11/17/2019 Refill [facility] [address] [place] [phone] Wellington Blair MD [address] [place] [address] [place] [phone] Social History Tobacco Use Types Packs/Day Years [...] Office Visit [facility], - Vascular Access Center [address] [place] [address] [place] [phone] documented as of this encounter Visit Diagnoses Not on filedocumented in this encounter Care Teams Spool Carrier Relationship Specialty Start Date End Date Ovidio العلي MD [address] [place] [phone] PCP - General 07/07/19 documented as of this encounter
--- OUTSIDE RECORDS SUMMARY | 2025-07-01 18:02 | XMS_ITS | Encounter Summary ---
Author Organization [facility] Address [address] [place] [address] Phone Care Team Providers Care School Superintendent Name Role Phone Ovidio العلي MD Primary Care Provider +1- [phone] Encounter Details Date Type Department Care Team (Late Contact Info) Description 09/28/2022 Documentation Only [facility] [address] [place] [phone] Charline Arnett [address] [place] [phone] Social History Tobacco Use Types Packs/Day Years [...] Visit [facility] V[facility] Access Center [address] [phone] documented as of this encounter Visit Diagnoses Not on filedocumented in this encounter Care Teams School Superintendent Relationship Specialty Start Date End Date Ovidio العلي MD [address] [place], [place] [phone] PCP - General 07/07/19 documented as of this encounter
--- OUTSIDE RECORDS SUMMARY | 2025-07-01 18:02 | XMS_ITS | Encounter Summary ---
Author Organization [facility] Address [address] [place] [address] Care Team Providers Care Garage Door Service Technician Name Role Phone Ovidio العلي MD Primary Care Provider Encounter Details Date Type Department Care Team (Late st Contact Info) Description 04/22/2025 Lab Requisition [facility] - Main Lab [address] [facility] [place] [address] Collin Berger MD [address] [place] [address] End stage renal disease (CMS/HCC V24, CMS/[facility] V28) Social History Tobacco Use Types Packs/Day Years [...] as of this encounter Plan of Treatment Not on file documented as of this encounter Procedures Procedure Name Priority Date/Time Associated Diagnosis Comments POTASSIUM STAT 04/22/2025 11:05 AM EDT End stage renal disease ([facility] V24, [facility] V28) CALCIUM STAT 04/22/2025 11:05 AM EDT End stage renal disease (CMS/[facility] V24, [facility] V28) documented in this encounter Results * Calcium (04/22/2025 11:05 AM EDT) Calcium 8.8 8.5 - 10.5 mg/dL LAB CHEMISTRY METHOD 04/22/2025 1:36 PM EDT [facility] Blood Venous blood specimen / Unknown 04/22/2025 11:05 AM EDT 04/22/2025 1:12 PM EDT Collin Berger MD LAB BLOOD ORDERABLES Final Re sult [facility] [address] [place] [address], [place] [phone] * Potassium (04/22/2025 11:05 AM EDT) Potassium 4.4 3.5 - 5.5 mmol/L LAB CHEMISTRY METHOD 04/22/2025 1:36 PM EDT [facility] Blood Venous blood specimen / Unknown 04/22/2025 11:05 AM EDT 04/22/2025 1:12 PM EDT Collni Berger MD LAB BLOOD ORDERABLES Final Re sult [facility] [address] [place] [address], [place] [phone] documented in this encounter Visit Diagnoses Diagnosis End stage renal disease (CMS/HCC V24, CMS/HCC V28) End stage renal disease documented in this encounter Care Teams Garage Door Service Technician Relationship Specialty Start Date End Date Ovidio العلي MD [address] [place] [address] Dr [address] [place] PCP - General 09/24/17 documented as of this encounter
--- OUTSIDE RECORDS SUMMARY | 2025-07-01 18:02 | XMS_ITS | Encounter Summary ---
Author Organization [facility] Address [address] [place] [address] Phone Care Team Providers Care Combatant Diver Officer Name Role Phone Ovidio العلي MD Primary Care Provider +1- [phone] Encounter Details Date Type Department Care Team (Late Contact Info) Description 11/05/2022 Documentation Only [facility] [address] [place] [address] Wellington Blair MD [address] [place] [address] [place] [phone] Social History Tobacco Use Types Packs/Day Years [...] on file Sexual Orientation Not on file COVID-19 Exposure Response Date Recorded In the last 10 days, have yo u been in contact with someone who was confirmed or suspected to have Coronavirus/COVID-19? No / Unsure 11/07/2022 9:02 AM EST documented as of this encounter Plan of Treatment Upcoming Encounters Date Type Department Care Team (Late Contact Info) Description 03/23/2026 1:00 PM EDT Office Visit [facility] Vascular Access Center [address] [place] [address] [place] [phone] documented as of this encounter Visit Diagnoses Not on filedocumented in this encounter Care Teams Combatant Diver Officer Relationship Specialty Start Date End Date Ovidio العلي MD [address] [place] [address] PCP - General 07/07/19 documented as of this encounter
--- OUTSIDE RECORDS SUMMARY | 2025-07-01 18:02 | XMS_ITS | Encounter Summary ---
Author Organization [facility] Address [address] [place] [address] Phone Care Team Providers Care Venetian Blind Cleaner And Repairer Name Role Phone Ovidio العلي MD Primary Care Provider +1- [phone] Encounter Details Date Type Department Care Team (Late Contact Info) Description 10/02/2023 Documentation Only [facility] [address] [place] [place] [address] [place] [address] [place] [phone] Social History Tobacco Use Types Packs/Day Years [...] Visit [facility] Vascular Access Center [address] [place] [place] [phone] documented as of this encounter Visit Diagnoses Not on filedocumented in this encounter Care Teams Venetian Blind Cleaner And Repairer Relationship Specialty Start Date End Date Ovidio العلي MD [address] [place] [address] PCP - General 07/07/19 documented as of this encounter
--- OUTSIDE RECORDS SUMMARY | 2025-07-01 18:02 | XMS_ITS | Encounter Summary ---
Author Organization [facility], Address [address] [place] [address] Phone Care Team Providers Care Grey Stock Recorder Name Role Phone Ovidio العلي MD Primary Care Provider +1- [phone] Reason for Visit * Reason Comments Med Refill Encounter Details Date Type Department Care Team (Late Contact Info) Description 08/23/2024 Refill [facility] [address] [place] [phone] Wellington Blair MD [address] [facility] [place] [phone] Social History Tobacco Use Types Packs/Day Years [...] Visit [facility], - Vascular Access Center [address] [facility] [facility] [address] [place] [phone] documented as of this encounter Visit Diagnoses Not on filedocumented in this encounter Care Teams Grey Stock Recorder Relationship Specialty Start Date End Date Ovidio العلي MD [address] [place] [address] [address] [place] [address] PCP - General 07/07/19 documented as of this encounter
--- OUTSIDE RECORDS SUMMARY | 2025-07-01 18:02 | XMS_ITS | Encounter Summary ---
Author Organization [facility] Address [address] [place] [address] Phone Care Team Providers Care Glazing Department Supervisor Name Role Phone Ovidio العلي MD Primary Care Provider [phone]- [phone] Reason for Visit * Reason Comments Med Refill Encounter Details Date Type Department Care Team (Late Contact Info) Description 03/28/2024 Refill [facility] [address] [place] [phone] Wellington Blair MD [address] [place] [address] [place] [phone] Social History Tobacco Use Types Packs/Day Years [...] Visit [facility] [address] [place] [phone] documented as of this encounter Visit Diagnoses Not on filedocumented in this encounter Care Teams Glazing Department Supervisor Relationship Specialty Start Date End Date Ovidio العلي MD [address] [place] [address] PCP - General 07/07/19 documented as of this encounter
--- OUTSIDE RECORDS SUMMARY | 2025-07-01 18:02 | XMS_ITS | Encounter Summary ---
Author Organization [facility] [place], Address [address] [place] [address] Phone Care Team Providers Care Cement Truck Loader Name Role Phone Ovidio العلي MD Primary Care Provider [phone]- [phone] Encounter Details Date Type Department Care Team (Late Contact Info) Description 10/09/2023 Documentation Only [facility] [address] [place] [place] [address] Collin Berger [address] [place] [phone] Social History Tobacco Use Types Packs/Day Years [...] Visit [facility] [address] [place] [phone] documented as of this encounter Visit Diagnoses Not on filedocumented in this encounter Care Teams Cement Truck Loader Relationship Specialty Start Date End Date Ovidio العلي MD [address] [place] [address] [place] [address] PCP - General 07/07/19 documented as of this encounter
--- OUTSIDE RECORDS SUMMARY | 2025-07-01 18:02 | XMS_ITS | Encounter Summary ---
Author Organization [facility] [place], Address [address] [place] [address] Phone Care Team Providers Care Senior Informatica Etl Developer Name Role Phone Ovidio العلي MD Primary Care Provider +1- [phone] Encounter Details Date Type Department Care Team (Late Contact Info) Description 06/07/2020 Telephone [facility] [place] [facility] [place] [address] [place] [address] Lisseth Ramos [address] [place] [phone] Social History Tobacco Use Types Packs/Day Years [...] Visit [facility] [address] [place] [address] documented as of this encounter Visit Diagnoses Not on filedocumented in this encounter Care Teams Senior Informatica Etl Developer Relationship Specialty Start Date End Date Ovidio العلي MD [address] [place] [address] PCP - General 07/07/19 documented as of this encounter
--- OUTSIDE RECORDS SUMMARY | 2025-07-01 18:02 | XMS_ITS | Data Portability ---
Author Organization [facility] Address [address] [place] [address] Care Team Providers Care Hardware Engineer Name Role Phone HIM CCA Referring Provider [phone] Assessment Encounter Date Assessment Date Assessment LastModified by Organization Details LastModified Time 12/14/2023 12/14/2023 I provided real -time medical direction via phone for this encounter and was available for additional phone-based assistance as needed. I have reviewed and agree with the Assessment and Plan as documented by the Extractive Metallurgist. Patient given the opportunity to ask questions. Our service contacted for an assessment of: hypocalcemia As per above, patient with recent hospitalization for hypocalcemia and was treated and left the hospital with a calcium level of 5. Recurrent symptoms and calls for an assessment. Per embroidery designer on the scene, Patient is stable with his vital signs however calcium level is 0.88 millimoles which is the equivalent of a calcium level of 3.5. creatinine is 12, Patient is symptomatic. Impression: Hypocalcemia and end-stage renal disease on hemodialysis Plan: will refer to the emergency department, expect call done, labs transcribed for patient to take with him. Not available 12/14/2023 19:04:09 12/06/2024 12/06/2024 I provided real -time medical direction via phone for this encounter and was available for additional phone-based assistance as needed. I have reviewed and agree with the Assessment and Plan as documented by the Extractive Metallurgist. Patient given the opportunity to ask questions. Our service contacted for an assessment of: weakness As per above, patient is a home HD patient calling for blood work to see if he needed a transfusion or had electrolyte abnormalities. Otherwise feels well. Denies any localizing symptoms. Per embroidery designer on the scene, VSS, BMP noted Impression: weakness and fatigue Plan: F/u in-person with his paralegal specialist on Saturday. Reassurance given. Red flags discussed. Allergies: Reviewed PCP f/u: We discussed the diagnostic uncertainty of home visits and the risk associated with this. In this case, the patient and I felt this to be an acceptable and reasonable amount of risk given the benefit of avoiding an ED visit. We discussed the need to seek care urgently/emergentl y in the setting of any new or worsening serious symptoms, particularly fever chills lightheadedness altered mental status Not available 12/06/2024 12:35:09 Plan of Treatment Reminders Order Date Submit Date Provider Last Modified By Organization Details Last Modified Time Details Appointments None recorded. Lab cmp, whole blood + karin [address], [phone] 5 18:20:41 cmp, whole blood + karin [address], [phone] 4 10:54:31 Referral None recorded. Procedures None recorded. Surgeries None recorded. Imaging None recorded. Medication Orders None recorded. Patient TargetsNo targets recorded. Patient InstructionsNo instructions recorded. Reason for Referral None Reported. Results Created Date Observation Date Name Description Value Unit Range Abnormal Flag Note LastModifiedBy Organization Detail LastModifiedTime Result Notes None recorded. Medical Equipment None Reported. Allergies No known drug allergies Medications Name Sig Start Date Stop Date [...] Available No t Available Vitals Date Recorded Heart rate Oxygen saturation Oxygen saturation in Arterial blood by Pulse oximetry Body weight Respiratory rate Body height Body temperature Systolic And Diastolic Provider Name and Address Organization Details Last Updated DateTime 5 62 /min 97 % 97 % 805957. 568 g 16 /min 182.88 cm 97.3 [degF] 126/81 mm[Hg] Not Available [facility] 5 12:13:32 Date Recorded Body weight Body height Respiratory rate Heart rate Oxygen saturation Oxygen saturation in Arterial blood by Pulse oximetry Systolic And Diastolic Provider Name and Address Organization Details Last Updated DateTime 4 497967. 608 g 182.88 cm 16 /min 73 /min 96 % 96 % 144/78 mm[Hg] Not Available [facility] 4 18:59:05 Social History None recorded. Functional Status None recorded. Mental Status None recorded. Family History Nothing Reported. Medical History No medical history recorded. Past Encounters Encounter ID Performer Location Encounter Start Date Encounter Closed Date Diagnosis/Indication Diagnosis SNOMED-CT Code Diagnosis ICD10 Code Diagnosis IMO Codes Diagnosis Note [id number] Angelica Tejeda MD [facility] [address] [place] [phone] 12/14/2023 18:58:57 12/16/2023 18:32:25 Hypocalcemia 5079418 E83.51 [id number] Angelica Tejeda MD [facility] [address] [place] [phone] 12/06/2024 12:13:30 12/06/2024 23:16:30 Asthenia 35703612 R53.1 07759 Health Concerns Section Related Observation LastModified by Organization Detai ls LastModified Time None Recorded Concern Status LastModified by Organization Details LastModified Time None Recorded Advance Directives Directive None Recorded Payers Insurance Date Sequence Insurance Name Policy Number Policy Yeung Covered Member ID Yeung Member ID Guarantor Name 12/06/2024 1 [facility] - DOS ON OR AFTER 2022 - DUAL ELIGIBLE - LONGTERM OPTIONS AND ONE CARE (MEDICARE REPLACEMENT/ADV ANTAGE - HMO) Wai Jones [id number] Wai Jones Notes Date Note Type Note Provider Name and Address Organization Details Recorded Time 12/14/2023 text/html [facility] Nurse Triage Notes (Heather Iqbal): Chief Complaints: Electrolyte Imbalance PMH: Diabetes, Hypertension, Other Allergies: No Known Comments: PMH: ESRD, Parathyroidectomy Address/Identity/ verified. Member calling requesting visit for fatigue and intermittent hand tremors. Hospitalized at [facility] for hypocalcemia. d/c on Saturday. Symptoms [...] ...................... ...................... ...................... ...................... ...................... ...................... ......... Extractive Metallurgist Note From Devin Silva: Pt reports recent inpatient operation at [facility], d/c home, returned to the ED and was found to have hypocalcemia. Pt was readmitted and eventually d/c last week with rx for calcitrol 2 mcg bid and tums 3 tabs q4h. Pt calling today for repeat labs. Pt is alert, NAD. VSS. Non focal neuro exam. POC labs uploaded, of note, Ca 3.5 mg/dL (0.88 mmol/L), Crea 12.9 (home HD pt). [facility] contacted and recommended pt go back to [facility]. 911 initiated and SBAR given to Edy OLIVAREZ. ...................... ...................... ...................... ...................... ...................... ...................... ......... Disposition: Fulfilled Angelica Tejeda MD [address] [place] [address],[address], [place], [phone], [facility] 12/14/2023 19:05:23 12/06/2024 text/html [facility] Nurse Triage Notes (Rosendo Parish): Reason For Request: Patient is on dialysis, and just feels weak, tired, sleeping a lot, wants checked out. Denies: Worst Headache of life New onset of vision loss Sudden onset -unilateral weakness/gait disturbance Fall with head strike and altered LOC New onset of Slurred speech or difficulty finding words Sudden Mental status changes Head pain with fever chills and neck pain Seizure activity Dizziness with positional change Chief Complaints: Weakness PMH: Hypertension, Chronic Kidney Disease, Diabetes Mellitus Type 2 PMH Reviewed at 12/06/2024:28 Allergies Reviewed at 12/06/2024:28 Comments: Angular Developer verified the Pt.'s name//address and phone number. Education provided on the response time and the Pt. was advised to monitor reported s/s and seek emergency treatment if needed. Pt reports feeling unwell with weakness and fatigue - Muscle cramps - On dialysis at home and had same on Saturday and Saturday -Fluctuations in blood glucose levels - Current POC is 92. Denies fever - Denies N/V/D - Denies headache - Denies abdominal pain - Denies chest pain and SOB. Vague symptoms - Wellness check requested - ER treatment declined. Extractive Metallurgist Organization Information for Devin Silva - ALS Business Legal Name: [facility] Transportation Address: [address] [place] [address], BRITT Jones [address], Seat Trimmer: Carlos Painter MD [facility] No.: [id number] Extractive Metallurgist POC Test Results from Devin Silva [facility] (12:10:10) pH: 7.39 pH units pCO2: 50.1 mmHg pO2: 35.8 mmHg Na: 138 mmol/L K: 4.8 mmol/L iCa: 0.94 mmol/L Cl: 99 mmol/L TCO2: 29.4 mEq/L Hct: 34 % Hb: 11.5 g/dL Glu: 77 mg/dL Lac: 1.41 mmol/L Cr: 9.19 mg/dL BUN: 49 mg/dL A mmol/L HCO3: 30.3 mmol/L ...................... ...................... ...................... ...................... ...................... ...................... ......... Extractive Metallurgist Note From Devin Silva: This 48-year-old male with history including but not limited to HTN, DM type II, CKD on home HD requested a visit today to address one week of weakness/tiredness. Patient states he does home dialysis on a rotating schedule of two on, one off, last treatment was yesterday. Patient states approximately two months ago he required a blood transfusion. Patient also reports his blood glucose readings have been lower than normal in the mornings, low 90s instead of 130s to 140s. Patient has in person nephrology appointment on Saturday. Patient denies any other symptoms including chest pain, shortness of breath, headaches, dizziness, URI symptoms, fevers, nausea, vomiting, diarrhea. Patient presents awake and alert, in no acute distress and speaking full sentences. His vital signs are reasonably stable and he is afebrile. Nonfocal neurological exam. Lungs are clear throughout auscultation. Abdomen is soft, nontender, nondistended. No lower extremity edema. POC labs are uploaded, when compared to his most recent set of labs most if not all have improved or at his baseline. We discussed the diagnostic uncertainty of home visits and the risk associated with this. In this case, the patient and I felt this to be an acceptable and reasonable amount of risk given the benefit of avoiding an ED visit. I recommend he keep his nephrology appointment on Saturday to discuss his symptoms and the need for additional testing. I instructed him to present to the emergency department for any new or worsening severe symptoms such as chest pain, shortness of breath, high fever, altered mental status. The patient and his family were given the opportunity to ask questions and are agreeable to this plan. [facility] Lab Orders: cmp, whole blood + karin: Performed ...................... ...................... ...................... ...................... ...................... ...................... ......... [facility] Consulted: Angelica Tejeda ...................... ...................... ...................... ...................... ...................... ...................... ......... Disposition: Ruslan Tejeda MD [address] [facility], [place], [address], TORRES JI 12/06/2024 13:02:57
== END 2025-07-01 16:24 | disposition home or self-care (01) ==
LOC: HO.HMCH 15:30
PROVIDERS: PCP Internal Medicine
DX: I12.0 Hypertensive chronic kidney disease with stage 5 chronic kidney disease or end stage renal disease (principal); N18.6 End stage renal disease; E66.01 Morbid (severe) obesity due to excess calories; Z68.43 Body mass index [BMI] 50.0-59.9, adult; E11.8 Type 2 diabetes mellitus with unspecified complications; J44.9 Chronic obstructive pulmonary disease, unspecified; Z01.818 Encounter for other preprocedural examination; Z99.2 Dependence on renal dialysis; M14.672 Charcot's joint, left ankle and foot; G47.33 Obstructive sleep apnea (adult) (pediatric)

== ENCOUNTER → 2025-07-01 15:30 | Outpatient (BNVA) | payer OTHER, SELFPAY | PROVIDERS: PCP Internal Medicine | DX: Z01.818 Encounter for other preprocedural examination (principal); E11.36 Type 2 diabetes mellitus with diabetic cataract; E11.40 Type 2 diabetes mellitus with diabetic neuropathy, unspecified; I12.9 Hypertensive chronic kidney disease with stage 1 through stage 4 chronic kidney disease, or unspecified chronic kidney disease; E11.22 Type 2 diabetes mellitus with diabetic chronic kidney disease; N18.6 End stage renal disease; E66.01 Morbid (severe) obesity due to excess calories; G47.33 Obstructive sleep apnea (adult) (pediatric); E11.610 Type 2 diabetes mellitus with diabetic neuropathic arthropathy; J44.9 Chronic obstructive pulmonary disease, unspecified; Z79.4 Long term (current) use of insulin; Z68.43 Body mass index [BMI] 50.0-59.9, adult; Z99.2 Dependence on renal dialysis; Z99.89 Dependence on other enabling machines and devices | CPT/HCPCS: 99212 ==